=== PATIENT | female | born 1945 | race Caucasian/White ===

== ENCOUNTER 2016-07-31 07:03 | Emergency (ER) | payer OTHER, MEDICAID ==
--- NOTE | 2016-07-31 07:10 | EDPHY ---
H & P HPI/ROS: CHIEF COMPLAINT: chest pain HISTORY OF PRESENT ILLNESS: Patient is a 70-year-old female who presents to the emergency department via EMS with report of chest pain. She states it was substernal. It is worse with movement. She described as moderate. No associated shortness of breath or diaphoresis. She took Celebrex her symptoms improved. She has no chest pain at this time. No cough or fever. No leg pain or swelling. Patient does have a history of depression and anxiety. She states she was pretty anxious this morning. EMS reports that the patient told this patch that she wanted to . The patient denies suicidal ideation. She states she said that because she was having the chest pain. Per report her initial systolic blood pressure was 2/100. Without medication the patient's systolic blood pressure dropped to 150. REVIEW OF SYSTEMS: My complete review of systems is negative except as mentioned in the HPI. Past Medical/Surgical History: Includes hypothyroidism, bipolar, anxiety, MS, breast cancer Includes lumpectomy Social history: Patient denies alcohol. Smoking Status: Former smoker Physical Exam: Vitals noted GENERAL: Well-appearing, in no acute distress, alert. HEENT: Eyes normal to inspection, normal pharynx, no signs of dehydration. NECK: No thyromegaly, no lymphadenopathy, supple. RESPIRATORY: Clear to auscultation bilaterally, no rales, rhonchi or wheezing. Chest wall: No chest wall tenderness palpation. CVS: Regular rate and rhythm, no rubs, murmurs, or gallops. ABDOMEN: Soft, nontender, nondistended, no organomegaly. BACK: Normal to inspection, no CVA tenderness. SKIN: Normal color, no rash, warm, dry. No pallor. EXTREMITIES: No pedal edema, no calf tenderness, no Homans sign or cords, no joint swelling. NEURO/PSYCH: Alert and oriented, normal mood and affect, normal motor sensory exam. Constitutional: Initial Vital Signs Temperature (C) 36.2 C 07/31/16 07:19 Heart Rate 78 07/31/16 07:19 Respiratory Rate 17 07/31/16 07:19 Blood Pressure 138/89 H 07/31/16 07:19 O2 Sat (%) 96 07/31/16 07:19 O2 Delivery Mode Room Air Allergies/Adverse Reactions: No Known Allergies Allergy (Verified 12/06/15 01:28) Home Medications: Medication Instructions Recorded Neurontin 05/19/12 Synthroid 02/16/14 Temazepam 05/19/14 Vyvanse 05/19/14 Promethazine HCl [Phenergan] 25 mg PO Q6 PRN #10 tab 11/28/15 Medical Decision Making - Diagnostics EKG Interpretation: EKG shows normal sinus rhythm, normal rate, normal axis, normal intervals. There are no ST or T-wave abnormalities. EKG is normal as interpreted by me. ED Course/Re-evaluation: In the emergency department I met EMS on arrival in took report from the hydrator operator. He stated that at she appears much better at this point. He reports that she was quite anxious on arrival. I rechecked the patient on numerous occasions while here. Her symptoms had completely resolved. 845: The patient is doing well. She requests discharge home. She has no complaints. I discussed her laboratory findings and x-ray results. She will return with worsening symptoms. She was given warnings prior to leaving. Differential Diagnosis: My differential includes but is not limited to ACS, acute PR, myocarditis, pericarditis, aortic aneurysm, aortic dissection, pulmonary embolus, costochondritis, pleurisy, anxiety, depression, suicidal ideation - Data Points Laboratory Results: Laboratory Results 07/31/16 07:25 07/31/16 07:25 07/31/16 07:25 WBC 7.25 10^3/uL (3.80-9.50) RBC 5.19 10^6/uL (4.18-5.33) Hgb 16.8 H g/dL (12.6-16.3) Hct 48.4 H % (38.0-47.0) MCV 93.3 fL (81.5-99.8) MCH 32.4 pg (27.9-34.1) MCHC 34.7 g/dL (32.4-36.7) RDW 13.2 % (11.5-15.2) Plt Count 332 10^3/uL (150-400) MPV 9.8 fL (8.7-11.7) Neut % (Auto) 72.8 % (39.3-74.2) Lymph % (Auto) 19.4 % (15.0-45.0) [place] % (Auto) 5.5 % (4.5-13.0) Eos % (Auto) 1.2 % (0.6-7.6) Baso % (Auto) 0.8 % (0.3-1.7) Nucleat RBC Rel Count 0.0 % (0.0-0.2) Absolute Neuts (auto) 5.27 10^3/uL (1.70-6.50) Absolute Lymphs (auto) 1.41 10^3/uL (1.00-3.00) Absolute Monos (auto) 0.40 10^3/uL (0.30-0.80) Absolute Eos (auto) 0.09 10^3/uL (0.03-0.40) Absolute Basos (auto) 0.06 10^3/uL (0.02-0.10) Absolute Nucleated RBC 0.00 10^3/uL (0-0.01) Immature Gran % 0.3 % (0.0-1.1) Immature Gran # 0.02 10^3/uL (0.00-0.10) Sodium 141 mEq/L (134-144) Potassium 4.5 mEq/L (3.5-5.2) Chloride 102 mEq/L (97-110) Carbon Dioxide 25 mEq/l (22-31) Anion Gap 14 mEq/L (8-16) BUN 16 mg/dL (7-23) Creatinine 0.9 mg/dL (0.6-1.0) Estimated GFR > 60 Glucose 137 H mg/dL (70-100) Calcium 10.1 mg/dL (8.5-10.4) Troponin I < 0.012 ng/mL (0-0.034) Medications Given: Discontinued Medications Aspirin (Aspirin) 324 mg PO EDNOW ONE Stop: 07/31/16 07:13 Last Admin: 07/31/16 07:29 Dose: 324 mg Ondansetron HCl (Zofran Odt) 4 mg PO EDNOW ONE Stop: 07/31/16 07:31 Last Admin: 07/31/16 07:54 Dose: 4 mg Departure - Departure Disposition: Home, Routine, Self-Care Clinical Impression: Chest pain Qualifiers: Chest pain type: other chest pain Qualifier Code: (R07.89) Other chest pain Condition: Good Instructions: Chest Pain (ED) Additional Instructions: Return with increasing pain, shortness of breath, fever or any other concerns. Referrals: [facility] [Outside] - 5-7 days, call for appt.
[2016-07-31] MEDS ORDERED: ASPIRIN 81 MG CHEWABLE TAB PO ONE (07:12)
[2016-07-31 07:22] VITALS: TEMP 97.2
--- NOTE | 2016-07-31 07:28 | CPEKG ---
Heart Rate: 60 RR Interval: 1000 P-R Interval: 172 QRSD Interval: 90 QT Interval: 432 QTC Interval: 432 P [place]: 69 QRS [place]: 65 T Wave [place]: 77 EKG Severity - NORMAL ECG - EKG Impression: SINUS RHYTHM Electronically Signed By: Deedee Arambula 31-Jul-2016 14:59:13
[2016-07-31] MEDS ORDERED: ONDANSETRON DISINTEGRATING 4 MG TAB PO ONE (07:30)
[2016-07-31 07:32] LABS: % IMMATURE GRANULYOCYTES 0.3 % (0.0-1.1); ABSOLUTE IMMATURE GRANULOCYTES 0.02 10^3/uL (0.00-0.10); ADD DIFF? NO; ADD MORPH? NO; ADD SCAN? NO; ATYPICAL LYMPHOCYTE FLAG 0 (0-99); FRAGMENT RBC FLAG 0 (0-99); HEMATOCRIT 48.4 % (38.0-47.0); HEMOGLOBIN 16.8 g/dL (12.6-16.3); LEFT SHIFT FLG 0 (0-99); LIPEMIA HEMOLYSIS FLAG 90 (0-99); MEAN CELL HEMOGLOBIN 32.4 pg (27.9-34.1); MEAN CELL HEMOGLOBIN CONCENTR. 34.7 g/dL (32.4-36.7); MEAN CELL VOLUME 93.3 fL (81.5-99.8); MEAN PLATELET VOLUME 9.8 fL (8.7-11.7); PLATELET CLUMPS FLAG 10 (0-99); PLATELET COUNT 332 10^3/uL (150-400); RED BLOOD CELL COUNT 5.19 10^6/uL (4.18-5.33); RED CELL DISTRIBUTION WIDTH 13.2 % (11.5-15.2)
[2016-07-31 07:51] LABS: ANION GAP 14 mEq/L (8-16); CALCIUM 10.1 mg/dL (8.5-10.4); CARBON DIOXIDE 25 mEq/l (22-31); CHLORIDE 102 mEq/L (97-110); CREATININE 0.9 mg/dL (0.6-1.0); GLOMERULAR FILTRATION RATE > 60; GLUCOSE 137 mg/dL (70-100); POTASSIUM 4.5 mEq/L (3.5-5.2); SODIUM 141 mEq/L (134-144)
[2016-07-31 08:02] LABS: TROPONIN I < 0.012 ng/mL (0-0.034)
[2016-07-31 08:58] VITALS: BP 148/96; PULSE 83; RESP 14; O2SAT 96
--- NOTE | 2016-07-31 09:08 | DX ---
PA Upright and Lateral Views of the Chest, 6:56 AM on July 31, 2016 Clinical History: 70-year-old female with intermittent chest pain and dizziness for 2 days with a for arlette tobacco use history. Comparison Study: Chest, dated 06/02/2014. Findings: There is a sigmoid-shaped thoracolumbar scoliosis. The cardiac and mediastinal silhouette i s stable in size, with some thoracic aortic ectasia. The lungs are hyperexpanded, consistent with und erlying COPD. There is no focal alveolar consolidation, pleural effusion, or peripheral interstitial edema. On the lateral view, the bones are demineralized, and there is a mild kyphosis with no vipul anjana fracture. Impression: No acute abnormality, or substantial change from 06/02/2014.
== END 2016-07-31 09:03 | disposition home or self-care (01) ==
LOC: EDUNIT#
DX: R07.89 Other chest pain (principal); Z85.3 Personal history of malignant neoplasm of breast; Z87.891 Personal history of nicotine dependence

== ENCOUNTER → 2016-08-10 | Outpatient (CLI) | payer OTHER, MEDICAID | LOC: BMCIMAGING 09:31 | PROVIDERS: ATTEND Orthopaedic Surgery | DX: M25.552 Pain in left hip (principal) ==

== ENCOUNTER 2016-08-14 05:46 | Emergency (ER) | payer OTHER, MEDICAID ==
--- NOTE | 2016-08-14 05:57 | EDPHY ---
H & P Time Seen by Provider: 08/14/16 05:54 HPI/ROS: Chief complaint: Chest pain and nausea HPI: 70-year-old female with a history of MS presenting complaining of constant 6/10 chest pain since yesterday morning. Patient had a similar episode 2 weeks ago was seen here and evaluated and discharged home. Patient is also complaining of some nausea. States she has vomited twice this morning. No fevers or chills. No cough. No shortness of breath. She diet denies any aggravating or alleviating factors. She has been seen this for this in the past multiple times and has not negative workup. Patient states that she did not follow up with her primary care physician at her last visit. She was instructed to follow up with Cardiology but has failed to do so. ROS: 10 point Review of Systems is negative except as noted in the HPI. Past medical history: MS Hypothyroidism bipolar disorder Anxiety Breast cancer, status post lumpectomy Physical exam: Gen: Awake, Alert, No Distress HEENT: Nose: no rhinorrhea Eyes: PERRLA, EOMI Mouth: Moist mucosa Neck: Supple, no JVD Chest: nontender, lungs clear to auscultation Heart: S1, S2 normal, no murmur Abd: Soft, non-tender, no guarding Back: no CVA tenderness, no midline tenderness Ext: no edema, non-tender Skin: no rash Neuro: CN II-XII intact, Sensation grossly intact, Strength 5/5 in bilateral upper and lower extremities - Medical/Surgical History Hx Asthma: No Hx Chronic Respiratory Disease: No Hx Diabetes: No Hx Cardiac Disease: No Hx Renal Disease: No Hx Cirrhosis: No Hx Alcoholism: No Hx HIV/AIDS: No Hx Splenectomy or Spleen Trauma: No Other PMH: Hypothyroid, bipolar, MS, osteoporosis, anxiety, Breast CA (Rt), - Social History Smoking Status: Former smoker Constitutional: Initial Vital Signs Temperature (C) 36.6 C 08/14/16 06:19 Heart Rate 74 08/14/16 06:19 Respiratory Rate 16 08/14/16 06:19 Blood Pressure 169/102 H 08/14/16 06:19 O2 Sat (%) 95 08/14/16 06:19 O2 Delivery Mode Room Air Allergies/Adverse Reactions: No Known Allergies Allergy (Verified 08/14/16 06:19) Home Medications: Medication Instructions Recorded Neurontin 05/19/12 Synthroid 02/16/14 Temazepam 05/19/14 Vyvanse 05/19/14 Promethazine HCl [Phenergan] 25 mg PO Q6 PRN #10 tab 11/28/15 Medical Decision Making - Diagnostics EKG Interpretation: ECG: Time 6:15 a.m.: Sinus rhythm with a rate of 65. Normal axis. Normal intervals. No acute ST or T-wave changes. Impression: Normal ECG. ED Course/Re-evaluation: 70-year-old female presenting with atypical chest pain since yesterday with some nausea this morning. She had a similar episode 2 weeks ago with a negative workup. ECG is normal. Blood work is unremarkable. There are no findings to suggest acute coronary syndrome. Plan will be to discharge with follow-up with primary care physician and she needs to follow up with Cardiology as well for stress testing and further evaluation. - Data Points Laboratory Results: Laboratory Results 08/14/16 06:05 08/14/16 08/14/16 06:05 06:05 WBC 7.62 10^3/uL 10^3/uL (3.80-9.50) RBC 5.09 10^6/uL 10^6/uL (4.18-5.33) Hgb 16.4 g/dL H g/dL (12.6-16.3) Hct 47.2 % H % (38.0-47.0) MCV 92.7 fL fL (81.5-99.8) MCH 32.2 pg pg (27.9-34.1) MCHC 34.7 g/dL g/dL (32.4-36.7) RDW 13.1 % % (11.5-15.2) Plt Count 288 10^3/uL 10^3/uL (150-400) MPV 9.4 fL fL (8.7-11.7) Neut % (Auto) 65.8 % % (39.3-74.2) Lymph % (Auto) 24.5 % % (15.0-45.0) [place] % (Auto) 6.2 % % (4.5-13.0) Eos % (Auto) 2.2 % % (0.6-7.6) Baso % (Auto) 0.9 % % (0.3-1.7) Nucleat RBC Rel Count 0.0 % % (0.0-0.2) Absolute Neuts (auto) 5.01 10^3/uL 10^3/uL (1.70-6.50) Absolute Lymphs (auto) 1.87 10^3/uL 10^3/uL (1.00-3.00) Absolute Monos (auto) 0.47 10^3/uL 10^3/uL (0.30-0.80) Absolute Eos (auto) 0.17 10^3/uL 10^3/uL (0.03-0.40) Absolute Basos (auto) 0.07 10^3/uL 10^3/uL (0.02-0.10) Absolute Nucleated RBC 0.00 10^3/uL 10^3/uL (0-0.01) Immature Gran % 0.4 % % (0.0-1.1) Immature Gran # 0.03 10^3/uL 10^3/uL (0.00-0.10) Sodium Pending Potassium Pending Chloride Pending Carbon Dioxide Pending Anion Gap Pending BUN Pending Creatinine Pending Estimated GFR Pending Glucose Pending Calcium Pending Troponin I Pending Medications Given: Discontinued Medications Sodium Chloride (Ns) 1,000 mls @ 0 mls/hr IV ONCE ONE PRN Reason: Wide Open Stop: 08/14/16 06:26 Last Admin: 08/14/16 06:25 Dose: 1,000 mls Ondansetron HCl (Zofran) 4 mg IVP EDNOW ONE Stop: 08/14/16 06:26 Last Admin: 08/14/16 06:26 Dose: 4 mg Departure - Departure Disposition: Home, Routine, Self-Care Clinical Impression: Atypical chest pain, Nausea Condition: Good Instructions: Chest Pain (ED) Additional Instructions: Follow up with her primary care physician in next 2-3 days. It is very important that you follow up with Cardiology as well for further evaluation. Return to the emergency depart for increasing pain, shortness of breath, fevers , chills, nausea, vomiting, or any other concerns. Referrals: Leann Rivera MD [Primary Care Provider] - As per Instructions Abhishek Prabhakar MD [Medical Doctor] - As per Instructions
[2016-08-14] MEDS ORDERED: ONDANSETRON 4 MG/2 ML VIAL ONE (06:02)
[2016-08-14 06:14] LABS: % IMMATURE GRANULYOCYTES 0.4 % (0.0-1.1); ABSOLUTE IMMATURE GRANULOCYTES 0.03 10^3/uL (0.00-0.10); ADD DIFF? NO; ADD MORPH? NO; ADD SCAN? NO; ATYPICAL LYMPHOCYTE FLAG 0 (0-99); FRAGMENT RBC FLAG 0 (0-99); HEMATOCRIT 47.2 % (38.0-47.0); HEMOGLOBIN 16.4 g/dL (12.6-16.3); LEFT SHIFT FLG 0 (0-99); LIPEMIA HEMOLYSIS FLAG 90 (0-99); MEAN CELL HEMOGLOBIN 32.2 pg (27.9-34.1); MEAN CELL HEMOGLOBIN CONCENTR. 34.7 g/dL (32.4-36.7); MEAN CELL VOLUME 92.7 fL (81.5-99.8); MEAN PLATELET VOLUME 9.4 fL (8.7-11.7); PLATELET CLUMPS FLAG 0 (0-99); PLATELET COUNT 288 10^3/uL (150-400); RED BLOOD CELL COUNT 5.09 10^6/uL (4.18-5.33); RED CELL DISTRIBUTION WIDTH 13.1 % (11.5-15.2)
[2016-08-14 06:20] VITALS: RESP 16; TEMP 97.9
[2016-08-14] MEDS ORDERED: ONDANSETRON 4 MG/2 ML VIAL IVP ONE (06:25)
[2016-08-14] MEDS ORDERED: NS 1,000 ML IV ONE (06:25)
[2016-08-14 06:36] LABS: ANION GAP 12 mEq/L (8-16); CARBON DIOXIDE 26 mEq/l (22-31); CHLORIDE 102 mEq/L (97-110); CREATININE 0.9 mg/dL (0.6-1.0); GLOMERULAR FILTRATION RATE > 60; GLUCOSE 120 mg/dL (70-100); POTASSIUM 4.3 mEq/L (3.5-5.2); SODIUM 140 mEq/L (134-144)
[2016-08-14 06:45] LABS: TROPONIN I 0.012 ng/mL (0-0.034)
[2016-08-14] MEDS ORDERED: ONDANSETRON 4MG PREPACK#2 BTL TAKEHOME ONE (06:53)
[2016-08-14 06:54] VITALS: BP 144/92; PULSE 82; O2SAT 94
[2016-08-14 07:03] LABS: COLOR YELLOW; LEUKOCYTE ESTERASE,URINE 1+ (NEGATIVE); NITRITE,URINE NEGATIVE (NEGATIVE)
[2016-08-14 07:08] LABS: BACTERIA TRACE /hpf (NONE SEEN); MUCUS TRACE /lpf (NONE-1+)
--- NOTE | 2016-08-14 20:56 | CPEKG ---
Heart Rate: 65 RR Interval: 923 P-R Interval: 164 QRSD Interval: 92 QT Interval: 444 QTC Interval: 462 P [place]: 36 QRS [place]: 70 T Wave [place]: 67 EKG Severity - NORMAL ECG - EKG Impression: SINUS RHYTHM Electronically Signed By: Ryan Lloyd 15-Aug-2016 16:52:25
== END 2016-08-14 07:06 | disposition home or self-care (01) ==
LOC: EDUNIT#
DX: R11.0 Nausea (principal); R07.89 Other chest pain; Z85.3 Personal history of malignant neoplasm of breast; Z87.891 Personal history of nicotine dependence
CPT/HCPCS: 93005; 96361; 96374; 99284; J2405

== ENCOUNTER 2016-10-15 03:09 | Emergency (ER) | payer OTHER, MEDICAID ==
[2016-10-15] MEDS ORDERED: LORazepam 2 MG/ML INJ IVP ONE (04:28)
[2016-10-15] MEDS ORDERED: NS 1,000 ML IV ONE (04:28)
[2016-10-15] MEDS ORDERED: MECLIZINE HCL 25 MG TAB PO ONE (04:28)
--- NOTE | 2016-10-15 04:32 | EDPHY ---
H & P Stated Complaint: n/v dizzy Time Seen by Provider: 10/15/16 04:00 HPI/ROS: HPI The patient presents with dizziness which came on earlier this evening while she was trying to sleep. She says she has not been able to sleep for about 2 days as she was recently taken off Restoril and started on Ambien but has run out of the Ambien. She said she was lying in bed when she felt the acute onset of dizziness which she describes as the room spinning. This is worse upon standing and relieved by rest. She has some nausea without vomiting. She does not have a headache, changes in her vision. She has had vertigo before which improved on its own. She is brought in by ambulance. REVIEW OF SYSTEMS Constitutional: No fever, no chills. Eyes: No discharge. ENT: No sore throat. Cardiovascular: No chest pain, no palpitations. Respiratory: No cough, no shortness of breath. Gastrointestinal: No abdominal pain, nausea is present Genitourinary: No hematuria. Musculoskeletal: No back pain. Skin: No rashes. Neurological: No headache. PMHx: Bipolar disorder, anxiety, multiple sclerosis Soc Hx: Lives independently PHYSICAL General Appearance: Alert, no distress Eyes: Pupils equal and round no pallor or injection ENT, Mouth: Mucous membranes moist Respiratory: There are no retractions, lungs are clear to auscultation Cardiovascular: Regular rate and rhythm Gastrointestinal: Abdomen is soft and non-tender, no masses, bowel sounds normal Neurological: Alert and oriented x3, cranial nerves 2-12 intact, 5/5 strength in upper and lower extremities which is symmetric, normal finger to nose and heel to erwin testing, normal gait Skin: Warm and dry, no rashes Musculoskeletal: Neck is supple non tender Extremities: symmetrical, full range of motion Psychiatric: Patient is oriented X 3, there is no agitation Source: Patient Exam Limitations: No limitations - Personal History Current Tetanus/Diphtheria Vaccine: Yes Current Tetanus Diphtheria and Acellular Pertussis (TDAP): Yes - Medical/Surgical History Hx Asthma: No Hx Chronic Respiratory Disease: No Hx Diabetes: No Hx Cardiac Disease: No Hx Renal Disease: No Hx Cirrhosis: No Hx Alcoholism: No Hx HIV/AIDS: No Hx Splenectomy or Spleen Trauma: No Other PMH: Hypothyroid, bipolar, MS, osteoporosis, anxiety, Breast CA (Rt), - Social History Smoking Status: Former smoker Constitutional: Initial Vital Signs Temperature (C) 36.4 C 10/15/16 03:23 Heart Rate 84 10/15/16 03:23 Respiratory Rate 18 10/15/16 03:23 Blood Pressure 166/108 H 10/15/16 03:23 O2 Sat (%) 94 10/15/16 03:23 O2 Delivery Mode Room Air Allergies/Adverse Reactions: No Known Allergies Allergy (Verified 08/14/16 06:19) Home Medications: Medication Instructions Recorded Neurontin 05/19/12 Synthroid 02/16/14 Temazepam 05/19/14 Vyvanse 05/19/14 Promethazine HCl [Phenergan] 25 mg PO Q6 PRN #10 tab 11/28/15 Celebrex 10/15/16 Copaxone 10/15/16 Zyprexa 10/15/16 Medical Decision Making Differential Diagnosis: This is a 70-year-old female with past psychiatric history who presents from home with dizziness in the setting of insomnia. Her dizziness sounds to be vertigo. She does not have a headache, vomiting, any cerebellar signs on exam, making central vertigo unlikely. I feel she likely has BPPV, possibly provoked by her insomnia. This also could be a medication side effect as she has recently started Ambien. In the emergency room, she was given IV fluids, meclizine and a small dose of Ativan. This improved her symptoms completely. She was able to walk around the emergency room without any difficulty. She will be discharged home. - Data Points Medications Given: Discontinued Medications Sodium Chloride (Ns) 1,000 mls @ 0 mls/hr IV ONCE ONE PRN Reason: Wide Open Stop: 10/15/16 04:29 Last Admin: 10/15/16 04:46 Dose: 1,000 mls Lorazepam (Ativan Injection) 0.5 mg IVP EDNOW ONE Stop: 10/15/16 04:29 Last Admin: 10/15/16 04:46 Dose: 0.5 mg Meclizine HCl (Meclizine Hcl) 25 mg PO EDNOW ONE Stop: 10/15/16 04:29 Last Admin: 10/15/16 04:46 Dose: 25 mg Departure - Departure Disposition: Home, Routine, Self-Care Clinical Impression: Vertigo Condition: Good Instructions: Vertigo (ED), Insomnia (ED) Additional Instructions: Please follow up with your regular doctor in the next 1-2 days. Referrals: Leann Rivera MD [Primary Care Provider] - As per Instructions
[2016-10-15 06:02] VITALS: BP 119/88; PULSE 91; RESP 93; TEMP 98.1; O2SAT 93
[2016-10-15] MEDS ORDERED: ONDANSETRON 4MG PREPACK#2 BTL TAKEHOME ONE ×2 (06:05→06:06)
== END 2016-10-15 06:09 | disposition home or self-care (01) ==
LOC: EDUNIT#
DX: R42 Dizziness and giddiness (principal); Z85.3 Personal history of malignant neoplasm of breast; Z87.891 Personal history of nicotine dependence
CPT/HCPCS: 96361; 96374; 99284; J2060

== ENCOUNTER 2016-10-21 09:18 | Emergency (ER) | payer OTHER, MEDICAID ==
[2016-10-21] MEDS ORDERED: NS 1,000 ML IV ONE (09:39)
[2016-10-21] MEDS ORDERED: LORazepam 2 MG/ML INJ IVP ONE (09:39)
--- NOTE | 2016-10-21 09:42 | EDPHY ---
H & P Stated Complaint: Took 10 OTC sleep aid tablets Source: Patient Exam Limitations: No limitations - Personal History Current Tetanus/Diphtheria Vaccine: No Current Tetanus Diphtheria and Acellular Pertussis (TDAP): No - Medical/Surgical History Hx Asthma: No Hx Chronic Respiratory Disease: No Hx Diabetes: No Hx Cardiac Disease: No Hx Renal Disease: No Hx Cirrhosis: No Hx Alcoholism: No Hx HIV/AIDS: No Hx Splenectomy or Spleen Trauma: No Other PMH: Hypothyroid, bipolar, MS, osteoporosis, anxiety, Breast CA (Rt), - Social History Smoking Status: Former smoker Time Seen by Provider: 10/21/16 09:39 HPI/ROS: CHIEF COMPLAINT: Vertigo, insomnia HISTORY OF PRESENT ILLNESS: The patient presents to ED after an intentional overdose of [id number] sleeping medications. The patient has been bothered by insomnia for some time. She had been on Restoril and was recently switched to Ambien by her primary care provider Dr. Leann Rivera. The patient feels as if the Ambien is not helpful in treating her insomnia. The patient denies that she overdosed on sleeping medications as a suicide attempt. Additionally, the patient has been bothered by vertigo for the past week. This seems to be precipitated and exacerbated by her insomnia. The patient does have a history of multiple sclerosis. She denies acute numbness or weakness. The patient does report moderate to severe symptoms of vertigo and nausea. The patient denies additional complaints of headache, fever, cough, new pain, focal neurologic symptoms or other concerns. REVIEW OF SYSTEMS: A comprehensive 10 point review of systems is otherwise negative aside from elements mentioned in the history of present illness. (Eladio Whitley) - Physical Exam Exam: General Appearance: Alert, no distress Eyes: Pupils equal and round no pallor or injection ENT, Mouth: Mucous membranes moist Respiratory: There are no retractions, lungs are clear to auscultation Cardiovascular: Regular rate and rhythm Gastrointestinal: Abdomen is soft and nontender, no masses, bowel sounds normal Neurological: Alert and oriented x4, 5/5 strength noted all 4 extremities, horizontal nystagmus is present with leftward gaze Skin: Warm and dry, no rashes Musculoskeletal: Neck is supple nontender Extremities: symmetrical, full range of motion Psychiatric: Patient is oriented X 3, there is no agitation (Eladio Whitley) Constitutional: Initial Vital Signs Temperature (C) 36.3 C 10/21/16 09:18 Heart Rate 86 10/21/16 09:18 Respiratory Rate 16 10/21/16 09:18 Blood Pressure 143/90 H 10/21/16 09:18 O2 Sat (%) 94 10/21/16 09:18 O2 Delivery Mode Room Air Allergies/Adverse Reactions: No Known Allergies Allergy (Verified 08/14/16 06:19) Home Medications: Medication Instructions Recorded Neurontin 05/19/12 Synthroid 02/16/14 Temazepam 05/19/14 Vyvanse 05/19/14 Promethazine HCl [Phenergan] 25 mg PO Q6 PRN #10 tab 11/28/15 Celebrex 10/15/16 Copaxone 10/15/16 Zyprexa 10/15/16 Medical Decision Making ED Course/Re-evaluation: The patient presents to the ED after she took [id number] sleeping medications for insomnia. The patient denies that she is suicidal but does report she is severely depressed. The patient has been medically cleared for psychiatric evaluation. The patient was given some meclizine and Ativan for vertigo. Her laboratory studies are unremarkable. Psychiatric evaluation is currently occurring at 2:15 p.m.. I do feel the patient can be discharged home from a medical standpoint. The patient will be turned over to Dr. Arambula at shift change. (Eladio Whitley) 1500: At sign out the patient is stable. She is undergoing evaluation. I discussed the case with Psychiatric Services. Per Dr. Jamel Segundo, he REQUESTED THE PATIENT BE GIVEN HER MEDICATIONS UNTIL SUNDAY. THESE PRESCRIPTIONS INCLUDE NEURONTIN 100 MG P.O. AT BEDTIME, ZYPREXA 10 MG P.O. AT BEDTIME, RESTORIL 30 MG 1 CAP P.O. AT BEDTIME P.R.N. INSOMNIA, VYVANSE 70 MG P.O. Q.A.M. AND VYVANSE 20 MG P.O. Q 2:00 P.M. Patient feels comfortable with this plan. She will follow up with the clinic at [facility] on Sunday morning. (Deedee Arambula) Differential Diagnosis: My differential includes but is not limited to suicidal ideation, anxiety, depression, medication compliance (Deedee Arambula) - Data Points Laboratory Results: Laboratory Results 10/21/16 09:20 10/21/16 09:20 10/21/16 10/21/16 10/21/16 12:30 09:20 09:20 WBC 8.04 10^3/uL 10^3/uL (3.80-9.50) RBC 5.19 10^6/uL 10^6/uL (4.18-5.33) Hgb 16.2 g/dL g/dL (12.6-16.3) Hct 47.9 % H % (38.0-47.0) MCV 92.3 fL fL (81.5-99.8) MCH 31.2 pg pg (27.9-34.1) MCHC 33.8 g/dL g/dL (32.4-36.7) RDW 13.2 % % (11.5-15.2) Plt Count 330 10^3/uL 10^3/uL (150-400) MPV 10.0 fL fL (8.7-11.7) Neut % (Auto) 69.0 % % (39.3-74.2) Lymph % (Auto) 20.9 % % (15.0-45.0) [place] % (Auto) 6.5 % % (4.5-13.0) Eos % (Auto) 2.0 % % (0.6-7.6) Baso % (Auto) 1.1 % % (0.3-1.7) Nucleat RBC Rel Count 0.0 % % (0.0-0.2) Absolute Neuts (auto) 5.55 10^3/uL 10^3/uL (1.70-6.50) Absolute Lymphs (auto) 1.68 10^3/uL 10^3/uL (1.00-3.00) Absolute Monos (auto) 0.52 10^3/uL 10^3/uL (0.30-0.80) Absolute Eos (auto) 0.16 10^3/uL 10^3/uL (0.03-0.40) Absolute Basos (auto) 0.09 10^3/uL 10^3/uL (0.02-0.10) Absolute Nucleated RBC 0.00 10^3/uL 10^3/uL (0-0.01) Immature Gran % 0.5 % % (0.0-1.1) Immature Gran # 0.04 10^3/uL 10^3/uL (0.00-0.10) Sodium 140 mEq/L mEq/L (134-144) Potassium 4.5 mEq/L mEq/L (3.5-5.2) Chloride 103 mEq/L mEq/L (97-110) Carbon Dioxide 24 mEq/l mEq/l (22-31) Anion Gap 13 mEq/L mEq/L (8-16) BUN 16 mg/dL mg/dL (7-23) Creatinine 1.0 mg/dL mg/dL (0.6-1.0) Estimated GFR 55 Glucose 132 mg/dL H mg/dL (70-100) Calcium 9.6 mg/dL mg/dL (8.5-10.4) Urine Opiates Screen NEGATIVE (NEGATIVE) Urine Barbiturates NEGATIVE (NEGATIVE) Ur Phencyclidine Scrn NEGATIVE (NEGATIVE) Ur Amphetamine Screen NON-NEGATIVE H (NEGATIVE) U Benzodiazepines Scrn NEGATIVE (NEGATIVE) Urine Cocaine Screen NEGATIVE (NEGATIVE) U Marijuana (THC) Screen NEGATIVE (NEGATIVE) Medications Given: Discontinued Medications Sodium Chloride (Ns) 1,000 mls @ 0 mls/hr IV ONCE ONE PRN Reason: Wide Open Stop: 10/21/16 09:40 Last Admin: 10/21/16 09:42 Dose: 1,000 mls Lorazepam (Ativan Injection) 1 mg IVP EDNOW ONE Stop: 10/21/16 09:40 Last Admin: 10/21/16 09:45 Dose: 1 mg Meclizine HCl (Meclizine Hcl) 25 mg PO EDNOW ONE Stop: 10/21/16 10:01 Last Admin: 10/21/16 10:18 Dose: 25 mg Departure - Departure Disposition: Home, Routine, Self-Care Clinical Impression: ingestion, Depression Insomnia Qualifiers: Insomnia type: primary Qualified Code(s): F51.01 - Primary insomnia Condition: Good Instructions: Depression (ED) Additional Instructions: Fill your prescriptions as directed. If you have worsening symptoms or concerns return to the emergency department. Referrals: Leann Rivera MD [Primary Care Provider] - 1-2 days without fail
[2016-10-21 09:43] LABS: % IMMATURE GRANULYOCYTES 0.5 % (0.0-1.1); ABSOLUTE IMMATURE GRANULOCYTES 0.04 10^3/uL (0.00-0.10); ADD DIFF? NO; ADD MORPH? NO; ADD SCAN? NO; ATYPICAL LYMPHOCYTE FLAG 0 (0-99); FRAGMENT RBC FLAG 0 (0-99); HEMATOCRIT 47.9 % (38.0-47.0); HEMOGLOBIN 16.2 g/dL (12.6-16.3); LEFT SHIFT FLG 0 (0-99); LIPEMIA HEMOLYSIS FLAG 90 (0-99); MEAN CELL HEMOGLOBIN 31.2 pg (27.9-34.1); MEAN CELL HEMOGLOBIN CONCENTR. 33.8 g/dL (32.4-36.7); MEAN CELL VOLUME 92.3 fL (81.5-99.8); PLATELET CLUMPS FLAG 0 (0-99); PLATELET COUNT 330 10^3/uL (150-400); RED BLOOD CELL COUNT 5.19 10^6/uL (4.18-5.33); RED CELL DISTRIBUTION WIDTH 13.2 % (11.5-15.2)
[2016-10-21 09:49] LABS: ANION GAP 13 mEq/L (8-16); CALCIUM 9.6 mg/dL (8.5-10.4); CARBON DIOXIDE 24 mEq/l (22-31); CHLORIDE 103 mEq/L (97-110); GLOMERULAR FILTRATION RATE 55; GLUCOSE 132 mg/dL (70-100); POTASSIUM 4.5 mEq/L (3.5-5.2); SODIUM 140 mEq/L (134-144)
[2016-10-21] MEDS ORDERED: MECLIZINE HCL 25 MG TAB PO ONE (10:00)
[2016-10-21 16:15] VITALS: O2SAT 96
[2016-10-21 18:23] VITALS: BP 130/78; PULSE 80; RESP 16; TEMP 98.4
== END 2016-10-21 18:21 | disposition home or self-care (01) ==
LOC: EDUNIT#
DX: F51.01 Primary insomnia (principal); T42.6X1A Poisoning by other antiepileptic and sedative-hypnotic drugs, accidental (unintentional), initial encounter; F32.9 Major depressive disorder, single episode, unspecified; Z85.3 Personal history of malignant neoplasm of breast; Z87.891 Personal history of nicotine dependence
CPT/HCPCS: 96361; 96374; 99284; J2060; 80305

== ENCOUNTER → 2016-11-22 | Outpatient (CLI) | payer OTHER, MEDICAID | LOC: BMCIMAGING 13:09 | PROVIDERS: ATTEND Orthopaedic Surgery | DX: M25.552 Pain in left hip (principal) ==

== ENCOUNTER 2016-11-26 19:13 | Emergency (ER) | payer OTHER, MEDICAID ==
--- NOTE | 2016-11-26 19:20 | EDPHY ---
H & P HPI/ROS: HPI CHIEF COMPLAINT: Nausea, "I feel anxious" HISTORY OF PRESENT ILLNESS: This patient very pleasant 71-year-old female significant past medical history for MS, bipolar disorder, thyroid disease, anxiety, presents emergency room by EMS as she is tells me that she is feeling very anxious and nauseous. She also complains of right-sided anterior musculoskeletal chest wall pain in her lower costal margin. Denies trauma. She denies left-sided chest pain, numbness or tingling, focal weakness. Denies diaphoresis. Her main complaint is feeling anxious she requesting IV Ativan upon arrival to the emergency room. She did arrive by EMS. She denies abdominal pain. Denies shortness of breath or chest pain except for the right anterior chest wall pain. Past Medical History: Bipolar disorder, MS, anxiety, breast cancer, thyroid disease Past Surgical History: Lumpectomy Social History: Denies daily use of drugs alcohol tobacco Family History: Noncontributory ROS REVIEW OF SYSTEMS: A comprehensive 10 point review of systems is otherwise negative aside from elements mentioned in the history of present illness. Exam Constitutional appears anxious, triage nursing summary reviewed, vital signs reviewed, awake/alert. Eyes normal conjunctivae and sclera, EOMI, PERRLA. HENT normal inspection, atraumatic, moist mucus membranes, no epistaxis, neck supple/ no meningismus, no raccoon eyes. Respiratory clear to auscultation bilaterally, normal breath sounds, no respiratory distress, no wheezing. Cardiovascular rate normal, regular rhythm, no murmur, no edema, distal pulses normal. Gastrointestinal soft, non-tender, no rebound, no guarding, normal bowel sounds, no distension, no pulsatile mass. Genitourinary no CVA tenderness. Musculoskeletal no midline vertebral tenderness, full range of motion, no calf swelling, no tenderness of extremities, no meningismus, good pulses, neurovascularly intact. Skin pink, warm, & dry, no rash, skin atraumatic. Neurologic awake, alert and oriented x 3, AAOx3, moves all 4 extremities equally, motor intact, sensory intact, CN II-XII intact, normal cerebellar, normal vision, normal speech. Psychiatric normal mood/affect. Heme/Lymph/Immune no lymphadenopathy. Differential Diagnosis: Includes but is not limited to in a particular order acute anxiety, dehydration, electrolyte disturbance, urinary tract infection, right musculoskeletal chest wall pain. Medical Decision Making: Plan for this patient IV establishment, full environmental monitoring technician, EKG, chest x-ray, IV Ativan for acute anxiety, IV fluids, check electrolytes, check urinalysis. Re-evaluate after IV Ativan for acute anxiety. Re-evaluation: EKG interpretation by me on record in [facility] system. Impression time of EKG 2016, sinus rhythm rate of 66, no acute ischemia specifically no ST elevation, ST depression T-wave abnormalities 2108: Re-examination at this time patient resting comfortably. She feels much better after IV Ativan. Nausea resolved. She is nonischemic EKG normal troponin. Normal chest x-ray. Feels much better after IV Ativan. Tells me her anxiety is much improved after IV Ativan. She is requesting be discharged home. She is comfortable this plan. Vital signs stable. Ativan may great improvement. She does understand return emergency room if she develops any worsening symptoms questions or concerns. Denies chest pain, shortness of breath, abdominal pain nausea vomiting at this time. Source: Patient - Medical/Surgical History Hx Asthma: No Hx Chronic Respiratory Disease: No Hx Diabetes: No Hx Cardiac Disease: No Hx Renal Disease: No Hx Cirrhosis: No Hx Alcoholism: No Hx HIV/AIDS: No Hx Splenectomy or Spleen Trauma: No Other PMH: Hypothyroid, bipolar, MS, osteoporosis, anxiety, Breast CA (Rt), - Social History Smoking Status: Former smoker Constitutional: Initial Vital Signs Temperature (C) 36.5 C 11/26/16 19:15 Heart Rate 63 11/26/16 19:15 Respiratory Rate 18 11/26/16 19:15 Blood Pressure 169/97 H 11/26/16 19:15 O2 Sat (%) 95 11/26/16 19:15 O2 Delivery Mode Room Air Allergies/Adverse Reactions: No Known Allergies Allergy (Verified 08/14/16 06:19) Home Medications: Medication Instructions Recorded Neurontin 05/19/12 Synthroid 02/16/14 Vyvanse 05/19/14 Celebrex 10/15/16 Zyprexa 10/15/16 Temazepam [Restoril] 30 mg PO HS PRN #3 capsule 10/21/16 Medical Decision Making - Diagnostics Imaging Results: Imaging Impressions Chest X-Ray 11/26/16 19:25 Impression: 1. Mild cardiomegaly. 2. Thoracic dextroscoliosis. 3. No definite pneumonia or pulmonary edema. - Data Points Laboratory Results: Laboratory Results 11/26/16 19:18 11/26/16 19:18 11/26/16 11/26/16 11/26/16 19:18 19:18 19:18 WBC 10.55 10^3/uL H 10^3/uL (3.80-9.50) RBC 5.32 10^6/uL 10^6/uL (4.18-5.33) Hgb 16.6 g/dL H g/dL (12.6-16.3) Hct 49.4 % H % (38.0-47.0) MCV 92.9 fL fL (81.5-99.8) MCH 31.2 pg pg (27.9-34.1) MCHC 33.6 g/dL g/dL (32.4-36.7) RDW 13.6 % % (11.5-15.2) Plt Count 346 10^3/uL 10^3/uL (150-400) MPV 8.9 fL fL (8.7-11.7) Neut % (Auto) 64.6 % % (39.3-74.2) Lymph % (Auto) 27.1 % % (15.0-45.0) [place] % (Auto) 5.4 % % (4.5-13.0) Eos % (Auto) 1.5 % % (0.6-7.6) Baso % (Auto) 0.9 % % (0.3-1.7) Nucleat RBC Rel Count 0.0 % % (0.0-0.2) Absolute Neuts (auto) 6.81 10^3/uL H 10^3/uL (1.70-6.50) Absolute Lymphs (auto) 2.86 10^3/uL 10^3/uL (1.00-3.00) Absolute Monos (auto) 0.57 10^3/uL 10^3/uL (0.30-0.80) Absolute Eos (auto) 0.16 10^3/uL 10^3/uL (0.03-0.40) Absolute Basos (auto) 0.10 10^3/uL 10^3/uL (0.02-0.10) Absolute Nucleated RBC 0.00 10^3/uL 10^3/uL (0-0.01) Immature Gran % 0.5 % % (0.0-1.1) Immature Gran # 0.05 10^3/uL 10^3/uL (0.00-0.10) PT 13.3 SEC SEC (12.0-15.0) INR 1.02 (0.83-1.16) APTT 33.3 SEC SEC (23.0-38.0) Sodium 139 mEq/L mEq/L (134-144) Potassium 4.3 mEq/L mEq/L (3.5-5.2) Chloride 101 mEq/L mEq/L (97-110) Carbon Dioxide 23 mEq/l mEq/l (22-31) Anion Gap 15 mEq/L mEq/L (8-16) BUN 16 mg/dL mg/dL (7-23) Creatinine 1.0 mg/dL mg/dL (0.6-1.0) Estimated GFR 55 Glucose 99 mg/dL mg/dL (70-100) Calcium 10.1 mg/dL mg/dL (8.5-10.4) Total Bilirubin 0.8 mg/dL mg/dL (0.1-1.4) Conjugated Bilirubin 0.2 mg/dL mg/dL (0.0-0.5) Unconjugated Bilirubin 0.6 mg/dL mg/dL (0.0-1.1) AST 24 IU/L IU/L (14-46) ALT 25 IU/L IU/L (9-52) Alkaline Phosphatase 109 IU/L IU/L (38-126) Troponin I < 0.012 ng/mL ng/mL (0-0.034) Total Protein 7.9 g/dL g/dL (6.3-8.2) Albumin 4.6 g/dL g/dL (3.5-5.0) Lipase 69.0 IU/L IU/L (23-300) Ethyl Alcohol < 10 mg/dL mg/dL (0-10) Medications Given: Discontinued Medications Sodium Chloride (Ns) 1,000 mls @ 0 mls/hr IV ONCE ONE; Wide Open PRN Reason: Protocol Stop: 11/26/16 19:25 Last Admin: 11/26/16 19:30 Dose: 1,000 mls Lorazepam (Ativan Injection) 1 mg IVP EDNOW ONE Stop: 11/26/16 19:26 Last Admin: 11/26/16 19:30 Dose: 1 mg Departure - Departure Disposition: Home, Routine, Self-Care Clinical Impression: Anxiety Condition: Good Instructions: Anxiety (ED) Additional Instructions: 1. Return emergency room if you have any worsening symptoms includes further anxiety, vomiting chest pain or shortness of breath. Referrals: Patient,NotPresent [Unknown] - As per Instructions
[2016-11-26] MEDS ORDERED: NS 1,000 ML IV ONE (19:24)
[2016-11-26] MEDS ORDERED: LORazepam 2 MG/ML INJ IVP ONE (19:25)
[2016-11-26] MEDS ORDERED: LORazepam 2 MG/ML INJ ONE (19:26)
[2016-11-26 19:27] VITALS: TEMP 97.7
[2016-11-26 19:36] LABS: % IMMATURE GRANULYOCYTES 0.5 % (0.0-1.1); ABSOLUTE IMMATURE GRANULOCYTES 0.05 10^3/uL (0.00-0.10); ADD DIFF? NO; ADD MORPH? NO; ADD SCAN? NO; ATYPICAL LYMPHOCYTE FLAG 0 (0-99); FRAGMENT RBC FLAG 0 (0-99); HEMATOCRIT 49.4 % (38.0-47.0); HEMOGLOBIN 16.6 g/dL (12.6-16.3); LEFT SHIFT FLG 0 (0-99); LIPEMIA HEMOLYSIS FLAG 80 (0-99); MEAN CELL HEMOGLOBIN 31.2 pg (27.9-34.1); MEAN CELL HEMOGLOBIN CONCENTR. 33.6 g/dL (32.4-36.7); MEAN CELL VOLUME 92.9 fL (81.5-99.8); MEAN PLATELET VOLUME 8.9 fL (8.7-11.7); PLATELET CLUMPS FLAG 0 (0-99); PLATELET COUNT 346 10^3/uL (150-400); RED BLOOD CELL COUNT 5.32 10^6/uL (4.18-5.33); RED CELL DISTRIBUTION WIDTH 13.6 % (11.5-15.2)
[2016-11-26 19:41] LABS: APTT 33.3 SEC (23.0-38.0); INR 1.02 (0.83-1.16); PROTIME(PATIENT) 13.3 SEC (12.0-15.0)
[2016-11-26 20:14] LABS: ALANINE AMINOTRANSFERASE 25 IU/L (9-52); ALBUMIN 4.6 g/dL (3.5-5.0); ALKALINE PHOSPHATASE 109 IU/L (38-126); ANION GAP 15 mEq/L (8-16); ASPARTATE AMINOTRANSFERASE 24 IU/L (14-46); BILIRUBIN,TOTAL 0.8 mg/dL (0.1-1.4); BILIRUBIN-CONJUGATED 0.2 mg/dL (0.0-0.5); BILIRUBIN-UNCONJUGATED 0.6 mg/dL (0.0-1.1); CALCIUM 10.1 mg/dL (8.5-10.4); CARBON DIOXIDE 23 mEq/l (22-31); CHLORIDE 101 mEq/L (97-110); ETHANOL SERUM < 10 mg/dL (0-10); GLOMERULAR FILTRATION RATE 55; GLUCOSE 99 mg/dL (70-100); POTASSIUM 4.3 mEq/L (3.5-5.2); SODIUM 139 mEq/L (134-144); TOTAL PROTEIN 7.9 g/dL (6.3-8.2)
[2016-11-26 20:24] LABS: TROPONIN I < 0.012 ng/mL (0-0.034)
--- NOTE | 2016-11-26 21:12 | CPEKG ---
Heart Rate: 66 RR Interval: 909 P-R Interval: 168 QRSD Interval: 84 QT Interval: 424 QTC Interval: 445 P Alta: 65 QRS [place]: 59 T Wave [place]: 55 EKG Severity - ABNORMAL ECG - EKG Impression: SINUS RHYTHM EKG Impression: RIGHT ATRIAL ABNORMALITY Electronically Signed By: Rudy Kim 26-Nov-2016 22:55:14
[2016-11-26 21:14] VITALS: BP 113/72; PULSE 81; RESP 13; O2SAT 94
== END 2016-11-26 21:31 | disposition home or self-care (01) ==
LOC: EDUNIT#
DX: F41.9 Anxiety disorder, unspecified (principal); Z85.3 Personal history of malignant neoplasm of breast; Z87.891 Personal history of nicotine dependence
CPT/HCPCS: 71020; 93005; 96361; 96374; 99285; J2060; G0480

== ENCOUNTER 2017-01-22 06:11 | Emergency (ER) | payer OTHER, MEDICAID ==
[2017-01-22 06:21] VITALS: RESP 16; TEMP 97.7
[2017-01-22] MEDS ORDERED: LORazepam 2 MG/ML INJ IVP ONE (06:22)
[2017-01-22] MEDS ORDERED: NS 1,000 ML IV ONE (06:22)
--- NOTE | 2017-01-22 06:25 | EDPHY ---
H & P Stated Complaint: c/o n/v and R sided cp - Medical/Surgical History Hx Asthma: No Hx Chronic Respiratory Disease: No Hx Diabetes: No Hx Cardiac Disease: No Hx Renal Disease: No Hx Cirrhosis: No Hx Alcoholism: No Hx HIV/AIDS: No Hx Splenectomy or Spleen Trauma: No Other PMH: Hypothyroid, bipolar, MS, osteoporosis, anxiety, Breast CA (Rt) - Social History Smoking Status: Former smoker Time Seen by Provider: 01/22/17 06:18 HPI/ROS: Chief Complaint: Nausea, vomiting, right-sided chest pain HPI: 71-year-old woman well known to this emergency department with past medical history of multiple sclerosis, bipolar disorder, thyroid disease and breast cancer in the past presenting stating that she has been having nausea and vomiting for the last 2 days. She last ate 2 days ago. Has had multiple episodes of vomiting. Patient states this is similar to prior episodes that she has come the hospital for and has required IV fluids and Ativan. She is also complaining of some mild right-sided chest pain which has been constant for the last 2 days as well. No fevers or chills. No abdominal pain. Does states she has had some urinary urgency and frequency. She has been taking her medications. No recent illness. No fevers or chills. She is also states that she feels very anxious because of her nausea and vomiting. She denies any hematemesis or melena. ROS: 10 point Review of Systems is negative except as noted in the HPI. PMH: Multiple sclerosis, bipolar disorder, thyroid disease, breast cancer Medications include Restoril, Neurontin, Zyprexa, Synthroid, Vyvanse Allergies: No known drug allergies Social History: No smoking, no alcohol, no recreational drug use Family History: non-contributory Physical Exam: Gen: Awake, Alert, anxious appearing HEENT: Nose: no rhinorrhea Eyes: PERRLA, EOMI Mouth: Dry mucosa Neck: Supple, no JVD Chest: nontender, lungs clear to auscultation Heart: S1, S2 normal, no murmur Abd: Soft, non-tender, no guarding Back: no CVA tenderness, no midline tenderness Ext: no edema, non-tender Skin: no rash Neuro: CN II-XII intact, Sensation grossly intact, Strength 5/5 in bilateral upper and lower extremities (Abhishek Evans) Constitutional: Initial Vital Signs Temperature (C) 36.5 C 01/22/17 06:19 Heart Rate 82 01/22/17 06:19 Respiratory Rate 16 01/22/17 06:19 Blood Pressure 164/112 H 01/22/17 06:19 O2 Sat (%) 97 01/22/17 06:19 O2 Delivery Mode Room Air Allergies/Adverse Reactions: No Known Allergies Allergy (Verified 01/22/17 06:21) Home Medications: Medication Instructions Recorded Neurontin 05/19/12 Synthroid 02/16/14 Vyvanse 05/19/14 Celebrex 10/15/16 Zyprexa 10/15/16 Temazepam [Restoril] 30 mg PO HS PRN #3 capsule 10/21/16 Medical Decision Making - Diagnostics Imaging: I viewed and interpreted images myself - Diagnostics EKG Interpretation: ECG time 6:43 a.m. sinus rhythm with a rate of 68, normal axis, normal intervals , no acute ST or T-wave changes. Impression: Normal ECG. (Abhishek Evans) Imaging Results: Chest x-ray shows no acute changes per my interpretation. (Abhishek Evans) ED Course/Re-evaluation: 7:00 a.m.-I assumed care of this patient at shift change. She presented with nausea and right-sided chest pain, as well as urinary symptoms. She received IV normal saline 1 L and Ativan 1 mg IV. She currently feels much better and the nausea has resolved. The right-sided chest pain has almost resolved. She has a long history of intermittent right-sided chest pain, without clear etiology. The right-sided chest discomfort is pulsating and not associated with exertion. She has no associated symptoms and no alleviating or aggravating factors. EKG reviewed by me reveals normal sinus rhythm without ST or T segment changes. We are currently awaiting a urinalysis, and if the urinalysis is negative, the plan is to discharge the patient home. (Adenike Melton) [id number] patient signed out to Dr. Melton pending a UA results. (Abhishek Evans) - Data Points Laboratory Results: Laboratory Results 01/22/17 06:26 01/22/17 06:26 01/22/17 01/22/17 06:26 06:26 WBC 13.28 10^3/uL H 10^3/uL (3.80-9.50) RBC 5.09 10^6/uL 10^6/uL (4.18-5.33) Hgb 16.1 g/dL g/dL (12.6-16.3) Hct 46.9 % % (38.0-47.0) MCV 92.1 fL fL (81.5-99.8) MCH 31.6 pg pg (27.9-34.1) MCHC 34.3 g/dL g/dL (32.4-36.7) RDW 13.5 % % (11.5-15.2) Plt Count 324 10^3/uL 10^3/uL (150-400) MPV 9.1 fL fL (8.7-11.7) Neut % (Auto) 69.1 % % (39.3-74.2) Lymph % (Auto) 24.0 % % (15.0-45.0) [place] % (Auto) 5.2 % % (4.5-13.0) Eos % (Auto) 0.5 % L % (0.6-7.6) Baso % (Auto) 0.4 % % (0.3-1.7) Nucleat RBC Rel Count 0.0 % % (0.0-0.2) Absolute Neuts (auto) 9.17 10^3/uL H 10^3/uL (1.70-6.50) Absolute Lymphs (auto) 3.19 10^3/uL H 10^3/uL (1.00-3.00) Absolute Monos (auto) 0.69 10^3/uL 10^3/uL (0.30-0.80) Absolute Eos (auto) 0.07 10^3/uL 10^3/uL (0.03-0.40) Absolute Basos (auto) 0.05 10^3/uL 10^3/uL (0.02-0.10) Absolute Nucleated RBC 0.00 10^3/uL 10^3/uL (0-0.01) Immature Gran % 0.8 % % (0.0-1.1) Immature Gran # 0.11 10^3/uL H 10^3/uL (0.00-0.10) Sodium 138 mEq/L mEq/L (134-144) Potassium 4.4 mEq/L mEq/L (3.5-5.2) Chloride 103 mEq/L mEq/L (97-110) Carbon Dioxide 23 mEq/l mEq/l (22-31) Anion Gap 12 mEq/L mEq/L (8-16) BUN 21 mg/dL mg/dL (7-23) Creatinine 0.9 mg/dL mg/dL (0.6-1.0) Estimated GFR > 60 Glucose 102 mg/dL H mg/dL (70-100) Calcium 10.0 mg/dL mg/dL (8.5-10.4) Medications Given: Discontinued Medications Sodium Chloride (Ns) 1,000 mls @ 0 mls/hr IV ONCE ONE PRN Reason: Wide Open Stop: 01/22/17 06:23 Last Admin: 01/22/17 06:33 Dose: 1,000 mls Lorazepam (Ativan Injection) 1 mg IVP EDNOW ONE Stop: 01/22/17 06:23 Last Admin: 01/22/17 06:33 Dose: 1 mg Departure - Departure Referrals: Leann Rivera MD [Primary Care Provider] - As per Instructions
[2017-01-22 06:31] LABS: % IMMATURE GRANULYOCYTES 0.8 % (0.0-1.1); ABSOLUTE IMMATURE GRANULOCYTES 0.11 10^3/uL (0.00-0.10); ADD DIFF? NO; ADD MORPH? NO; ADD SCAN? NO; ATYPICAL LYMPHOCYTE FLAG 0 (0-99); FRAGMENT RBC FLAG 0 (0-99); HEMATOCRIT 46.9 % (38.0-47.0); HEMOGLOBIN 16.1 g/dL (12.6-16.3); LEFT SHIFT FLG 0 (0-99); LIPEMIA HEMOLYSIS FLAG 90 (0-99); MEAN CELL HEMOGLOBIN 31.6 pg (27.9-34.1); MEAN CELL HEMOGLOBIN CONCENTR. 34.3 g/dL (32.4-36.7); MEAN CELL VOLUME 92.1 fL (81.5-99.8); MEAN PLATELET VOLUME 9.1 fL (8.7-11.7); PLATELET CLUMPS FLAG 0 (0-99); PLATELET COUNT 324 10^3/uL (150-400); RED BLOOD CELL COUNT 5.09 10^6/uL (4.18-5.33); RED CELL DISTRIBUTION WIDTH 13.5 % (11.5-15.2)
--- NOTE | 2017-01-22 06:44 | CPEKG ---
Heart Rate: 68 RR Interval: 882 P-R Interval: 172 QRSD Interval: 84 QT Interval: 440 QTC Interval: 469 P [place]: 68 QRS [place]: 67 T Wave [place]: 59 EKG Severity - NORMAL ECG - EKG Impression: SINUS RHYTHM Electronically Signed By: Adenike Melton 22-Jan-2017 14:57:20
[2017-01-22 06:52] LABS: ANION GAP 12 mEq/L (8-16); CARBON DIOXIDE 23 mEq/l (22-31); CHLORIDE 103 mEq/L (97-110); CREATININE 0.9 mg/dL (0.6-1.0); GLOMERULAR FILTRATION RATE > 60; GLUCOSE 102 mg/dL (70-100); POTASSIUM 4.4 mEq/L (3.5-5.2); SODIUM 138 mEq/L (134-144)
[2017-01-22 07:07] VITALS: O2SAT 96
[2017-01-22 08:00] LABS: COLOR YELLOW; LEUKOCYTE ESTERASE,URINE 1+ (NEGATIVE); NITRITE,URINE NEGATIVE (NEGATIVE)
[2017-01-22 08:44] VITALS: BP 140/70; PULSE 72
== END 2017-01-22 09:02 | disposition home or self-care (01) ==
LOC: EDUNIT#
DX: R11.10 Vomiting, unspecified (principal); R07.9 Chest pain, unspecified; Z85.3 Personal history of malignant neoplasm of breast; Z87.891 Personal history of nicotine dependence
CPT/HCPCS: 71020; 93005; 96361; 96374; 99285; J2060

== ENCOUNTER → 2017-03-06 | Outpatient (CLI) | payer OTHER, MEDICAID | LOC: FIMAGING 11:16 | PROVIDERS: ATTEND Physician Assistant Medical | DX: G35 Multiple sclerosis (principal) ==

== ENCOUNTER → 2017-03-21 | Outpatient (CLI) | payer OTHER, MEDICAID | LOC: BMCIMAGING 14:29 | PROVIDERS: ATTEND Orthopaedic Surgery | DX: M16.12 Unilateral primary osteoarthritis, left hip (principal) ==

== ENCOUNTER → 2017-04-10 | Outpatient (CLI) | payer OTHER, MEDICAID | LOC: FIMAGING 14:29 | PROVIDERS: ATTEND Orthopaedic Surgery | DX: M16.12 Unilateral primary osteoarthritis, left hip (principal) ==

== ENCOUNTER 2017-04-17 07:12 | Inpatient (IN) | payer OTHER, MEDICAID ==
--- NOTE | 2017-04-17 06:29 | PDHPUP ---
History & Physical Update H&P update statement: This history and physical update is based on an assessment of the patient which was completed after admission or registration (within 24 hours), but prior to the surgery/procedure.
--- NOTE | 2017-04-17 06:30 | PDIAF ---
- Diagnosis Diagnosis: left hip djd Code Status: Full Code - Medication Management Discharge Medications: Medications to Continue on Transfer Gabapentin [Neurontin 400 MG (*)] 800 mg PO HS 05/19/12 [Last Taken Unknown] Levothyroxine [Synthroid 88 mcg (*)] 88 mcg PO DAILY06 02/16/14 [Last Taken Unknown] Lisdexamfetamine Dimesylate [Vyvanse] 70 mg PO DAILY 05/19/14 [Last Taken Unknown] OLANZapine [ZyPREXA 2.5 mg (*)] 5 mg PO HS 10/15/16 [Last Taken Unknown] Cholecalciferol Vit D3 [Vitamin D3 (*)] 1,000 units PO DAILY 03/23/17 [Last Taken Unknown] Glatiramer Acetate [Copaxone] 40 mg SQ MWF 03/23/17 [Last Taken Unknown] Temazepam [Restoril] 30 mg PO HS PRN 03/23/17 [Last Taken Unknown] Discharge Medications: Refer to the Discharge Home Medication list for PRN reason. - Orders Services needed: Home Care, Physical Therapy Home Care Face to Face: I certify that this patient was under my care and that I had the required [id number] encounter meeting the encounter requirements on the discharge day. My findings support the fact that the patient is homebound as defined in Home Care Face to Face Continued: CMS Chapter 7 Medicare Benefits Manual 30.1.1 , The condition of the patient is such that there exists a normal inability to leave home and consequently, leaving home would require a considerable and taxing effort. Activity/Weight Bearing Restrictions: wbat. anterior hip precautions. daily dressing changes. may shower without bandage. no soaking or immersion. aspirin 325 mg po daily. rodrigo hose x 2 weeks. f/u at two weeks. seek attn for increasing pain, leg pain or swelling , drainage - Follow Up Care Current Providers and Referrals: Leann Rivera MD [Primary Care Provider] -
[~2017-04-17 07:12] MED LIST: ACETAMINOPHEN 325 MG TAB PO ONE; FAMOTIDINE 20 MG TAB PO ONE; NS IV ONE; ROPIVACAINE 0.2% 80 MG, EPINEPHrine 0.2 MG, KETOROLAC TROMETHAMINE 30 MG, morphINE 10 M... IU ONE; TRANEXAMIC ACID IV ONE; ceFAZolin 2 GM/DEXTROSE 100 ML IV ONE; ceFAZolin 2 GM/SWFI 2 GM/20 ML SYR IVP ONE
[2017-04-17] MEDS ORDERED: LIDOCAINE 1% 2 ML INJ ONE (07:43)
[2017-04-17] MEDS ORDERED: LIDOCAINE 1% 2 ML INJ ID PRN (08:06)
[2017-04-17] MEDS ORDERED: LR 1,000 ML IV ONE (08:06)
--- NOTE | 2017-04-17 08:45 | PDANEPAE ---
ANE History of Present Illness 71 year old female w/ PMHx of MS, hypothyroidism, depression, previous breast cancer (s/p chemo) presents for left total hip (anterior / robot assisted). ANE Past Medical History - Cardiovascular History Hx Hypertension: No Hx Arrhythmias: No Hx Chest Pain: No Hx Coronary Artery / Peripheral Vascular Disease: No Hx CHF / Valvular Disease: No Hx Palpitations: No - Pulmonary History Hx COPD: No Hx Asthma/Reactive Airway Disease: No Hx Recent Upper Respiratory Infection: No Hx Oxygen in Use at Home: No Hx Sleep Apnea: No Sleep Apnea Screening Result - Last Documented: Negative - Neurologic History Hx Cerebrovascular Accident: No Hx Seizures: No Hx Dementia: No Neurologic History Comment: MS - Endocrine History Hx Diabetes: No Hypothyroid: Yes Obesity: no Endocrine History Comment: hypothyroidism - Renal History Hx Renal Disorders: No - Liver History Hx Hepatic Disorders: No - Neurological & Psychiatric Hx Hx Neurological and Psychiatric Disorders: Yes Neurological / Psychiatric History Comment: depression. Multiple Sclerosis - Cancer History Hx Cancer: Yes Cancer History Comment: breast cancer- lumpectomy, chemo and radiation - Congenital Disorder History Hx Congenital Disorders: No - GI History Hx Gastrointestinal Disorders: Yes Gastrointestinal History Comment: diarrhea/ leaky gut d/t MS - Other Health History Other Health History: wears reading glasses - Chronic Pain History Chronic Pain: Yes (left leg pain) - Surgical History Prior Surgeries: lumpectomy- right breast ANE Review of Systems Review of Systems: - Exercise capacity Exercise capacity: <4 METS METS (RN): 3 METS ANE Patient History - Allergies Allergies/Adverse Reactions: No Known Allergies Allergy (Verified 03/29/17 16:00) - Home Medications Home medications: home medication list seen and reviewed Home Medications: Gabapentin [Neurontin 400 MG (*)] 800 mg PO HS 05/19/12 [Last Taken 04/16/17] Levothyroxine [Synthroid 88 mcg (*)] 88 mcg PO DAILY06 02/16/14 [Last Taken ] Lisdexamfetamine Dimesylate [Vyvanse] 70 mg PO DAILY 05/19/14 [Last Taken ] OLANZapine [ZyPREXA 2.5 mg (*)] 5 mg PO HS 10/15/16 [Last Taken 04/16/17] Cholecalciferol Vit D3 [Vitamin D3 (*)] 1,000 units PO DAILY 03/23/17 [Last Taken 04/16/17] Glatiramer Acetate [Copaxone] 40 mg SQ MWF 03/23/17 [Last Taken 04/12/17] Temazepam [Restoril] 30 mg PO HS PRN 03/23/17 [Last Taken 04/16/17] - NPO status NPO Status: no food or drink >8 hours NPO Since - Liquids (Date): 04/17/17 NPO Since - Liquids (Time): 03:00 NPO Since - Solids (Date): 04/16/17 NPO Since - Solids (Time): 12:30 - Anes Hx Anes Hx: no prior problems - Smoking Hx Smoking Status: Former smoker Marijuana use: No - Alcohol Use Alcohol Use: Rarely - Family Anes Hx Family Anes Hx: neg - N/A Family Hx Anesthesia Complications: none ANE Labs/Vital Signs - Vital Signs Vital Signs: reviewed preoperatively; see RN documention for details Blood Pressure: 120/81 Heart Rate: 83 Respiratory Rate: 16 O2 Sat (%): 94 Height: 165.1 cm Weight: 56.699 kg ANE Physical Exam - Airway Neck exam: FROM Mallampati Score: Class 3 Mouth exam: dentures, small mouth opening - Pulmonary Pulmonary: no respiratory distress - Cardiovascular Cardiovascular: regular rate and rhythym - ASA Status ASA Status: III ANE Anesthesia Plan Anesthesia Plan: general endotracheal anesthesia Total IV Anesthesia: No
[2017-04-17] MEDS ORDERED: ceFAZolin 1 GM/5 ML SYR ONE (08:50)
[2017-04-17] MEDS ORDERED: fentaNYL 100 MCG/2 ML INJ ONE ×2 (09:37→10:12)
[2017-04-17] MEDS ORDERED: PROPOFOL 200 MG/20 ML VIAL ONE (09:37)
[2017-04-17] MEDS ORDERED: LIDOCAINE 2% 5 ML SDV ONE (09:37)
[2017-04-17] MEDS ORDERED: ROCURONIUM 50 MG/5 ML VIAL ONE ×2 (09:37→10:46)
[2017-04-17] MEDS ORDERED: THROMBIN (BOVINE) 5,000 UNIT VIAL TP ONE (10:01)
[2017-04-17] MEDS ORDERED: CALCIUM CHLORIDE 1 GM/10 ML INJ ONE (10:01)
[2017-04-17] MEDS ORDERED: ONDANSETRON 4 MG/2 ML VIAL ONE (10:09)
[2017-04-17] MEDS ORDERED: DEXAMETHASONE 4 MG/ML VIAL ONE (10:09)
[2017-04-17] MEDS ORDERED: PROPOFOL/EMULSION 500 MG/50 ML BOTTLE IV ONE (10:15)
[2017-04-17] MEDS ORDERED: HYDROmorphONE/DILAUDID 2 MG/ML INJ ONE (10:19)
[2017-04-17] MEDS ORDERED: LABETALOL HCL 5 MG/ML 20 ML MDV ONE (10:19)
[2017-04-17] MEDS ORDERED: ONDANSETRON 4 MG/2 ML VIAL IVP PRN ×2 (10:47→11:38)
[2017-04-17] MEDS ORDERED: OXYCODONE/APAP 5/325 TAB PO PRN (10:47)
[2017-04-17] MEDS ORDERED: NALOXONE HCL 0.4 MG/ML INJ IVP PRN (10:47)
[2017-04-17] MEDS ORDERED: fentaNYL 100 MCG/2 ML INJ IVP PRN (10:47)
[2017-04-17] MEDS ORDERED: LR 500 ML IV PRN (10:47)
[2017-04-17] MEDS ORDERED: HYDROmorphONE/DILAUDID 1 MG/ML INJ IVP PRN (10:47)
[2017-04-17] MEDS ORDERED: SUGAMMADEX SODIUM 200 MG/2 ML VIAL IVP ONE (11:08)
[2017-04-17] MEDS ORDERED: PHENYLEPHRINE HCL 100 MCG/ML SYR ONE ×2 (11:08→11:37)
[2017-04-17] MEDS ORDERED: POLYETHYLENE GLYCOL 3350 17 GM PKT PO PRN (11:38)
[2017-04-17] MEDS ORDERED: DIPHENOXYLATE/ATROPINE LOMOTIL 1 TAB PO PRN (11:38)
[2017-04-17] MEDS ORDERED: MAGNESIUM HYDROXIDE 30 ML UDCUP PO PRN (11:38)
[2017-04-17] MEDS ORDERED: diphenhydrAMINE 25 MG CAP PO PRN (11:38)
[2017-04-17] MEDS ORDERED: BISACODYL 10 MG SUPP PR PRN (11:38)
[2017-04-17] MEDS ORDERED: METOCLOPRAMIDE 10 MG/2 ML VIAL IVP PRN (11:38)
[2017-04-17] MEDS ORDERED: PROMETHAZINE HCL 25 MG SUPPR PR PRN (11:38)
[2017-04-17] MEDS ORDERED: LACTULOSE 20 GM/30 ML UDCUP PO PRN (11:38)
[2017-04-17] MEDS ORDERED: traMADol 50 MG TAB PO PRN (11:38)
[2017-04-17] MEDS ORDERED: ONDANSETRON DISINTEGRATING 4 MG TAB PO PRN (11:38)
[2017-04-17] MEDS ORDERED: PROMETHAZINE HCL 25 MG/ML INJ IVP PRN (11:38)
[2017-04-17] MEDS ORDERED: DIAZEPAM 5 MG TAB PO PRN (11:38)
[2017-04-17] MEDS ORDERED: TEMAZEPAM 15 MG CAP PO PRN (11:38)
--- NOTE | 2017-04-17 12:38 | POSTANESTH ---
Post Anesthetic Evaluation Cardiovascular Status: Normal, Stable, Similar to Pre-Op Cond Respiratory Status: Normal, Stable, Similar to Pre-op Cond. Level of Consciousness/Mental Status: Can Participate in Eval Pain Control: Adequate, Prn Tx Ordered Nausea/Vomiting Control: Adequate, Prn Tx Ordered Complications Possibly Related to Anesthesia: None Noted
[2017-04-17 13:55] VITALS: RESP 16
--- NOTE | 2017-04-17 14:22 | ASMTCMCOM ---
CM Note CM Note Notes: Patient is POD #0 total hip arthroplasty with Dr Yoon. Per pre-[facility] accommodation call by CM svp research & ebusiness operations, Dr Yoon recommended inpatient rehab for patient. She lives alone and can likely not take care of herself post-operatively. Rehab consult ordered, as well as PT/OT/JETTING MACHINE OPERATOR. All evals are pending at this time. CM will follow. Date Signed: 04/17/2017 02:21 PM Electronically Signed By:Magy Daniel RN
--- NOTE | 2017-04-17 14:22 | ASMTCMCOM ---
CM Note CM Note Notes: Patient is POD #0 total hip arthroplasty with Dr Yoon. Per pre-[facility] accommodation call by CM consulting business developer, Dr Yoon recommended inpatient rehab for patient. She lives alone and can likely not take care of herself post-operatively. Rehab consult ordered, as well as PT/OT/GENERATION MECHANIC HELPER. All evals are pending at this time. CM will follow. Date Signed: 04/17/2017 02:21 PM Electronically Signed By:Magy Daniel RN
--- NOTE | 2017-04-17 14:22 | ASMTCMCOM ---
CM Note CM Note Notes: Patient is POD #0 total hip arthroplasty with Dr Yoon. Per pre-[facility] accommodation call by CM manager business development hospice, Dr Yoon recommended inpatient rehab for patient. She lives alone and can likely not take care of herself post-operatively. Rehab consult ordered, as well as PT/OT/HOSIERY KNITTER. All evals are pending at this time. CM will follow. Date Signed: 04/17/2017 02:21 PM Electronically Signed By:Magy Daniel RN
[2017-04-17] MEDS: ACETAMINOPHEN 325 MG TAB PO SCH ×3 (15:25→23:20)
--- NOTE | 2017-04-17 16:10 | GOP ---
[f rep st] OPERATIVE REPORT DATE OF OPERATION: 04/17/2017 SURGEON: Max Yoon MD WASHING MACHINE OPERATOR: Jeromy Velasquez, ARTIST COLOR SEPARATION, FARM OR RANCH ANIMAL CARETAKER, surgical physician assistant who was a medical necessity for the entiret y of the case. PREOPERATIVE DIAGNOSIS: Left hip degenerative joint disease. POSTOPERATIVE DIAGNOSIS: Left hip degenerative joint disease. PROCEDURE PERFORMED: Left anterior total hip arthroplasty-MAKOplasty. FINDINGS: SPECIMENS: TO pathology the femoral head. ESTIMATED BLOOD LOSS: 200 cc. DESCRIPTION OF PROCEDURE: The patient was identified in the preanesthesia area. The left hip clearl y demarcated as operative site with indelible marker. She was given 2 g of Ancef intravenously en ro pancho to the operative suite. In the OR, general endotracheal anesthesia was administered. She was po sitioned in the supine position. Bilateral lower extremities and pelvis were sterilely prepped and d raped in usual fashion. Appropriate time-out procedure was carried out. Attention was first turned to the right hemipelvis, 2 cm incision was made over the ASIS and 3 pins were placed into the pelvic table. Pelvic reference array was affixed. Attention was then turned to the left hip. An anterior approach was made. Thick subcutaneous flaps were elevated. The fascia overlying the tensor fascia l stanislav was opened and the tensor was retracted laterally. The underlying vascular structures were ident ified, ligated, and cauterized. The rectus was elevated off the anterior capsule, and retractors wer e placed in an extracapsular position over the medial and superior aspect of the femoral neck. A T w as made in the capsule. The retractors were placed into an intracapsular position. An acetabular re ference check point was then placed. A bony wedge was withdrawn from the neck and the remnants of th e eroded femoral head were removed. The acetabulum was grossly dysplastic with loss of the posterior wall. The contents of the acetabular labrum were sharply excised. The bony reference points were e ntered into the robot in standard fashion. The hip was reamed with a 50 mm reamer and then a 58 mm r eamer with an anteversion of 15 degrees, an opening angle of 40 degrees. A 58 mm cup was then impact ed into position, secured with 2 additional screws. Excellent stability and alignment were achieved. The 0 degree X3 liner was then placed, confirmed to be fully seated. Attention was then turned to the femur. This was delivered through the use of soft tissue retraction and extension of the table. The proximal canal was opened with a rongeur. Serial broaching was carried out to a size 4 broach. Trial reduction revealed appropriate leg length lutheran with a 0 mm head. The trial head was wi thdrawn and a Biolox 0 mm neck head was then impacted across the trunnion. The hip was then thorough ly cleansed, reduced concentrically, demonstrated lutheran of leg lengths and no instability with external rotation 90 degrees in full extension. The wound was copiously irrigated, closed in layers using 0 Vicryl, 2-0 Monocryl, and remberto. The tissues were injected with a platelet-rich plasma raphael ution and joint cocktail of ropivacaine, morphine, Toradol, and epinephrine. A sterile dressing was applied. The patient was awakened, extubated, taken to recovery room in good, stable condition. OPERATIVE INDICATIONS: The patient is a 71-year-old woman with a history of MS. She has clinical ra diograph features with advanced end-stage arthritis to her left anterior hip with underlying erosion and dysplastic changes. Given the persistent nature of her pain despite conservative measures, I hav e recommended operative intervention with total hip replacement. She understood the risks, benefits, alternatives, and wished to proceed. Written consent was signed and placed in patient's chart. TOTAL TOURNIQUET TIME: None. COMPLICATIONS: None. IMPLANTS: The Serenity Tritanium acetabular shell, size 58 mm, two 6.5 mm cancellous bone screws. A Trident X3 0-degree polyethylene insert, 36 mm inner diameter, Biolox Delta ceramic head, 36 mm outer diameter, +0 mm neck length and 132 degree neck angle hip stem size 4. DISPOSITION: To the recovery room then the floor. She will be weightbearing as tolerated. Anterior hip precautions. /[id number]/MODL
--- NOTE | 2017-04-17 16:10 | GOP ---
[f rep st] OPERATIVE REPORT DATE OF OPERATION: 04/17/2017 SURGEON: Max Yoon MD C D STRIPPER: Jeromy Velasquez, SUSHI CHEF, TRIAGE TECHNICIAN, surgical garment assembler who was a medical necessity for the entiret y of the case. PREOPERATIVE DIAGNOSIS: Left hip degenerative joint disease. POSTOPERATIVE DIAGNOSIS: Left hip degenerative joint disease. PROCEDURE PERFORMED: Left anterior total hip arthroplasty-MAKOplasty. FINDINGS: SPECIMENS: TO pathology the femoral head. ESTIMATED BLOOD LOSS: 200 cc. DESCRIPTION OF PROCEDURE: The patient was identified in the preanesthesia area. The left hip clearl y demarcated as operative site with indelible marker. She was given 2 g of Ancef intravenously en ro pancho to the operative suite. In the OR, general endotracheal anesthesia was administered. She was po sitioned in the supine position. Bilateral lower extremities and pelvis were sterilely prepped and d raped in usual fashion. Appropriate time-out procedure was carried out. Attention was first turned to the right hemipelvis, 2 cm incision was made over the ASIS and 3 pins were placed into the pelvic table. Pelvic reference array was affixed. Attention was then turned to the left hip. An anterior approach was made. Thick subcutaneous flaps were elevated. The fascia overlying the tensor fascia l stanislav was opened and the tensor was retracted laterally. The underlying vascular structures were ident ified, ligated, and cauterized. The rectus was elevated off the anterior capsule, and retractors wer e placed in an extracapsular position over the medial and superior aspect of the femoral neck. A T w as made in the capsule. The retractors were placed into an intracapsular position. An acetabular re ference check point was then placed. A bony wedge was withdrawn from the neck and the remnants of th e eroded femoral head were removed. The acetabulum was grossly dysplastic with loss of the posterior wall. The contents of the acetabular labrum were sharply excised. The bony reference points were e ntered into the robot in standard fashion. The hip was reamed with a 50 mm reamer and then a 58 mm r eamer with an anteversion of 15 degrees, an opening angle of 40 degrees. A 58 mm cup was then impact ed into position, secured with 2 additional screws. Excellent stability and alignment were achieved. The 0 degree X3 liner was then placed, confirmed to be fully seated. Attention was then turned to the femur. This was delivered through the use of soft tissue retraction and extension of the table. The proximal canal was opened with a rongeur. Serial broaching was carried out to a size 4 broach. Trial reduction revealed appropriate leg length yarsani with a 0 mm head. The trial head was wi thdrawn and a Biolox 0 mm neck head was then impacted across the trunnion. The hip was then thorough ly cleansed, reduced concentrically, demonstrated yarsani of leg lengths and no instability with external rotation 90 degrees in full extension. The wound was copiously irrigated, closed in layers using 0 Vicryl, 2-0 Monocryl, and remberto. The tissues were injected with a platelet-rich plasma raphael ution and joint cocktail of ropivacaine, morphine, Toradol, and epinephrine. A sterile dressing was applied. The patient was awakened, extubated, taken to recovery room in good, stable condition. OPERATIVE INDICATIONS: The patient is a 71-year-old woman with a history of MS. She has clinical ra diograph features with advanced end-stage arthritis to her left anterior hip with underlying erosion and dysplastic changes. Given the persistent nature of her pain despite conservative measures, I hav e recommended operative intervention with total hip replacement. She understood the risks, benefits, alternatives, and wished to proceed. Written consent was signed and placed in patient's chart. TOTAL TOURNIQUET TIME: None. COMPLICATIONS: None. IMPLANTS: The Serenity Tritanium acetabular shell, size 58 mm, two 6.5 mm cancellous bone screws. A Trident X3 0-degree polyethylene insert, 36 mm inner diameter, Biolox Delta ceramic head, 36 mm outer diameter, +0 mm neck length and 132 degree neck angle hip stem size 4. DISPOSITION: To the recovery room then the floor. She will be weightbearing as tolerated. Anterior hip precautions. /[id number]/MODL
--- NOTE | 2017-04-17 16:10 | GOP ---
[f rep st] OPERATIVE REPORT DATE OF OPERATION: 04/17/2017 SURGEON: Max Yoon MD TAPE MAKER: Jeromy Velasquez, DRY WALL INSTALLER, ASSOCIATE CURATOR, web press operator assistant who was a medical necessity for the entiret y of the case. PREOPERATIVE DIAGNOSIS: Left hip degenerative joint disease. POSTOPERATIVE DIAGNOSIS: Left hip degenerative joint disease. PROCEDURE PERFORMED: Left anterior total hip arthroplasty-MAKOplasty. FINDINGS: SPECIMENS: TO pathology the femoral head. ESTIMATED BLOOD LOSS: 200 cc. DESCRIPTION OF PROCEDURE: The patient was identified in the preanesthesia area. The left hip clearl y demarcated as operative site with indelible marker. She was given 2 g of Ancef intravenously en ro pancho to the operative suite. In the OR, general endotracheal anesthesia was administered. She was po sitioned in the supine position. Bilateral lower extremities and pelvis were sterilely prepped and d raped in usual fashion. Appropriate time-out procedure was carried out. Attention was first turned to the right hemipelvis, 2 cm incision was made over the ASIS and 3 pins were placed into the pelvic table. Pelvic reference array was affixed. Attention was then turned to the left hip. An anterior approach was made. Thick subcutaneous flaps were elevated. The fascia overlying the tensor fascia l stanislav was opened and the tensor was retracted laterally. The underlying vascular structures were ident ified, ligated, and cauterized. The rectus was elevated off the anterior capsule, and retractors wer e placed in an extracapsular position over the medial and superior aspect of the femoral neck. A T w as made in the capsule. The retractors were placed into an intracapsular position. An acetabular re ference check point was then placed. A bony wedge was withdrawn from the neck and the remnants of th e eroded femoral head were removed. The acetabulum was grossly dysplastic with loss of the posterior wall. The contents of the acetabular labrum were sharply excised. The bony reference points were e ntered into the robot in standard fashion. The hip was reamed with a 50 mm reamer and then a 58 mm r eamer with an anteversion of 15 degrees, an opening angle of 40 degrees. A 58 mm cup was then impact ed into position, secured with 2 additional screws. Excellent stability and alignment were achieved. The 0 degree X3 liner was then placed, confirmed to be fully seated. Attention was then turned to the femur. This was delivered through the use of soft tissue retraction and extension of the table. The proximal canal was opened with a rongeur. Serial broaching was carried out to a size 4 broach. Trial reduction revealed appropriate leg length temple with a 0 mm head. The trial head was wi thdrawn and a Biolox 0 mm neck head was then impacted across the trunnion. The hip was then thorough ly cleansed, reduced concentrically, demonstrated temple of leg lengths and no instability with external rotation 90 degrees in full extension. The wound was copiously irrigated, closed in layers using 0 Vicryl, 2-0 Monocryl, and remberto. The tissues were injected with a platelet-rich plasma raphael ution and joint cocktail of ropivacaine, morphine, Toradol, and epinephrine. A sterile dressing was applied. The patient was awakened, extubated, taken to recovery room in good, stable condition. OPERATIVE INDICATIONS: The patient is a 71-year-old woman with a history of MS. She has clinical ra diograph features with advanced end-stage arthritis to her left anterior hip with underlying erosion and dysplastic changes. Given the persistent nature of her pain despite conservative measures, I hav e recommended operative intervention with total hip replacement. She understood the risks, benefits, alternatives, and wished to proceed. Written consent was signed and placed in patient's chart. TOTAL TOURNIQUET TIME: None. COMPLICATIONS: None. IMPLANTS: The Serenity Tritanium acetabular shell, size 58 mm, two 6.5 mm cancellous bone screws. A Trident X3 0-degree polyethylene insert, 36 mm inner diameter, Biolox Delta ceramic head, 36 mm outer diameter, +0 mm neck length and 132 degree neck angle hip stem size 4. DISPOSITION: To the recovery room then the floor. She will be weightbearing as tolerated. Anterior hip precautions. /[id number]/MODL
[2017-04-17] MEDS: oxyCODONE IR 5 MG TAB PO PRN ×2 (16:53→20:52)
[2017-04-17] MEDS: ceFAZolin 2 GM/DEXTROSE 100 ML IV SCH (18:33)
[2017-04-17] MEDS: TRANEXAMIC ACID 650 MG TAB PO SCH (18:33)
[2017-04-17] MEDS: LR 1,000 ML IV SCH (18:36)
[2017-04-17] MEDS: GABAPENTIN 400 MG CAP PO SCH (20:52)
[2017-04-17] MEDS: FAMOTIDINE 20 MG TAB PO SCH (20:52)
[2017-04-17] MEDS: TEMAZEPAM 15 MG CAP PO PRN (20:52)
[2017-04-17] MEDS: ASPIRIN 325 MG TAB PO SCH (20:52)
[2017-04-17] MEDS: SENNOSIDES/DOCUSATE SODIUM TAB PO SCH (20:53)
[2017-04-17] MEDS ORDERED: OLANZapine 2.5 MG TAB PO SCH (21:00)
[2017-04-18] MEDS: TRANEXAMIC ACID 650 MG TAB PO SCH ×2 (02:43→09:11)
[2017-04-18] MEDS: oxyCODONE IR 5 MG TAB PO PRN ×4 (02:46→20:05)
[2017-04-18] MEDS: LR 1,000 ML IV SCH (02:46)
[2017-04-18] MEDS: ceFAZolin 2 GM/DEXTROSE 100 ML IV SCH (03:07)
[2017-04-18] MEDS: LEVOTHYROXINE 88 MCG TAB PO SCH (06:02)
[2017-04-18] MEDS: ACETAMINOPHEN 325 MG TAB PO SCH ×4 (06:03→23:22)
--- NOTE | 2017-04-18 06:41 | PDIAF ---
- Diagnosis Diagnosis: left hip djd Code Status: Full Code - Medication Management Discharge Medications: Medications to Continue on Transfer Gabapentin [Neurontin 400 MG (*)] 800 mg PO HS 05/19/12 [Last Taken 04/16/17] Levothyroxine [Synthroid 88 mcg (*)] 88 mcg PO DAILY06 02/16/14 [Last Taken ] Lisdexamfetamine Dimesylate [Vyvanse] 70 mg PO DAILY 05/19/14 [Last Taken ] OLANZapine [ZyPREXA 2.5 mg (*)] 5 mg PO HS 10/15/16 [Last Taken 04/16/17] Cholecalciferol Vit D3 [Vitamin D3 (*)] 1,000 units PO DAILY 03/23/17 [Last Taken 04/16/17] Glatiramer Acetate [Copaxone] 40 mg SQ MWF 03/23/17 [Last Taken 04/12/17] Temazepam [Restoril] 30 mg PO HS PRN 03/23/17 [Last Taken 04/16/17] Aspirin [Aspirin 325 mg (*)] 325 mg PO DAILY tab 04/18/17 [Last Taken Unknown] oxyCODONE IR [Oxycodone Ir (*)] 5 - 10 mg PO Q3HRS PRN #70 tab 04/18/17 [Last Taken Unknown] Discharge Medications: Refer to the Discharge Home Medication list for PRN reason. - Orders Services needed: Home Care, Physical Therapy Home Care Face to Face: I certify that this patient was under my care and that I had the required [id number] encounter meeting the encounter requirements on the discharge day. My findings support the fact that the patient is homebound as defined in Home Care Face to Face Continued: CMS Chapter 7 Medicare Benefits Manual 30.1.1 , The condition of the patient is such that there exists a normal inability to leave home and consequently, leaving home would require a considerable and taxing effort. Diet Recommendation: no restrictions on diet Diet Texture: Regular Texture Diet Activity/Weight Bearing Restrictions: wbat. anterior hip precautions. daily dressing changes. may shower without bandage. no soaking or immersion. aspirin 325 mg po daily. rodrigo hose x 2 weeks. f/u at two weeks. seek attn for increasing pain, leg pain or swelling , drainage - Follow Up Care Current Providers and Referrals: Leann Rivera MD [Primary Care Provider] -
--- NOTE | 2017-04-18 06:45 | SOAPPROG ---
SOAP Progress Note Assessment/Plan: Assessment: s/p left felihsa Plan:pt/ot rom as tolerated anterior hip precautions wbat dvt precautions f/u in two weeks 04/18/17 06:43 Subjective: doing well minimal pain no cp or sob Objective: Vital Signs Temp Pulse Resp BP Pulse Ox 36.6 C 91 16 90/49 L 97 04/18/17 02:48 04/18/17 02:48 04/18/17 02:48 04/18/17 02:48 04/18/17 02:48 Laboratory Results 04/18/17 04:53 04/17/17 04/18/17 04/19/17 05:59 05:59 05:59 Intake Total 2950 2110 Output Total 600 Balance 2350 2110 dressing intact intact pf,df,ehl toes warm and pink neg homans bilateral lower ext toes warm and pink xrays stable anatomic alignment ICD10 Worksheet Patient Problems: Problems Problem Status Onset Anxiety Acute Nausea Acute
--- NOTE | 2017-04-18 06:45 | SOAPPROG ---
SOAP Progress Note Assessment/Plan: Assessment: s/p left felisha Plan:pt/ot rom as tolerated anterior hip precautions wbat dvt precautions f/u in two weeks 04/18/17 06:43 Subjective: doing well minimal pain no cp or sob Objective: Vital Signs Temp Pulse Resp BP Pulse Ox 36.6 C 91 16 90/49 L 97 04/18/17 02:48 04/18/17 02:48 04/18/17 02:48 04/18/17 02:48 04/18/17 02:48 Laboratory Results 04/18/17 04:53 04/17/17 04/18/17 04/19/17 05:59 05:59 05:59 Intake Total 2950 2110 Output Total 600 Balance 2350 2110 dressing intact intact pf,df,ehl toes warm and pink neg homans bilateral lower ext toes warm and pink xrays stable anatomic alignment ICD10 Worksheet Patient Problems: Problems Problem Status Onset Anxiety Acute Nausea Acute
--- NOTE | 2017-04-18 07:28 | GDS ---
[f rep st] DISCHARGE SUMMARY ADMIT DIAGNOSIS: Left hip degenerative joint disease. DISCHARGE DIAGNOSIS: Left hip degenerative joint disease. PROCEDURE: Left total hip arthroplasty. OPERATIVE INDICATIONS: The patient is a 71-year-old woman who has end-stage destruction of her left hip joint. She has clinical radiograph features with advanced degenerative change with erosion of th e femoral head and acetabular socket. This interferes with all her activities of daily living. I hawkins ve, therefore, recommended operative intervention with total hip replacement. She understood the ris ks, benefits, alternatives, and wished to proceed. Written consent was signed and placed in the [facility] ent's chart. HOSPITAL COURSE: Patient was admitted to the hospital floor after uncomplicated total hip arthroplas ty. She tolerated the procedure well. Postoperative day #1, her hematocrit was 27.7. She progresse d with physical therapy. She is weightbearing as tolerated, anterior hip precautions. Daily dressin g changes. No soaking or immersion. She may shower without the bandage. She is to use the VANESSA hose for 2 weeks. DISCHARGE MEDICATIONS: Aspirin 325 mg p.o. daily for 6 weeks, oxycodone 5 mg 1-2 every 6 hours p.r.n . pain. She lives alone and wishes to go to a subacute rehab facility, and this will be facilitated for her d ischarge. /[id number]/MODL
--- NOTE | 2017-04-18 07:28 | GDS ---
[f rep st] DISCHARGE SUMMARY ADMIT DIAGNOSIS: Left hip degenerative joint disease. DISCHARGE DIAGNOSIS: Left hip degenerative joint disease. PROCEDURE: Left total hip arthroplasty. OPERATIVE INDICATIONS: The patient is a 71-year-old woman who has end-stage destruction of her left hip joint. She has clinical radiograph features with advanced degenerative change with erosion of th e femoral head and acetabular socket. This interferes with all her activities of daily living. I hawkins ve, therefore, recommended operative intervention with total hip replacement. She understood the ris ks, benefits, alternatives, and wished to proceed. Written consent was signed and placed in the [facility] ent's chart. HOSPITAL COURSE: Patient was admitted to the hospital floor after uncomplicated total hip arthroplas ty. She tolerated the procedure well. Postoperative day #1, her hematocrit was 27.7. She progresse d with physical therapy. She is weightbearing as tolerated, anterior hip precautions. Daily dressin g changes. No soaking or immersion. She may shower without the bandage. She is to use the VANESSA hose for 2 weeks. DISCHARGE MEDICATIONS: Aspirin 325 mg p.o. daily for 6 weeks, oxycodone 5 mg 1-2 every 6 hours p.r.n . pain. She lives alone and wishes to go to a subacute rehab facility, and this will be facilitated for her d ischarge. /[id number]/MODL
--- NOTE | 2017-04-18 07:28 | GDS ---
[f rep st] DISCHARGE SUMMARY ADMIT DIAGNOSIS: Left hip degenerative joint disease. DISCHARGE DIAGNOSIS: Left hip degenerative joint disease. PROCEDURE: Left total hip arthroplasty. OPERATIVE INDICATIONS: The patient is a 71-year-old woman who has end-stage destruction of her left hip joint. She has clinical radiograph features with advanced degenerative change with erosion of th e femoral head and acetabular socket. This interferes with all her activities of daily living. I hawkins ve, therefore, recommended operative intervention with total hip replacement. She understood the ris ks, benefits, alternatives, and wished to proceed. Written consent was signed and placed in the [facility] ent's chart. HOSPITAL COURSE: Patient was admitted to the hospital floor after uncomplicated total hip arthroplas ty. She tolerated the procedure well. Postoperative day #1, her hematocrit was 27.7. She progresse d with physical therapy. She is weightbearing as tolerated, anterior hip precautions. Daily dressin g changes. No soaking or immersion. She may shower without the bandage. She is to use the VANESSA hose for 2 weeks. DISCHARGE MEDICATIONS: Aspirin 325 mg p.o. daily for 6 weeks, oxycodone 5 mg 1-2 every 6 hours p.r.n . pain. She lives alone and wishes to go to a subacute rehab facility, and this will be facilitated for her d ischarge. /[id number]/MODL
[2017-04-18] MEDS ORDERED: Glatiramer Acetate [Copaxone] 40 MG SQ SCH ×2 (08:00→15:45)
[2017-04-18] MEDS: FAMOTIDINE 20 MG TAB PO SCH ×2 (09:11→20:04)
[2017-04-18] MEDS: ASPIRIN 325 MG TAB PO SCH (09:11)
[2017-04-18] MEDS: Lisdexamfetamine Dimesylate [Vyvanse] 70 MG PO SCH (09:12)
[2017-04-18] MEDS: SENNOSIDES/DOCUSATE SODIUM TAB PO SCH ×2 (09:41→21:46)
--- NOTE | 2017-04-18 15:30 | ASMTCMCOM ---
CM Note CM Note Notes: Pt agreeable to rehab only SNF today, requests referrals sent to [facility] and [facility]. [facility] accepts pt. [facility] pending, they may not be able to accept due to pt non-formulary MS medication which is too expensive. Pt will d/c tomorrow. CM to follow. Date Signed: 04/18/2017 03:29 PM Electronically Signed By:LUCINDA Burrows
[2017-04-18] MEDS: Lisdexamfetamine Dimesylate [Vyvanse] 20 MG PO SCH (15:41)
[2017-04-18] MEDS: GABAPENTIN 400 MG CAP PO SCH (20:04)
[2017-04-18] MEDS: TEMAZEPAM 15 MG CAP PO PRN (20:05)
[2017-04-18] MEDS ORDERED: OLANZapine 10 MG TAB PO SCH (21:00)
[2017-04-18] MEDS ORDERED: OLANZapine DISINTEGR 10 MG TAB PO SCH (21:00)
[2017-04-19] MEDS: LEVOTHYROXINE 88 MCG TAB PO SCH (06:26)
[2017-04-19] MEDS: ACETAMINOPHEN 325 MG TAB PO SCH ×3 (06:26→14:06)
--- NOTE | 2017-04-19 06:27 | PDIAF ---
- Diagnosis Diagnosis: left hip djd Code Status: Full Code - Medication Management Discharge Medications: Medications to Continue on Transfer Gabapentin [Neurontin 400 MG (*)] 800 mg PO HS 05/19/12 [Last Taken 04/16/17] Levothyroxine [Synthroid 88 mcg (*)] 88 mcg PO DAILY06 02/16/14 [Last Taken ] Lisdexamfetamine Dimesylate [Vyvanse] 70 mg PO DAILY 05/19/14 [Last Taken ] Cholecalciferol Vit D3 [Vitamin D3 (*)] 1,000 units PO DAILY 03/23/17 [Last Taken 04/16/17] Glatiramer Acetate [Copaxone] 40 mg SQ MWF 03/23/17 [Last Taken 04/12/17] Temazepam [Restoril] 30 mg PO HS PRN 03/23/17 [Last Taken 04/16/17] Aspirin [Aspirin 325 mg (*)] 325 mg PO DAILY tab 04/18/17 [Last Taken Unknown] Lisdexamfetamine Dimesylate [Vyvanse] 20 mg PO DAILY14 04/18/17 [Last Taken Unknown] OLANZapine [Zyprexa] 10 mg PO HS 04/18/17 [Last Taken Unknown] oxyCODONE IR [Oxycodone Ir (*)] 5 - 10 mg PO Q3HRS PRN #70 tab 04/18/17 [Last Taken Unknown] Discharge Medications: Refer to the Discharge Home Medication list for PRN reason. - Orders Services needed: Home Care, Physical Therapy Home Care Face to Face: I certify that this patient was under my care and that I had the required [id number] encounter meeting the encounter requirements on the discharge day. My findings support the fact that the patient is homebound as defined in Home Care Face to Face Continued: CMS Chapter 7 Medicare Benefits Manual 30.1.1 , The condition of the patient is such that there exists a normal inability to leave home and consequently, leaving home would require a considerable and taxing effort. Diet Recommendation: no restrictions on diet Diet Texture: Regular Texture Diet Activity/Weight Bearing Restrictions: wbat. anterior hip precautions. daily dressing changes. may shower without bandage. no soaking or immersion. aspirin 325 mg po daily. rodrigo hose x 2 weeks. f/u at two weeks. seek attn for increasing pain, leg pain or swelling , drainage - Follow Up Care Current Providers and Referrals: Leann Rivera MD [Primary Care Provider] -
--- NOTE | 2017-04-19 06:28 | SOAPPROG ---
SOAP Progress Note Assessment/Plan: Assessment: s/p left felisha Plan:pt/ot rom as tolerated anterior hip precautions wbat dvt precautions f/u in two weeks d/c to snf today 04/18/17 06:43 04/19/17 06:27 Subjective: mild pain yesterday no cp or sob Objective: Vital Signs Temp Pulse Resp BP Pulse Ox 36.5 C 100 16 99/64 L 94 04/18/17 23:25 04/18/17 23:25 04/18/17 23:25 04/18/17 23:25 04/18/17 23:25 04/18/17 04/19/17 04/20/17 05:59 05:59 05:59 Intake Total 2950 2110 Output Total 600 Balance 2350 2110 dressing intact intact pf,df,ehl toes warm and pink sensation intact to light touch throughout juan alberto lower ext ICD10 Worksheet Patient Problems: Problems Problem Status Onset chronic disease mgmt/transitional care Acute Anxiety Acute Nausea Acute
[2017-04-19 08:45] VITALS: BP 110/59; PULSE 85; TEMP 97.6; O2SAT 96
--- NOTE | 2017-04-19 09:24 | PDIAF ---
- Diagnosis Diagnosis: left hip djd Code Status: Full Code - Medication Management Discharge Medications: Medications to Continue on Transfer Gabapentin [Neurontin 400 MG (*)] 800 mg PO HS 05/19/12 [Last Taken 04/16/17] Levothyroxine [Synthroid 88 mcg (*)] 88 mcg PO DAILY06 02/16/14 [Last Taken ] Lisdexamfetamine Dimesylate [Vyvanse] 70 mg PO DAILY 05/19/14 [Last Taken ] Cholecalciferol Vit D3 [Vitamin D3 (*)] 1,000 units PO DAILY 03/23/17 [Last Taken 04/16/17] Glatiramer Acetate [Copaxone] 40 mg SQ MWF 03/23/17 [Last Taken 04/12/17] Temazepam [Restoril] 30 mg PO HS PRN 03/23/17 [Last Taken 04/16/17] Aspirin [Aspirin 325 mg (*)] 325 mg PO DAILY tab 04/18/17 [Last Taken Unknown] Lisdexamfetamine Dimesylate [Vyvanse] 20 mg PO DAILY14 04/18/17 [Last Taken Unknown] OLANZapine [Zyprexa] 10 mg PO HS 04/18/17 [Last Taken Unknown] oxyCODONE IR [Oxycodone Ir (*)] 5 - 10 mg PO Q3HRS PRN #70 tab 04/18/17 [Last Taken Unknown] Discharge Medications: Refer to the Discharge Home Medication list for PRN reason. - Orders Services needed: Physical Therapy Diet Recommendation: no restrictions on diet Diet Texture: Regular Texture Diet Activity/Weight Bearing Restrictions: wbat. anterior hip precautions. daily dressing changes. may shower without bandage. no soaking or immersion. aspirin 325 mg po daily. rodrigo hose x 2 weeks. f/u at two weeks. seek attn for increasing pain, leg pain or swelling , drainage - Follow Up Care Current Providers and Referrals: Leann Rivera MD [Primary Care Provider] -
[2017-04-19] MEDS: ASPIRIN 325 MG TAB PO SCH (09:44)
[2017-04-19] MEDS: FAMOTIDINE 20 MG TAB PO SCH (09:45)
[2017-04-19] MEDS: Lisdexamfetamine Dimesylate [Vyvanse] 70 MG PO SCH (09:46)
[2017-04-19] MEDS: SENNOSIDES/DOCUSATE SODIUM TAB PO SCH (09:46)
[2017-04-19] MEDS: Lisdexamfetamine Dimesylate [Vyvanse] 20 MG PO SCH (13:47)
--- NOTE | 2017-04-19 14:19 | ASMTCMCOM ---
CM Note CM Note Notes: Pt medically stable for discharge to [facility]. CARROLL Sy to call report. Orders sent in All scripts. Paulina NICOLE set up wc transport 1400. Date Signed: 04/19/2017 02:18 PM Electronically Signed By:LUCINDA Burrows
--- NOTE | 2017-04-19 14:19 | ASDISCHSUM ---
Discharge Information Plan Status:SNF Medically Cleared to Leave: Discharge Date:04/19/2017 02:09 PM CM D/C Disposition:Usp Facility ADT D/C Disposition:Usp Facility Projected Discharge Date:04/20/2017 11:00 AM Transportation at D/C:Wheelchair Van Discharge Delay Reason: Follow-Up Date:04/20/2017 11:00 AM Discharge Slot: Final Diagnosis: Placement Information Referral Type:*Longterm/SNF Referral ID:[id number] Provider Name:Shannon Wade Address 1[address] Phone Number: Address 2: Fax Number: City:[place] Selection Factors: State:[place] Patient Contact Information Contact Name:KENDYTENZINSHREYAS Relationship:Daughter Address:[address] City:[place] Alternate Phone: State/Zip Code:[place] [address] Email: Financial Information Financial Class: Primary Plan Desc:MEDICARE INPATIENT Primary Plan Number:[id number] Secondary Plan Desc:MED[place] Secondary Plan Number:[id number] Assessment Information CM Monogram And Letter Paster Assessment CJR Did you go to joint Answers: No (why?) Notes: Unable to get to the class? class/no access to [employer] CM Note CM Note Notes: Patient will be needing accommodation from the Case Management team. Shagufta stated that Dr. Yoon recommended inpatient rehab, and her Neurologist recommended a specific location at the [facility] that will be able to care for her other medical conditions as well. Shagufta believes she will be needing home care PT after her inpatient rehab stay. She lives alone and stated she believes she will not be able to care for her. Date Signed: 04/03/2017 11:31 AM Electronically Signed By:Kamla Lima [facility] CM Progress Note CM Note CM Note Notes: Patient is POD #0 [address] hip arthroplasty with Dr Yoon. Per pre-CJR accommodation call by business practices officer, Dr Yoon recommended inpatient rehab for patient. She lives alone and can likely not take care of herself post-operatively. Rehab consult ordered, as well as PT/OT/MAIL ROOM CLERK. All evals are pending at this time. CM will follow. Date Signed: 04/17/2017 02:21 PM Electronically Signed By:Magy Daniel RN [facility] CM Progress Note CM Note CM Note Notes: Pt agreeable to rehab only SNF today, requests referrals sent to [facility] and [facility]. [facility] pending, they may not be able to accept due to pt non-formulary MS medication which is too expensive. Pt will d/c tomorrow. CM to follow. Date Signed: 04/18/2017 03:29 PM Electronically Signed By:LUCINDA Burrows [facility] Progress Note CM Note CM Note Notes: Pt medically stable for discharge to [facility]. CARROLL Sy to call report. Orders sent in All scripts. Paulina NICOLE set up wc transport 1400. Date Signed: 04/19/2017 02:18 PM Electronically Signed By:LUCINDA Burrows Intervention Information Intervention Type:*GALARZA-Signed Date of Service:04/19/2017 12:06 PM Patient Type:Inpatient Staff Member:Kamla Lima Hours: Discipline: Severity: Comment: Intervention Type:*GALARZA-Signed Date of Service:04/19/2017 12:07 PM Patient Type:Inpatient Staff Member:Kamla Lima Hours: Discipline: Severity: Comment:
--- NOTE | 2017-04-19 14:19 | ASDISCHSUM ---
Discharge Information Plan Status:SNF Medically Cleared to Leave: Discharge Date:04/19/2017 02:09 PM CM D/C Disposition:[facility] Living Facility ADT D/C Disposition:Senior Living Facility Projected Discharge Date:04/20/2017 11:00 AM Transportation at D/C:Wheelchair Van Discharge Delay Reason: Follow-Up Date:04/20/2017 11:00 AM Discharge Slot: Final Diagnosis: Placement Information Referral Type:*Skilled Nursing/SNF Referral ID:[id number] Provider Name:Shannon Wade Address 1[address] [facility] Phone Number: Address 2: Fax Number: City:[place] Selection Factors: State:[place] Patient Contact Information Contact Name:KENDYTENZINSHREYAS Relationship:Daughter Address:[address] City:[place] Alternate Phone: State/Zip Code:[place] [address] Email: Financial Information Financial Class: Primary Plan Desc:MEDICARE INPATIENT Primary Plan Number:[id number] Secondary Plan Desc:[place] Secondary Plan Number:[id number] Assessment Information CM Corrections Specialist Assessment CJR Did you go to joint Answers: No (why?) Notes: Unable to get to the class? class/no access to [employer] CM Note CM Note Notes: Patient will be needing accommodation from the Case Management team. Shagufta stated that Dr. Yoon recommended inpatient rehab, and her Neurologist recommended a specific location at the [facility] that will be able to care for her other medical conditions as well. Shagufta believes she will be needing home care PT after her inpatient rehab stay. She lives alone and stated she believes she will not be able to care for her. Date Signed: 04/03/2017 11:31 AM Electronically Signed By:Kamla Lima [facility] CM Progress Note CM Note CM Note Notes: Patient is POD #[address] arthroplasty with Dr Yoon. Per pre-CJR accommodation call by assistant professor of business, Dr Yoon recommended inpatient rehab for patient. She lives alone and can likely not take care of herself post-operatively. Rehab consult ordered, as well as PT/OT/SPECIAL SKILLS OFFICER. All evals are pending at this time. CM will follow. Date Signed: 04/17/2017 02:21 PM Electronically Signed By:Magy Daniel RN [facility] CM Progress Note CM Note CM Note Notes: Pt agreeable to rehab only SNF today, requests referrals sent to [email or web address] and [email or web address]. [email or web address] pt[facility] pending, they may not be able to accept due to pt non-formulary MS medication which is too expensive. Pt will d/c tomorrow. CM to follow. Date Signed: 04/18/2017 03:29 PM Electronically Signed By:LUCINDA Burrows [facility] Progress Note CM Note CM Note Notes: Pt medically stable for discharge to [facility]. CARROLL Sy to call report. Orders sent in All scripts. Paulina NICOLE set up wc transport 1400. Date Signed: 04/19/2017 02:18 PM Electronically Signed By:LUCINDA Burrows Intervention Information Intervention Type:*GALARZA-Signed Date of Service:04/19/2017 12:06 PM Patient Type:Inpatient Staff Member:Kamla Lima Hours: Discipline: Severity: Comment: Intervention Type:*GALARZA-Signed Date of Service:04/19/2017 12:07 PM Patient Type:Inpatient Staff Member:Kamla Lima Hours: Discipline: Severity: Comment:
--- NOTE | 2017-04-19 14:19 | ASDISCHSUM ---
Discharge Information Plan Status:SNF Medically Cleared to Leave: Discharge Date:04/19/2017 02:09 PM CM D/C Disposition:Residential Facility ADT D/C Disposition:Residential Facility Projected Discharge Date:04/20/2017 11:00 AM Transportation at D/C:Wheelchair Van Discharge Delay Reason: Follow-Up Date:04/20/2017 11:00 AM Discharge Slot: Final Diagnosis: Placement Information Referral Type:*Alf/SNF Referral ID:[id number] Provider Name:Shannon Waed Address 1[address] [facility] Phone Number: Address 2: Fax Number: City:[place] Selection Factors: State:[place] Patient Contact Information Contact Name:KENDYTENZINSHREYAS Relationship:Daughter Address:[address] City:[place] Alternate Phone: State/Zip Code:[place] [address] Email: Financial Information Financial Class: Primary Plan Desc:MEDICARE INPATIENT Primary Plan Number:[id number] Secondary Plan Desc:MED[place] Secondary Plan Number:[id number] Assessment Information CM Boot Repairer Assessment CJR Did you go to joint Answers: No (why?) Notes: Unable to get to the class? class/no access to [employer] CM Note CM Note Notes: Patient will be needing accommodation from the Case Management team. Shagufta stated that Dr. Yoon recommended inpatient rehab, and her Neurologist recommended a specific location at the [facility] that will be able to care for her other medical conditions as well. Shagufta believes she will be needing home care PT after her inpatient rehab stay. She lives alone and stated she believes she will not be able to care for her. Date Signed: 04/03/2017 11:31 AM Electronically Signed By:Kamla Lima [facility] CM Progress Note CM Note CM Note Notes: Patient is POD #0 total hip arthroplasty with Dr Yoon. Per pre-CJR accommodation call by sap business analyst, Dr Yoon recommended inpatient rehab for patient. She lives alone and can likely not take care of herself post-operatively. Rehab consult ordered, as well as PT/OT/SECURITY SYSTEMS ADMINISTRATOR. All evals are pending at this time. CM will follow. Date Signed: 04/17/2017 02:21 PM Electronically Signed By:Magy Daniel RN [facility] CM Progress Note CM Note CM Note Notes: Pt agreeable to rehab only SNF today, requests referrals sent to [facility] pt. [facility] pending, they may not be able to accept due to pt non-formulary MS medication which is too expensive. Pt will d/c tomorrow. CM to follow. Date Signed: 04/18/2017 03:29 PM Electronically Signed By:LUCINDA Burrows [facility] Progress Note CM Note CM Note Notes: Pt medically stable for discharge to [facility] . CARROLL Sy to call report. Orders sent in All scripts. Paulina NICOLE set up wc transport 1400. Date Signed: 04/19/2017 02:18 PM Electronically Signed By:LUCINDA Burrows Intervention Information Intervention Type:*GALARZA-Signed Date of Service:04/19/2017 12:06 PM Patient Type:Inpatient Staff Member:Kamla Lima Hours: Discipline: Severity: Comment: Intervention Type:*GALARZA-Signed Date of Service:04/19/2017 12:07 PM Patient Type:Inpatient Staff Member:Kamla Lima Hours: Discipline: Severity: Comment:
== END 2017-04-19 14:09 | DRG 470 ==
LOC: F3N 07:12
PROVIDERS: ADMIT Orthopaedic Surgery; ATTEND Orthopaedic Surgery
DX: M16.12 Unilateral primary osteoarthritis, left hip (principal); G35 Multiple sclerosis; F32.9 Major depressive disorder, single episode, unspecified; E03.9 Hypothyroidism, unspecified
CPT/HCPCS: 97116-GP; 97162-GP; 97166-GO; 97535-GO; C1713; G8978-GP-CK; G8979-GP-CI; G8980-GP-CI; G8987-GO-CJ; G8988-GO-CI; G8989-GO-CJ; J0171; J0690; J1100; J1170; J1885; J2370; J2405; J2704; J2795; J3010; J3490

== ENCOUNTER 2017-05-28 01:31 | Inpatient (IN) | payer OTHER, MEDICAID ==
[2017-05-28] MEDS ORDERED: NS 1,000 ML IV ONE (01:38)
[2017-05-28] MEDS ORDERED: ONDANSETRON 4 MG/2 ML VIAL IVP ONE (01:39)
[2017-05-28] MEDS ORDERED: ASPIRIN EC 325 MG TAB PO ONE (01:39)
--- NOTE | 2017-05-28 01:39 | EDPHY ---
H & P HPI/ROS: HPI CHIEF COMPLAINT: Nausea, chest tightness, palpitations, generalized weakness HISTORY OF PRESENT ILLNESS: This patient is a 71-year-old female significant past medical history for bipolar disorder, she presents emergency room with multitude of complaints but states the past 48 hr she has been feeling nauseous without any vomiting today but did have 1 episode of vomiting yesterday additionally she reports generalized weakness, additionally she states she feels "unwell" she also reports to me that she had some chest tightness currently active. No shortness of breath. No pleuritic pain. No productive cough. Denies fever. Main complaint is nausea. Past Medical History: Hyponatremia, psychogenic polydipsia, bipolar disorder, personality disorder. Past Surgical History: Hip surgery Social History: Denies daily use of drugs alcohol tobacco. Family History: Noncontributory ROS REVIEW OF SYSTEMS: A comprehensive 10 point review of systems is otherwise negative aside from elements mentioned in the history of present illness. Exam Constitutional appears nontoxic, dehydrated on exam, cachectic triage nursing summary reviewed, vital signs reviewed, awake/alert. Eyes normal conjunctivae and sclera, EOMI, PERRLA. HENT normal inspection, atraumatic, dehydrated dry mucous membranes, no epistaxis, neck supple/ no meningismus, no raccoon eyes. Respiratory clear to auscultation bilaterally, normal breath sounds, no respiratory distress, no wheezing. Cardiovascular rate normal, regular rhythm, no murmur, no edema, distal pulses normal. Gastrointestinal soft, non-tender, no rebound, no guarding, normal bowel sounds, no distension, no pulsatile mass. Genitourinary no CVA tenderness. Musculoskeletal no midline vertebral tenderness, full range of motion, no calf swelling, no tenderness of extremities, no meningismus, good pulses, neurovascularly intact. Skin pink, warm, & dry, no rash, skin atraumatic. Neurologic awake, alert and oriented x 3, AAOx3, moves all 4 extremities equally, motor intact, sensory intact, CN II-XII intact, normal cerebellar, normal vision, normal speech. Psychiatric normal mood/affect. Heme/Lymph/Immune no lymphadenopathy. Differential Diagnosis: Includes but is not limited to in a particular order dehydration, electrolyte disturbance, hyponatremia, cardiac disease, ACS, pneumonia, UTI, infection, sepsis Medical Decision Making: Plan for this patient IV establishment with IV fluid bolus, check basic blood work, EKG, full hospital monitor, check troponin, chest x-ray, urinalysis, drug screen re-evaluate. Additionally patient be given full- dose aspirin. 4 mg IV Zofran. 1 L fluid. Re-evaluation: EKG interpretation by me on record in [employer] system. Impression this is sinus rhythm rate of 68. No acute ischemic change appreciated. Specifically no ST elevation. No ST depression. No significant T-wave abnormality. 0227: Patient's troponin negative. However D-dimer is positive 5.60. This setting of shortness of breath and chest pain with a high D-dimer this patient should have a CT angiogram of her chest rule out pulmonary embolism. CT angiogram of the chest shows bilateral lower lobe small burden pulmonary embolism. In the setting of D-dimer chest pain shortness of breath she did receive a CT angiogram of her chest this is positive. Will admit to the medicine service for bilateral pulmonary embolism. Further evaluation. Will Lovenox patient. Source: Patient, EMS - Medical/Surgical History Hx Asthma: No Hx Chronic Respiratory Disease: No Hx Diabetes: No Hx Cardiac Disease: No Hx Renal Disease: No Hx Cirrhosis: No Hx Alcoholism: No Hx HIV/AIDS: No Hx Splenectomy or Spleen Trauma: No Other PMH: Hypothyroid, bipolar, MS, osteoporosis, anxiety, Breast CA (Rt) - Social History Smoking Status: Former smoker Constitutional: Initial Vital Signs Temperature (C) 36.4 C 05/28/17 01:32 Heart Rate 76 05/28/17 01:32 Respiratory Rate 16 05/28/17 01:32 Blood Pressure 152/94 H 05/28/17 01:32 O2 Sat (%) 94 05/28/17 01:32 O2 Delivery Mode Room Air Allergies/Adverse Reactions: No Known Allergies Allergy (Verified 03/29/17 16:00) Home Medications: Medication Instructions Recorded Gabapentin [Neurontin 400 MG (*)] 800 mg PO HS 05/19/12 Levothyroxine [Synthroid 88 mcg 88 mcg PO DAILY06 02/16/14 (*)] Lisdexamfetamine Dimesylate 70 mg PO DAILY 05/19/14 [Vyvanse] Cholecalciferol Vit D3 [Vitamin D3 1,000 units PO DAILY 03/23/17 (*)] Glatiramer Acetate [Copaxone] 40 mg SQ MWF 03/23/17 Temazepam [Restoril] 30 mg PO HS PRN 03/23/17 Aspirin [Aspirin 325 mg (*)] 325 mg PO DAILY tab 04/18/17 Lisdexamfetamine Dimesylate 20 mg PO DAILY14 04/18/17 [Vyvanse] OLANZapine [Zyprexa] 10 mg PO HS 04/18/17 oxyCODONE IR [Oxycodone Ir (*)] 5 - 10 mg PO Q3HRS PRN #70 tab 04/18/17 Medical Decision Making - Data Points Laboratory Results: Laboratory Results 05/28/17 01:40 05/28/17 01:40 05/28/17 05/28/17 05/28/17 01:40 01:40 01:40 WBC 8.36 10^3/uL 10^3/uL (3.80-9.50) RBC 4.84 10^6/uL 10^6/uL (4.18-5.33) Hgb 14.9 g/dL g/dL (12.6-16.3) Hct 44.5 % % (38.0-47.0) MCV 91.9 fL fL (81.5-99.8) MCH 30.8 pg pg (27.9-34.1) MCHC 33.5 g/dL g/dL (32.4-36.7) RDW 13.6 % % (11.5-15.2) Plt Count 288 10^3/uL 10^3/uL (150-400) MPV 9.7 fL fL (8.7-11.7) Neut % (Auto) 64.0 % % (39.3-74.2) Lymph % (Auto) 27.2 % % (15.0-45.0) [place] % (Auto) 6.2 % % (4.5-13.0) Eos % (Auto) 1.6 % % (0.6-7.6) Baso % (Auto) 0.8 % % (0.3-1.7) Nucleat RBC Rel Count 0.0 % % (0.0-0.2) Absolute Neuts (auto) 5.35 10^3/uL 10^3/uL (1.70-6.50) Absolute Lymphs (auto) 2.27 10^3/uL 10^3/uL (1.00-3.00) Absolute Monos (auto) 0.52 10^3/uL 10^3/uL (0.30-0.80) Absolute Eos (auto) 0.13 10^3/uL 10^3/uL (0.03-0.40) Absolute Basos (auto) 0.07 10^3/uL 10^3/uL (0.02-0.10) Absolute Nucleated RBC 0.00 10^3/uL 10^3/uL (0-0.01) Immature Gran % 0.2 % % (0.0-1.1) Immature Gran # 0.02 10^3/uL 10^3/uL (0.00-0.10) PT 13.3 SEC SEC (12.0-15.0) INR 0.99 (0.83-1.16) APTT 31.1 SEC SEC (23.0-38.0) D-Dimer 5.60 ug/mLFEU H ug/mLFEU (0.00-0.50) Sodium 146 mEq/L H mEq/L (134-144) Potassium 4.4 mEq/L mEq/L (3.5-5.2) Chloride 102 mEq/L mEq/L (97-110) Carbon Dioxide 28 mEq/l mEq/l (22-31) Anion Gap 16 mEq/L mEq/L (8-16) BUN 14 mg/dL mg/dL (7-23) Creatinine 0.9 mg/dL mg/dL (0.6-1.0) Estimated GFR > 60 Glucose 129 mg/dL H mg/dL (70-100) Calcium 10.3 mg/dL mg/dL (8.5-10.4) Magnesium 1.9 mg/dL mg/dL (1.6-2.3) Total Bilirubin 0.7 mg/dL mg/dL (0.1-1.4) Conjugated Bilirubin 0.3 mg/dL mg/dL (0.0-0.5) Unconjugated Bilirubin 0.4 mg/dL mg/dL (0.0-1.1) AST 30 IU/L IU/L (14-46) ALT 31 IU/L IU/L (9-52) Alkaline Phosphatase 136 IU/L H IU/L (38-126) Creatine Kinase 129 IU/L IU/L (0-156) CK-MB (CK-2) Fraction 1.69 ng/mL ng/mL (0.00-3.19) Troponin I < 0.012 ng/mL ng/mL (0.000-0.034) NT-Pro-B Natriuret Pep 321 pg/mL H pg/mL (0-125) Total Protein 7.6 g/dL g/dL (6.3-8.2) Albumin 4.4 g/dL g/dL (3.5-5.0) Lipase 65 IU/L IU/L (23-300) Medications Given: Discontinued Medications Aspirin Buffered (Aspirin Ec) 325 mg PO EDNOW ONE Stop: 05/28/17 01:40 Last Admin: 05/28/17 01:48 Dose: 325 mg Sodium Chloride (Ns) 1,000 mls @ 0 mls/hr IV EDNOW ONE; Wide Open PRN Reason: Protocol Stop: 05/28/17 01:39 Last Admin: 05/28/17 01:48 Dose: 1,000 mls Ondansetron HCl (Zofran) 4 mg IVP EDNOW ONE Stop: 05/28/17 01:40 Last Admin: 05/28/17 01:49 Dose: 4 mg Departure - Departure Disposition: [facility] Inpatient Acute Clinical Impression: Bilateral pulmonary embolism Condition: Fair Referrals: Patient,NotPresent [Unknown] - As per Instructions
--- NOTE | 2017-05-28 01:42 | CPEKG ---
Heart Rate: 68 RR Interval: 882 P-R Interval: 160 QRSD Interval: 86 QT Interval: 420 QTC Interval: 447 P [place]: 58 QRS [place]: 66 T Wave [place]: 74 EKG Severity - NORMAL ECG - EKG Impression: SINUS RHYTHM Electronically Signed By: Rudy Kim 28-May-2017 06:37:48
[2017-05-28 01:55] LABS: % IMMATURE GRANULYOCYTES 0.2 % (0.0-1.1); ABSOLUTE IMMATURE GRANULOCYTES 0.02 10^3/uL (0.00-0.10); ADD DIFF? NO; ADD MORPH? NO; ADD SCAN? NO; ATYPICAL LYMPHOCYTE FLAG 0 (0-99); FRAGMENT RBC FLAG 0 (0-99); HEMATOCRIT 44.5 % (38.0-47.0); HEMOGLOBIN 14.9 g/dL (12.6-16.3); LEFT SHIFT FLG 0 (0-99); LIPEMIA HEMOLYSIS FLAG 80 (0-99); MEAN CELL HEMOGLOBIN 30.8 pg (27.9-34.1); MEAN CELL HEMOGLOBIN CONCENTR. 33.5 g/dL (32.4-36.7); MEAN CELL VOLUME 91.9 fL (81.5-99.8); MEAN PLATELET VOLUME 9.7 fL (8.7-11.7); PLATELET CLUMPS FLAG 10 (0-99); PLATELET COUNT 288 10^3/uL (150-400); RED BLOOD CELL COUNT 4.84 10^6/uL (4.18-5.33); RED CELL DISTRIBUTION WIDTH 13.6 % (11.5-15.2)
[2017-05-28 02:05] LABS: APTT 31.1 SEC (23.0-38.0); INR 0.99 (0.83-1.16); PROTIME(PATIENT) 13.3 SEC (12.0-15.0)
[2017-05-28 02:08] LABS: ALANINE AMINOTRANSFERASE 31 IU/L (9-52); ALBUMIN 4.4 g/dL (3.5-5.0); ALKALINE PHOSPHATASE 136 IU/L (38-126); ANION GAP 16 mEq/L (8-16); ASPARTATE AMINOTRANSFERASE 30 IU/L (14-46); BILIRUBIN,TOTAL 0.7 mg/dL (0.1-1.4); BILIRUBIN-CONJUGATED 0.3 mg/dL (0.0-0.5); BILIRUBIN-UNCONJUGATED 0.4 mg/dL (0.0-1.1); CALCIUM 10.3 mg/dL (8.5-10.4); CARBON DIOXIDE 28 mEq/l (22-31); CHLORIDE 102 mEq/L (97-110); CREATININE 0.9 mg/dL (0.6-1.0); GLOMERULAR FILTRATION RATE > 60; GLUCOSE 129 mg/dL (70-100); MAGNESIUM 1.9 mg/dL (1.6-2.3); POTASSIUM 4.4 mEq/L (3.5-5.2); SODIUM 146 mEq/L (134-144); TOTAL PROTEIN 7.6 g/dL (6.3-8.2)
[2017-05-28 02:20] LABS: CREATINE KINASE-MB FRACTION 1.69 ng/mL (0.00-3.19); TROPONIN I < 0.012 ng/mL (0.000-0.034)
[2017-05-28] MEDS ORDERED: IOPAMIDOL (ISOVUE 370) 100 ML BTL IV ONE (02:29)
[2017-05-28] MEDS ORDERED: ENOXAPARIN 60 MG/0.6 ML SYR SC ONE (02:59)
[2017-05-28] MEDS ORDERED: oxyCODONE IR 5 MG TAB PO PRN (03:03)
[2017-05-28] MEDS ORDERED: ONDANSETRON DISINTEGRATING 4 MG TAB PO PRN (03:03)
[2017-05-28] MEDS ORDERED: ACETAMINOPHEN 325 MG TAB PO PRN (03:03)
[2017-05-28] MEDS ORDERED: ONDANSETRON 4 MG/2 ML VIAL IVP PRN (03:03)
[2017-05-28 03:09] LABS: COLOR PALE YELLOW; LEUKOCYTE ESTERASE,URINE 2+ (NEGATIVE); NITRITE,URINE NEGATIVE (NEGATIVE)
--- NOTE | 2017-05-28 03:29 | PDGENHP ---
History and Physical - Chief Complaint Chest pain - History of Present Illness 71 yo F w/ BPD, MS, hx breast cancer, and hypothyroid presents with chest pain and shortness of breath. Patient has been feeling poorly since yesterday, when she developed some fatigue. This progressed over the course of the day to include chest pain and shortness of breath. She called EMS as a result. Upon arrival her D-dimer was elevated so a CT Angio was performed, which revealed small volume bilateral pulmonary emboli. She is hemodynamically stable and oxygenating well on RA currently. Of note, she had a hip arthroplasty performed in March of this year, which could have provoked thrombosis. Hx of breast cancer is also notable but she has been compliant with yearly mammograms and has had no signs of recurrence since finishing treatment in 2007. History Information - Allergies/Home Medication List Allergies/Adverse Reactions: No Known Allergies Allergy (Verified 03/29/17 16:00) Home Medications: Gabapentin [Neurontin 400 MG (*)] 800 mg PO HS 05/19/12 [Last Taken 04/16/17] Levothyroxine [Synthroid 88 mcg (*)] 88 mcg PO DAILY06 02/16/14 [Last Taken ] Lisdexamfetamine Dimesylate [Vyvanse] 70 mg PO DAILY 05/19/14 [Last Taken ] Cholecalciferol Vit D3 [Vitamin D3 (*)] 1,000 units PO DAILY 03/23/17 [Last Taken 04/16/17] Glatiramer Acetate [Copaxone] 40 mg SQ MWF 03/23/17 [Last Taken 04/12/17] Temazepam [Restoril] 30 mg PO HS PRN 03/23/17 [Last Taken 04/16/17] Lisdexamfetamine Dimesylate [Vyvanse] 20 mg PO DAILY14 04/18/17 [Last Taken Unknown] OLANZapine [Zyprexa] 10 mg PO HS 04/18/17 [Last Taken Unknown] I have personally reviewed and updated: family history, medical history - Past Medical History cancer (Breast cancer s/p lumpectomy and chemo/XRT in 2007) Additional medical history: Bipolar disorder. MS - Surgical History Additional surgical history: L ENZO 04/17/17 - Family History Additional family history: Denies family hx of blood clots - Social History Smoking Status: Former smoker Review of Systems Review of Systems: ROS: 10pt was reviewed & negative except for what was stated in HPI & below Physical Exam Physical Exam: Temp Pulse Resp BP Pulse Ox 36.4 C 76 16 152/94 H 94 05/28/17 01:32 05/28/17 01:32 05/28/17 01:32 05/28/17 01:32 05/28/17 01:32 Constitutional: no apparent distress, not in pain Eyes: PERRL, EOMI Ears, Nose, Mouth, Throat: moist mucous membranes, no oral mucosal ulcers Cardiovascular: regular rate and rhythym, no murmur, rub, or gallop Respiratory: no respiratory distress, clear to auscultation Gastrointestinal: normoactive bowel sounds, soft, non-tender abdomen Skin: warm, normal color Musculoskeletal: full muscle strength, no muscle tenderness Neurologic: AAOx3, CN II-XII Intact Psychiatric: interacting appropriately, not anxious Lab Data & Imaging Review 05/28/17 01:40 05/28/17 01:40 WBC 8.36 10^3/uL (3.80-9.50) 05/28/17 01:40 RBC 4.84 10^6/uL (4.18-5.33) 05/28/17 01:40 Hgb 14.9 g/dL (12.6-16.3) 05/28/17 01:40 Hct 44.5 % (38.0-47.0) 05/28/17 01:40 MCV 91.9 fL (81.5-99.8) 05/28/17 01:40 MCH 30.8 pg (27.9-34.1) 05/28/17 01:40 MCHC 33.5 g/dL (32.4-36.7) 05/28/17 01:40 RDW 13.6 % (11.5-15.2) 05/28/17 01:40 Plt Count 288 10^3/uL (150-400) 05/28/17 01:40 MPV 9.7 fL (8.7-11.7) 05/28/17 01:40 Neut % (Auto) 64.0 % (39.3-74.2) 05/28/17 01:40 Lymph % (Auto) 27.2 % (15.0-45.0) 05/28/17 01:40 [place] % (Auto) 6.2 % (4.5-13.0) 05/28/17 01:40 Eos % (Auto) 1.6 % (0.6-7.6) 05/28/17 01:40 Baso % (Auto) 0.8 % (0.3-1.7) 05/28/17 01:40 Nucleat RBC Rel Count 0.0 % (0.0-0.2) 05/28/17 01:40 Absolute Neuts (auto) 5.35 10^3/uL (1.70-6.50) 05/28/17 01:40 Absolute Lymphs (auto) 2.27 10^3/uL (1.00-3.00) 05/28/17 01:40 Absolute Monos (auto) 0.52 10^3/uL (0.30-0.80) 05/28/17 01:40 Absolute Eos (auto) 0.13 10^3/uL (0.03-0.40) 05/28/17 01:40 Absolute Basos (auto) 0.07 10^3/uL (0.02-0.10) 05/28/17 01:40 Absolute Nucleated RBC 0.00 10^3/uL (0-0.01) 05/28/17 01:40 Immature Gran % 0.2 % (0.0-1.1) 05/28/17 01:40 Immature Gran # 0.02 10^3/uL (0.00-0.10) 05/28/17 01:40 PT 13.3 SEC (12.0-15.0) 05/28/17 01:40 INR 0.99 (0.83-1.16) 05/28/17 01:40 APTT 31.1 SEC (23.0-38.0) 05/28/17 01:40 D-Dimer 5.60 ug/mLFEU (0.00-0.50) H 05/28/17 01:40 Sodium 146 mEq/L (134-144) H 05/28/17 01:40 Potassium 4.4 mEq/L (3.5-5.2) 05/28/17 01:40 Chloride 102 mEq/L (97-110) 05/28/17 01:40 Carbon Dioxide 28 mEq/l (22-31) 05/28/17 01:40 Anion Gap 16 mEq/L (8-16) 05/28/17 01:40 BUN 14 mg/dL (7-23) 05/28/17 01:40 Creatinine 0.9 mg/dL (0.6-1.0) 05/28/17 01:40 Estimated GFR > 60 05/28/17 01:40 Glucose 129 mg/dL (70-100) H 05/28/17 01:40 Calcium 10.3 mg/dL (8.5-10.4) 05/28/17 01:40 Magnesium 1.9 mg/dL (1.6-2.3) 05/28/17 01:40 Total Bilirubin 0.7 mg/dL (0.1-1.4) 05/28/17 01:40 Conjugated Bilirubin 0.3 mg/dL (0.0-0.5) 05/28/17 01:40 Unconjugated Bilirubin 0.4 mg/dL (0.0-1.1) 05/28/17 01:40 AST 30 IU/L (14-46) 05/28/17 01:40 ALT 31 IU/L (9-52) 05/28/17 01:40 Alkaline Phosphatase 136 IU/L (38-126) H 05/28/17 01:40 Creatine Kinase 129 IU/L (0-156) 05/28/17 01:40 CK-MB (CK-2) Fraction 1.69 ng/mL (0.00-3.19) 05/28/17 01:40 Troponin I < 0.012 ng/mL (0.000-0.034) 05/28/17 01:40 NT-Pro-B Natriuret Pep 321 pg/mL (0-125) H 05/28/17 01:40 Total Protein 7.6 g/dL (6.3-8.2) 05/28/17 01:40 Albumin 4.4 g/dL (3.5-5.0) 05/28/17 01:40 Lipase 65 IU/L (23-300) 05/28/17 01:40 Urine Color PALE YELLOW 05/28/17 02:55 Urine Appearance HAZY 05/28/17 02:55 Urine pH 7.0 (5.0-7.5) 05/28/17 02:55 Ur Specific [place] 1.014 (1.002-1.030) 05/28/17 02:55 Urine Protein NEGATIVE (NEGATIVE) 05/28/17 02:55 Urine Ketones NEGATIVE (NEGATIVE) 05/28/17 02:55 Urine Blood NEGATIVE (NEGATIVE) 05/28/17 02:55 Urine Nitrate NEGATIVE (NEGATIVE) 05/28/17 02:55 Urine Bilirubin NEGATIVE (NEGATIVE) 05/28/17 02:55 Urine Urobilinogen NEGATIVE EU (0.2-1.0) 05/28/17 02:55 Ur Leukocyte Esterase 2+ (NEGATIVE) H 05/28/17 02:55 Urine RBC 1-3 /hpf (0-3) 05/28/17 02:55 Urine WBC 10-15 /hpf (0-3) H 05/28/17 02:55 Ur Epithelial Cells 1+ /lpf (NONE-1+) 05/28/17 02:55 Urine Glucose NEGATIVE (NEGATIVE) 05/28/17 02:55 Urine Opiates Screen NEGATIVE (NEGATIVE) 05/28/17 02:55 Urine Barbiturates NEGATIVE (NEGATIVE) 05/28/17 02:55 Ur Phencyclidine Scrn NEGATIVE (NEGATIVE) 05/28/17 02:55 Ur Amphetamine Screen NEGATIVE (NEGATIVE) 05/28/17 02:55 U Benzodiazepines Scrn NON-NEGATIVE (NEGATIVE) H 05/28/17 02:55 Urine Cocaine Screen NEGATIVE (NEGATIVE) 05/28/17 02:55 U Marijuana (THC) Screen NEGATIVE (NEGATIVE) 05/28/17 02:55 Imaging Review: CT Chest Angio w/ small volume, bilateral pulmonary emboli. Visualized and Interpreted EKG results: Yes EKG Interpretation: Positive for: normal sinsus rhythm, NS ST wave abnormalities Assessment & Plan Assessment: 71 yo F w/ BPD, MS, hx breast cancer, and hypothyroid presents with chest pain and found to have bilateral pulmonary emboli. Plan: 1. Bilateral pulmonary emboli - Possibly provoked by L ENZO on 04/17/17. Additionally, she does have a hx of breast cancer but has been compliant with yearly mammograms and has no signs of recurrence. She has no personal or family history of blood clots. Hemodynamically stable and oxygenating well on RA. PESI of 100 for age and hx of cancer, denoting intermediate risk. BNP slightly elevated but troponin negative and ECG without signs of R heart strain. - S/p Lovenox in ED - Will start Xarelto 15 mg BID (No Prior Auth necessary per [employer] Medicare Part D formulary) - Will not order TTE noting no signs of significant R heart strain 2. BPD - Takes olanzapine as an outpatient. 3. MS - States that this had led to some issues ambulating; takes Copaxone. 4. Hx Breast CA - S/p lumpectomy and chemo/XRT in 2007. Has been compliant with yearly mammograms and has no signs of recurrence. Recommended patient visit PCP for repeat surveillance noting new thrombosis. 5. Hypothyroid - On LTX as outpatient. Diet - Regular Code - Full Ppx - Xarelto Dispo - Admit to observation status
[2017-05-28 07:46] VITALS: BP 146/86; PULSE 77; RESP 20; TEMP 97.7; O2SAT 98
[2017-05-28] MEDS ORDERED: RIVAROXABAN 15 MG TAB PO SCH (08:00)
--- NOTE | 2017-05-28 16:08 | ASDISCHSUM ---
Discharge Information Plan Status:Home with No Needs Medically Cleared to Leave:05/27/2017 Discharge Date:05/28/2017 11:00 AM CM D/C Disposition:Home, Routine, Self-Care ADT D/C Disposition:Home, Routine, Self-Care Projected Discharge Date:05/28/2017 11:00 AM Transportation at D/C:Family Discharge Delay Reason: Follow-Up Date:05/28/2017 11:00 AM Discharge Slot: Final Diagnosis: Placement Information Patient Contact Information Contact Name:ANA Relationship:Daughter Address:[address] [place] City:[place] Alternate Phone: State/Zip Code:[place] [address] Email: Financial Information Financial Class: Primary Plan Desc:MEDICARE INPATIENT Primary Plan Number:[id number] Secondary Plan Desc:MED[place] Secondary Plan Number:[id number] Assessment Information Intervention Information Intervention Type:*Incorrect Registration Date of Service:05/28/2017 03:28 PM Patient Type:Inpatient Staff Member:CARROLL Ledezma Courtney Hours: Discipline: Severity: Comment:
--- NOTE | 2017-05-29 03:44 | GDS ---
[f rep st] DISCHARGE SUMMARY DISCHARGE DIAGNOSES: Include: 1. Acute bilateral pulmonary emboli. 2. Hypothyroidism. 3. History of breast cancer. 4. Bipolar disorder. 5. Multiple sclerosis. HISTORY OF PRESENT ILLNESS: This is a 71-year-old female who presents with complaints of chest pain. For details of patient's initial presentation, please see the history and physical dated 05/28/2017 . CONSULTATIVE SERVICES: None. PROCEDURES: On 05/28/2017, patient underwent a CTA of the chest that showed small volume pulmonary e mbolic disease. HOSPITAL COURSE: By issue: 1. Acute pulmonary embolism. Patient's diagnosis was made by CTA in the emergency department. Leigh ent was admitted for monitoring overnight. Patient was weaned off oxygen the morning after presentat ion, and was safe for disposition. She was initiated on Xarelto 15 mg b.i.d. for 21 days, and then w ill be transitioned to 20 mg daily. It is suspected that the patient's PE may be related to recent o rthopedic surgery; therefore, provoked. Patient has been instructed to follow in the next 1-2 weeks with her outpatient provider, Dr. Jean-Baptiste. 2. Hypothyroidism. We continue the patient's normal Synthroid therapy. 3. Bipolar disorder. Continue patient's psychiatric medications without change. 4. MS. We continue the patient's Vyvanse at home dosing. MEDICATIONS: At the time of disposition, please reference the med rec printed on 05/28/2017. Of not e, only new medication to her list included Xarelto. PENDING STUDIES: At the time of this dictation, are none. FOLLOWUP: Includes: With Dr. Jean-Baptiste in the next 2-4 weeks for her first post-disposition foll owup after initiation on anticoagulation for PE. I spent greater than 30 minutes in the planning and coordination of this discharge. /[id number]/MODL
== END 2017-05-28 11:00 | disposition home or self-care (01) | DRG 314 ==
LOC: EDUNIT# → F2W 03:52
PROVIDERS: ADMIT Student in an Organized Health Care Education/Training Program; ATTEND Student in an Organized Health Care Education/Training Program
DX: I97.89 Other postprocedural complications and disorders of the circulatory system, not elsewhere classified (principal); I26.99 Other pulmonary embolism without acute cor pulmonale; G35 Multiple sclerosis; F31.9 Bipolar disorder, unspecified; E03.9 Hypothyroidism, unspecified; Z85.3 Personal history of malignant neoplasm of breast; Z92.3 Personal history of irradiation; Z92.21 Personal history of antineoplastic chemotherapy
CPT/HCPCS: 80305; G0378; J1650; J2405; Q9967

== ENCOUNTER 2017-06-23 10:03 | Inpatient (IN) | payer OTHER, MEDICAID ==
--- NOTE | 2017-06-23 10:03 | EDPHY ---
H & P Time Seen by Provider: 06/23/17 10:03 HPI/ROS: CHIEF COMPLAINT: Nausea vomiting and diarrhea HISTORY OF PRESENT ILLNESS: Patient started having symptoms 3 days ago. Severe nausea vomiting and diarrhea and unable to take medication or keep the water down. Last dose of Xarelto she is able to take was yesterday mid day. Systems not associated with hematemesis or melena or red blood per rectum. Symptoms are severe. Not associated with abdominal pain or urinary symptoms. REVIEW OF SYSTEMS: Eye: no change in vision ENT: no sore throat Cardiac: Intermittent chest pain 2 days, no syncope Pulmonary: no cough or SOB Abdomen: HPI Musculoskeletal: no back pain Skin: no rash Neuro: no headache Constitutional: no fever : no urinary symptoms A comprehensive 10 point review of systems is otherwise negative aside from elements mentioned in the history of present illness. PAST MEDICAL HISTORY: Discharge on May 28 with pulmonary embolism, hypothyroid, breast cancer, bipolar, multiple sclerosis. Social history: Lives by herself independently General Appearance: Alert and conversant, cooperative. Eyes: No scleral icterus. ENT, Mouth: Dry mucous membranes. Respiratory: Normal respiratory effort, breath sounds equal, lungs are clear to auscultation. Cardiovascular: Regular rate and rhythm. Gastrointestinal: Abdomen is soft and non tender. Neurological: Alert, face symmetric, normal motor and sensory in extremities. Skin: Warm and dry, no rashes. Musculoskeletal: No peripheral edema. Psychiatric: Not agitated. Emergency Department course/MDM: Patient will be bridged with Lovenox until she can swallow her Xarelto tablets. Zofran 4 mg IV pre-hospital, for nausea vomiting and 1 L normal saline for dehydration. Symptoms not markedly improved in the emergency department. Promethazine 12.5 mg IV, admission for symptom control with multiple comorbidities. Constitutional: Initial Vital Signs Temperature (C) 36.4 C 06/23/17 10:03 Heart Rate 78 06/23/17 10:03 Respiratory Rate 16 06/23/17 10:03 Blood Pressure 166/105 H 06/23/17 10:03 O2 Sat (%) 96 06/23/17 10:03 O2 Delivery Mode Room Air Allergies/Adverse Reactions: No Known Allergies Allergy (Unverified 06/23/17 10:09) Home Medications: Medication Instructions Recorded Gabapentin [Neurontin 400 MG (*)] 800 mg PO HS 05/19/12 Lisdexamfetamine Dimesylate 70 mg PO DAILY 05/19/14 [Vyvanse] Cholecalciferol Vit D3 [Vitamin D3 1,000 units PO DAILY 03/23/17 (*)] Glatiramer Acetate [Copaxone] 40 mg SQ MWF 03/23/17 Temazepam [Restoril] 30 mg PO HS 03/23/17 Lisdexamfetamine Dimesylate 20 mg PO DAILY14 04/18/17 [Vyvanse] OLANZapine [Zyprexa] 10 mg PO HS 04/18/17 Rivaroxaban [Xarelto] 20 mg PO DAILY #30 tablet 05/28/17 Levothyroxine [Synthroid 88 mcg 88 mcg PO DAILY06 06/23/17 (*)] Medical Decision Making - Diagnostics EKG Interpretation: 12-lead EKG interpreted by me; official reading is in trace master. My interpretation is sinus rhythm rate 67 with left atrial abnormality. Differential Diagnosis: Differential diagnosis considered for nausea and vomiting including but not limited to gastroenteritis, gastritis, appendicitis, and medication side effect. Consult/Admit Bed Type: [place] [id number] - Data Points Laboratory Results: Laboratory Results 06/23/17 10:21 06/23/17 10:21 06/23/17 06/23/17 06/23/17 10:21 10:21 10:21 WBC 5.00 10^3/uL 10^3/uL (3.80-9.50) RBC 4.70 10^6/uL 10^6/uL (4.18-5.33) Hgb 14.4 g/dL g/dL (12.6-16.3) Hct 42.0 % % (38.0-47.0) MCV 89.4 fL fL (81.5-99.8) MCH 30.6 pg pg (27.9-34.1) MCHC 34.3 g/dL g/dL (32.4-36.7) RDW 13.2 % % (11.5-15.2) Plt Count 267 10^3/uL 10^3/uL (150-400) MPV 9.4 fL fL (8.7-11.7) Neut % (Auto) 65.2 % % (39.3-74.2) Lymph % (Auto) 26.2 % % (15.0-45.0) [place] % (Auto) 6.6 % % (4.5-13.0) Eos % (Auto) 1.2 % % (0.6-7.6) Baso % (Auto) 0.6 % % (0.3-1.7) Nucleat RBC Rel Count 0.0 % % (0.0-0.2) Absolute Neuts (auto) 3.26 10^3/uL 10^3/uL (1.70-6.50) Absolute Lymphs (auto) 1.31 10^3/uL 10^3/uL (1.00-3.00) Absolute Monos (auto) 0.33 10^3/uL 10^3/uL (0.30-0.80) Absolute Eos (auto) 0.06 10^3/uL 10^3/uL (0.03-0.40) Absolute Basos (auto) 0.03 10^3/uL 10^3/uL (0.02-0.10) Absolute Nucleated RBC 0.00 10^3/uL 10^3/uL (0-0.01) Immature Gran % 0.2 % % (0.0-1.1) Immature Gran # 0.01 10^3/uL 10^3/uL (0.00-0.10) Sodium 144 mEq/L mEq/L (134-144) Potassium 4.6 mEq/L mEq/L (3.5-5.2) Chloride 104 mEq/L mEq/L (97-110) Carbon Dioxide 25 mEq/l mEq/l (22-31) Anion Gap 15 mEq/L mEq/L (8-16) BUN 19 mg/dL mg/dL (7-23) Creatinine 0.9 mg/dL mg/dL (0.6-1.0) Estimated GFR > 60 Glucose 106 mg/dL H mg/dL (70-100) Calcium 9.7 mg/dL mg/dL (8.5-10.4) Magnesium 2.0 mg/dL mg/dL (1.6-2.3) TSH 0.118 uIU/mL L uIU/mL (0.465-4.680) Medications Given: Potassium Chloride/Sodium Chloride (Ns W/ 20 Kcl/L) 1,000 mls @ 175 mls/hr IV CONT KAITLYNN Stop: 12/20/17 12:14 Last Admin: 06/23/17 13:26 Dose: 1,000 mls Pantoprazole Sodium (Protonix) 40 mg IVP BID KAITLYNN Stop: 12/20/17 12:14 Last Admin: 06/23/17 13:44 Dose: 40 mg Discontinued Medications Enoxaparin Sodium (Lovenox) 60 mg SC EDNOW ONE Stop: 06/23/17 10:25 Last Admin: 06/23/17 10:44 Dose: 60 mg Sodium Chloride (Ns) 1,000 mls @ 0 mls/hr IV EDNOW ONE; Wide Open PRN Reason: Protocol Stop: 06/23/17 10:25 Last Admin: 06/23/17 10:29 Dose: 1,000 mls Ondansetron HCl (Zofran) 4 mg IVP EDNOW ONE Stop: 06/23/17 10:25 Last Admin: 06/23/17 10:29 Dose: 4 mg Promethazine HCl (Phenergan) 12.5 mg IVP EDNOW ONE Stop: 06/23/17 11:53 Last Admin: 06/23/17 11:55 Dose: 12.5 mg Departure - Departure Disposition: [facility] Acute Clinical Impression: Dehydration Nausea & vomiting Qualifiers: Vomiting type: unspecified Vomiting Intractability: intractable Qualified Code( s): R11.2 - Nausea with vomiting, unspecified Condition: Fair
[2017-06-23] MEDS ORDERED: ONDANSETRON 4 MG/2 ML VIAL IVP ONE (10:24)
[2017-06-23] MEDS ORDERED: ENOXAPARIN 60 MG/0.6 ML SYR SC ONE (10:24)
[2017-06-23] MEDS ORDERED: NS 1,000 ML IV ONE (10:24)
--- NOTE | 2017-06-23 10:30 | CPEKG ---
Heart Rate: 67 RR Interval: 896 P-R Interval: 168 QRSD Interval: 86 QT Interval: 428 QTC Interval: 452 P [place]: 57 QRS [place]: 53 T Wave [place]: 65 EKG Severity - BORDERLINE ECG - EKG Impression: SINUS RHYTHM EKG Impression: PROBABLE LEFT ATRIAL ABNORMALITY Electronically Signed By: Jason Hughes 23-Jun-2017 13:00:50
[2017-06-23 10:40] LABS: PLATELET COUNT 267 10^3/uL (150-400)
[2017-06-23] MEDS ORDERED: PROMETHAZINE HCL 25 MG/ML INJ IVP ONE (11:52)
[2017-06-23] MEDS ORDERED: PROMETHAZINE HCL 25 MG/ML INJ IVP PRN (12:07)
[2017-06-23] MEDS ORDERED: ZOLPIDEM TARTRATE 5 MG TAB PO PRN (12:07)
[2017-06-23] MEDS ORDERED: ONDANSETRON DISINTEGRATING 4 MG TAB PO PRN (12:07)
[2017-06-23] MEDS: NS W/ 20 KCl/L 1,000 ML IV SCH ×2 (13:26→21:01)
[2017-06-23] MEDS: PANTOPRAZOLE SODIUM 40 MG VIAL IVP SCH ×2 (13:44→20:58)
[2017-06-23] MEDS ORDERED: LISDEXAMFETAMINE DIMESYLATE 20 MG PO SCH (14:00)
[2017-06-23] MEDS: ENOXAPARIN 60 MG/0.6 ML SYR SC SCH ×2 (14:13→22:51)
[2017-06-23] MEDS: ONDANSETRON 4 MG/2 ML VIAL IVP PRN (15:20)
[2017-06-23] MEDS: Lisdexamfetamine Dimesylate [Vyvanse] 20 MG PO SCH (15:24)
--- NOTE | 2017-06-23 15:33 | GHP ---
[f rep st] HISTORY AND PHYSICAL DATE OF ADMISSION: 06/23/2017 CHIEF COMPLAINT: Nausea, vomiting, and diarrhea. HISTORY OF PRESENT ILLNESS: This is a 71-year-old female with complaints of 3 days of nausea, vomiti ng, and diarrhea. The problem came on suddenly, without exacerbating factors. She has had no recent nausea or cold or cough prior to this. There has also been no fever, shortness of breath, or chest pain. She has not noted any hematemesis, melena, or red blood per rectum. She was seen in the emerg ency department, and as she is unable to maintain fluid hydration, she was being admitted for care an d further evaluation. History is significant for the fact that she had a left hip arthroplasty in 03/2017, and then in 2016 suffered a small-volume bilateral pulmonary embolus, for which she has been on Xarelto sinc e that time. She presents now having been unable to take Xarelto for the last 3 days. She denies hawkins ving shortness of breath or hemoptysis. Her medications, which are in the EMR, will be reconciled. PAST MEDICAL HISTORY: 1. Pulmonary embolus in May 2017, for which she is now on Xarelto. 2. History of breast carcinoma approximately 10 years [employer], for which she underwent a left breast lum pectomy, chemotherapy, and radiation therapy. 3. Multiple sclerosis for over 20 years, resulting in left lower extremity weakness and perhaps some bladder dysfunction, resulting in slow capacity of urination. She has not had recurrent urinary tra ct infections. 4. Hypothyroidism, currently under treatment, and she is reports currently having a normal TSH. 5. Bipolar disorder, which is also under active care and in good control. PAST SURGICAL HISTORY: Left hip arthroplasty in 03/2017, left breast lumpectomy in 2007. ALLERGIES: No known allergies. REVIEW OF SYSTEMS: A 10-point review of systems is otherwise negative, except as noted in the HPI an d past medical history. SOCIAL HISTORY: Patient lives independently of others, though she no longer drives and she does not do her own grocery shopping. She is ambulatory without the aid of a walker or wheelchair. FAMILY HISTORY: Positive for an unknown type of cancer in her mother, and her father of coronar y artery disease, as she reports he of heart problems before there was bypass. PHYSICAL EXAMINATION: GENERAL: This is a pleasant, alert female who appears mildly uncomfortable. VITAL SIGNS: She is hypertensive at 166/105. HEENT: She has considerable mucus in her mouth, which she reports is new and she attributes it from her persistent vomiting. It is not at all bloody, and there are no signs of trauma on the tongue or buccal mucosa. NECK: Supple without signs of meningi smus. CHEST: Wall is nontender to palpation. LUNGS: Clear to P and A, although there were a few s cattered crackles heard in the lower lung sorto. HEART: Singular S1 and S2. No murmur or gallop. ABDOMEN: Normoactive bowel sounds. No mass. She does have tenderness in the epigastrium without a palpable or pulsatile mass. LEFT LOWER EXTREMITY: No signs of swelling, tenderness, or palpable co rd. RIGHT LOWER EXTREMITY: Normal. NEUROLOGIC: Symmetric and normal. LABORATORY: CBC is normal, with a hemoglobin of 14. Her CMP is also normal, with a slightly low TSH and normal magnesium. Calcium normal at 9.7. ASSESSMENT: 1. Acute nausea, vomiting, and diarrhea of unknown etiology. The patient, though she has a history of a pulmonary embolus and has not taken her Xarelto for 3 days, does not appear in respiratory distr ess and shows normal oxygenation. There does seem to be a problem of oral hydration, and thus the yesenia valle will be given intravenous fluids and placed on intravenous fluid hydration for the next 24 hour s. She will be given antiemetics, and we will see if we can resolve the matter. Her laboratory test s are normal, and so do not suggest any biliary tract difficulties, although a lipase will be ordered in case there is an incidental pancreatitis present. 2. She is reporting some cough, and as a result, respiratory pathogens will be ordered. will also be followed up, along with a chest x-ray. 3. As she is reporting diarrhea, and though she is afebrile, gastrointestinal pathogens will also be ordered on any diarrhea. There is the outside possibility she could have Clostridium difficile, alt talia the presentation is not consistent as she is not complaining of profuse diarrhea or foul-smelli ng stool, and is currently afebrile, and her abdomen is not extremely tender. Thus, if there is some diarrhea, we will send it for gastrointestinal pathogens. 4. Her code status is [id number]. The patient specifically requested this, and this is now noted in the chart. 5. Her deep vein thrombosis prophylaxis will be with full-dose anticoagulation, as there are no sign s of active bleeding. She will be given Lovenox full-dose anticoagulation doses. BILLING: The patient should be admitted to observation status. If the symptoms do not resolve, then she can be changed to inpatient status, if necessary. TIME: This admission required 50 minutes. /[id number]/MODL
[2017-06-23] MEDS ORDERED: HYDROmorphONE/DILAUDID 1 MG/ML INJ IVP PRN (16:20)
[2017-06-23] MEDS ORDERED: HYDROmorphone HCL/NS/PF 0.4 MG/2 ML SYR IVP PRN (16:22)
--- NOTE | 2017-06-23 17:08 | CPEKG ---
Heart Rate: 84 RR Interval: 714 P-R Interval: 164 QRSD Interval: 86 QT Interval: 416 QTC Interval: 492 P [place]: 70 QRS [place]: 73 T Wave [place]: 67 EKG Severity - ABNORMAL ECG - EKG Impression: SINUS RHYTHM EKG Impression: RAA, CONSIDER BIATRIAL ABNORMALITIES Electronically Signed By: Jeremy Scott 24-Jun-2017 10:47:22
[2017-06-23] MEDS: HYDROmorphone HCL/NS/PF 0.4 MG/2 ML SYR IVP PRN (17:36)
[2017-06-23] MEDS: AZITHROMYCIN IV 500 MG in D5W 250 ML IV SCH (18:43)
[2017-06-23] MEDS: TEMAZEPAM 15 MG CAP PO SCH (20:57)
[2017-06-23] MEDS: GABAPENTIN 400 MG CAP PO SCH (20:58)
[2017-06-23] MEDS: OLANZapine 10 MG TAB PO SCH (20:58)
[2017-06-23] MEDS: IPRATROPIUM/ALBUTEROL 3 ML DEYVIAL IH SCH (22:09)
[2017-06-24] MEDS: LEVOTHYROXINE 88 MCG TAB PO SCH (05:24)
[2017-06-24] MEDS: NS W/ 20 KCl/L 1,000 ML IV SCH (05:24)
[2017-06-24 05:25] LABS: PLATELET COUNT 228 10^3/uL (150-400)
[2017-06-24] MEDS: IPRATROPIUM/ALBUTEROL 3 ML DEYVIAL IH SCH ×2 (05:59→12:05)
[2017-06-24] MEDS ORDERED: LISDEXAMFETAMINE DIMESYLATE 70 MG PO SCH (09:00)
[2017-06-24] MEDS: PANTOPRAZOLE SODIUM 40 MG VIAL IVP SCH ×2 (09:39→20:54)
[2017-06-24] MEDS: CHOLECALCIFEROL VIT D3 1,000 UNITS TAB PO SCH (09:40)
[2017-06-24] MEDS: ENOXAPARIN 60 MG/0.6 ML SYR SC SCH (10:42)
[2017-06-24] MEDS: AZITHROMYCIN IV 500 MG in D5W 250 ML IV SCH (10:42)
[2017-06-24] MEDS: HYDROmorphone HCL/NS/PF 0.4 MG/2 ML SYR IVP PRN (10:57)
[2017-06-24] MEDS: ONDANSETRON 4 MG/2 ML VIAL IVP PRN (10:58)
[2017-06-24] MEDS: Lisdexamfetamine Dimesylate [Vyvanse] 70 MG PO SCH (13:13)
--- NOTE | 2017-06-24 13:31 | ASMTCMCOM ---
CM Note CM Note Notes: Chart reviewed. Patient lives independently. Dcd from [facility] in May. She is admitted after GI illness. She is sitting up in bed and speech is evaluating her. Per PT she has no needs. Will review reports speech for any home recommendations. CM to follow. Date Signed: 06/24/2017 01:31 PM Electronically Signed By:Elen Workman RN
--- NOTE | 2017-06-24 14:13 | HOSPPROG ---
Hospitalist Progress Note Assessment/Plan: New patient encounter 71 yo female admitted with N/V/D x 3 days and non productive cough. She is a poor historian and history is obtained mostly from the medical record. CXR: RLL opacity, peribronchial thickening Pc: 0.04 Abd US: cholelithiasis and pancreatic cysts #N/V, resolved, cont antiemetics PRN, advance diet #Diarrhea, resolved -stool studies pending #Abd pain, resolved #Dehydration, resolving, will do trial off IVF #RLL infiltrate? viral vs bacterial pneumonia -Negative pc -will stop Rocephin -Reports clinical improvement with start of abx, ?anti-inflammatory effect, will cont Azithromycin for now -Lung sounds are reassuring today, will hold off on steroids #Acute bronchitis #Cholelithiasis on US, negative murphys, no abd pain, no signs of cholecystitis #incidental pancreatic cysts on ultrasound -will check MRI per Radiology reccs #hx of PE. Xarelto was held due to the patient not being able to take oral pills. Was bridged with Lovenox. Can stop Lovenox and restart Xarelto #DVT proph: Lovenox #Dispo: Change inpatient Subjective: no further cough. no resp sx's. no cp or sob. no n/v/d. no abd pain. poor historian Objective: Vital Signs Temp Pulse Resp BP Pulse Ox 36.9 C 84 14 127/83 H 94 06/24/17 11:21 06/24/17 12:06 06/24/17 12:06 06/24/17 11:21 06/24/17 12:06 Microbiology 06/23/17 12:21 Respiratory Panel (PCR) - Final Nasal, Sinus - Swab No Organism Detected Laboratory Results 06/24/17 04:54 06/24/17 04:54 06/23/17 06/24/17 06/25/17 05:59 05:59 05:59 Intake Total 3340 Output Total 50 Balance 3290 - Physical Exam Constitutional: no apparent distress, appears nourished Eyes: PERRL, EOMI Ears, Nose, Mouth, Throat: moist mucous membranes, hearing normal Cardiovascular: regular rate and rhythym, No edema Respiratory: no respiratory distress, no rales or rhonchi, clear to auscultation Gastrointestinal: normoactive bowel sounds, soft, non-tender abdomen, No tenderness, No douglass's sign, No rebound, No distension Skin: warm Neurologic: AAOx3 Psychiatric: interacting appropriately, not anxious, not encephalopathic, thought process linear Lymph, Heme, Immunologic: No petechiae ICD10 Worksheet Patient Problems: Problems Problem Status Onset Dehydration Acute Nausea & vomiting Acute Anxiety Acute Bilateral pulmonary embolism Acute Nausea Acute chronic disease mgmt/transitional care Acute
[2017-06-24] MEDS ORDERED: IPRATROPIUM/ALBUTEROL 3 ML DEYVIAL IH PRN (14:19)
[2017-06-24] MEDS ORDERED: GADOBUTROL 10 ML VIAL IVP ONE (14:34)
--- NOTE | 2017-06-24 14:44 | PDMN ---
Medical Necessity Medical necessity: C/M review: est. > 2 MN LOS for eval and TX of acute nausea , vomiting, diarrhea, dehydration, of unclear etiology, RLL opacity peribronchial thickening on CXR, cholelithiasis and pancreatic cysts on abdominal US, acute bronchitis, requiring IV fluids, IV Ceftriaxone, planned 06/24/2017 abdominal MRI, ongoing IV Azithramycin, comorbid history of PE per H/P.
[2017-06-24] MEDS: RIVAROXABAN 20 MG TAB PO SCH (15:03)
[2017-06-24] MEDS: Lisdexamfetamine Dimesylate [Vyvanse] 20 MG PO SCH (15:04)
[2017-06-24] MEDS: ACETAMINOPHEN 325 MG TAB PO PRN (16:24)
[2017-06-24] MEDS: TEMAZEPAM 15 MG CAP PO SCH (20:54)
[2017-06-24] MEDS: OLANZapine 10 MG TAB PO SCH (20:55)
[2017-06-24] MEDS: GABAPENTIN 400 MG CAP PO SCH (20:55)
[2017-06-25] MEDS: LEVOTHYROXINE 88 MCG TAB PO SCH (05:18)
[2017-06-25] MEDS ORDERED: Glatiramer Acetate [Copaxone] 40 MG SQ SCH (08:00)
[2017-06-25] MEDS ORDERED: GLATIRAMER ACETATE 40 MG SQ SCH (08:00)
[2017-06-25] MEDS: CHOLECALCIFEROL VIT D3 1,000 UNITS TAB PO SCH (09:04)
[2017-06-25] MEDS: AZITHROMYCIN IV 500 MG in D5W 250 ML IV SCH (09:04)
[2017-06-25] MEDS: PANTOPRAZOLE SODIUM 40 MG VIAL IVP SCH (09:04)
[2017-06-25] MEDS: RIVAROXABAN 20 MG TAB PO SCH (09:04)
[2017-06-25] MEDS: ACETAMINOPHEN 325 MG TAB PO PRN (09:10)
[2017-06-25] MEDS ORDERED: PNEUMOC 13-VAL CONJ-DIP CRM/PF 0.5 ML SYR IM ONE (09:23)
[2017-06-25] MEDS: Lisdexamfetamine Dimesylate [Vyvanse] 70 MG PO SCH (10:42)
[2017-06-25] MEDS: PANTOPRAZOLE SODIUM 40 MG TAB PO SCH (14:39)
[2017-06-25] MEDS: Lisdexamfetamine Dimesylate [Vyvanse] 20 MG PO SCH (14:41)
--- NOTE | 2017-06-25 18:32 | HOSPPROG ---
Hospitalist Progress Note Assessment/Plan: #N/V/D/abd pain/dehydration, resolved -cont antiemetics PRN - revwd labs, US and MRI with her -recheck LFTs today, if nl she prefers outpt FU re gallstones which is reasonable as no indication of acute cholecystitis #Diarrhea, resolved -stool studies pending #RLL infiltrate? viral vs bacterial pneumonia, sxs of acute bronchitis -Negative pc -Rocephin stopped yesterday -Reports clinical improvement with start of abx, ?anti-inflammatory effect, Azithromycin contd -nl resp exam today #Cholelithiasis -see above #pancreatic cysts -confirmed on MRI -needs repeat MRI in 6 months vs endoscopic fine needle aspiration per Radiology recs -can discuss with PCP at FU appt #hx of PE -Xarelto #DVT proph: Lovenox #Dispo- likely dc in AM if tolerating diet, no further IV needs and labs nl PCP-Jerilyn DNR Subjective: Worried about nausea but not having much. Denies pain. Taking diet OK. No CP/SOB/v/d. Objective: Vital Signs Temp Pulse Resp BP Pulse Ox 98.2 F 78 14 134/92 H 99 06/25/17 08:00 06/25/17 15:34 06/25/17 15:34 06/25/17 15:34 06/25/17 15:34 Laboratory Results 06/25/17 14:23 06/24/17 06/25/17 06/26/17 11:59 11:59 11:59 Intake Total 1940 Balance 194 - Time Spent With Patient Time Spent with Patient: greater than 35 minutes (lots of questions, revwd all labs and imaging with her) Time Spent with Patient: Greater than 35 minutes spent on this patients care, greater than 50% of time spent counseling, educating, and coordinating care regarding the above mentioned plan. - Pending Discharge Pending Discharge Within 24 Hours: Yes Pending Discharge Date: 06/27/17 Pending Discharge Time: 11:00 - Physical Exam Constitutional: no apparent distress, appears nourished, not in pain Ears, Nose, Mouth, Throat: moist mucous membranes Cardiovascular: regular rate and rhythym, No edema Respiratory: no respiratory distress, no rales or rhonchi, clear to auscultation Gastrointestinal: normoactive bowel sounds, soft, non-tender abdomen, No guarding, No rebound, No distension Skin: warm Psychiatric: not encephalopathic, anxious ICD10 Worksheet Patient Problems: Problems Problem Status Onset Anxiety Acute Bilateral pulmonary embolism Acute Dehydration Acute Nausea Acute Nausea & vomiting Acute chronic disease mgmt/transitional care Acute
[2017-06-25] MEDS: GABAPENTIN 400 MG CAP PO SCH (20:42)
[2017-06-25] MEDS: OLANZapine 10 MG TAB PO SCH (20:43)
[2017-06-25] MEDS: TEMAZEPAM 15 MG CAP PO SCH (20:43)
[2017-06-26] MEDS: LEVOTHYROXINE 88 MCG TAB PO SCH (04:55)
[2017-06-26 08:37] VITALS: PULSE 90; RESP 16; TEMP 97.9; O2SAT 93
[2017-06-26] MEDS: PANTOPRAZOLE SODIUM 40 MG TAB PO SCH (08:48)
[2017-06-26] MEDS: CHOLECALCIFEROL VIT D3 1,000 UNITS TAB PO SCH (08:48)
[2017-06-26] MEDS: RIVAROXABAN 20 MG TAB PO SCH (08:48)
[2017-06-26] MEDS: Lisdexamfetamine Dimesylate [Vyvanse] 70 MG PO SCH (08:53)
[2017-06-26] MEDS ORDERED: AZITHROMYCIN 250 MG TAB PO SCH (09:00)
--- NOTE | 2017-06-26 10:25 | GDS ---
[f rep st] DISCHARGE SUMMARY SERVICE: [facility] hospitalist. CONSULTATIONS: None. PROCEDURE: 1. Abdominal MRI, shows cholelithiasis with mild enlargement of the common bile duct, multiple pancreatic cysts, likely benign, but recommendation for a 6- month followup MRI vs fine needle aspiration. 2. EKG 3. chest x-ray: Peribronchial thickening, question right lower lobe opacity ( atelectasis versus pneumonia). 4. Abdominal ultrasound, pancreatic mass (followed up by MRI, see above), cholelithiasis. ADMISSION H AND P: Please see previously dictated note by Dr. Carlos Connell. ADMISSION DIAGNOSES: 1. Acute nausea, vomiting, diarrhea. 2. Possible RLL pneumonia 3. History of recent pulmonary embolism. DISCHARGE DIAGNOSES: 1. Nausea, vomiting, diarrhea, resolved. 2. Cholelithiasis, asymptomatic. Recommend outpatient General Surgery evaluation. 3. Pancreatic cysts, followup MRI vs fine needle aspiration recommended by Radiology. 4. Question right lower lobe infiltrate with a cough, likely atelectasis/ bronchitis. 5. Recent pulmonary embolism. 6. Anemia. HOSPITAL COURSE: The patient was admitted to the hospital for IV fluids, IV antiemetics, and IV antibiotics. Initial concern for a pneumonia based on chest x-ray and symptoms, and she was started on Rocephin and azithromycin. However, she did not have any hypoxia or fever during stay. She also had a respiratory panel which was done and was negative. Blood cultures were negative. Antibiotics were stopped. An ultrasound showed cholelithiasis, and a followup MRI showed cholelithiasis, possible choledocholithiasis and complicated pancreatic cysts. LFTs were completely normal, and as her GI symptoms resolved, so I suggested following up with the surgeon as an outpatient to discuss if cholecystectomy is needed. Recommendation for a followup MRI to review pancreatic cysts as noted above. Of note, she has mild anemia at discharge with a hemoglobin of 12, hematocrit of 37. Suspect this is related to dilutional secondary to IV fluids. Recommend followup with her primary care provider. On day of discharge, her coughing had resolved and GI symptoms had resolved. Chronic medical problems: There were no issues with chronic medical problems throughout her stay. Outpatient medications were continued. DISCHARGE INSTRUCTIONS: She should follow up with Dr. Rivrea, her primary care provider, by the end of the week. A prescription for Zofran was given to use if needed at home. She was counseled on how to follow a low-fat diet and to come back to the emergency department at any time if she has worsening abdominal pain, nausea, vomiting, fever, or other concerns. DISCHARGE MEDICATIONS: She should continue all of her previous home medications : Neurontin, Vyvanse, Restoril, vitamin D, Copaxone, Zyprexa, Xarelto, and Synthroid. She was also given a new prescription for Zofran to use as needed. Copy requested to: Dr. Rivera /[id number]/MODL MTDD
[2017-06-26 14:00] VITALS: BP 121/88
--- NOTE | 2017-06-26 15:20 | ASDISCHSUM ---
Discharge Information Plan Status:Home with Home Health Medically Cleared to Leave:06/25/2017 Discharge Date:06/26/2017 11:48 AM CM D/C Disposition: ADT D/C Disposition:Home, Routine, Self-Care Projected Discharge Date:06/26/2017 11:00 AM Transportation at D/C: Discharge Delay Reason: Follow-Up Date:06/26/2017 11:00 AM Discharge Slot: Final Diagnosis: Placement Information Referral Type:*Home Health Care Services Referral ID:[id number] Provider Name:[facility] Address 1:[address] Address 2: City:[place] Selection Factors: State:[place] Patient Contact Information Contact Name:ANA Relationship:Daughter Address:[address] City:[place] Alternate Phone: State/Zip Code:[place] [address] Email: Financial Information Financial Class: Primary Plan Desc:MEDICARE INPATIENT Primary Plan Number:[id number] Secondary Plan Desc:MEDICA[place] Secondary Plan Number:[id number] Assessment Information LACE LACE Acuity / Level of Care Answers: Was the patient admitted to hospital via the emergency department? Yes: Comorbidities - select Answers: Any tumor (including all that apply lymphoma or leukemia) Emergency dept visits in Answers: 2 last 6 months Score: 7 Date Signed: 06/23/2017 12:33 PM Electronically Signed By:Jenny Lauren RN [facility] CM Progress Note CM Note CM Note Notes: Chart reviewed. Patient lives independently. Dcd from [facility] in May. She is admitted after GI illness. She is sitting up in bed and speech is evaluating her. Per PT she has no needs. Will review reports speech for any home recommendations. CM to follow. Date Signed: 06/24/2017 01:31 PM Electronically Signed By:Elen Workman RN Case Management Discharge Plan Note Case Management Discharge Discharge Order Complete? Answers: Yes Patient to Obtain Answers: Independently Medications Transportation Arranged Answers: Family/Friends Transport will Pick (Date 06/26/2017 11:30 PM & Time) EMTALA Complete Answers: No Case Management Transport Answers: No Form Complete Faxed Final Orders Answers: Yes Agency/Facility Transfer Answers: Yes Report Printed & Faxed to Receiving Agency Family Notified Answers: Yes Discharge Comments Notes: Pt is being discharged today. PT eval pt and is recommending HC. CM met w/ pt for dispo planning. Pt is agreeable to [facility] PT. [facility] is able to accept. CM provided CARROLL Merino w/ phone number to give report. CM available for changes. Plan: [facility] Date Signed: 06/26/2017 11:21 AM Electronically Signed By:ALBERTA Gallegos Intervention Information
--- NOTE | 2017-06-26 15:37 | PDIAF ---
- Diagnosis Code Status: Do Not Resuscitate - Medication Management Discharge Medications: Medications to Continue on Transfer Gabapentin [Neurontin 400 MG (*)] 800 mg PO HS 05/19/12 [Last Taken 05/27/17] Lisdexamfetamine Dimesylate [Vyvanse] 70 mg PO DAILY 05/19/14 [Last Taken ] Cholecalciferol Vit D3 [Vitamin D3 (*)] 1,000 units PO DAILY 03/23/17 [Last Taken 05/27/17] Glatiramer Acetate [Copaxone] 40 mg SQ MWF 03/23/17 [Last Taken 05/25/17] Temazepam [Restoril] 30 mg PO HS 03/23/17 [Last Taken 05/27/17] Lisdexamfetamine Dimesylate [Vyvanse] 20 mg PO DAILY14 04/18/17 [Last Taken 04/03] OLANZapine [Zyprexa] 10 mg PO HS 04/18/17 [Last Taken 05/27/17] Rivaroxaban [Xarelto] 20 mg PO DAILY #30 tablet 05/28/17 [Last Taken 06/22/17] Levothyroxine [Synthroid 88 mcg (*)] 88 mcg PO DAILY06 06/23/17 [Last Taken Unknown] Acetaminophen [Tylenol 325mg (*)] 650 mg PO Q4HRS PRN tab 06/26/17 [Last Taken Unknown] Ondansetron Odt [Zofran Odt 4 mg (*)] 4 mg PO Q8H PRN #10 tab 06/26/17 [Last Taken Unknown] Usp Antibiotics: n/a Discharge Medications: Refer to the Discharge Home Medication list for PRN reason. PICC Care - Routine: N/A - Orders Services needed: Physical Therapy Home Care Face to Face: Magdalena Jacobs MD 06/26/2017 Isolation Type: None Oxygen: none Diet Recommendation: no restrictions on diet, other Diet Texture: Regular Texture Diet [place]: Not applicable - Follow Up Care Current Providers and Referrals: Leann Rivera MD [Primary Care Provider] - 1-2 days Patient,NotPresent [Unknown] - As per Instructions
== END 2017-06-26 11:48 | disposition home or self-care (01) | DRG 392 ==
LOC: EDUNIT# → F3E 13:21 → OBSVTOIN 06-24 14:21
PROVIDERS: ADMIT Internal Medicine Pulmonary Disease; ATTEND Internal Medicine Pulmonary Disease
DX: R11.2 Nausea with vomiting, unspecified (principal); R19.7 Diarrhea, unspecified; R05 Cough; K80.20 Calculus of gallbladder without cholecystitis without obstruction; K86.2 Cyst of pancreas; D64.9 Anemia, unspecified; J98.11 Atelectasis; J40 Bronchitis, not specified as acute or chronic; G35 Multiple sclerosis; E03.9 Hypothyroidism, unspecified; F31.9 Bipolar disorder, unspecified; Z85.3 Personal history of malignant neoplasm of breast; Z96.642 Presence of left artificial hip joint; Z86.711 Personal history of pulmonary embolism; Z79.01 Long term (current) use of anticoagulants
CPT/HCPCS: 92507-GN; 92523-GN; 96374; 97116-GP; 97161-GP; 97165-GO; 97535-GO; A9585; G0009; G0378; G8978-GP-CI; G8979-GP-CI; G8980-GP-CI; G8987-GO-CI; G8988-GO-CI; G8989-GO-CI; G9168-GN-CJ; G9169-GN-CI; J0456; J0696; J1170; J1650; J2405; J2550

== ENCOUNTER → 2017-07-11 | Outpatient (CLI) | payer OTHER, MEDICAID | LOC: BMCIMAGING 11:01 | PROVIDERS: ATTEND Orthopaedic Surgery | DX: Z47.1 Aftercare following joint replacement surgery (principal); Z96.642 Presence of left artificial hip joint ==

== ENCOUNTER 2017-07-16 05:09 | Emergency (ER) | payer OTHER, MEDICAID ==
[2017-07-16 05:16] VITALS: TEMP 98.1
[2017-07-16] MEDS ORDERED: PROMETHAZINE HCL 25 MG/ML INJ IVP ONE (05:24)
[2017-07-16 05:32] LABS: PLATELET COUNT 329 10^3/uL (150-400)
[2017-07-16 05:57] VITALS: RESP 18
--- NOTE | 2017-07-16 06:13 | EDPHY ---
H & P Stated Complaint: Nausea, epigastric pain, recent galstone dx Time Seen by Provider: 07/16/17 05:21 HPI/ROS: Chief Complaint: Nausea, vomiting, abdominal pain HPI: 71-year-old woman recently diagnosed with gallstones 2 weeks ago who is been having persistent nausea with worsening nausea vomiting over the last day. Patient has been unable to keep anything down. Pain is also persistent in her epigastric region and right upper quadrant. Patient took 4 mg of Zofran at home with no relief. She was also given additional 4 mg by EMS. She is still complaining of nausea. No chest pain. No shortness of breath. She has a recent diagnosis of PE and is currently taking Xarelto. She has been referred to follow up with a general surgeon for evaluation of cholecystectomy but she has not done so yet. No fevers or chills. No cough. No urinary urgency or frequency. ROS: 10 point Review of Systems is negative except as noted in the HPI. PMH: PE, MS, gallstones Social History: No smoking, no alcohol, no recreational drug use Family History: non-contributory Physical Exam: Gen: Awake, Alert, No Distress HEENT: Nose: no rhinorrhea Eyes: PERRLA, EOMI Mouth: Moist mucosa Neck: Supple, no JVD Chest: nontender, lungs clear to auscultation Heart: S1, S2 normal, no murmur Abd: Soft, moderate epigastric tenderness without rebound or guarding, no guarding Back: no CVA tenderness, no midline tenderness Ext: no edema, non-tender Skin: no rash Neuro: CN II-XII intact, Sensation grossly intact, Strength 5/5 in bilateral upper and lower extremities - Personal History Current Tetanus Diphtheria and Acellular Pertussis (TDAP): Yes - Medical/Surgical History Hx Asthma: No Hx Chronic Respiratory Disease: No Hx Diabetes: No Hx Cardiac Disease: No Hx Renal Disease: No Hx Cirrhosis: No Hx Alcoholism: No Hx HIV/AIDS: No Hx Splenectomy or Spleen Trauma: No Other PMH: , galstones, MS, Hypothyroid, BRCA, PE - Social History Smoking Status: Former smoker Constitutional: Initial Vital Signs Temperature (C) 36.7 C 07/16/17 05:13 Heart Rate 77 07/16/17 05:13 Respiratory Rate 19 07/16/17 05:13 Blood Pressure 154/78 H 07/16/17 05:13 O2 Sat (%) 97 07/16/17 05:13 O2 Delivery Mode Room Air Allergies/Adverse Reactions: No Known Allergies Allergy (Unverified 07/16/17 05:11) Home Medications: Medication Instructions Recorded Gabapentin [Neurontin 400 MG (*)] 800 mg PO HS 05/19/12 Lisdexamfetamine Dimesylate 70 mg PO DAILY 05/19/14 [Vyvanse] Cholecalciferol Vit D3 [Vitamin D3 1,000 units PO DAILY 03/23/17 (*)] Glatiramer Acetate [Copaxone] 40 mg SQ MWF 03/23/17 Temazepam [Restoril] 30 mg PO HS 03/23/17 Lisdexamfetamine Dimesylate 20 mg PO DAILY14 04/18/17 [Vyvanse] OLANZapine [Zyprexa] 10 mg PO HS 04/18/17 Rivaroxaban [Xarelto] 20 mg PO DAILY #30 tablet 05/28/17 Levothyroxine [Synthroid 88 mcg 88 mcg PO DAILY06 06/23/17 (*)] Acetaminophen [Tylenol 325mg (*)] 650 mg PO Q4HRS PRN tab 06/26/17 Ondansetron Odt [Zofran Odt 4 mg 4 mg PO Q8H PRN #10 tab 06/26/17 (*)] Ondansetron Odt [Zofran Odt 4 mg 4 mg PO Q4 PRN #10 tab 07/16/17 (*)] Medical Decision Making ED Course/Re-evaluation: Patient is improved after IV Phenergan here. She has got a L of fluid. She has had no more vomiting. Abdomen is soft and benign. Liver function tests are unremarkable. She has a normal CBC. Plan will be for discharge to home. Will give her another prescription for Zofran. She needs to follow up with General surgery for evaluation for an elective cholecystectomy. There is no evidence of acute choledocholithiasis or cholecystitis at this time. - Data Points Laboratory Results: Laboratory Results 07/16/17 05:15 07/16/17 05:15 07/16/17 07/16/17 05:15 05:15 WBC 6.23 10^3/uL 10^3/uL (3.80-9.50) RBC 5.05 10^6/uL 10^6/uL (4.18-5.33) Hgb 15.3 g/dL g/dL (12.6-16.3) Hct 45.8 % % (38.0-47.0) MCV 90.7 fL fL (81.5-99.8) MCH 30.3 pg pg (27.9-34.1) MCHC 33.4 g/dL g/dL (32.4-36.7) RDW 14.2 % % (11.5-15.2) Plt Count 329 10^3/uL 10^3/uL (150-400) MPV 9.6 fL fL (8.7-11.7) Neut % (Auto) 56.8 % % (39.3-74.2) Lymph % (Auto) 31.3 % % (15.0-45.0) [place] % (Auto) 8.0 % % (4.5-13.0) Eos % (Auto) 2.6 % % (0.6-7.6) Baso % (Auto) 1.0 % % (0.3-1.7) Nucleat RBC Rel Count 0.0 % % (0.0-0.2) Absolute Neuts (auto) 3.54 10^3/uL 10^3/uL (1.70-6.50) Absolute Lymphs (auto) 1.95 10^3/uL 10^3/uL (1.00-3.00) Absolute Monos (auto) 0.50 10^3/uL 10^3/uL (0.30-0.80) Absolute Eos (auto) 0.16 10^3/uL 10^3/uL (0.03-0.40) Absolute Basos (auto) 0.06 10^3/uL 10^3/uL (0.02-0.10) Absolute Nucleated RBC 0.00 10^3/uL 10^3/uL (0-0.01) Immature Gran % 0.3 % % (0.0-1.1) Immature Gran # 0.02 10^3/uL 10^3/uL (0.00-0.10) Sodium 146 mEq/L H mEq/L (135-145) Potassium 4.4 mEq/L mEq/L (3.5-5.2) Chloride 104 mEq/L mEq/L (97-110) Carbon Dioxide 24 mEq/l mEq/l (22-31) Anion Gap 18 mEq/L H mEq/L (8-16) BUN 15 mg/dL mg/dL (7-23) Creatinine 1.0 mg/dL mg/dL (0.6-1.0) Estimated GFR 55 Glucose 111 mg/dL H mg/dL (70-100) Calcium 10.0 mg/dL mg/dL (8.5-10.4) Total Bilirubin 0.5 mg/dL mg/dL (0.1-1.4) AST 29 IU/L IU/L (14-46) ALT 26 IU/L IU/L (9-52) Alkaline Phosphatase 145 IU/L H IU/L (38-126) Total Protein 7.5 g/dL g/dL (6.3-8.2) Albumin 4.5 g/dL g/dL (3.5-5.0) Lipase 81 IU/L IU/L (23-300) Medications Given: Discontinued Medications Promethazine HCl (Phenergan) 12.5 mg IVP ONCE ONE Stop: 07/16/17 05:25 Last Admin: 07/16/17 05:28 Dose: 12.5 mg Departure - Departure Disposition: Home, Routine, Self-Care Clinical Impression: Gallstones, Nausea & vomiting Condition: Good Instructions: Gallstones (ED), Acute Nausea and Vomiting (ED) Additional Instructions: He may take Zofran as needed for nausea. Follow up with the surgeon for evaluation of treatment of your gallstones Follow up with primary care physician in 2-3 days for further evaluation. Referrals: Leann Rivera MD [Primary Care Provider] - As per Instructions Prescriptions: Ondansetron Odt [Zofran Odt 4 mg (*)] 4 mg PO Q4 PRN #10 tab PRN Reason: nausea
[2017-07-16 06:21] VITALS: BP 145/83; PULSE 83; O2SAT 95
== END 2017-07-16 06:50 | disposition home or self-care (01) ==
LOC: EDUNIT# → EDAGE
DX: K80.20 Calculus of gallbladder without cholecystitis without obstruction (principal); Z87.891 Personal history of nicotine dependence
CPT/HCPCS: 96374; 99284; J2550

== ENCOUNTER 2017-08-05 15:35 | Inpatient (IN) | payer OTHER, MEDICAID ==
--- NOTE | 2017-08-05 15:51 | EDPHY ---
H & P Stated Complaint: RUQ Time Seen by Provider: 08/05/17 15:49 - Personal History Current Tetanus/Diphtheria Vaccine: Yes Current Tetanus Diphtheria and Acellular Pertussis (TDAP): Yes - Medical/Surgical History Hx Asthma: No Hx Chronic Respiratory Disease: No Hx Diabetes: No Hx Cardiac Disease: No Hx Renal Disease: No Hx Cirrhosis: No Hx Alcoholism: No Hx HIV/AIDS: No Hx Splenectomy or Spleen Trauma: No Other PMH: gallstones, MS, Hypothyroid, BRCA, PE - Social History Smoking Status: Former smoker Constitutional: Initial Vital Signs Temperature (C) 36.7 C 08/05/17 15:40 Heart Rate 88 08/05/17 15:40 Respiratory Rate 18 08/05/17 15:40 Blood Pressure 176/99 H 08/05/17 15:40 O2 Sat (%) 91 L 08/05/17 15:40 O2 Delivery Mode Room Air Allergies/Adverse Reactions: No Known Allergies Allergy (Unverified 07/16/17 05:11) Home Medications: Medication Instructions Recorded Gabapentin [Neurontin 400 MG (*)] 800 mg PO HS 05/19/12 Lisdexamfetamine Dimesylate 70 mg PO DAILY 05/19/14 [Vyvanse] Cholecalciferol Vit D3 [Vitamin D3 1,000 units PO DAILY 03/23/17 (*)] Glatiramer Acetate [Copaxone] 40 mg SQ MWF 03/23/17 Temazepam [Restoril] 30 mg PO HS 03/23/17 Lisdexamfetamine Dimesylate 20 mg PO DAILY14 04/18/17 [Vyvanse] OLANZapine [Zyprexa] 10 mg PO HS 04/18/17 Rivaroxaban [Xarelto] 20 mg PO DAILY #30 tablet 05/28/17 Levothyroxine [Synthroid 88 mcg 88 mcg PO DAILY06 06/23/17 (*)] Acetaminophen [Tylenol 325mg (*)] 650 mg PO Q4HRS PRN tab 06/26/17 Ondansetron Odt [Zofran Odt 4 mg 4 mg PO Q8H PRN #10 tab 06/26/17 (*)] Ondansetron Odt [Zofran Odt 4 mg 4 mg PO Q4 PRN #10 tab 07/16/17 (*)] Medical Decision Making - Diagnostics Imaging: Discussed imaging studies w/ call center dispatcher Radiologist, I viewed and interpreted images myself ED Course/Re-evaluation: CHIEF COMPLAINT: Right upper quadrant pain HISTORY OF PRESENT ILLNESS: The patient is an anticoagulated (Xarelto) 71 y/o female with a history of gallstones, MS, and a PE, arriving via EMS complaining of right upper quadrant pain and nausea. On 07/16/17, 3 weeks ago, she was seen in this ED for epigastric pain. At this time her symptoms improved with Phenergan. There was no evidence of acute choledocholithiasis or cholecystis and she was advised to follow up with general surgery (Dr. Guillen) for an elective cholecystectomy. Yesterday the pain exacerbated. Denies chest pain, shortness of breath, headache , fever. REVIEW OF SYSTEMS: A 10 point review of systems was performed and is negative with the exception of the elements mentioned in the history of present illness. PHYSICAL EXAM: HR, BP, O2 Sat, RR. Temp noted General Appearance: Alert, well hydrated, appropriate, and non-toxic appearing. Head: Atraumatic without scalp tenderness or obvious injury Eyes: Pupils equal, round, reactive to light and accommodation, EOMI, no trauma , no injection. Ears: Clear bilaterally, no perforation, normal landmarks Nose: Atraumatic, no rhinorrhea, clear. Throat: There is no erythema or exudates, no lesions, normal tonsils, mucus membranes moist. Neck: Supple, nontender, no lymphadenopathy. Respiratory: No retractions, no distress, no wheezes, and no accessory muscle use. Lungs are clear to auscultation bilaterally. Cardiovascular: Regular rate and rhythm, no murmurs, rubs, or gallops. Good capillary refill all extremities. Gastrointestinal: RUQ tenderness to palpation. Abdomen is soft, non-distended, no masses, no rebound, no guarding, no peritoneal signs. Musculoskeletal: Normal active ROM of all extremities, atraumatic. Neurological: Alert, appropriate, and interactive. Non-focal neuro Skin: No rashes, good turgor, no nodules on palpation. Past medical history: Gallstones, MS, Hypothyroid, BRCA, PE Past surgical history: Denies Family history: Non-contributory Social history: Lives in [place], retired, no smoking, alcohol, or illicit drug use. DIAGNOSTICS/PROCEDURES/CRITICAL CARE TIME: Abdominal US: Stone in common bile duct DIFFERENTIAL DIAGNOSIS: The differential diagnosis for the patient's abdominal pain included but was not limited to choledocholithiasis, ovarian cyst, pelvic inflammatory disease, ovarian torsion, urinary tract infection, ectopic , cholecystitis, and appendicitis. MEDICAL DECISION MAKING: The patient is an anticoagulated (Xarelto) 71 y/o female with a history of gallstones, MS, and a PE, arriving via EMS presenting with severe right upper quadrant tenderness and nausea. Abdominal US and labs ordered. 1mg IV Dilaudid, 30mg IV Toradol, and 4mg IV Zofran administered. 1710: Spoke with radiologist, patient's abdominal US reveals a stone in the common bile duct. There is no sign of cholangitis or cholecystitis. 1715: Consulted with Dr. Donald, general surgeon, regarding this patient and choledocholithiasis. He will consult on this patient and request that she be admitted to the hospitalist. 1718: Consulted with Dr. Torre, die attacher, he agrees to consult on this patient. 1723: Consulted with hospitalist service, Dr. Tamayo accepts admission of this patient. 1gm Invanz administered. 1728: Reassessed patient and discussed choledocholithiasis diagnoses. She is comfortable with plan for admission. She is still nauseated; 4mg IV Zofran administered. - Data Points Laboratory Results: Laboratory Results 08/05/17 15:40 08/05/17 15:40 08/05/17 08/05/17 08/05/17 15:40 15:40 15:40 WBC 6.48 10^3/uL 10^3/uL (3.80-9.50) RBC 4.75 10^6/uL 10^6/uL (4.18-5.33) Hgb 14.1 g/dL g/dL (12.6-16.3) Hct 42.6 % % (38.0-47.0) MCV 89.7 fL fL (81.5-99.8) MCH 29.7 pg pg (27.9-34.1) MCHC 33.1 g/dL g/dL (32.4-36.7) RDW 14.3 % % (11.5-15.2) Plt Count 317 10^3/uL 10^3/uL (150-400) MPV 9.9 fL fL (8.7-11.7) Neut % (Auto) 57.7 % % (39.3-74.2) Lymph % (Auto) 30.7 % % (15.0-45.0) [place] % (Auto) 7.7 % % (4.5-13.0) Eos % (Auto) 2.6 % % (0.6-7.6) Baso % (Auto) 1.1 % % (0.3-1.7) Nucleat RBC Rel Count 0.0 % % (0.0-0.2) Absolute Neuts (auto) 3.74 10^3/uL 10^3/uL (1.70-6.50) Absolute Lymphs (auto) 1.99 10^3/uL 10^3/uL (1.00-3.00) Absolute Monos (auto) 0.50 10^3/uL 10^3/uL (0.30-0.80) Absolute Eos (auto) 0.17 10^3/uL 10^3/uL (0.03-0.40) Absolute Basos (auto) 0.07 10^3/uL 10^3/uL (0.02-0.10) Absolute Nucleated RBC 0.00 10^3/uL 10^3/uL (0-0.01) Immature Gran % 0.2 % % (0.0-1.1) Immature Gran # 0.01 10^3/uL 10^3/uL (0.00-0.10) PT 27.2 SEC H SEC (12.0-15.0) INR 2.53 H (0.83-1.16) APTT 59.8 SEC H SEC (23.0-38.0) Sodium 139 mEq/L mEq/L (135-145) Potassium 4.1 mEq/L mEq/L (3.5-5.2) Chloride 103 mEq/L mEq/L (97-110) Carbon Dioxide 23 mEq/l mEq/l (22-31) Anion Gap 13 mEq/L mEq/L (8-16) BUN 16 mg/dL mg/dL (7-23) Creatinine 1.0 mg/dL mg/dL (0.6-1.0) Estimated GFR 55 Glucose 97 mg/dL mg/dL (70-100) Calcium 9.8 mg/dL mg/dL (8.5-10.4) Total Bilirubin 0.6 mg/dL mg/dL (0.1-1.4) Conjugated Bilirubin 0.4 mg/dL mg/dL (0.0-0.5) Unconjugated Bilirubin 0.2 mg/dL mg/dL (0.0-1.1) AST 25 IU/L IU/L (14-46) ALT 23 IU/L IU/L (9-52) Alkaline Phosphatase 130 IU/L H IU/L (38-126) Total Protein 7.1 g/dL g/dL (6.3-8.2) Albumin 4.1 g/dL g/dL (3.5-5.0) Lipase 66 IU/L IU/L (23-300) Medications Given: Discontinued Medications Hydromorphone HCl (Dilaudid) 1 mg IVP EDNOW ONE Stop: 08/05/17 16:09 Last Admin: 08/05/17 16:16 Dose: 1 mg Ketorolac Tromethamine (Toradol) 30 mg IVP EDNOW ONE Stop: 08/05/17 16:09 Last Admin: 08/05/17 16:16 Dose: 30 mg Ondansetron HCl (Zofran) 4 mg IVP EDNOW ONE Stop: 08/05/17 16:09 Last Admin: 08/05/17 16:15 Dose: 4 mg Departure - Departure Disposition: [facility] Inpatient Acute Clinical Impression: Choledocholithiasis Condition: Fair Referrals: Patient,NotPresent [Unknown] - As per Instructions Report Scribed for: Demetrio Palomo Report Scribed by: Pam Swartz Date of Report: 08/05/17 Time of Report: 15:59
[2017-08-05] MEDS ORDERED: HYDROmorphONE/DILAUDID 1 MG/ML INJ IVP ONE (16:08)
[2017-08-05] MEDS ORDERED: KETOROLAC 30 MG/1 ML SDV IVP ONE (16:08)
[2017-08-05] MEDS ORDERED: ONDANSETRON 4 MG/2 ML VIAL IVP ONE (16:08)
[2017-08-05 16:14] LABS: PLATELET COUNT 317 10^3/uL (150-400)
[2017-08-05 16:25] LABS: INR 2.53 (0.83-1.16); PROTIME(PATIENT) 27.2 SEC (12.0-15.0)
[2017-08-05] MEDS ORDERED: ERTAPENEM 1 GM VIAL IVP ONE (17:25)
[2017-08-05] MEDS ORDERED: ACETAMINOPHEN 325 MG TAB PO PRN (18:39)
[2017-08-05] MEDS ORDERED: PROMETHAZINE HCL 25 MG TAB PO PRN (18:39)
[2017-08-05] MEDS ORDERED: PROMETHAZINE HCL 25 MG/ML INJ IVP PRN (18:39)
--- NOTE | 2017-08-05 18:56 | PDGENHP ---
History and Physical - Chief Complaint abdominal pain - History of Present Illness 71 yo female with h/o bipolar disorder, hypothyroidism and cholelithiasis returns to ED with abdominal pain, which has been ongoing since hospital discharge. She was admitted last month with similar symptoms and imaging revealed pancreatic cysts and cholelithiasis. Her symptoms improved and she was discharged to follow up with GI and surgery as outpatient. She reports ongoing pain and nausea, which became more severe this am and she was brought to ED by EMS. No fevers. No vomiting. No CP, SOB, or respiratory symptoms. No dysuria, frequency or urgency. In the ED, labs revealed elevated alk phos, otherwise normal LFTs. She is afebrile. Ultrasound showed a CBD stone. She is admitted for further management. History Information - Allergies/Home Medication List Allergies/Adverse Reactions: No Known Allergies Allergy (Unverified 07/16/17 05:11) Home Medications: Gabapentin [Neurontin 400 MG (*)] 800 mg PO HS 05/19/12 [Last Taken 08/04/17] Lisdexamfetamine Dimesylate [Vyvanse] 70 mg PO DAILY 05/19/14 [Last Taken ] Cholecalciferol Vit D3 [Vitamin D3 (*)] 1,000 units PO DAILY 03/23/17 [Last Taken 08/05/17] Glatiramer Acetate [Copaxone] 40 mg SQ MWF 03/23/17 [Last Taken 08/03/17] Temazepam [Restoril] 30 mg PO HS 03/23/17 [Last Taken 08/04/17] Lisdexamfetamine Dimesylate [Vyvanse] 20 mg PO DAILY14 04/18/17 [Last Taken ] OLANZapine [Zyprexa] 10 mg PO HS 04/18/17 [Last Taken 08/04/17] Levothyroxine [Synthroid 88 mcg (*)] 88 mcg PO DAILY06 06/23/17 [Last Taken ] Prochlorperazine Maleate [Compazine 5mg (*)] 5 mg PO Q8HRS PRN 08/05/17 [Last Taken Unknown] I have personally reviewed and updated: family history, medical history, social history, surgical history - Past Medical History cancer (Breast cancer s/p lumpectomy and chemo/XRT in 2007), pulmonary embolism Additional medical history: Bipolar disorder. MS. Hypothyroidism - Surgical History Additional surgical history: L ENZO 04/17/17 - Family History Additional family history: Denies family hx of blood clots. Mom of metastatic breast cancer - Social History Smoking Status: Former smoker Alcohol Use: Rarely Drug Use: None Additional social history: Lives independently. Review of Systems Review of Systems: ROS: 10pt was reviewed & negative except for what was stated in HPI & below Physical Exam Physical Exam: Temp Pulse Resp BP Pulse Ox 37 C 84 18 122/75 H 96 08/05/17 18:25 08/05/17 18:25 08/05/17 18:25 08/05/17 18:25 08/05/17 18:25 Constitutional: no apparent distress Eyes: PERRL Ears, Nose, Mouth, Throat: moist mucous membranes Cardiovascular: regular rate and rhythym Respiratory: no respiratory distress, clear to auscultation Gastrointestinal: normoactive bowel sounds, other (soft, mild RUQ TTP, no r/r/g) Skin: warm Musculoskeletal: full muscle strength Neurologic: AAOx3 Psychiatric: interacting appropriately Lab Data & Imaging Review 08/05/17 15:40 08/05/17 15:40 WBC 6.48 10^3/uL (3.80-9.50) 08/05/17 15:40 RBC 4.75 10^6/uL (4.18-5.33) 08/05/17 15:40 Hgb 14.1 g/dL (12.6-16.3) 08/05/17 15:40 Hct 42.6 % (38.0-47.0) 08/05/17 15:40 MCV 89.7 fL (81.5-99.8) 08/05/17 15:40 MCH 29.7 pg (27.9-34.1) 08/05/17 15:40 MCHC 33.1 g/dL (32.4-36.7) 08/05/17 15:40 RDW 14.3 % (11.5-15.2) 08/05/17 15:40 Plt Count 317 10^3/uL (150-400) 08/05/17 15:40 MPV 9.9 fL (8.7-11.7) 08/05/17 15:40 Neut % (Auto) 57.7 % (39.3-74.2) 08/05/17 15:40 Lymph % (Auto) 30.7 % (15.0-45.0) 08/05/17 15:40 [place] % (Auto) 7.7 % (4.5-13.0) 08/05/17 15:40 Eos % (Auto) 2.6 % (0.6-7.6) 08/05/17 15:40 Baso % (Auto) 1.1 % (0.3-1.7) 08/05/17 15:40 Nucleat RBC Rel Count 0.0 % (0.0-0.2) 08/05/17 15:40 Absolute Neuts (auto) 3.74 10^3/uL (1.70-6.50) 08/05/17 15:40 Absolute Lymphs (auto) 1.99 10^3/uL (1.00-3.00) 08/05/17 15:40 Absolute Monos (auto) 0.50 10^3/uL (0.30-0.80) 08/05/17 15:40 Absolute Eos (auto) 0.17 10^3/uL (0.03-0.40) 08/05/17 15:40 Absolute Basos (auto) 0.07 10^3/uL (0.02-0.10) 08/05/17 15:40 Absolute Nucleated RBC 0.00 10^3/uL (0-0.01) 08/05/17 15:40 Immature Gran % 0.2 % (0.0-1.1) 08/05/17 15:40 Immature Gran # 0.01 10^3/uL (0.00-0.10) 08/05/17 15:40 PT 27.2 SEC (12.0-15.0) H 08/05/17 15:40 INR 2.53 (0.83-1.16) H 08/05/17 15:40 APTT 59.8 SEC (23.0-38.0) H 08/05/17 15:40 Sodium 139 mEq/L (135-145) 08/05/17 15:40 Potassium 4.1 mEq/L (3.5-5.2) 08/05/17 15:40 Chloride 103 mEq/L (97-110) 08/05/17 15:40 Carbon Dioxide 23 mEq/l (22-31) 08/05/17 15:40 Anion Gap 13 mEq/L (8-16) 08/05/17 15:40 BUN 16 mg/dL (7-23) 08/05/17 15:40 Creatinine 1.0 mg/dL (0.6-1.0) 08/05/17 15:40 Estimated GFR 55 08/05/17 15:40 Glucose 97 mg/dL (70-100) 08/05/17 15:40 Calcium 9.8 mg/dL (8.5-10.4) 08/05/17 15:40 Total Bilirubin 0.6 mg/dL (0.1-1.4) 08/05/17 15:40 Conjugated Bilirubin 0.4 mg/dL (0.0-0.5) 08/05/17 15:40 Unconjugated Bilirubin 0.2 mg/dL (0.0-1.1) 08/05/17 15:40 AST 25 IU/L (14-46) 08/05/17 15:40 ALT 23 IU/L (9-52) 08/05/17 15:40 Alkaline Phosphatase 130 IU/L (38-126) H 08/05/17 15:40 Total Protein 7.1 g/dL (6.3-8.2) 08/05/17 15:40 Albumin 4.1 g/dL (3.5-5.0) 08/05/17 15:40 Lipase 66 IU/L (23-300) 08/05/17 15:40 Assessment & Plan Assessment: Choledocholithiasis (Acute) - No e/o cholangitis. Pt is afebrile, no leukocytosis. Presents with pain and nausea. Case discussed with GI. Hold Xarelto for possible ERCP at some point, GI will see tomorrow. Trend LFT's. She received 1 g Ertapenem in ED. Will defer further atbx for now given lack of evidence for infection. Surgery consulted by ED to consider cholecystectomy at some point. Treat nausea with anti-emetics, prn dilaudid for pain. PE - Diagnosed 05/28/2017, small volume. Possibly provoked while post-op from ENZO. Hold Xarelto due to probable need for GI intervention and cholecystectomy. INR elevated, could be from Xarelto, cont to monitor. Hypothyroidisim - TSH was low 06/2017. Recheck TSH and adjust levothyroxine as indicated. MS - no flare, cont outpt meds Bipolar disorder - Cont Zyprexa Recent ENZO - 03/2017 H/O breast cancer - s/p lumpectomy. Cont outpt surveillance. Full code Dispo - Inpt, anticipate >48 hrs hospitalization for ongoing management of abdominal pain and CBD stone.
--- NOTE | 2017-08-05 18:58 | GCON ---
[f rep st] CONSULTATION DATE OF CONSULTATION: 08/05/2017 CHIEF COMPLAINT: Epigastric and right upper quadrant pain. HISTORY OF PRESENT ILLNESS: This is a 71-year-old female who presents to the emergency department this evening complaining of acute worsening right upper quadrant pain. Briefly, the patient was originally seen here with similar pain on July 16, at that time arriving via EMS, complaining of the same symptoms. She was worked up and noted to have cholelithiasis, but no evidence of acute cholecystitis or choledocholithiasis. Her symptoms resolved with IV antiemetics and she was subsequently sent home with followup. Since that time, she has not followed up with the surgeon provided and states that the pain has persisted and acutely worsened over the last 24 hours, worse than previous. She denies vomiting but does endorse nausea at this time. She endorses a right upper quadrant pain which radiates to her back, which is worse with oral intake. The pain is colicky in nature. It is not sharp. It is better when lying still and with IV narcotics. PAST MEDICAL HISTORY: Gallstones, multiple sclerosis, hypothyroidism, breast cancer, and bilateral PEs. PAST SURGICAL HISTORY: A hip replacement in late 2016, breast lumpectomy with subsequent radiation treatment FAMILY HISTORY: Noncontributory. SOCIAL HISTORY: Lives in [place]. Denies illicit drug use. Daughter also lives in the area. REVIEW OF SYSTEMS: A full 10-point review was performed. CURRENT MEDICATIONS: Reviewed, the most significant of which is Xarelto, that she takes for her PEs diagnosed in late 2016. PHYSICAL EXAM: VITAL SIGNS: Temperature 37 even, blood pressure 122/75, heart rate 84, and she is 96% on room air. CONSTITUTIONAL: She is in no apparent distress. She appears comfortable. EYES: Her pupils are equal, round, and reactive to light and accommodation. She has anicteric sclerae. Her extraocular movements are intact. EARS, NOSE, MOUTH, THROAT: Moist mucous membranes. Her hearing is normal. Her ears appear normal. CARDIOVASCULAR: She has a regular rate and rhythm without any murmurs. RESPIRATORY: She has no respiratory distress. No rales or rhonchi. GI: She has normoactive bowel sounds. She is tender to palpation in the right upper quadrant without rebound tenderness or guarding. No previous abdominal scars. SKIN: Warm. Normal color. No rashes. MUSCULOSKELETAL: Full strength, no tenderness, with normal joint range of motion. NEUROLOGIC: She is alert and oriented x3. Her cranial nerves 2-12 are intact. She has no weakness or numbness. PSYCH: She is interacting appropriately. She is not anxious. She is not encephalopathic. LYMPH/HEME/IMMUNOLOGIC: She has no cervical, groin, or supraclavicular lymphadenopathy appreciated. LABS: White blood cell count normal at 6. H and H stable at 14 and 42, platelets are 317, no left shift. Coags are high with an INR of 2.53. Chemistry is largely unremarkable, although she does have an elevated alkaline phosphatase at 130. The remainder of her liver function tests, including a lipase are normal. Imaging includes a right upper quadrant ultrasound, the images of which were personally reviewed by me. This shows cholelithiasis, no secondary signs of cholecystitis, including a normal gallbladder wall, no pericholecystic fluid. There is, however, a dilated common duct measuring 7.5 mm, and there appears to be a 5 mm calculus within the common bile duct near the pancreatic head. ASSESSMENT AND PLAN: A 71-year-old female with choledocholithiasis. The patient will subsequently be admitted to the medical service. Consultation from Gastroenterology has been sought. The patient is currently on Xarelto. Will need to wait an appropriate amount of time before intervention. In the meantime, will need her multiple sclerosis and chronic medical problems addressed, which are stable at this point in time. I do feel she is a candidate for ERCP given her enlarged duct and filling defects seen in the distal portion of the duct. I am a little surprised that her liver function enzymes are normal, but more than likely this stone has been there since her last consultation in the emergency department in late June. I do feel that she warrants a cholecystectomy this admission given the above and the need to take her off her anticoagulant and feel that this should be done status post ERCP. /[id number]/MODL MTDD
[2017-08-05] MEDS ORDERED: HYDROmorphONE/DILAUDID 1 MG/ML INJ IVP PRN (19:09)
[2017-08-05] MEDS: NS 1,000 ML IV SCH (20:18)
[2017-08-05] MEDS: GABAPENTIN 400 MG CAP PO SCH (20:18)
[2017-08-05] MEDS: OLANZapine 10 MG TAB PO SCH (20:18)
[2017-08-05] MEDS: TEMAZEPAM 15 MG CAP PO SCH (20:19)
[2017-08-05] MEDS ORDERED: NON-FORMULARY NEW DRUG (Temazepam [Restoril] 30 MG) PO SCH (21:00)
[2017-08-06 05:24] LABS: PLATELET COUNT 240 10^3/uL (150-400)
[2017-08-06 05:29] LABS: INR 1.46 (0.83-1.16); PROTIME(PATIENT) 17.9 SEC (12.0-15.0)
[2017-08-06] MEDS ORDERED: LEVOTHYROXINE 88 MCG TAB PO SCH (06:00)
[2017-08-06] MEDS: NS 1,000 ML IV SCH (06:05)
[2017-08-06] MEDS: ONDANSETRON 4 MG/2 ML VIAL IVP PRN (07:22)
--- NOTE | 2017-08-06 07:24 | PDMN ---
Medical Necessity Medical necessity: Pt meets IP criteria per MD; est los >2 mn for eval/tx of acute choledocholithiasis w/severe ongoing abdominal pain & nausea; pt currently on AC, requires further workup/monitoring, GI/Surgical consult, ERCP, cholecystectomy, IVFs & IV pain meds/antiemetics; hx recent PE on AC, s/p L ENZO , MS, breast cancer s/p lumpectomy/chemo/XRT, cholelithiasis & pancreatic cysts ; per H&P & order 08/05/17
[2017-08-06] MEDS ORDERED: GLATIRAMER ACETATE 40 MG SQ SCH (08:00)
--- NOTE | 2017-08-06 08:35 | GCON ---
[f rep st] CONSULTATION DATE OF CONSULTATION: 08/06/2017 REFERRING PHYSICIAN: Denise Wellington MD HISTORY OF PRESENT ILLNESS: Dear Dr. Wellington: Thank you very kindly for asking me to evaluate this p atient in consultation for a chief complaint of abdominal pain. She is a 71-year-old female, who was hospitalized in June for abdominal pain and was found to have a 2 x 1.5 cm mid pancreatic body cy stic lesion with pancreatic ductal dilatation and choledocholithiasis as well as cholelithiasis, but as her acute pain at that time seemed to improve, she was discharged with an outpatient plan for chol ecystectomy and perhaps ERCP. Unfortunately, she describes worsening of the abdominal pain over the last day and half and came to the emergency room for further evaluation and management. She has been somewhat nauseated and a bit constipated. The pain is epigastric and right upper quadrant without r adiation. It does not seem to be influenced by eating. An abdominal ultrasound performed in the [facility] room yesterday revealed again cholelithiasis with what is visualized as possibly a 5 mm common bile duct stone with dilation to the biliary anatomy with the common hepatic duct being almost 7.5 m m, which is enlarged for someone with an intact gallbladder. There was also cholelithiasis but no ga llbladder wall thickening or pericholecystic fluid. Previously an MRCP performed on June 24 of thi s year confirmed the presence of choledocholithiasis with several rounded filling defects in the comm on duct measuring at largest 5 mm and a complex cyst with septations in the body of the pancreas exte nding into or at least near the pancreatic duct measuring 2 x 1.2 cm. I am asked to assist today wit h further evaluation and management for this patient. The patient continues to report abdominal pain . She says the pain is worse this morning but seemed to be improved after medication she received in the emergency room, which was Dilaudid. PAST MEDICAL HISTORY: Significant for bipolar disorder, hypothyroidism, history of breast cancer wit h lumpectomy in 2007, pulmonary embolism, and lower extremity DVT I believe complicating a hip replac ement in March, MS. PAST SURGICAL HISTORY: Left total hip arthroplasty in March 2017. FAMILY HISTORY: Significant for mother with breast cancer. No known pancreatic cancer, gallbladder or liver diseases. SOCIAL HISTORY: The patient is a remote tobacco user. No alcohol routinely. Lives independently. 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 MEDICATIONS: On admission include gabapentin, , vitamin D3, glatiramer acetate, Restoril, Zyprexa, Synthroid, Compazine, and Xarelto for pulmonary embolism. ALLERGIES: None known. REVIEW OF SYSTEMS: CONSTITUTIONAL: General malaise, says she "does not feel well." Denies any feve r. She is unclear if she has any weight loss. Her appetite has been poor. She is nauseated. HEENT : Denies headache, visual disturbances, difficulty swallowing, rhinorrhea, facial pain, or ear pain. PULMONARY: No cough or shortness of breath. CARDIOVASCULAR: No chest pain. Denies dyspnea with exertion. Denies orthopnea. Denies palpitations or syncope. GI: Reports feeling somewhat constipa rodrigo. Denies blood in her stool. She has been nauseated without vomiting. Abdominal pain that is pr incipally epigastric and right upper quadrant that is about a 6/10 in severity. It seems to escalate at times and has been chronic and fairly persistent since June. RHEUMATOLOGIC: No joint pain, d eformity, or swelling. NEUROLOGIC: Denies focal weakness or falls. GENITOURINARY: Denies dysuria or hematuria. PSYCHIATRIC: Denies anxiety. She reports some insomnia that seems well managed with Restoril. She seems a bit nervous about the pain and her current situation today, however. LYMPH: Denies any adenopathy. PHYSICAL EXAM: VITAL SIGNS: Blood pressure is 92/63, heart rate is 76, respirations are 16, oxygena tion is 91% on 2 L nasal cannula. Temperature is 36.8. GENERAL: Somewhat uncomfortable-appearing e lderly female mostly due to pain, able to provide most of her history. HEENT: Neck is supple. Orop harynx is clear. Mucous membranes are moist. No jugular venous distention. No palpable adenopathy. LUNGS: Clear to auscultation bilaterally. CARDIOVASCULAR: Regular rate and rhythm. Systolic mur mur 2/6 in all listening areas. GI: Abdomen is tender to palpation in the epigastric and right uppe r quadrant. The abdomen is soft and nondistended. Bowel sounds are present. No abdominal bruit. N o ascites. No rebound guarding or palpable mass. I do not appreciate organomegaly. There is no ten derness over the costochondral margins. MUSCULOSKELETAL: No joint deformity, swelling, or warmth. DERMATOLOGIC: Skin is warm and dry. No rash. No jaundice. NEURO: Alert to person, place, and mala e. Cranial nerves normal. Motor nonfocal. DATABASE: Includes the following: White blood count is 5.2 with a hematocrit of 37.3, platelets are 240. INR 1.46, down from 2.53 on admission with holding Xarelto. Coagulation this morning is a PT of 17.9 with an INR of 1.46. Sodium 145, potassium 4.1, chloride 110, bicarbonate 28, BUN 14, creati nine 0.8, glucose is 83. Admission LFTs on 08/05/2017, showed a total bilirubin of 0.6 with a direct of 0.4, AST 25, ALT 23, alkaline phosphatase 130, albumin 4.1, total protein 7.1, lipase 66. Imagin g review is per the History of Present Illness already, but includes an abdominal ultrasound on 2017, that shows cholelithiasis without gallbladder wall thickening. The common hepatic duct and common bile duct are slightly dilated at 7.5 mm. There is a shadowing calculus in the common bi le duct near the pancreatic head and multiple gallstones within the gallbladder. No gallbladder wall thickening or pericholecystic fluid. Abdominal MRI June 24, 2017, shows multiple gallstones in the gallbladder. There were also multipl e rounded filling defects in the common bile duct suggesting choledocholithiasis measuring 5 mm at it s largest. There was a complex cyst with septations in the body of the pancreas extending superiorly and adjacent to the pancreatic duct measuring 2.1 x 1.2 cm. There were a few other smaller cysts in the pancreatic ductal body, head, and uncinate process. The signal intensity of the pancreas was no rmal with normal enhancement. IMPRESSION: 1. Epigastric and right upper quadrant pain. 2. Nausea. 3. Septated cystic lesion in the pancreatic body with a dilated pancreatic duct and numerous smaller cysts along the pancreatic ductal anatomy in the body and head. 4. Cholelithiasis. 5. Choledocholithiasis. RECOMMENDATIONS: 1. Clear liquid diet and advance as tolerated. 2. Pain management. 3. Treat nausea. 4. I believe the best diagnostic modalities would be an endoscopic ultrasound for the pancreatic cys tic abnormality and an ERCP to resolve the choledocholithiasis. 5. She would likely benefit from cholecystectomy after ERCP and EUS intervention to help prevent rec urrence. I am not certain if any of her pain can be from cholelithiasis and colic, but it seems that her pain is more consistent with pancreatic etiology and likely due to choledocholithiasis. 6. It is interesting that her lipase and biliary numbers are mostly normal. She did have a mild kimberly vation of her alkaline phosphatase, which I do believe is indicative of choledocholithiasis and this should be resolved. 7. She will need to have another 24 hours off Xarelto before any intervention can be attempted inclu ding FNA and aspirate during the endoscopic ultrasound and biliary sphincterotomy due to the bleeding risk. 8. I will contact Dr. Miguelangel Torre from our practice, who performs these procedures, to see if I can ge t a date and time scheduled. 9. Please call with any urgent questions or problems. I will update you as soon as I have a date an d time for her procedures. 10. She will need anesthesia for her endoscopic intervention due to her comorbidity, age, and risk. /[id number]/MODL
[2017-08-06] MEDS ORDERED: LISDEXAMFETAMINE DIMESYLATE 70 MG PO SCH (09:00)
[2017-08-06] MEDS: Glatiramer Acetate [Copaxone] 40 MG SQ SCH (09:48)
[2017-08-06] MEDS: Lisdexamfetamine Dimesylate [Vyvanse] 70 MG PO SCH (10:13)
--- NOTE | 2017-08-06 10:43 | HOSPPROG ---
Hospitalist Progress Note Assessment/Plan: Patient is a 71-year-old female with a history of bipolar disorder, hypothyroidism and cholelithiasis. She returned to the emergency room with ongoing abdominal pain which has been going on since her last discharge. She has ongoing pain and nausea which became more severe. LFTs are noted to be normal with an elevated alkaline phosphorus. I reviewed her care with Dr. Torre and Dr. Donald. *Choledocholithiasis (Acute) - No e/o cholangitis. - Ultrasound showed a CBD stone. -plan is for her to get an EUS and ERCP on this Sunday -then after this a cholecystectomy *epigastric and ruq pain -clear liquid diet for now -does best w [place], this has been ordered -trial of k pad *nausea -supportive treatment w antiemetics *lesion in the pancreatic body w dilated pancreatic duct -to get EUS this Sunday *PE - Diagnosed 05/28/2017, small volume. -Possibly provoked while post-op from [facility]. -Xarelto held -due to this being a recent PE, will initiate treatment dose of Lovenox, this can be stopped 12 hours prior to surgery. *Hypothyroidism - TSH is 0.110 -previous TSH in June of 2017 was 0.118 -decreased dose -she varies on her TSH from very high to low -needs repeat TSH in 6 weeks *MS - no flare, cont outpt meds *Bipolar disorder - Cont Zyprexa -calm and cooperative *Recent ENZO - 03/2017 *H/O breast cancer - s/p lumpectomy. Cont outpt surveillance. Full code Dispo -pending, she will require another midnight stay for the above, appreciate GI and surgical teams involvement Subjective: Shagufta who goes by Magy is having pain to her RUQ area. Objective: Vital Signs Temp Pulse Resp BP Pulse Ox 36.3 C 67 16 111/86 H 91 L 08/06/17 07:56 08/06/17 07:56 08/06/17 07:56 08/06/17 07:56 08/06/17 07:56 Laboratory Results 08/06/17 04:58 08/06/17 04:58 08/05/17 08/06/17 08/07/17 05:59 05:59 05:59 Intake Total 1000 980 Balance 1000 980 PT 17.9 SEC (12.0-15.0) H D 08/06/17 04:58 INR 1.46 (0.83-1.16) H 08/06/17 04:58 - Physical Exam Constitutional: uncomfortable, No not in pain (ruq) Eyes: PERRL Ears, Nose, Mouth, Throat: hearing normal Cardiovascular: regular rate and rhythym Respiratory: no respiratory distress Gastrointestinal: normoactive bowel sounds Skin: warm Musculoskeletal: full muscle strength Neurologic: AAOx3 Psychiatric: interacting appropriately ICD10 Worksheet Patient Problems: Problems Problem Status Onset Choledocholithiasis Acute Anxiety Acute Bilateral pulmonary embolism Acute Dehydration Acute Nausea Acute chronic disease mgmt/transitional care Acute
[2017-08-06] MEDS: HYDROCODONE/APAP 5/325 TAB PO PRN ×2 (11:38→17:34)
[2017-08-06] MEDS: ONDANSETRON DISINTEGRATING 4 MG TAB PO PRN ×2 (11:42→17:34)
[2017-08-06] MEDS: Lisdexamfetamine Dimesylate [Vyvanse] 20 MG PO SCH (13:12)
[2017-08-06] MEDS ORDERED: LISDEXAMFETAMINE DIMESYLATE 20 MG PO SCH (14:00)
--- NOTE | 2017-08-06 16:19 | ASMTCASEMG ---
Living Arrangements What is your living Answers: Alone arrangement? Who do you live with? Type Of Residence What kind of residence do Answers: House you live in? Discharge Plan Comments Coordination Status Comments Notes: Pt 71 y/o female admitted for choledocholithiasis. Pt will most likely have surgery to remove her stones on . Pt is unable to obtain her vyvanse since it is a controlled substance. Pt is a client at [facility]. CM called [facility] to inquire about medication. CM was pass to her CM Alia Holly. CM left a msg for Alia. Her extension is [phone]. CM met w/ pt for dispo planning. Pt reports that Alia is no longer at [facility]. Pt reports that she usually obtains her prescription of vyvanse for the week on Sunday. Pt reports that she is hopeful that her daughter will return tomorrow and will be able to turkey picker the prescription for her. Pt reports that she is feeling tired without the vyvanse. sent Aster Glynn NP a message and requested that she writes a prescription for a a time dose, per the request of the pt. CM to follow. Plan: TBD Date Signed: 08/06/2017 04:18 PM Electronically Signed By:ALBERTA Gallegos
[2017-08-06] MEDS: TEMAZEPAM 15 MG CAP PO SCH (20:04)
[2017-08-06] MEDS: OLANZapine 10 MG TAB PO SCH (20:04)
[2017-08-06] MEDS: GABAPENTIN 400 MG CAP PO SCH (20:04)
[2017-08-06] MEDS: ENOXAPARIN 60 MG/0.6 ML SYR SC SCH (20:05)
[2017-08-07] MEDS: LEVOTHYROXINE 75 MCG TAB PO SCH (05:10)
[2017-08-07] MEDS: ONDANSETRON DISINTEGRATING 4 MG TAB PO PRN ×2 (07:38→16:41)
[2017-08-07] MEDS: HYDROCODONE/APAP 5/325 TAB PO PRN ×2 (07:39→16:41)
[2017-08-07] MEDS: ENOXAPARIN 60 MG/0.6 ML SYR SC SCH ×2 (10:06→21:04)
--- NOTE | 2017-08-07 11:33 | SOAPPROG ---
SOAP Progress Note Assessment/Plan: Assessment: 1. RUQ Pain 2. Choledocholithiasis 3. Pancreatic cystic lesion 4. Cholelithiasis Plan: 1. ERC with EUS and possible FNA 2. Hold lovenox 3. Pre-procedure antibiotics with lovenox 4. NPO after midnight 5. AM CBC, CMP, PT/INR 08/07/17 11:29 08/07/17 11:35 Subjective: RUQ pain improved Some nausea Objective: Vital Signs Temp Pulse Resp BP Pulse Ox 36.7 C 78 16 119/93 H 94 08/07/17 10:56 08/07/17 10:56 08/07/17 10:56 08/07/17 10:56 08/07/17 10:56 Laboratory Results 08/06/17 04:58 08/06/17 04:58 08/06/17 08/07/17 08/08/17 05:59 05:59 05:59 Intake Total 1000 3928 Balance 1000 3928 PT 17.9 SEC (12.0-15.0) H D 08/06/17 04:58 INR 1.46 (0.83-1.16) H 08/06/17 04:58 Physical Exam - Physical Exam General Appearance: WD/WN, no apparent distress EENT: normal ENT inspection Neck: supple Respiratory: lungs clear Cardiac/Chest: regular rate, rhythm Abdomen: normal bowel sounds, non-tender, soft, No distended, No guarding, No rebound Skin: normal color, warm/dry Neuro/Psych: alert, normal mood/affect, oriented x 3 ICD10 Worksheet Patient Problems: Problems Problem Status Onset Choledocholithiasis Acute Anxiety Acute Bilateral pulmonary embolism Acute Dehydration Acute Nausea Acute chronic disease [facility]/transitional care Acute
[2017-08-07] MEDS: Lisdexamfetamine Dimesylate [Vyvanse] 70 MG PO SCH (12:13)
--- NOTE | 2017-08-07 13:49 | HOSPPROG ---
Hospitalist Progress Note Assessment/Plan: Patient is a 71-year-old female with a history of bipolar disorder, hypothyroidism and cholelithiasis. She returned to the emergency room with ongoing abdominal pain which has been going on since her last discharge. She has ongoing pain and nausea which became more severe. LFTs are noted to be normal with an elevated alkaline phosphorus. I reviewed her care with Dr. Torre. *Choledocholithiasis (Acute) - No e/o cholangitis. -Ultrasound showed a CBD stone. -plan is for her to get an EUS and ERCP on this Sunday -then after this apossible cholecystectomy *epigastric and ruq pain -much improved, eating a regular diet -does best w [place], this has been ordered -trial of k pad *nausea -resolved *lesion in the pancreatic body w dilated pancreatic duct -to get EUS this Sunday *PE - Diagnosed 05/28/2017, small volume. -Possibly provoked while post-op from [facility]. -Xarelto held -due to this being a recent PE, will initiate treatment dose of Lovenox, this can be stopped 12 hours prior to surgery or procedure. *Hypothyroidism - TSH is 0.110 -previous TSH in June of 2017 was 0.118 -decreased dose of Synthroid -she varies on her TSH from very high to low -needs repeat TSH in 6 weeks *MS - no flare, cont outpt meds *Bipolar disorder - Cont Zyprexa -calm and cooperative *Recent ENZO - 03/2017 *H/O breast cancer - s/p lumpectomy. Cont outpt surveillance. Full code Dispo -NPO after midnight, give Lovenox tonight and then hold Subjective: Magy said pain is well managed, eating and drinking well. Objective: Vital Signs Temp Pulse Resp BP Pulse Ox 36.7 C 78 16 119/93 H 94 08/07/17 10:56 08/07/17 10:56 08/07/17 10:56 08/07/17 10:56 08/07/17 10:56 Laboratory Results 08/06/17 04:58 08/06/17 04:58 08/06/17 08/07/17 08/08/17 05:59 05:59 05:59 Intake Total 1000 3928 Balance 1000 3928 PT 17.9 SEC (12.0-15.0) H D 08/06/17 04:58 INR 1.46 (0.83-1.16) H 08/06/17 04:58 - Physical Exam Constitutional: no apparent distress, appears nourished, not in pain Eyes: PERRL Ears, Nose, Mouth, Throat: hearing normal Cardiovascular: regular rate and rhythym Respiratory: no respiratory distress Gastrointestinal: soft, non-tender abdomen Skin: warm Musculoskeletal: generalized weakness Neurologic: AAOx3 Psychiatric: interacting appropriately ICD10 Worksheet Patient Problems: Problems Problem Status Onset Choledocholithiasis Acute Anxiety Acute Bilateral pulmonary embolism Acute Dehydration Acute Nausea Acute chronic disease mgmt/transitional care Acute
--- NOTE | 2017-08-07 15:28 | SOAPPROG ---
SOAP Progress Note Assessment/Plan: Assessment/Plan: - 71yo F c choledocholithiasis - NOAC has been held, planning LMWH bridge - NPO at [place] for EUS and ERCP tomorrow - If no issues or complications with EUS/ERCP, planning lap nelda the following day. Discussed this with the patient. If all goes well, likely home Sunday08/07/17 15:27 Subjective: feels much better Objective: Vital Signs Temp Pulse Resp BP Pulse Ox 37.0 C 78 16 105/85 H 94 08/07/17 14:42 08/07/17 14:42 08/07/17 14:42 08/07/17 14:42 08/07/17 14:42 Laboratory Results 08/06/17 04:58 08/06/17 04:58 08/06/17 08/07/17 08/08/17 05:59 05:59 05:59 Intake Total 1000 3928 Balance 1000 3928 PT 17.9 SEC (12.0-15.0) H D 08/06/17 04:58 INR 1.46 (0.83-1.16) H 08/06/17 04:58 ICD10 Worksheet Patient Problems: Problems Problem Status Onset Choledocholithiasis Acute Anxiety Acute Bilateral pulmonary embolism Acute Dehydration Acute Nausea Acute chronic disease mgmt/transitional care Acute
[2017-08-07] MEDS: TEMAZEPAM 15 MG CAP PO SCH (21:05)
[2017-08-07] MEDS: OLANZapine 10 MG TAB PO SCH (21:05)
[2017-08-07] MEDS: GABAPENTIN 400 MG CAP PO SCH (21:05)
[2017-08-08] MEDS: Lisdexamfetamine Dimesylate [Vyvanse] 70 MG PO SCH (06:09)
[2017-08-08] MEDS: LEVOTHYROXINE 75 MCG TAB PO SCH (06:10)
[2017-08-08 06:12] LABS: INR 1.39 (0.83-1.16); PROTIME(PATIENT) 17.2 SEC (12.0-15.0)
[2017-08-08] MEDS: Glatiramer Acetate [Copaxone] 40 MG SQ SCH (08:11)
[2017-08-08] MEDS: HYDROmorphone HCL/NS 0.5 MG/ML SYR IVP PRN (08:17)
[2017-08-08] MEDS: NS 1,000 ML IV SCH (08:49)
[2017-08-08] MEDS ORDERED: NS 1,000 ML IV SCH (09:30)
--- NOTE | 2017-08-08 09:35 | HOSPPROG ---
Hospitalist Progress Note Assessment/Plan: Patient is a 71-year-old female with a history of bipolar disorder, hypothyroidism and cholelithiasis. She returned to the emergency room with ongoing abdominal pain which has been going on since her last discharge. She has ongoing pain and nausea which became more severe. LFTs are noted to be normal with an elevated alkaline phosphorus. *Choledocholithiasis (Acute) - No e/o cholangitis. -Ultrasound showed a CBD stone. - EUS and ERCP today -then cholecystectomy tomorrow *epigastric and ruq pain -much improved -does best w [place], this has been ordered *nausea -resolved *lesion in the pancreatic body w dilated pancreatic duct - EUS today *PE - Diagnosed 05/28/2017, small volume. -Possibly provoked while post-op from [facility]. -Xarelto held -treatment dose of Lovenox on hold *Hypothyroidism - TSH is 0.110 -previous TSH in June of 2017 was 0.118 -decreased dose of Synthroid -she varies on her TSH from very high to low -needs repeat TSH in 6 weeks *MS - no flare, cont outpt meds *Bipolar disorder - Cont Zyprexa -calm and cooperative *Recent ENZO - 03/2017 *H/O breast cancer - s/p lumpectomy. Cont outpt surveillance. Full code Dispo -NPO, add IV fluids, hold/stop LMWH for now due to procedures and surgery tomorrow. This will need to restarted. Subjective: Shagufta has no complaints today, feeling better. Objective: Vital Signs Temp Pulse Resp BP Pulse Ox 36.6 C 76 18 126/84 H 93 08/08/17 08:00 08/08/17 08:00 08/08/17 08:00 08/08/17 08:00 08/08/17 08:00 Laboratory Results 08/08/17 05:14 08/08/17 05:30 08/07/17 08/08/17 08/09/17 05:59 05:59 05:59 Intake Total 3928 500 Output Total 900 Balance 3928 -400 PT 17.2 SEC (12.0-15.0) H 08/08/17 05:14 INR 1.39 (0.83-1.16) H 08/08/17 05:14 - Physical Exam Constitutional: no apparent distress, appears nourished, not in pain Eyes: PERRL Ears, Nose, Mouth, Throat: hearing normal Cardiovascular: regular rate and rhythym Respiratory: no respiratory distress Gastrointestinal: normoactive bowel sounds Skin: warm Musculoskeletal: generalized weakness Neurologic: AAOx3 Psychiatric: interacting appropriately ICD10 Worksheet Patient Problems: Problems Problem Status Onset Choledocholithiasis Acute Anxiety Acute Bilateral pulmonary embolism Acute Dehydration Acute Nausea Acute chronic disease mgmt/transitional care Acute
[2017-08-08] MEDS ORDERED: LR 1,000 ML IV ONE (10:05)
[2017-08-08] MEDS ORDERED: GLUCAGON HCL 1 MG VIAL ONE (10:41)
[2017-08-08] MEDS ORDERED: IOTHALAMATE MEG (CONRAY) 50 ML VIAL IV ONE ×2 (10:46→10:53)
[2017-08-08] MEDS ORDERED: levOFLOXACIN 500 MG/DEXTROSE/100 ML BAG IV ONE (10:52)
[2017-08-08] MEDS ORDERED: INDOMETHACIN 50 MG SUPP PR ONE (10:52)
--- NOTE | 2017-08-08 11:27 | PDANEPAE ---
ANE History of Present Illness Pain and nausea ANE Past Medical History - Cardiovascular History Hx Hypertension: No Hx Arrhythmias: No Hx Chest Pain: No Hx Coronary Artery / Peripheral Vascular Disease: No Hx CHF / Valvular Disease: No Hx Palpitations: No - Pulmonary History Hx COPD: No Hx Asthma/Reactive Airway Disease: No Hx Recent Upper Respiratory Infection: No Hx Oxygen in Use at Home: No Hx Sleep Apnea: No Sleep Apnea Screening Result - Last Documented: Negative - Neurologic History Hx Cerebrovascular Accident: No Hx Seizures: No Hx Dementia: No Neurologic History Comment: MS - Endocrine History Hx Diabetes: No Endocrine History Comment: hypothyroidism - Renal History Hx Renal Disorders: No - Liver History Hx Hepatic Disorders: No - Neurological & Psychiatric Hx Hx Neurological and Psychiatric Disorders: Yes Neurological / Psychiatric History Comment: depression. Multiple Sclerosis - Cancer History Hx Cancer: Yes Cancer History Comment: breast cancer- lumpectomy, chemo and radiation - Congenital Disorder History Hx Congenital Disorders: No - GI History Hx Gastrointestinal Disorders: Yes Gastrointestinal History Comment: diarrhea/ leaky gut d/t MS - Other Health History Other Health History: wears reading glasses - Chronic Pain History Chronic Pain: Yes (left leg pain) - Surgical History Prior Surgeries: lumpectomy- right breast ANE Review of Systems Review of Systems: ANE Patient History - Allergies Allergies/Adverse Reactions: No Known Allergies Allergy (Unverified 07/16/17 05:11) - Home Medications Home Medications: Gabapentin [Neurontin 400 MG (*)] 800 mg PO HS 05/19/12 [Last Taken 08/04/17] Lisdexamfetamine Dimesylate [Vyvanse] 70 mg PO DAILY 05/19/14 [Last Taken ] Cholecalciferol Vit D3 [Vitamin D3 (*)] 1,000 units PO DAILY 03/23/17 [Last Taken 08/05/17] Glatiramer Acetate [Copaxone] 40 mg SQ MWF 03/23/17 [Last Taken 08/03/17] Temazepam [Restoril] 30 mg PO HS 03/23/17 [Last Taken 08/04/17] Lisdexamfetamine Dimesylate [Vyvanse] 20 mg PO DAILY14 04/18/17 [Last Taken ] OLANZapine [Zyprexa] 10 mg PO HS 04/18/17 [Last Taken 02/17/18] Levothyroxine [Synthroid 88 mcg (*)] 88 mcg PO DAILY06 06/23/17 [Last Taken ] Prochlorperazine Maleate [Compazine 5mg (*)] 5 mg PO Q8HRS PRN 08/05/17 [Last Taken Unknown] - NPO status NPO Since - Liquids (Date): 08/07/17 NPO Since - Liquids (Time): 19:00 NPO Since - Solids (Date): 08/07/17 NPO Since - Solids (Time): 19:00 - Anes Hx Anes Hx: no prior problems - Smoking Hx Smoking Status: Former smoker - Alcohol Use Alcohol Use: Rarely - Family Anes Hx Family Hx Anesthesia Complications: none ANE Labs/Vital Signs - Labs Result Diagrams: 08/08/17 05:14 08/08/17 05:30 - Vital Signs Blood Pressure: 127/89 Heart Rate: 76 Respiratory Rate: 16 O2 Sat (%): 91 Height: 162 cm Weight: 54 kg ANE Physical Exam - Airway Neck exam: FROM Mallampati Score: Class 2 - Pulmonary Pulmonary: no respiratory distress - Cardiovascular Cardiovascular: regular rate and rhythym - ASA Status ASA Status: II ANE Anesthesia Plan Anesthesia Plan: general endotracheal anesthesia
[2017-08-08] MEDS ORDERED: fentaNYL 100 MCG/2 ML INJ ONE (11:30)
[2017-08-08] MEDS ORDERED: PROPOFOL 200 MG/20 ML VIAL ONE (11:30)
--- NOTE | 2017-08-08 11:41 | PDGENHP ---
History & Physical Chief Complaint: panc cyst/abnormal imaging History of Present Illness: 71 year old female with panc cyst seen on initial imaging in early Jun 2017. Complex with septations. recent US had choledocholithiasis. Pertinent Past, Social, Family History: PMHx: MS, hypothyroidism Relevant Physical Exam: HEENT: anictericf. CV: RRR +s1s2. lungs: CTAB. Abd: soft, nt, + Bs. No guarding or rebound Cardiorespiratory Assessment: ASA 3
[2017-08-08] MEDS ORDERED: fentaNYL 100 MCG/2 ML INJ IVP PRN (11:46)
[2017-08-08] MEDS ORDERED: ONDANSETRON 4 MG/2 ML VIAL IVP PRN (11:46)
[2017-08-08] MEDS ORDERED: NALOXONE HCL 0.4 MG/ML INJ IVP PRN (11:46)
[2017-08-08] MEDS ORDERED: ROCURONIUM 50 MG/5 ML VIAL ONE (11:47)
[2017-08-08] MEDS ORDERED: SUGAMMADEX SODIUM 200 MG/2 ML VIAL IVP ONE (11:47)
[2017-08-08] MEDS ORDERED: PHENYLEPHRINE HCL 100 MCG/ML SYR ONE (11:53)
--- NOTE | 2017-08-08 12:55 | POSTANESTH ---
Post Anesthetic Evaluation Cardiovascular Status: Similar to Pre-Op Cond Respiratory Status: Similar to Pre-op Cond. Level of Consciousness/Mental Status: Can Participate in Eval Pain Control: Adequate, Prn Tx Ordered Nausea/Vomiting Control: Adequate, Prn Tx Ordered Complications Possibly Related to Anesthesia: None Noted
[2017-08-08] MEDS: Lisdexamfetamine Dimesylate [Vyvanse] 20 MG PO SCH (14:24)
--- NOTE | 2017-08-08 16:57 | ASMTCMCOM ---
CM Note CM Note Notes: Pt had gallbladder surgery today, pt likely independent. CM w/f for needs. DC Plan: TBD Date Signed: 08/08/2017 04:56 PM Electronically Signed By:Asmita Harley RN
[2017-08-08] MEDS: HYDROCODONE/APAP 5/325 TAB PO PRN (17:30)
[2017-08-08] MEDS: ONDANSETRON 4 MG/2 ML VIAL IVP PRN (19:36)
[2017-08-08] MEDS: GABAPENTIN 400 MG CAP PO SCH (21:01)
[2017-08-08] MEDS: TEMAZEPAM 15 MG CAP PO SCH (21:02)
[2017-08-08] MEDS: OLANZapine 10 MG TAB PO SCH (21:02)
[2017-08-09] MEDS: Lisdexamfetamine Dimesylate [Vyvanse] 70 MG PO SCH (05:52)
[2017-08-09] MEDS: LEVOTHYROXINE 75 MCG TAB PO SCH (05:53)
[2017-08-09] MEDS ORDERED: BUPIVACAINE 0.25% 30 ML SDV ONE (09:22)
[2017-08-09] MEDS ORDERED: LR 1,000 ML IV ONE (09:35)
[2017-08-09] MEDS ORDERED: ceFAZolin 2 GM/DEXTROSE 100 ML IV ONE (10:17)
--- NOTE | 2017-08-09 10:17 | PDHPUP ---
History & Physical Update H&P update statement: This history and physical update is based on an assessment of the patient which was completed after admission or registration (within 24 hours), but prior to the surgery/procedure. H&P update: H&P reviewed & patient examined, no change in patient's condition since H&P completed
--- NOTE | 2017-08-09 10:20 | HOSPPROG ---
Hospitalist Progress Note Assessment/Plan: Patient is a 71-year-old female with a history of bipolar disorder, hypothyroidism and cholelithiasis. She returned to the emergency room with ongoing abdominal pain which has been going on since her last discharge. She has ongoing pain and nausea which became more severe. LFTs are noted to be normal with an elevated alkaline phosphorus. *Choledocholithiasis (Acute) - No e/o cholangitis. - Ultrasound showed a CBD stone. - EUS and ERCP om 08/08 - cholecystectomy today *epigastric and ruq pain -much improved -does best w [place], this has been ordered *nausea -resolved *lesion in the pancreatic body w dilated pancreatic duct - EUS done, awaiting pathology *PE - Diagnosed 05/28/2017, small volume. -Possibly provoked while post-op from ENZO. -Xarelto held -treatment dose of Lovenox on hold today and yesterday due to procedures *Hypothyroidism - TSH is 0.110 -previous TSH in June of 2017 was 0.118 -decreased dose of Synthroid -she varies on her TSH from very high to low -needs repeat TSH in 6 weeks *MS - no flare, cont outpt meds *Bipolar disorder - Cont Zyprexa -calm and cooperative *Recent ENZO - 03/2017 *H/O breast cancer - s/p lumpectomy. Cont outpt surveillance. Full code Dispo -Likely dc in the next 1-2 days, will need Xarelto resumed as soon as ok with surgery, had been bridged with treatment dose of LWMH, either can be resumed. OR today so on hold. Subjective: Magy said abdominal pain is resolving and is feeling well. Hopeful with cholecystectomy today that her symptoms are gone permanently. Objective: Vital Signs Temp Pulse Resp BP Pulse Ox 36.5 C 88 16 120/77 97 08/09/17 10:01 08/09/17 10:01 08/09/17 10:01 08/09/17 10:01 08/09/17 10:01 Laboratory Results 08/08/17 05:14 08/08/17 05:30 08/08/17 08/09/17 08/10/17 05:59 05:59 05:59 Intake Total 500 1120 Output Total 900 Balance -400 1120 PT 17.2 SEC (12.0-15.0) H 08/08/17 05:14 INR 1.39 (0.83-1.16) H 08/08/17 05:14 - Physical Exam Constitutional: not in pain Eyes: PERRL Ears, Nose, Mouth, Throat: hearing normal Respiratory: no respiratory distress Gastrointestinal: soft, non-tender abdomen Skin: warm Musculoskeletal: generalized weakness Neurologic: AAOx3 Psychiatric: interacting appropriately ICD10 Worksheet Patient Problems: Problems Problem Status Onset Choledocholithiasis Acute Anxiety Acute Bilateral pulmonary embolism Acute Dehydration Acute Nausea Acute chronic disease mgmt/transitional care Acute
[2017-08-09] MEDS ORDERED: ceFAZolin 2 GM/SWFI 20 ML SYR IVP ONE (10:27)
[2017-08-09] MEDS ORDERED: ceFAZolin 2 GM/SWFI 2 GM/20 ML SYR IVP ONE (10:30)
--- NOTE | 2017-08-09 10:30 | PDANEPAE ---
ANE History of Present Illness here for lap nelda ANE Past Medical History - Cardiovascular History Hx Hypertension: No Hx Arrhythmias: No Hx Chest Pain: No Hx Coronary Artery / Peripheral Vascular Disease: No Hx CHF / Valvular Disease: No Hx Palpitations: No - Pulmonary History Hx COPD: No Hx Asthma/Reactive Airway Disease: No Hx Recent Upper Respiratory Infection: No Hx Oxygen in Use at Home: No Hx Sleep Apnea: No Sleep Apnea Screening Result - Last Documented: Negative - Neurologic History Hx Cerebrovascular Accident: No Hx Seizures: No Hx Dementia: No Neurologic History Comment: MS - Endocrine History Hx Diabetes: No Endocrine History Comment: hypothyroidism - Renal History Hx Renal Disorders: No - Liver History Hx Hepatic Disorders: No - Neurological & Psychiatric Hx Hx Neurological and Psychiatric Disorders: Yes Neurological / Psychiatric History Comment: depression. Multiple Sclerosis - Cancer History Hx Cancer: Yes Cancer History Comment: breast cancer- lumpectomy, chemo and radiation - Congenital Disorder History Hx Congenital Disorders: No - GI History Hx Gastrointestinal Disorders: Yes Gastrointestinal History Comment: diarrhea/ leaky gut d/t MS - Other Health History Other Health History: wears reading glasses - Chronic Pain History Chronic Pain: Yes (left leg pain) - Surgical History Prior Surgeries: lumpectomy- right breast ANE Review of Systems Review of Systems: - Exercise capacity Exercise capacity: >=4 METS ANE Patient History - Allergies Allergies/Adverse Reactions: No Known Allergies Allergy (Unverified 07/16/17 05:11) - Home Medications Home Medications: Gabapentin [Neurontin 400 MG (*)] 800 mg PO HS 05/19/12 [Last Taken 08/04/17] Lisdexamfetamine Dimesylate [Vyvanse] 70 mg PO DAILY 05/19/14 [Last Taken ] Cholecalciferol Vit D3 [Vitamin D3 (*)] 1,000 units PO DAILY 03/23/17 [Last Taken 08/05/17] Glatiramer Acetate [Copaxone] 40 mg SQ MWF 03/23/17 [Last Taken 08/03/17] Temazepam [Restoril] 30 mg PO HS 03/23/17 [Last Taken 08/04/17] Lisdexamfetamine Dimesylate [Vyvanse] 20 mg PO DAILY14 04/18/17 [Last Taken ] OLANZapine [Zyprexa] 10 mg PO HS 04/18/17 [Last Taken 08/04/17] Levothyroxine [Synthroid 88 mcg (*)] 88 mcg PO DAILY06 06/23/17 [Last Taken ] Prochlorperazine Maleate [Compazine 5mg (*)] 5 mg PO Q8HRS PRN 08/05/17 [Last Taken Unknown] - NPO status NPO Since - Liquids (Date): 08/09/17 NPO Since - Liquids (Time): 00:00 NPO Since - Solids (Date): 08/09/17 NPO Since - Solids (Time): 00:00 - Anes Hx Anes Hx: no prior problems - Smoking Hx Smoking Status: Former smoker - Alcohol Use Alcohol Use: Rarely - Family Anes Hx Family Anes Hx: none Family Hx Anesthesia Complications: none ANE Labs/Vital Signs - Labs Result Diagrams: 08/08/17 05:14 08/08/17 05:30 - Vital Signs Blood Pressure: 143/88 Heart Rate: 91 Respiratory Rate: 18 O2 Sat (%): 90 Height: 162 cm Weight: 54 kg ANE Physical Exam - Airway Neck exam: FROM Mallampati Score: Class 2 Mouth exam: normal dental/mouth exam - Pulmonary Pulmonary: no respiratory distress, clear to auscultation - Cardiovascular Cardiovascular: regular rate and rhythym, no murmur, rub, or gallop - ASA Status ASA Status: II ANE Anesthesia Plan Anesthesia Plan: general endotracheal anesthesia
[2017-08-09] MEDS ORDERED: PROPOFOL 200 MG/20 ML VIAL ONE (10:35)
[2017-08-09] MEDS ORDERED: ROCURONIUM 50 MG/5 ML VIAL ONE (10:36)
[2017-08-09] MEDS ORDERED: LIDOCAINE 2% 100 MG/5 ML SYR ONE (10:36)
[2017-08-09] MEDS ORDERED: fentaNYL 100 MCG/2 ML INJ ONE ×3 (10:36→12:11)
[2017-08-09] MEDS ORDERED: DEXAMETHASONE 4 MG/ML VIAL ONE (10:39)
[2017-08-09] MEDS ORDERED: ONDANSETRON 4 MG/2 ML VIAL ONE (10:39)
[2017-08-09] MEDS ORDERED: SUGAMMADEX SODIUM 200 MG/2 ML VIAL IVP ONE (11:04)
[2017-08-09] MEDS ORDERED: HYDROCODONE/APAP 5/325 TAB PO PRN (11:41)
[2017-08-09] MEDS ORDERED: HYDROmorphONE/DILAUDID 1 MG/ML INJ IVP PRN (11:41)
[2017-08-09] MEDS ORDERED: NALOXONE HCL 0.4 MG/ML INJ IVP PRN (11:41)
[2017-08-09] MEDS ORDERED: fentaNYL 100 MCG/2 ML INJ IVP PRN (11:41)
[2017-08-09] MEDS ORDERED: ONDANSETRON 4 MG/2 ML VIAL IVP PRN (11:41)
--- NOTE | 2017-08-09 12:07 | POSTOPPROG ---
Post Op Note Date of Operation: 08/09/17 Surgeon: Leonard Donald Anesthesiologist: Pily Anesthesia: GET(General Endotracheal) Pre-op Diagnosis: choledocholithiasis Post-op Diagnosis: cholodocholithiasis with chronic cholecystitis Procedure: Lap nelda Findings: adhesions, critical view Inf/Abcess present in the surg proc area at time of surgery?: No EBL: Minimal Specimen(s): GB
--- NOTE | 2017-08-09 12:35 | GOP ---
[f rep st] OPERATIVE REPORT DATE OF OPERATION: 08/09/2017 SURGEON: Leonard Donald MD CARGO STATION WORKER: None. ANESTHESIA: General endotracheal. ANESTHESIOLOGIST: Chris Nascimento MD. PREOPERATIVE DIAGNOSIS: Choledocholithiasis. POSTOPERATIVE DIAGNOSIS: Choledocholithiasis with chronic cholecystitis. PROCEDURE PERFORMED: Laparoscopic cholecystectomy. FINDINGS: Omental adhesions taken down to the gallbladder consistent with chronic cholecystitis. Enlarged common duct identified. Critical view obtained. SPECIMENS: Gallbladder. ESTIMATED BLOOD LOSS: 10 cc. DESCRIPTION OF PROCEDURE: The patient was greeted in the preoperative suite. Once again, risks, benefits, and alternatives were discussed. Consent was signed. She was then brought back to the operative suite, placed on the OR table in supine position. After all anesthesia machines including SCDs were on and functioning, [facility] time-out was performed. After successful induction of general anesthesia, the patient's abdomen was prepped and draped in typical sterile fashion. I entered the abdomen via an infraumbilical cutdown through which the Veress needle was passed. I achieved pneumoperitoneum to 15 mmHg which was well tolerated by the patient. I then inserted a 12 mm Visiport into this area. I grossly inspected the abdominal viscera and found no significant findings. I then inserted 3 additional 5 mm ports, 1 in the subxiphoid, 2 in the right upper quadrant all under direct visualization. I commenced the procedure by grasping the gallbladder and retracting it over the liver edge. There were multiple omental adhesions which were taken down bluntly. After this, I grasped the infundibulum. I dissected it out and I identified 2 and only 2 structures leading toward the gallbladder. I first clipped the duct and divided it and, in the same fashion, the cystic artery. I then took the gallbladder off the liver bed using electrocautery. Hemostasis was achieved in the liver bed with electrocautery and Pily. The specimen was then removed. I injected local anesthesia into all port sites which were then removed under direct visualization. I evacuated my pneumoperitoneum and closed my infraumbilical port site with an 0 Vicryl stitch noting excellent fascial reapproximation. The skin was then closed with Monocryl over which Dermabond was placed. The patient was then extubated in the operative suite and taken to the PACU in satisfactory condition. DRAINS: None. COUNTS: All counts were reported as correct x2. /[id number]/MODL MTDD
[2017-08-09] MEDS: HYDROCODONE/APAP 5/325 TAB PO PRN ×2 (12:38→18:06)
[2017-08-09 13:19] VITALS: RESP 16
[2017-08-09] MEDS: Lisdexamfetamine Dimesylate [Vyvanse] 20 MG PO SCH (13:46)
[2017-08-09] MEDS: ONDANSETRON DISINTEGRATING 4 MG TAB PO PRN ×2 (13:48→18:07)
[2017-08-09] MEDS: HYDROmorphone HCL/NS 0.5 MG/ML SYR IVP PRN (20:14)
[2017-08-09] MEDS: GABAPENTIN 400 MG CAP PO SCH (21:29)
[2017-08-09] MEDS: TEMAZEPAM 15 MG CAP PO SCH (21:30)
[2017-08-09] MEDS: OLANZapine 10 MG TAB PO SCH (21:30)
[2017-08-10] MEDS: LEVOTHYROXINE 75 MCG TAB PO SCH (06:10)
[2017-08-10] MEDS: Lisdexamfetamine Dimesylate [Vyvanse] 70 MG PO SCH (06:10)
[2017-08-10 06:11] LABS: PLATELET COUNT 194 10^3/uL (150-400)
[2017-08-10] MEDS: HYDROCODONE/APAP 5/325 TAB PO PRN ×3 (07:51→18:23)
[2017-08-10] MEDS: ONDANSETRON DISINTEGRATING 4 MG TAB PO PRN ×2 (07:51→15:33)
[2017-08-10] MEDS: Glatiramer Acetate [Copaxone] 40 MG SQ SCH (08:02)
--- NOTE | 2017-08-10 10:16 | SOAPPROG ---
SOAP Progress Note Assessment/Plan: Assessment/Plan: - 71yo F c choledocholithiasis s/p lap nelda - looks good, pain controlled - tolerating diet - ok from my standpoint ot restart NOAC - ok for dc tomorrow. - Discussed with Peyton Todd 08/07/17 15:27 08/10/17 10:15 Subjective: ate and tolerated full breakfast Objective: Vital Signs Temp Pulse Resp BP Pulse Ox 37.0 C 95 16 115/69 94 08/10/17 07:35 08/10/17 07:35 08/10/17 07:35 08/10/17 07:35 08/10/17 07:35 Laboratory Results 08/10/17 05:23 08/10/17 05:23 08/09/17 08/10/17 08/11/17 05:59 05:59 05:59 Intake Total 1120 2160 Output Total 10 Balance 1120 2150 PT 17.2 SEC (12.0-15.0) H 08/08/17 05:14 INR 1.39 (0.83-1.16) H 08/08/17 05:14 ICD10 Worksheet Patient Problems: Problems Problem Status Onset Choledocholithiasis Acute Anxiety Acute Bilateral pulmonary embolism Acute Dehydration Acute Nausea Acute chronic disease mgmt/transitional care Acute
--- NOTE | 2017-08-10 10:32 | HOSPPROG ---
Hospitalist Progress Note Assessment/Plan: Patient is a 71-year-old female with a history of bipolar disorder, hypothyroidism and cholelithiasis. She returned to the emergency room with ongoing abdominal pain which has been going on since her last discharge. She has ongoing pain and nausea which became more severe. LFTs are noted to be normal with an elevated alkaline phosphorus. First encounter, chart reviewed. D/ W Dr Donald. *Choledocholithiasis (Acute) - No e/o cholangitis. - Ultrasound showed a CBD stone. - EUS and ERCP om 08/08 - cholecystectomy POD #1 *epigastric and ruq pain -much improved -does best w [place], this has been ordered *nausea -resolved -eating well *lesion in the pancreatic body w dilated pancreatic duct - EUS done, awaiting pathology *PE - Diagnosed 05/28/2017, small volume. -Possibly provoked while post-op from ENZO. -Xarelto held, now restarted -approved by surgery *Hypothyroidism - TSH is 0.110 -previous TSH in June of 2017 was 0.118 -decreased dose of Synthroid -she varies on her TSH from very high to low -needs repeat TSH in 6 weeks *MS - no flare, cont outpt meds -PT/OT eval *Bipolar disorder - Cont Zyprexa -calm and cooperative *Recent ENZO - 03/2017 *H/O breast cancer - s/p lumpectomy. Cont outpt surveillance. Full code Dispo -Likely dc in the next 1-2 days, restart Xarelto, had been bridged with treatment dose of LWMH. Subjective: Up in the chair. Eating well. No pain. Feels a bit weak still. Objective: Vital Signs Temp Pulse Resp BP Pulse Ox 37.0 C 95 16 115/69 94 08/10/17 07:35 08/10/17 07:35 08/10/17 07:35 08/10/17 07:35 08/10/17 07:35 Laboratory Results 08/10/17 05:23 08/10/17 05:23 08/09/17 08/10/17 08/11/17 05:59 05:59 05:59 Intake Total 1120 2160 Output Total 10 Balance 1120 2150 PT 17.2 SEC (12.0-15.0) H 08/08/17 05:14 INR 1.39 (0.83-1.16) H 08/08/17 05:14 - Physical Exam Constitutional: appears nourished, not in pain, chronically ill appearing Eyes: PERRL, anicteric sclera, EOMI Ears, Nose, Mouth, Throat: moist mucous membranes, hearing normal, ears appear normal Cardiovascular: No JVD, No tachycardia, No edema Respiratory: no respiratory distress, no rales or rhonchi, reduced air movement Gastrointestinal: tenderness, No ascites, No guarding Skin: warm, normal color, No mottled Musculoskeletal: normal joint ROM, no joint effusions, generalized weakness Neurologic: AAOx3 Psychiatric: interacting appropriately, not anxious, not encephalopathic, thought process linear ICD10 Worksheet Patient Problems: Problems Problem Status Onset Bilateral pulmonary embolism Acute Dehydration Acute Choledocholithiasis Acute chronic disease mgmt/transitional care Acute Anxiety Acute Nausea Acute
[2017-08-10] MEDS: RIVAROXABAN 15 MG TAB PO SCH ×2 (11:16→18:21)
[2017-08-10] MEDS: Lisdexamfetamine Dimesylate [Vyvanse] 20 MG PO SCH (14:12)
[2017-08-10] MEDS ORDERED: HYDROmorphONE/DILAUDID 2 MG/ML INJ IVP PRN (16:05)
--- NOTE | 2017-08-10 16:30 | SOAPPROG ---
[facility] Progress Note Assessment/Plan: Assessment: 1. RUQ Pain 2. Choledocholithiasis 3. Pancreatic cystic lesion 4. Cholelithiasis 5. PE Plan: 1. Resume Xarelto 2. ADAT 3. Pancreatic cyst aspirate non-diagnostic. Will repeat MRI in 6 months and if stable again in 1 year. No other f/u is needed. 4. Ok with d/c when ready Will sign off. Carlos with questions. 08/10/17 16:27 Subjective: CC: RUQ pain Nausea Doing well after lap-cholecystectomy. No further pain or nausea. Cyst aspirate non-diagnostic as acellular material but by EUS criteria benign lesion. Will need radiographic surveillance. LFTs (alk-phos has normalized). Objective: Vital Signs Temp Pulse Resp BP Pulse Ox 36.8 C 89 16 90/68 L 93 08/10/17 15:23 08/10/17 15:23 08/10/17 15:23 08/10/17 15:35 08/10/17 15:23 Laboratory Results 08/10/17 05:23 08/10/17 05:23 08/09/17 08/10/17 08/11/17 05:59 05:59 05:59 Intake Total 1120 2160 300 Output Total 10 Balance 1120 2150 300 PT 17.2 SEC (12.0-15.0) H 08/08/17 05:14 INR 1.39 (0.83-1.16) H 08/08/17 05:14 Physical Exam - Physical Exam General Appearance: WD/WN, no apparent distress EENT: normal ENT inspection Neck: supple Respiratory: lungs clear, normal breath sounds Cardiac/Chest: regular rate, rhythm Abdomen: non-tender, soft, No distended, No guarding, No rebound, No mass, No hepatomegaly, No splenomegaly, No ascites Skin: normal color, warm/dry Lymphatic: No no adenopathy Neuro/Psych: alert, oriented x 3 ICD10 Worksheet Patient Problems: Problems Problem Status Onset Choledocholithiasis Acute Anxiety Acute Bilateral pulmonary embolism Acute Dehydration Acute Nausea Acute chronic disease mgmt/transitional care Acute
--- NOTE | 2017-08-10 18:30 | ASMTCMCOM ---
CM Note CM Note Notes: Pt lives independently at home, originally did not have any needs but PT recommending homecare.CM to discuss wth pt, OT still pending. DC Plan: Homecare Date Signed: 08/10/2017 06:29 PM Electronically Signed By:Asmita Harley RN
[2017-08-10] MEDS: GABAPENTIN 400 MG CAP PO SCH (20:58)
[2017-08-10] MEDS: TEMAZEPAM 15 MG CAP PO SCH (20:58)
[2017-08-10] MEDS: OLANZapine 10 MG TAB PO SCH (20:58)
[2017-08-11] MEDS: Lisdexamfetamine Dimesylate [Vyvanse] 70 MG PO SCH (06:45)
[2017-08-11] MEDS: LEVOTHYROXINE 75 MCG TAB PO SCH (06:45)
[2017-08-11 08:30] VITALS: BP 107/69; PULSE 98; TEMP 97.9; O2SAT 92
[2017-08-11] MEDS: RIVAROXABAN 15 MG TAB PO SCH (08:36)
[2017-08-11] MEDS: ONDANSETRON DISINTEGRATING 4 MG TAB PO PRN (08:36)
[2017-08-11] MEDS: HYDROCODONE/APAP 5/325 TAB PO PRN (08:36)
--- NOTE | 2017-08-11 13:08 | ASMTLACE ---
ROSA MARIAE Length of stay for Answers: 4-6 days current admission Acuity / Level of Answers: Yes Care: Did the patient have an inpatient admission? Comorbidities - select Answers: Other Notes: Breast cancer, MS all that apply # of Emergency department Answers: 3-4 visits in the last 6 months Social determinants Answers: Mental health diagnosis (anxiety, depression, pers onality disorders, etc.) Score: 14 Date Signed: 08/11/2017 01:07 PM Electronically Signed By:Adelina Ortiz RN
--- NOTE | 2017-08-11 13:18 | ASDISCHSUM ---
Discharge Information Plan Status:Home with No Needs Medically Cleared to Leave:08/10/2017 Discharge Date:08/11/2017 01:07 PM CM D/C Disposition:Home, Routine, Self-Care ADT D/C Disposition:Home, Routine, Self-Care Projected Discharge Date:08/11/2017 01:07 PM Transportation at D/C:Family Discharge Delay Reason: Follow-Up Date:08/11/2017 01:07 PM Discharge Slot:2 - 12:01 pm - 18:00 pm Final Diagnosis:Choledocholithiasis, recent PE, MS, hypothyroid, bipolar disorder, recent ENZO, h/o b reast cancer Placement Information Patient Contact Information Contact Name:ANA Relationship:Daughter Address:[address] City:[place] Alternate Phone: State/Zip Code:[place] [address] Email: Financial Information Financial Class:Medicare Primary Plan Desc:MEDICARE INPATIENT Primary Plan Number:[id number] Secondary Plan Desc:[place] Secondary Plan Number:[id number] Assessment Information LACE LACE Length of stay for Answers: 4-6 days current admission Acuity / Level of Answers: Yes Care: Did the patient have an inpatient admission? Comorbidities - select Answers: Other Notes: Breast cancer, MS all that apply # of Emergency department Answers: 3-4 visits in the last 6 months Social determinants Answers: Mental health diagnosis (anxiety, depression, pers onality disorders, etc.) Score: 14 Date Signed: 08/11/2017 01:07 PM Electronically Signed By:Adelina Ortiz RN [facility] Initial CM Assessment Living Arrangements What is your living Answers: Alone arrangement? Who do you live with? Type Of Residence What kind of residence do Answers: House you live in? Discharge Plan Comments Coordination Status Comments Notes: Pt 71 y/o female admitted for choledocholithiasis. Pt will most likely have surgery to remove her stones on . Pt is unable to obtain her vyvanse since it is a controlled substance. Pt is a client at [facility]. CM called [facility] to inquire about medication. CM was pass to her CM Alia Ruizwell. CM left a msg for Alia. Her extension is [phone]. CM met w/ pt for dispo planning. Pt reports that Alia is no longer at [facility]. Pt reports that she usually obtains her prescription of vyvanse for the week on Sunday. Pt reports that she is hopeful that her daughter will return tomorrow and will be able to forklift picker the prescription for her. Pt reports that she is feeling tired without the vyvanse. sent Aster Glynn NP a message and requested that she writes a prescription for a a time dose, per the request of the pt. CM to follow. Plan: TBD Date Signed: 08/06/2017 04:18 PM Electronically Signed By:ALBERTA Gallegos [facility] CM Progress Note CM Note CM Note Notes: Pt had gallbladder surgery today, pt likely independent. CM w/f for needs. DC Plan: TBD Date Signed: 08/08/2017 04:56 PM Electronically Signed By:Asmita Harley RN [facility] CM Progress Note CM Note CM Note Notes: Pt lives independently at home, originally did not have any needs but PT recommending homecare.CM to discuss [facility] pt, OT still pending. DC Plan: Homecare Date Signed: 08/10/2017 06:29 PM Electronically Signed By:Asmita Harley RN Case Management Discharge Plan Note Case Management Discharge Discharge Order Complete? Answers: Yes Patient to Obtain Answers: via Family Medications Transportation Arranged Answers: Family/Friends Transport will Pick (Date 08/11/2017 12:00 PM & Time) EMTALA Complete Answers: No Notes: N/A Case Management Transport Answers: No Notes: N/A Form Complete Faxed Final Orders Answers: No Notes: N/A Agency/Facility Transfer Answers: No Notes: N/A Report Printed & Faxed to Receiving Agency Family Notified Answers: Yes Notes: Dghtr to transport pt home Discharge Comments Notes: Reviewed chart regarding discharge plan, pt's progress. Spoke w/ CARROLL Rees and Nicole Castillo NP. Pt to discharge home independently today. Met w/ pt to discuss PT recommendations for home care. Pt declined, stating she "will be just fine, I don't need anything." IM signed. Pt's dghtr to provide transportation home. Per Negrita, pt is well connected through [facility] and her dghtr. Pt to follow up as directed. CM available for any further issues or concerns. Discharge Plan: Home independently Date Signed: 08/11/2017 01:16 PM Electronically Signed By:Adelina Ortiz RN Intervention Information Intervention Type:*IM-Signed Date of Service:08/11/2017 12:10 PM Patient Type:Inpatient Staff Member:CARROLL Ortiz Taylor Hours:0.25 Discipline: Severity: Comment:
--- NOTE | 2017-08-11 14:34 | GDS ---
[f rep st] DISCHARGE SUMMARY DISCHARGE DIAGNOSES: 1. Choledocholithiasis. 2. Pancreatic cyst lesion. 3. Cholelithiasis. CONSULTATIONS: 1. Gastroenterology. 2. General Surgery. STUDIES AND PROCEDURES DONE: Laparoscopic cholecystectomy. PHYSICAL EXAMINATION: GENERAL: The patient is alert. VITAL SIGNS: Afebrile at 36.6, pulse is 98, respiratory rate 16, blood pressure is 107/69. She is saturating 92% on room air. I have seen and e valuated the patient on the day of discharge. HOSPITAL COURSE: The patient is a 71-year-old female who presented to the emergency room with compla ints of abdominal pain. She was evaluated and diagnosed with: 1. Choledocholithiasis. During this hospitalization, she received an EUS and an ERCP, as well as la paroscopic cholecystectomy. She has responded well to this, and her pain has improved. 2. Epigastric and right upper quadrant pain. This is resolved after surgery. 3. Nausea. The patient is tolerating a regular diet. 4. Pancreatic body lesions. Pathology from biopsy from an EUS is pending and will follow up with [facility]. 5. PE. This is been diagnosed in the past and is longstanding. She will continue Xarelto as previo usly ordered. 6. Hypothyroidism. Her Synthroid has been adjusted during this hospitalization. Requires followup in the outpatient setting with her primary care physician. 7. History of multiple sclerosis. No acute flares identified. Her home medications have been brenda nued. 8. Bipolar disorder. Her Zyprexa has been continued. 9. Disposition. The patient will be discharged home. She has been evaluated by Physical Therapy an d cleared. She has been offered [facility] rehabilitation at the time of disposition and is ref using. She will be discharged home. FOLLOWUP: Primary care physician, as well as Dr. Donald and Gastroenterology. DISCHARGE MEDICATIONS: Please refer to EMR form. I have provided prescriptions for [place], as well a abhinav Pacheco at the time of disposition. I have not adjusted any of her other previously prescribed home medications to the best of my knowledge. I spent greater than 35 minutes in the care, coordination, and management of this patient's dispositi on. /[id number]/MODL
--- NOTE | 2017-08-11 23:34 | GIREPORT ---
Formerly [facility] Surgical Services - Endoscopy Department Patient Name: Shagufta Alvarez Procedure Date: 08/08/2017 12:12 PM Patient Type: Inpatient Attending MD/ ER Physician: Miguelangel Torre MD Procedure: ERCP Indications: Bile duct stone(s), Elevated alkaline phosphatase Patient Profile: 71 year old female presents for biliary decompression. Providers: Miguelangel Torre MD Medicines: General Anesthesia, Indomethacin 100 mg DC Complications: No immediate complications. Estimated blood loss: Minimal. Description of Procedure: After obtaining informed consent, the scope was passed under direct vis ion. Throughout the procedure, the patient's blood pressure, pulse, and oxyg en saturations were monitored continuously. The was introduced through the mouth, and advanced to the duodenum and used to inject contrast into th e bile duct. The ERCP was accomplished without difficulty. The patient tolerated the procedure well. 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 The esophagus was successfully intubated und er direct vision. The scope was advanced to a normal major papilla in the descending duodenum without detailed examination of the pharynx, larynx and associated structures, and upper GI tract. The upper GI tract was gross ly normal. A wire was passed into the biliary tree. The short-nosed tracti on sphincterotome was passed over the guidewire and the bile duct was then deeply cannulated. Contrast was injected. I personally interpreted the bile duct images. Ductal flow of contrast was adequate. Image quality was adequate. Contrast extended to the entire biliary tree. The lower third of the main bile duct contained four stones, the largest of which was 6 mm in diameter. The lower third of the main bile duct was dilated. A 10 mm bi liary sphincterotomy was made with a traction (standard) sphincterotome using pure cut current. The sphincterotomy oozed blood. The biliary tree was swept with a 12 mm balloon starting at the bifurcation. Four stones were removed. No stones remained. Estimated Blood Loss: Estimated blood loss was minimal. Post Op Diagnosis: - The lower third of the main bile duct was dilated. - Choledocholithiasis was found. Complete removal was accomplished by biliary sphincterotomy and balloon extraction. - A biliary sphincterotomy was performed. - The biliary tree was swept. Recommendation: - [facility]. - NPO. - Continue previous medications. - Thank you for allowing me to participate in the care of oyur patient. Attending Participation: I personally performed the entire procedure. Miguelangel Torre MD Miguelangel Torre MD 08/11/2017 11:33:19 PM This report has been signed electronicallyMiguelangel Torre MD Number of Addenda: 0 Note Initiated On: 08/08/2017 12:12 PM [email or web address]
--- NOTE | 2017-08-12 04:45 | GPN ---
[f rep st] PROCEDURE NOTE DATE OF PROCEDURE: 08/08/2017 PROCEDURE: Esophagogastroduodenoscopy with biopsy, endoscopic ultrasound with fine-needle aspiration. INDICATIONS: The patient is a 71-year-old female who presents for evaluation of biliary obstruction as well as pancreatic cyst. She also has had symptoms of diarrhea. CONSENT: Risks, benefits, and alternatives of the procedure were discussed in great detail with the patient. Risks of infection, bleeding, perforation, sedation, and pancreatitis were discussed. All questions answered and informed consent was obtained. MEDICATIONS: General anesthesia. Please see anesthesiology records for details. ESTIMATED BLOOD LOSS: Insignificant. ESOPHAGOGASTRODUODENOSCOPY EXAMINATION: The Olympus upper endoscope was inserted in the mouth and advanced down the esophagus. The proximal and mid esophagus were normal in appearance. In the distal esophagus, 2 tongues of columnar appearing epithelium were noted to extend into the tubular esophagus by at least 2 cm. Biopsies were taken. The stomach was entered and closely examined, including retroflexed views of angularis, cardia and fundus. The mucosa of the whole examined stomach was mildly erythematous and biopsies were taken. The duodenal bulb and second portion of the duodenum were normal in appearance. Due to her symptoms of diarrhea, biopsies were taken to rule out celiac sprue. ENDOSCOPIC ULTRASOUND EXAMINATION: The Olympus linear echoendoscope was inserted in the mouth and advanced to the second portion of the duodenum. The esophagus, stomach, and duodenum were visualized endosonographically. The pancreas was examined from the uncinate process to the tail, where the spleen was seen. In the body of the pancreas, a 2.0 x 1.1 cm cyst was seen. A small septation was seen. This cyst did not appear to communicate with the main pancreatic duct. Doppler was used, to rule out intervening vessels. A vessel was noted to be intervening between the mucosa and the cyst. One transgastric pass was made with a [employer] 25 gauge needle into the lesion with some difficulty due to the surrounding vessel. Minimal fluid was aspirated. Cytology was present and felt the initial pass was nondiagnostic. Due to the vessel and the benign appearance of this lesion, It was decided not to make another pass. The bile duct was seen and the bile duct was dilated to approximately 1 cm. Several small filling defects of 4-6 mm were seen. The common bile duct and pancreatic duct were seen merging together. The liver was visualized, and was normal in appearance. No suspicious periportal, peripancreatic, or perigastric nodes appreciated. IMPRESSION: 1. 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 2. Gastritis, status post biopsies. 3. Biopsy taken to rule out celiac sprue. 4. Cyst in pancreatic body. Did have a septation, however, does not appear to communicate with the pancreatic duct. One pass was made, which was technically challenging due to an intervening vessel. On appearance, no high-risk features were noted. Due to size and intervening vessels, it was decided not to make another pass. RECOMMENDATIONS: 1. Clear liquid diet until tomorrow. 2. Follow up on biopsy and FNA results. 3. Repeat MRI in 6 months. 4. Proceed with ERCP for biliary decompression. /[id number]/MODL MTDD
[2017-08-31] MEDS ORDERED: RIVAROXABAN 20 MG TAB PO SCH (09:00)
== END 2017-08-11 13:07 | disposition home or self-care (01) | DRG 418 ==
LOC: EDUNIT# → F3E 18:36
PROVIDERS: ADMIT Internal Medicine; ATTEND Internal Medicine
PROC: 0DB98ZX Excision of Duodenum, Via Natural or Artificial Opening Endoscopic, Diagnostic (ICD-10-PCS; 2017-08-08)
PROC: 0DB68ZX Excision of Stomach, Via Natural or Artificial Opening Endoscopic, Diagnostic (ICD-10-PCS; 2017-08-08)
PROC: 0DB48ZX Excision of Esophagogastric Junction, Via Natural or Artificial Opening Endoscopic, Diagnostic (ICD-10-PCS; 2017-08-08)
PROC: 0FC98ZZ Extirpation of Matter from Common Bile Duct, Via Natural or Artificial Opening Endoscopic (ICD-10-PCS; 2017-08-08 11:30)
PROC: 0F9G8ZX Drainage of Pancreas, Via Natural or Artificial Opening Endoscopic, Diagnostic (ICD-10-PCS; 2017-08-08 11:30)
PROC: BF141ZZ Fluoroscopy of Gallbladder, Bile Ducts and Pancreatic Ducts using Low Osmolar Contrast (ICD-10-PCS; principal; 2017-08-09 10:45)
PROC: 0FT44ZZ Resection of Gallbladder, Percutaneous Endoscopic Approach (ICD-10-PCS; principal; 2017-08-09 10:45)
DX: K80.65 Calculus of gallbladder and bile duct with chronic cholecystitis with obstruction (principal); K86.2 Cyst of pancreas; K29.70 Gastritis, unspecified, without bleeding; G35 Multiple sclerosis; E03.9 Hypothyroidism, unspecified; F31.9 Bipolar disorder, unspecified; Z86.718 Personal history of other venous thrombosis and embolism; Z86.711 Personal history of pulmonary embolism; Z87.891 Personal history of nicotine dependence; Z79.01 Long term (current) use of anticoagulants; Z85.3 Personal history of malignant neoplasm of breast; Z96.642 Presence of left artificial hip joint; Z92.3 Personal history of irradiation
CPT/HCPCS: 96374; 97161-GP; G8978-GP-CI; G8979-GP-CI; G8980-GP-CI; J0171; J0690; J1100; J1170; J1335; J1610; J1650; J1885; J1956; J2001; J2370; J2405; J2704; J3010; Q9961

== ENCOUNTER 2017-08-19 10:03 | Emergency (ER) | payer OTHER, MEDICAID ==
--- NOTE | 2017-08-19 10:13 | CPEKG ---
Heart Rate: 80 RR Interval: 750 P-R Interval: 176 QRSD Interval: 78 QT Interval: 416 QTC Interval: 480 P [place]: 65 QRS [place]: 60 T Wave [place]: 63 EKG Severity - NORMAL ECG - EKG Impression: SINUS RHYTHM Electronically Signed By: Eladoi Whitley 19-Aug-2017 12:08:47
[2017-08-19 10:15] VITALS: TEMP 98.1
--- NOTE | 2017-08-19 10:24 | EDPHY ---
H & P Stated Complaint: R sided chest pain, Dizzy Time Seen by Provider: 08/19/17 10:12 HPI/ROS: CHIEF COMPLAINT: Chest pain HISTORY OF PRESENT ILLNESS: The patient presents to the ED with a 1 day history of right anterior chest pain. The patient reports her pain is palpable and worsened with movement. She denies any history of fall or trauma. The patient did have a history of recent cholecystectomy and choledocholithiasis. The patient has a history of pulmonary embolism and is chronically anticoagulated. She has been compliant with her anticoagulant medications. The patient denies any exertional chest pain or shortness of breath. She denies any abdominal pain, fever or vomiting. REVIEW OF SYSTEMS: A comprehensive 10 point review of systems is otherwise negative aside from elements mentioned in the history of present illness. Source: Patient Exam Limitations: No limitations - Personal History Current Tetanus Diphtheria and Acellular Pertussis (TDAP): Yes - Medical/Surgical History Hx Asthma: No Hx Chronic Respiratory Disease: No Hx Diabetes: No Hx Cardiac Disease: No Hx Renal Disease: No Hx Cirrhosis: No Hx Alcoholism: No Hx HIV/AIDS: No Hx Splenectomy or Spleen Trauma: No Other PMH: gallstones, MS, Hypothyroid, BRCA, PE - Social History Smoking Status: Former smoker - Physical Exam Exam: General Appearance: Alert, no distress Eyes: Pupils equal and round no pallor or injection ENT, Mouth: Mucous membranes moist Respiratory: There are no retractions, lungs are clear to auscultation, tenderness to palpation right anterior chest wall Cardiovascular: Regular rate and rhythm Gastrointestinal: Abdomen is soft and nontender, no masses, bowel sounds normal Neurological: A&O, normal motor function, normal sensory exam, normal cranial nerves Skin: Warm and dry, no rashes Musculoskeletal: Neck is supple nontender Extremities: symmetrical, full range of motion Constitutional: Initial Vital Signs Temperature (C) 36.7 C 08/19/17 10:13 Heart Rate 70 08/19/17 10:13 Respiratory Rate 16 08/19/17 10:13 Blood Pressure 136/86 H 08/19/17 10:13 O2 Sat (%) 93 08/19/17 10:13 O2 Delivery Mode Room Air Allergies/Adverse Reactions: No Known Allergies Allergy (Verified 08/19/17 10:13) Home Medications: Medication Instructions Recorded Gabapentin [Neurontin 400 MG (*)] 800 mg PO HS 05/19/12 Lisdexamfetamine Dimesylate 70 mg PO DAILY 05/19/14 [Vyvanse] Cholecalciferol Vit D3 [Vitamin D3 1,000 units PO DAILY 03/23/17 (*)] Glatiramer Acetate [Copaxone] 40 mg SQ MWF 03/23/17 Temazepam [Restoril] 30 mg PO HS 03/23/17 Lisdexamfetamine Dimesylate 20 mg PO DAILY14 04/18/17 [Vyvanse] OLANZapine [Zyprexa] 10 mg PO HS 04/18/17 Rivaroxaban [Xarelto] 20 mg PO DAILY #30 tablet 05/28/17 Levothyroxine [Synthroid 88 mcg 88 mcg PO DAILY06 06/23/17 (*)] Acetaminophen [Tylenol 325mg (*)] 650 mg PO Q4HRS PRN tab 06/26/17 Ondansetron Odt [Zofran Odt 4 mg 4 mg PO Q4 PRN #10 tab 07/16/17 (*)] Prochlorperazine Maleate 5 mg PO Q8HRS PRN 08/05/17 [Compazine 5mg (*)] Acetaminophen [Tylenol 325mg (*)] 650 mg PO Q4HRS PRN tab 08/11/17 Hydrocodone/APAP 5/325 [Wayne 2 tab PO Q4HRS PRN #10 tab 08/11/17 5/325 (*)] Ondansetron Odt [Zofran Odt 4 mg 4 mg PO Q4HRS PRN #20 tab 08/11/17 (*)] Medical Decision Making - Diagnostics EKG Interpretation: EKG: Complete interpretation has been separately recorded in the [employer] archive. Summary impression: Sinus rhythm, rate 80. Imaging Results: Imaging Impressions Chest X-Ray 08/19/17 10:28 Impression: Right posterior hemidiaphragmatic elevation, with some subsegmental atelectasis and possible pleural effusion. ED Course/Re-evaluation: The patient presents the ED with complaints of right anterior chest pain. The patient is noted to have chest wall tenderness which is reproducible on exam. She did receive 2 Wayne tablets. I reviewed the patient's past medical records. The patient's EKG demonstrates no evidence of ischemia. The patient's laboratory studies including CBC, serum chemistries, troponin normal liver function test and lipase are normal. The patient was re-evaluated by myself at 1:00 p.m. At this point time I feel the patient is experiencing musculoskeletal pain. She will be advised to use Wayne as needed for pain. She should return to the emergency department for worsening symptoms or other concerns. Differential Diagnosis: Differential diagnosis considered includes pancreatitis, choledocholithiasis, pneumonia, hemothorax, pneumothorax, rib fracture - Data Points Laboratory Results: Laboratory Results 08/19/17 10:15 08/19/17 10:15 08/19/17 08/19/17 10:15 10:15 WBC 6.25 10^3/uL 10^3/uL (3.80-9.50) RBC 4.83 10^6/uL 10^6/uL (4.18-5.33) Hgb 14.0 g/dL g/dL (12.6-16.3) Hct 42.8 % % (38.0-47.0) MCV 88.6 fL fL (81.5-99.8) MCH 29.0 pg pg (27.9-34.1) MCHC 32.7 g/dL g/dL (32.4-36.7) RDW 14.4 % % (11.5-15.2) Plt Count 456 10^3/uL H 10^3/uL (150-400) MPV 9.4 fL fL (8.7-11.7) Neut % (Auto) 67.2 % % (39.3-74.2) Lymph % (Auto) 24.3 % % (15.0-45.0) [place] % (Auto) 5.3 % % (4.5-13.0) Eos % (Auto) 1.8 % % (0.6-7.6) Baso % (Auto) 1.1 % % (0.3-1.7) Nucleat RBC Rel Count 0.0 % % (0.0-0.2) Absolute Neuts (auto) 4.20 10^3/uL 10^3/uL (1.70-6.50) Absolute Lymphs (auto) 1.52 10^3/uL 10^3/uL (1.00-3.00) Absolute Monos (auto) 0.33 10^3/uL 10^3/uL (0.30-0.80) Absolute Eos (auto) 0.11 10^3/uL 10^3/uL (0.03-0.40) Absolute Basos (auto) 0.07 10^3/uL 10^3/uL (0.02-0.10) Absolute Nucleated RBC 0.00 10^3/uL 10^3/uL (0-0.01) Immature Gran % 0.3 % % (0.0-1.1) Immature Gran # 0.02 10^3/uL 10^3/uL (0.00-0.10) Sodium 143 mEq/L mEq/L (135-145) Potassium 4.7 mEq/L mEq/L (3.5-5.2) Chloride 104 mEq/L mEq/L (97-110) Carbon Dioxide 27 mEq/l mEq/l (22-31) Anion Gap 12 mEq/L mEq/L (8-16) BUN 11 mg/dL mg/dL (7-23) Creatinine 0.9 mg/dL mg/dL (0.6-1.0) Estimated GFR > 60 Glucose 116 mg/dL H mg/dL (70-100) Calcium 10.0 mg/dL mg/dL (8.5-10.4) Total Bilirubin 0.3 mg/dL mg/dL (0.1-1.4) Conjugated Bilirubin 0.3 mg/dL mg/dL (0.0-0.5) Unconjugated Bilirubin 0.0 mg/dL mg/dL (0.0-1.1) AST 29 IU/L IU/L (14-46) ALT 37 IU/L IU/L (9-52) Alkaline Phosphatase 109 IU/L IU/L (38-126) Troponin I < 0.012 ng/mL ng/mL (0.000-0.034) Total Protein 6.9 g/dL g/dL (6.3-8.2) Albumin 3.8 g/dL g/dL (3.5-5.0) Lipase 47 IU/L IU/L (23-300) Medications Given: Discontinued Medications Hydrocodone Bitart/Acetaminophen (Wayne 5/325) 2 tab PO EDNOW ONE Stop: 08/19/17 10:57 Last Admin: 08/19/17 10:57 Dose: 2 tab Departure - Departure Disposition: Home, Routine, Self-Care Clinical Impression: Chest wall pain Condition: Good Instructions: Chest Wall Pain (ED) Additional Instructions: 1. The blood testing, EKG and chest x-ray demonstrate no obvious abnormality. 2. Please follow up with your primary care provider as scheduled. 3. Wayne as needed for pain.
[2017-08-19] MEDS ORDERED: HYDROCODONE/APAP 5/325 TAB PO ONE (10:56)
[2017-08-19 12:34] LABS: PLATELET COUNT 456 10^3/uL (150-400)
[2017-08-19 13:33] VITALS: BP 134/91; PULSE 65; RESP 16; O2SAT 95
== END 2017-08-19 13:24 | disposition home or self-care (01) ==
LOC: EDUNIT#
DX: R07.89 Other chest pain (principal); Z87.891 Personal history of nicotine dependence

== ENCOUNTER 2017-08-26 14:26 | Inpatient (IN) | payer OTHER, MEDICAID ==
--- NOTE | 2017-08-26 14:42 | CPEKG ---
Heart Rate: 69 RR Interval: 870 P-R Interval: 172 QRSD Interval: 86 QT Interval: 424 QTC Interval: 455 P [place]: 59 QRS [place]: 47 T Wave [place]: 65 EKG Severity - NORMAL ECG - EKG Impression: SINUS RHYTHM Electronically Signed By: Thien Morrison 26-Aug-2017 15:20:17
[2017-08-26] MEDS ORDERED: ONDANSETRON 4 MG/2 ML VIAL IVP ONE (15:17)
[2017-08-26] MEDS ORDERED: NS 500 ML IV ONE (15:17)
[2017-08-26] MEDS ORDERED: FAMOTIDINE 20 MG/NACL 50 ML IV ONE (15:17)
[2017-08-26 15:24] LABS: PLATELET COUNT 467 10^3/uL (150-400)
--- NOTE | 2017-08-26 15:30 | EDPHY ---
H & P Time Seen by Provider: 08/26/17 14:53 HPI/ROS: HPI Nausea, fatigue, lightheaded. 71-year-old female by ambulance. This patient was seen here about 1 week ago with complaint of right-sided chest pain. She had a negative workup at that time and was sent home. She reports that about a week ago after discharge from her emergency department visit, she was started on a medication called Belsomra. She reports that this medication was prescribed to her by a psychiatrist at [facility]. She reports that she was prescribed this medication to help her sleep. She reports that since taking this medication she has been feeling nauseous and also reports feeling fatigued and mild vertigo with lightheadedness. She denies syncope. She reports that she still has some right-sided chest discomfort as she did last week which is better but otherwise unchanged from her previous visit. No shortness of breath. He has a history of a pulmonary embolism for which she takes Xarelto. The patient was given 100 mcg of IV fentanyl on the way to the hospital by EMS. ROS: Constitutional: No fever, no chills. As above. Eyes: No discharge. No changes in vision. ENT: No sore throat. No nasal congestion or rhinorrhea. Respiratory: No cough. No shortness of breath. Cardiac: As above, no palpitations. Gastrointestinal: No abdominal pain, no vomiting, no diarrhea. As above. Genitourinary: No hematuria. No dysuria or increased frequency with urination. Musculoskeletal: No back pain. No neck pain. No myalgias or arthralgias. Skin: No rashes. Neurological: No headache. No focal weakness or altered sensation. As above. Past medical history: Gallstones, MS, hypothyroidism, pulmonary embolism. She had a cholecystectomy about 2 weeks ago. Social history: Lives by herself. Nonsmoker. Denies alcohol. Physical Exam: General Appearance: Alert, no distress, mildly anxious. This patient is responding to questions appropriately and in full sentences. This patient appears well-hydrated and well-nourished. Eyes: Pupils equal and round no pallor or injection. No lid edema, erythema or injection. Respiratory: There are no retractions, lungs are clear to auscultation with good air movement bilaterally. Chest wall is stable to AP and lateral palpation. She does have mild reproducible pain on palpation of the anterior chest wall as she did a week ago when seen in the emergency department. Cardiovascular: Regular rate and rhythm. No murmur. Gastrointestinal: Abdomen is soft and nontender, no masses, bowel sounds normal. No focal tenderness at McBurney's point. No Barclay sign. Neurological: Motor sensory function is grossly intact. Cranial nerves are normal. Gait is normal. Skin: Warm and dry, no rashes. Musculoskeletal: Neck is supple and nontender. Extremities are symmetrical. All joints range without pain or impingement. Psychiatric: No agitation. No depression. Database: EKG: EKG time is 2:38 p.m.; EKG shows a narrow complex normal sinus rhythm with a ventricular rate of 69. The IL, QRS, QT intervals are within normal limits. There are no ST-T wave changes indicative of ischemic or injury pattern. No evidence of right heart strain. Interpreted by me. Imaging: Chest x-ray PA and lateral; the cardiac mediastinal silhouette is unremarkable. Likely new right lower lobe airspace consolidation, could represent pneumonia. No pneumothorax. No acute cardiopulmonary disease process noted. Study compared to chest x-ray on 08/19/2017. Interpreted by me. CT angiogram of chest; no evidence of pulmonary embolism. Mild increase in right basilar atelectasis, hiatal hernia with thickening of distal esophagus. Dilation of common bile duct. Results were discussed with staff radiologist Dr. Hair Huerta. Right upper quadrant ultrasound: Significant for a distal calculus in the common bile duct measuring 3-4 mm. The common bile duct does not appear as dilated on ultrasound measuring 7-8 mm. Otherwise unremarkable study. Results were discussed with staff radiologist Dr. Hair Huerta. Procedures: Emergency department course: An IV was placed. She was placed on a director of cardiac rehabilitation. Vital signs reviewed, she is hypertensive but vital signs are otherwise normal. She will be given 500 cc of IV normal saline for mild dehydration. She will be given 4 mg of IV Zofran and 20 mg of IV Pepcid. EKG obtained and reviewed by myself. Her chest x-ray will be repeated. 4:30 p.m., patient re-evaluated. She is complaining of continued pain in that right lower anterior chest and epigastric area. Chest x-ray finding as noted above is concerning. The patient does consent for CT angiogram of her chest. This is to evaluate for both a new pulmonary embolic process verses pneumonia. She was given a GI cocktail at this time as well. 6:00 p.m., the patient is back from CT scan. I discussed these results with Dr. Hair Huerta. He advises we get a right upper quadrant ultrasound to evaluate for a possible obstructive residual stone in the common bile duct and therefore possibly a need for ERCP. This was ordered and the patient was given 0.5 mg of IV hydromorphone. 7:30 p.m., spoke with Dr. Simpson of GI. Case was discussed in detail. Results of ultrasound as noted above discussed. He will consult on this patient in the morning. He asked that we admit the patient to the hospitalist service. Hospitalist paged. 7:45 p.m., discussed case with hospitalist, Dr. Joanna Tamayo, she accepts this patient for admission. She will consider an MRCP for further diagnostic capability. Patient's remaining emergency department course under my care uneventful. Patient admitted in stable condition. Differential Diagnosis: The differential diagnosis on this patient includes but is not limited to medication reaction. CVA, MS exacerbation, infectious etiology, acute coronary syndrome, new or progressing pulmonary embolism unlikely. This represents a partial list of diagnoses considered. These considerations are based on history , physical exam, past history, reassessment and diagnostic testing. Smoking Status: Former smoker Constitutional: Initial Vital Signs Temperature (C) 36.5 C 08/26/17 14:26 Heart Rate 67 08/26/17 14:26 Respiratory Rate 16 08/26/17 14:26 Blood Pressure 178/93 H 08/26/17 14:26 O2 Sat (%) 95 08/26/17 14:26 O2 Delivery Mode Room Air Allergies/Adverse Reactions: No Known Allergies Allergy (Verified 08/19/17 10:13) Home Medications: Medication Instructions Recorded Belsomra 08/26/17 Levothyroxine 08/26/17 Neurontin 08/26/17 VYVANSE 08/26/17 Xarelto 08/26/17 Zyprexa 08/26/17 Medical Decision Making - Diagnostics Imaging Results: Imaging Impressions Chest X-Ray 08/26/17 15:17 Impression: New right lower lobe airspace consolidation may represent atelectasis or evolving pneumonia. Chest/Thorax CTA 08/26/17 16:40 Impression: 1. No evidence of pulmonary embolus using CT protocol. 2. Mild increase in subsegmental atelectasis at the right lung base. 3. Small hiatal hernia with possible mild distal esophagitis. 4. Dilated common bile duct. Consider correlation with LFTs for possible biliary obstructive etiology. 5. Mild emphysematous changes within the lungs. Findings discussed with Elijah Funez MD at 17:45 hour, 08/26/2017. Abdomen Ultrasound 08/26/17 18:12 Impression: 1. Distal common bile duct calculus suspected measuring 3 to 4 mm with only mild dilatation of the common bile duct measuring about 7-8 mm. Consider ERCP. 2. No abnormal fluid collections within the gallbladder fossa. 3. Septated cystic lesion anterior aspect of the pancreatic body. This could be secondary to intraductal pancreatic mucinous neoplasm. Other possibilities such as epithelial cyst or mucinous cystic pancreatic tumor may also be considered. Pancreatic serous cystadenoma is also possibility. Findings discussed with Elijah Funez MD at 19:11 hour, 08/26/2017. - Data Points Laboratory Results: Laboratory Results 08/26/17 13:40 08/26/17 13:40 08/26/17 08/26/17 13:40 13:40 WBC 7.01 10^3/uL 10^3/uL (3.80-9.50) RBC 4.99 10^6/uL 10^6/uL (4.18-5.33) Hgb 14.3 g/dL g/dL (12.6-16.3) Hct 44.2 % % (38.0-47.0) MCV 88.6 fL fL (81.5-99.8) MCH 28.7 pg pg (27.9-34.1) MCHC 32.4 g/dL g/dL (32.4-36.7) RDW 14.9 % % (11.5-15.2) Plt Count 467 10^3/uL H 10^3/uL (150-400) MPV 10.0 fL fL (8.7-11.7) Neut % (Auto) 61.8 % % (39.3-74.2) Lymph % (Auto) 28.0 % % (15.0-45.0) [place] % (Auto) 7.8 % % (4.5-13.0) Eos % (Auto) 1.3 % % (0.6-7.6) Baso % (Auto) 1.0 % % (0.3-1.7) Nucleat RBC Rel Count 0.0 % % (0.0-0.2) Absolute Neuts (auto) 4.33 10^3/uL 10^3/uL (1.70-6.50) Absolute Lymphs (auto) 1.96 10^3/uL 10^3/uL (1.00-3.00) Absolute Monos (auto) 0.55 10^3/uL 10^3/uL (0.30-0.80) Absolute Eos (auto) 0.09 10^3/uL 10^3/uL (0.03-0.40) Absolute Basos (auto) 0.07 10^3/uL 10^3/uL (0.02-0.10) Absolute Nucleated RBC 0.00 10^3/uL 10^3/uL (0-0.01) Immature Gran % 0.1 % % (0.0-1.1) Immature Gran # 0.01 10^3/uL 10^3/uL (0.00-0.10) Sodium 143 mEq/L mEq/L (135-145) Potassium 4.9 mEq/L mEq/L (3.5-5.2) Chloride 106 mEq/L mEq/L (97-110) Carbon Dioxide 21 mEq/l L mEq/l (22-31) Anion Gap 16 mEq/L mEq/L (8-16) BUN 17 mg/dL mg/dL (7-23) Creatinine 0.8 mg/dL mg/dL (0.6-1.0) Estimated GFR > 60 Glucose 100 mg/dL mg/dL (70-100) Calcium 10.0 mg/dL mg/dL (8.5-10.4) Total Bilirubin 1.1 mg/dL mg/dL (0.1-1.4) Conjugated Bilirubin 0.6 mg/dL H mg/dL (0.0-0.5) Unconjugated Bilirubin 0.5 mg/dL mg/dL (0.0-1.1) AST 35 IU/L IU/L (14-46) ALT 28 IU/L IU/L (9-52) Alkaline Phosphatase 112 IU/L IU/L (38-126) Troponin I < 0.012 ng/mL ng/mL (0.000-0.034) Total Protein 7.8 g/dL g/dL (6.3-8.2) Albumin 4.6 g/dL g/dL (3.5-5.0) Lipase 53 IU/L IU/L (23-300) Medications Given: Discontinued Medications Al Hydroxide/Mg Hydroxide (Maalox Susp) 30 ml PO ONCE ONE Stop: 08/26/17 16:19 Last Admin: 08/26/17 16:28 Dose: 30 ml Hydromorphone HCl (Dilaudid) 0.5 mg IVP EDNOW ONE Stop: 08/26/17 18:13 Last Admin: 08/26/17 18:22 Dose: 0.5 mg Hyoscyamine Sulfate (Levsin, Hyomax-Sl) 0.25 mg PO ONCE ONE Stop: 08/26/17 16:19 Last Admin: 08/26/17 16:28 Dose: 0.25 mg Sodium Chloride (Ns) 500 mls @ 1,000 mls/hr IV EDNOW ONE PRN Reason: Protocol Stop: 08/26/17 15:46 Last Admin: 08/26/17 15:28 Dose: 500 mls Famotidine/Sodium Chloride (Pepcid 20 Mg (Premix)) 50 mls @ 200 mls/hr IV EDNOW ONE Stop: 08/26/17 15:31 Last Admin: 08/26/17 15:27 Dose: 50 mls Lidocaine (Lidocaine 2% Viscous) 15 ml PO ONCE ONE Stop: 08/26/17 16:19 Last Admin: 08/26/17 16:28 Dose: 15 ml Ondansetron HCl (Zofran) 4 mg IVP EDNOW ONE Stop: 08/26/17 15:18 Last Admin: 08/26/17 15:27 Dose: 4 mg Departure - Departure Disposition: [facility] Inpatient Acute Clinical Impression: Medication reaction, Right upper quadrant pain, Choledocholithiasis Referrals: Patient,NotPresent [Primary Care Provider] - As per Instructions
[2017-08-26] MEDS ORDERED: HYOSCYAMINE SULFATE 0.125 MG TAB PO ONE (16:18)
[2017-08-26] MEDS ORDERED: LIDOCAINE 2% VISCOUS 15 ML UDCUP PO ONE (16:18)
[2017-08-26] MEDS ORDERED: MAG HYDROX/AL HYDROX/SIMETH 30 ML UDCUP PO ONE (16:18)
[2017-08-26] MEDS ORDERED: IOPAMIDOL (ISOVUE 370) 100 ML BTL IV ONE (16:47)
[2017-08-26] MEDS ORDERED: HYDROmorphONE/DILAUDID 2 MG/ML INJ IVP ONE (18:12)
[2017-08-26] MEDS ORDERED: ACETAMINOPHEN 325 MG TAB PO PRN (20:05)
[2017-08-26] MEDS ORDERED: ONDANSETRON 4 MG/2 ML VIAL IVP PRN (20:05)
[2017-08-26] MEDS ORDERED: HYDROmorphONE/DILAUDID 2 MG/ML INJ IVP PRN (20:05)
[2017-08-26] MEDS ORDERED: ONDANSETRON DISINTEGRATING 4 MG TAB PO PRN (20:05)
[2017-08-26] MEDS ORDERED: oxyCODONE IR 5 MG TAB PO PRN (20:09)
[2017-08-26 20:26] VITALS: RESP 16
--- NOTE | 2017-08-26 21:09 | GHP ---
[f rep st] HISTORY AND PHYSICAL DATE OF ADMISSION: 08/26/2017 CHIEF COMPLAINT: Right upper quadrant pain. HISTORY OF PRESENT ILLNESS: The patient is a 71-year-old female with history of bipolar disorder and a recent hospitalization in July 2017 for choledocholithiasis for which she underwent endoscopic ultrasound and ERCP with biliary sphincterotomy, followed by laparoscopic cholecystectomy, returns to the emergency department with ongoing right upper quadrant pain. It is where some for which she underwent ERCP. During that hospitalization, she was also noted to have a pancreatic cyst and underwent fine-needle aspiration, the cytology of which was nondiagnostic and showed acellular material. She was discharged from the hospital July 22, and returned to the emergency department August 19, with right-sided chest pain. It was noted her chest pain was reproducible on exam and this was thought to be musculoskeletal in origin. She was discharged at that time with [place] for pain control. She returned to the hospital this evening with more localized right upper quadrant pain, in addition to nausea, fatigue, and lightheadedness. She denies syncope. She denies vomiting. She specifically denies chest pressure or shortness of breath. She has had no fevers or chills. She is anticoagulated on Xarelto for her history of pulmonary embolism. Her nausea and pain became severe enough this afternoon that EMS was called and she was given 100 mcg of fentanyl on the way to the hospital. In the emergency department, she underwent CT pulmonary angiogram which was negative for pulmonary embolism. A dilated common bile duct was noted and she, thus, underwent abdominal right upper quadrant ultrasound which showed a stone in the distal common bile duct measuring 3-4 mm with mild dilatation of the common bile duct measuring about 7-8 mm. A septated cystic lesion remains apparent in the anterior aspect of the pancreatic body. A GI consultation was obtained from the emergency department physician and the patient is admitted to the hospital for further management. PAST MEDICAL HISTORY: 1. Bipolar disorder. 2. History of pulmonary embolism, on chronic anticoagulation with Xarelto. 3. History of breast cancer, status post lumpectomy with chemo and radiation in 2007. 4. Hypothyroidism. 5. Possible history of MS. PAST SURGICAL HISTORY: Left total hip arthroplasty on April 17, 2017. FAMILY HISTORY: Her mom of metastatic breast cancer. SOCIAL HISTORY: She is a former smoker. She reports rare alcohol use, none recently. She denies drug use. She lives independently. REVIEW OF SYSTEMS: A 10-point review of systems was performed and is negative except as per HPI. PHYSICAL EXAMINATION: VITAL SIGNS: Temperature 36.5, blood pressure 135/97, heart rate 80, respiratory rate 19. She is 96% on room air. GENERAL: Patient is awake, alert, oriented, in no acute distress. HEENT: Head is atraumatic, normocephalic. Pupils equal, round, react to light. Extraocular muscles intact. Oropharynx: Mucous membranes are moist. NECK: Supple. There is no JVD. HEART: Regular rate and rhythm without murmur. LUNGS: Clear to auscultation bilaterally. ABDOMEN: Soft, nondistended. She has significant right upper quadrant tenderness to palpation with voluntary guarding. No rigidity or peritoneal signs are noted. She has normoactive bowel tones. EXTREMITIES: Without cyanosis, clubbing, or edema. NEUROLOGIC: Grossly nonfocal. LABORATORY DATA: CBC reveals a normal white blood cell count of 7, platelet count slightly elevated of 467, H and H are normal. Complete metabolic panel is remarkable for a slightly low CO2 of 21, total bilirubin is normal at 1.1, conjugated bilirubin 0.6. Troponin is negative. Lipase is normal at 53, alkaline phosphatase is normal at 112. CT pulmonary angiogram from the emergency department is negative for pulmonary embolism. Atelectatic changes were seen in the right lung base. A small hiatal hernia with possible mild distal esophagitis is noted, as well as a dilated common bile duct which measured [address] Right upper quadrant ultrasound was suggestive of a 3-4 mm distal common bile duct calculus with mild dilatation of the common bile duct measuring 7-8 mm. No abnormal fluid collections were noted within the gallbladder fossa. A septated cystic lesion in the anterior aspect of the pancreatic body is again noted. ASSESSMENT: The patient is 71-year-old female with a history of pulmonary embolism, chronic anticoagulation, bipolar disorder, and recent choledocholithiasis, who is status post endoscopic retrograde cholangiopancreatography and cholecystectomy, discharged from the hospital on August 11, returns with ongoing right upper quadrant pain. 1. Right upper quadrant pain. Her ultrasound suggests retained stone in the distal common bile duct. Her liver function tests are normal. She is afebrile with normal white blood cell count. Gastroenterology consultation was obtained in the emergency department and they will evaluate the patient tomorrow. I will order a magnetic resonance cholangiopancreatography for the morning for further evaluation, and hold her Xarelto in the event she requires intervention. 2. Pancreatic body lesion. A fine-needle aspiration was performed during her recent hospitalization and was nondiagnostic showing acellular material. Further workup per gastroenterology recommendations. 3. History of pulmonary embolism. This was diagnosed in May 2017, small volume, possibly provoked while postoperative from total hip arthroplasty. We will hold Xarelto due to need for possible gastroenterology intervention. Check an INR in the morning. 4. Bipolar disorder. Continue Zyprexa and her new medication Belsomra, which was recently started by her outpatient psychiatrist. Her mood seems fairly stable. 5. Hypothyroidism. Continue levothyroxine. 6. History of multiple sclerosis. No evidence of flare, will continue her outpatient medications. 7. History of breast cancer, status post lumpectomy. 8. Recent total hip arthroplasty March 2017. CODE STATUS: Patient is full code. DVT PROPHYLAXIS: We will place SCDs for now and defer Lovenox as she is currently anticoagulated with Xarelto, which is held for possible interventions. DISPOSITION: Patient is admitted to inpatient status. I anticipate greater than 48 hours hospitalization for ongoing evaluation of her right upper quadrant pain and possibility of retained common bile duct stone. /[id number]/MODL MTDD
[2017-08-26] MEDS ORDERED: SUVOREXANT 10 MG PO PRN (22:45)
[2017-08-26] MEDS ORDERED: HYDROCODONE/APAP 5/325 TAB PO PRN (22:45)
[2017-08-26] MEDS: TEMAZEPAM 15 MG CAP PO SCH (23:19)
[2017-08-26] MEDS: OLANZapine DISINTEGR 10 MG TAB PO SCH (23:19)
[2017-08-26] MEDS: GABAPENTIN 400 MG CAP PO SCH (23:19)
[2017-08-27] MEDS: LEVOTHYROXINE 88 MCG TAB PO SCH (04:50)
[2017-08-27 05:57] LABS: INR 1.71 (0.83-1.16); PROTIME(PATIENT) 20.2 SEC (12.0-15.0)
--- NOTE | 2017-08-27 08:07 | PDMN ---
Medical Necessity Medical necessity: est los>2mn for RUQ pain w/retained stone in distal CBD s/p ERCP and lap nelda prior admission, and for further w/u of pancreatic body lesion; admit for MRCP, GI consult; comorbid recent PE on AC, bipolar, MS, and hx breast CA; per order and H&P 08/26
[2017-08-27] MEDS ORDERED: GLATIRAMER ACETATE 40 MG SQ SCH (09:00)
--- NOTE | 2017-08-27 09:55 | HOSPPROG ---
Hospitalist Progress Note Assessment/Plan: * RUQ pain with dilated bile duct -recent ERCP/lap chol - possible retained stone -LFT normal -MRCP today - GI to consult * Pancreatic cysts -recent biopsy negative * h/o PE -holding Xarelto for possible procedure * Bipolar -Zyprexa * MS -Copaxone Subjective: Still with RUQ pain, eating breakfast Objective: Vital Signs Temp Pulse Resp BP Pulse Ox 36.6 C 66 16 102/86 H 92 08/27/17 07:44 08/27/17 07:44 08/27/17 07:44 08/27/17 07:44 08/27/17 07:44 Laboratory Results 08/27/17 04:42 08/26/17 08/27/17 08/28/17 05:59 05:59 05:59 Intake Total 1250 Balance 1250 PT 20.2 SEC (12.0-15.0) H 08/27/17 04:42 INR 1.71 (0.83-1.16) H 08/27/17 04:42 EKG viewed, my personal interpretation is - NSR, no ischemic ST changes ABD US - bile duct dilation with suspicion for retained stone - Physical Exam Constitutional: no apparent distress, appears nourished, not in pain Cardiovascular: regular rate and rhythym, no murmur, rub, or gallop Respiratory: no respiratory distress, no rales or rhonchi, clear to auscultation Gastrointestinal: no palpable masses, tenderness (RUQ), No ascites, No guarding , No rebound, No distension Skin: no rashes or abrasions, no fluctuance, no induration Neurologic: AAOx3, sensation intact bilaterally Psychiatric: interacting appropriately, not anxious, not encephalopathic, thought process linear ICD10 Worksheet Patient Problems: Problems Problem Status Onset Choledocholithiasis Acute Medication reaction Acute Right upper quadrant pain Acute Anxiety Acute Bilateral pulmonary embolism Acute Dehydration Acute Nausea Acute chronic disease mgmt/transitional care Acute
[2017-08-27] MEDS: LISDEXAMFETAMINE DIMESYLATE 70 MG PO SCH (10:01)
--- NOTE | 2017-08-27 11:24 | ASMTCASEMG ---
Living Arrangements What is your living Answers: Alone arrangement? Who do you live with? Type Of Residence What kind of residence do Answers: House you live in? Discharge Plan Comments Coordination Status Comments Notes: Pt is a 71 y/o female admitted for choledocholithiasis and upper abdominal pain. Pt will have an MRCP today. OT has been ordered and awaiting recommendations. Needs are TBD at this time. CM to follow. Plan: TBD Date Signed: 08/27/2017 11:23 AM Electronically Signed By:ALBERTA Gallegos
[2017-08-27] MEDS ORDERED: LISDEXAMFETAMINE DIMESYLATE 20 MG PO SCH (14:00)
--- NOTE | 2017-08-27 20:58 | GCON ---
[f rep st] CONSULTATION DATE OF CONSULTATION: 08/27/2017 REASON FOR CONSULTATION: I have been asked to see this very pleasant 71-year- old woman in consultation by Dr. Joanna Tamayo for complaints of right upper quadrant pain. CHIEF COMPLAINT: Right upper quadrant pain. HISTORY OF PRESENT ILLNESS: I have been asked to see this very pleasant 71-year -old woman with complaints of right upper quadrant pain. She does have a history of bipolar disorder and was recently hospitalized in July of this year for choledocholithiasis and cholelithiasis. She underwent laparoscopic cholecystectomy and had an ERCP with the finding of choledocholithiasis. She underwent biliary sphincterotomy with stone extraction. She returned to the emergency department with complaint of right upper quadrant pain. She has been having right upper quadrant pain from before and after her procedure and surgery. She was noted to have a previous small pancreatic cyst on imaging. She underwent a fine needle aspiration. Cytology was nondiagnostic and showed acellular material. On the day of admission, she was complaining of right upper quadrant pain. Pain was constant without any particular alleviating or aggravating factors. She reports it is only worse if you push on her chest or abdomen. The pain is not worse with eating or movement, per her report. She did have normal liver function tests. However, she had imaging that showed some questionable dilatation of the common bile duct on CT scan. An ultrasound did not show a dilated common bile duct, but there was a question of a small filling defect. The patient does have a history of pulmonary embolism and is on anticoagulation, Xarelto. In the emergency department, she did have a CT pulmonary angiogram that was negative for pulmonary embolus. She was admitted to the hospital for further management due to pain. PAST MEDICAL HISTORY: Bipolar disorder, history of pulmonary embolus on chronic anticoagulation with Xarelto, history of breast cancer, status post lumpectomy and chemo radiation 2007, hypothyroidism, questionable history of MS. PAST SURGICAL HISTORY: Remarkable left hip arthroplasty and cholecystectomy. FAMILY HISTORY: Remarkable for mother who of metastatic breast cancer. Otherwise, negative as it pertains to chief complaint. SOCIAL HISTORY: She is a prior smoker. Drinks rare alcohol. Lives independently. Denies any illicit drug use. ALLERGIES: She has no known drug allergies. MEDICATIONS: Prior to admission included: Zyprexa, Xarelto, Vyvanse, Neurontin , levothyroxine, Copaxone, Marvin and vitamin D3. REVIEW OF SYSTEMS: Negative for 10 systems other than mentioned in HPI. PHYSICAL EXAM: VITAL SIGNS: Blood pressure 111/84, pulse of 90, respiratory rate 16, 96% sat, 36.6 degrees Celsius. GENERAL: Very pleasant woman, in no acute distress. HEENT: Normocephalic, atraumatic. EOMI. NECK: Supple. No cervical adenopathy. Mucous membranes moist. LUNGS: Clear. CARDIAC: Normal S1, S2 without murmur. ABDOMEN: Soft. Normal bowel sounds. No hepatosplenomegaly. Tenderness to palpation in the right upper quadrant and the right chest. EXTREMITIES: Without clubbing, cyanosis, edema. NEURO: Nonfocal. SKIN: Warm and dry. PSYCH: Alert, oriented x3 with normal affect. LABORATORY DATA: PT of 20.2, INR of 1.71. Serum chemistries: Serum sodium of 140, potassium of 4.2, chloride 105, CO2 25, BUN 17, creatinine 0.8, total bilirubin 0.60, AST 20, ALT of 31, alkaline phosphatase of 85. Lipase of 53. IMPRESSION: A 71-year-old woman with prior history of cholelithiasis and choledocholithiasis status post endoscopic retrograde cholangiopancreatography with sphincterotomy. She has normal liver function tests. She had a questionable filling defect on ultrasound. Her studies were reviewed with the radiologist. The patient's pain seems to be more musculoskeletal in nature. To exclude the possibility of choledocholithiasis, we will proceed with MRCP. However, patient has had a sphincterotomy and, if there was a small stone, it should pass spontaneously. RECOMMENDATIONS: 1. Follow up labs, LFTs. 2. MRCP. We will follow with you. Thank you for allowing me to participate in the care of this patient. /[id number]/MODL MTDD
[2017-08-27] MEDS: GABAPENTIN 400 MG CAP PO SCH (21:05)
[2017-08-27] MEDS: TEMAZEPAM 15 MG CAP PO SCH (21:06)
[2017-08-27] MEDS: OLANZapine DISINTEGR 10 MG TAB PO SCH (21:06)
[2017-08-28] MEDS: LEVOTHYROXINE 88 MCG TAB PO SCH (05:51)
[2017-08-28 07:15] VITALS: TEMP 97.9
[2017-08-28] MEDS ORDERED: LISDEXAMFETAMINE DIMESYLATE 70 MG PO SCH (09:00)
[2017-08-28] MEDS: LISDEXAMFETAMINE DIMESYLATE 70 MG PO SCH (10:16)
[2017-08-28] MEDS ORDERED: NS 500 ML IV ONE (10:39)
[2017-08-28 13:08] VITALS: BP 111/78; PULSE 100; O2SAT 95
--- NOTE | 2017-08-28 13:30 | ASMTLACE ---
ROSA MARIAE Length of stay for Answers: 2 days current admission Acuity / Level of Answers: Yes Care: Did the patient have an inpatient admission? Comorbidities - select Answers: Other Notes: MS, hypothyroidism, hx of all that apply breast cancer # of Emergency department Answers: 5-8 visits in the last 6 months Social determinants Answers: Mental health diagnosis (anxiety, depression, pers onality disorders, etc.) Score: 13 Date Signed: 08/28/2017 01:29 PM Electronically Signed By:ALBERTA Galelgos
--- NOTE | 2017-08-28 13:56 | GDS ---
[f rep st] DISCHARGE SUMMARY DISCHARGE DIAGNOSIS: 1. Right upper quadrant pain. Suspect musculoskeletal in etiology. 2. Pancreatic cyst with recent negative biopsy. 3. History of pulmonary embolism, on Xarelto. 4. History of bipolar disorder. 5. History of multiple sclerosis. On copaxone. HOSPITAL COURSE AND STAY BY PROBLEM: Right upper quadrant pain. The patient was admitted to the hosp ital with right upper quadrant pain. She recently underwent cholecystectomy. Abdominal ultrasound w as done on 08/26/2017, which revealed a dilated bile duct. Subsequently, an MRCP was done on 018 which was negative for stone but identified the cystic mass involving the pancreatic body with co mmunication to the pancreatic duct which was mildly prominent. I discussed this finding with Dr. Jeri cee who informed me that this has already been evaluated by Dr. Torre. On the day of discharge, the patient's pain was better. She is tolerating a regular diet and would l moni to go home. On day of discharge, blood pressure had been low at 82/63, but she had not been eatin g or drinking much. She received a bolus of normal of 500 mL of normal saline, which brought her blo od pressure up to 111/78. She is not having any signs of bleeding. DISCHARGE MEDICATIONS: Please refer to discharge medication reconciliation in [facility] for details. PERTINENT LABS AND STUDIES: MRCP of the abdomen done 08/27/2017, refer to report. Abdominal ultraso und done 08/26/2017, refer to report. CT angio of the chest done 08/26/2017 was reviewed. No evidence for PE. DISCHARGE INSTRUCTIONS: The patient will be discharged from the hospital where she should follow up with her primary care provider as well as a GI for further surveillance of the pancreatic cyst. /[id number]/MODL
[2017-08-28] MEDS ORDERED: LISDEXAMFETAMINE DIMESYLATE 20 MG PO SCH (14:00)
--- NOTE | 2017-08-28 14:25 | SOAPPROG ---
SOAP Progress Note Assessment/Plan: Assessment: Work up negative. No evidence of retained stomes on MRCP. Normal LFT's Pain is consistent with MS pain. Plan: No further GI work up. Anticipate discharge. Will sign off. Please call with further questions. 08/28/17 14:23 Objective: Vital Signs Temp Pulse Resp BP Pulse Ox 36.6 C 100 16 111/78 95 08/28/17 13:04 08/28/17 13:04 08/28/17 13:04 08/28/17 13:04 08/28/17 13:04 Laboratory Results 08/27/17 04:42 08/27/17 08/28/17 08/29/17 05:59 05:59 05:59 Intake Total 1250 400 Balance 1250 400 PT 20.2 SEC (12.0-15.0) H 08/27/17 04:42 INR 1.71 (0.83-1.16) H 08/27/17 04:42 Generic Name Dose Route Start Last Admin Trade Name Freq PRN Reason Stop Dose Admin Acetaminophen 650 mg 08/26/17 20:05 Tylenol PO 02/22/18 20:04 Q4HRS PRN Pain, Mild/Fever, Can Take PO Hydrocodone Bitart/Acetaminophen 1 tab 08/26/17 22:45 [place] 5/325 PO 09/05/17 22:44 Q6 PRN Pain, Moderate Gabapentin 800 mg 08/26/17 23:30 08/27/17 21:05 Neurontin PO 02/22/18 23:29 800 mg HS KAITLYNN Administration Hydromorphone HCl 0.4 mg 08/26/17 20:05 Dilaudid IVP 09/05/17 20:04 Q4HRS PRN Pain, Severe Unable to Take PO Levothyroxine Sodium 88 mcg 08/27/17 06:00 08/28/17 05:51 Synthroid PO 02/23/18 05:59 88 mcg DAILY06 KAITLYNN Administration Miscellaneous Medication 40 mg 08/27/17 09:00 08/27/17 10:00 Glatiramer Acetate [Copaxone] SQ 02/23/18 08:59 Not Given MWF@09 KAITLYNN Miscellaneous Medication 10 mg 08/26/17 22:45 Suvorexant [Belsomra] PO HS PRN Sleep/Insomnia Miscellaneous Medication 20 mg 08/28/17 14:00 08/28/17 13:52 Lisdexamfetamine Dimesylate [Vyvanse] PO 02/24/18 13:59 20 mgtest DAILY@1400 KAITLYNN Administration Miscellaneous Medication 70 mg 08/28/17 09:00 08/28/17 09:27 Lisdexamfetamine Dimesylate [Vyvanse] PO 02/24/18 08:59 70 mg DAILY KAITLYNN Administration Olanzapine 10 mg 08/26/17 23:30 08/27/17 21:06 Zyprexa Zydis PO 02/22/18 23:29 10 mg HS KAITLYNN Administration Ondansetron HCl 4 mg 08/26/17 20:05 Zofran IVP 02/22/18 20:04 Q4HRS PRN Nausea/Vomiting, Can't Take PO Ondansetron HCl 4 mg 08/26/17 20:05 Zofran Odt PO 02/22/18 20:04 Q4HRS PRN Nausea/Vomiting, Use 1st Oxycodone HCl 5 - 10 mg 08/26/17 20:09 08/26/17 23:03 Oxycodone Ir PO 09/05/17 20:08 10 mg Q4HRS PRN Administration Pain, Severe Able to Take PO Protocol Temazepam 30 mg 08/26/17 23:30 08/27/17 21:06 Restoril PO 02/22/18 23:29 30 mg HS KAITLYNN Administration Discontinued Medications Generic Name Dose Route Start Last Admin Trade Name Freq PRN Reason Stop Dose Admin Al Hydroxide/Mg Hydroxide 30 ml 08/26/17 16:18 08/26/17 16:28 Maalox Susp PO 08/26/17 16:19 30 ml ONCE ONE Administration Hydromorphone HCl 0.5 mg 08/26/17 18:12 08/26/17 18:22 Dilaudid IVP 08/26/17 18:13 0.5 mg EDNOW ONE Administration Hyoscyamine Sulfate 0.25 mg 08/26/17 16:18 08/26/17 16:28 Levsin, Hyomax-Sl PO 08/26/17 16:19 0.25 mg ONCE ONE Administration Sodium Chloride 500 mls @ 1,000 mls/hr 08/26/17 15:17 08/26/17 15:28 Ns IV 08/26/17 15:46 500 mls EDNOW ONE Administration Protocol Famotidine/Sodium Chloride 50 mls @ 200 mls/hr 08/26/17 15:17 08/26/17 15:27 Pepcid 20 Mg (Premix) IV 08/26/17 15:31 50 mls EDNOW ONE Administration Sodium Chloride 500 mls @ 999 mls/hr 08/28/17 10:39 08/28/17 11:07 Ns IV 08/28/17 11:09 500 mls ONCE ONE Administration Iopamidol Confirm 08/26/17 16:47 Isovue-370 Administered 08/26/17 16:48 Dose 100 ml IV .STK-MED ONE Lidocaine 15 ml 08/26/17 16:18 08/26/17 16:28 Lidocaine 2% Viscous PO 08/26/17 16:19 15 ml ONCE ONE Administration Miscellaneous Medication 20 mg 08/27/17 14:00 08/27/17 14:08 Lisdexamfetamine Dimesylate [Vyvanse] PO 02/23/18 13:59 20 mg DAILY@1400 [facility] Administration Miscellaneous Medication 70 mg 08/27/17 09:00 08/28/17 10:16 Lisdexamfetamine Dimesylate [Vyvanse] PO 02/23/18 08:59 Not Given DAILY [facility] Ondansetron HCl 4 mg 08/26/17 15:17 08/26/17 15:27 Zofran IVP 08/26/17 15:18 4 mg EDNOW ONE Administration Physical Exam - Physical Exam General Appearance: alert, no apparent distress Respiratory: lungs clear Cardiac/Chest: regular rate, rhythm Abdomen: normal bowel sounds, non-tender, soft Skin: normal color, warm/dry Neuro/Psych: no motor/sensory deficits, alert, normal mood/affect, oriented x 3 ICD10 Worksheet Patient Problems: Problems Problem Status Onset Choledocholithiasis Acute Medication reaction Acute Right upper quadrant pain Acute Anxiety Acute Bilateral pulmonary embolism Acute Dehydration Acute Nausea Acute chronic disease mgmt/transitional care Acute
== END 2017-08-28 15:30 | disposition home or self-care (01) | DRG 392 ==
LOC: EDUNIT# → OBSVTOIN 19:47 → F3E 20:29
PROVIDERS: ADMIT Hospitalist; ATTEND Hospitalist
DX: R10.11 Right upper quadrant pain (principal); K86.2 Cyst of pancreas; G35 Multiple sclerosis; E03.9 Hypothyroidism, unspecified; F31.9 Bipolar disorder, unspecified; Z79.01 Long term (current) use of anticoagulants; Z87.891 Personal history of nicotine dependence; Z85.3 Personal history of malignant neoplasm of breast; Z96.642 Presence of left artificial hip joint; Z92.3 Personal history of irradiation; Z86.711 Personal history of pulmonary embolism
CPT/HCPCS: 97165-GO; 97535-GO; G8987-GO-CI; G8988-GO-CI; G8989-GO-CI; J1170; J2405; Q9967

== ENCOUNTER 2017-09-02 16:56 | Emergency (ER) | payer OTHER, MEDICAID ==
--- NOTE | 2017-09-02 17:08 | EDPHY ---
H & P Time Seen by Provider: 09/02/17 17:02 HPI/ROS: CHIEF COMPLAINT: "I feel awful" HISTORY OF PRESENT ILLNESS: The patient is a 71-year-old female with multiple visits to the emergency department a history of bipolar disorder. Per EMS, they were called because the patient was feeling general malaise. She also had intermittent chest discomfort. They contacted the patient's daughter. Her daughter states that she often over uses her medication and then runs out on Sunday. This causes her to feel terrible on Sundays. The patient states she has general malaise. She has diffuse body aches. She denies chest pain or shortness of breath this time. She has had nausea with no vomiting. No abdominal pain. No diarrhea. Patient states she currently is out of her medications including Zyprexa, Neurontin and temazepam. REVIEW OF SYSTEMS: My complete review of systems is negative except as mentioned in the HPI. Past Medical/Surgical History: Bipolar disorder, pulmonary embolus, breast cancer, hypothyroidism, MS Past surgical history: Lumpectomy, hip arthroplasty Family history: Mom of metastatic breast cancer Social history: The patient is a former smoker. She reports rare alcohol use on rare THC. She lives independently. Smoking Status: Former smoker Physical Exam: Vitals noted GENERAL: No acute distress, alert. HEENT: Eyes normal to inspection, normal pharynx, no signs of dehydration. NECK: No thyromegaly, no lymphadenopathy, supple. RESPIRATORY: Clear to auscultation bilaterally, no rales, rhonchi or wheezing. CVS: Regular rate and rhythm, no rubs, murmurs, or gallops. ABDOMEN: Soft, nontender, nondistended, no organomegaly. BACK: Normal to inspection, no CVA tenderness. SKIN: Normal color, no rash, warm, dry. No pallor. EXTREMITIES: No pedal edema, no calf tenderness, no Homans sign or cords, no joint swelling. NEURO/PSYCH: Alert and oriented x3, normal mood and affect, normal motor sensory exam. No obvious cranial nerve deficit. Constitutional: Initial Vital Signs Temperature (C) 36.8 C 09/02/17 16:59 Heart Rate 72 09/02/17 16:59 Respiratory Rate 16 09/02/17 16:59 Blood Pressure 182/104 H 09/02/17 16:59 O2 Sat (%) 94 09/02/17 16:59 O2 Delivery Mode Room Air Allergies/Adverse Reactions: No Known Allergies Allergy (Verified 08/19/17 10:13) Home Medications: Medication Instructions Recorded Cholecalciferol (Vitamin D3) 3,000 unit PO DAILY 08/26/17 [Vitamin D3] Gabapentin [Neurontin] 800 mg PO HS 08/26/17 Glatiramer Acetate [Copaxone] 40 mg SQ MWF@09 08/26/17 Hydrocodone/APAP 5/325 [[facility] 1 tab PO Q6 PRN 08/26/17 5/325 (*)] Levothyroxine [Synthroid 88 mcg 88 mcg PO DAILY06 08/26/17 (*)] Lisdexamfetamine Dimesylate 20 mg PO DAILY@1400 08/26/17 [Vyvanse] Lisdexamfetamine Dimesylate 70 mg PO DAILY 08/26/17 [Vyvanse] OLANZapine DISINTEGR [ZyPREXA 10 mg PO HS 08/26/17 ZYDIS (*)] Rivaroxaban [Xarelto] 20 mg PO DAILY@0730 08/26/17 Suvorexant [Belsomra] 10 mg PO HS PRN 08/26/17 Temazepam [Restoril] 30 mg PO HS 08/26/17 Medical Decision Making - Diagnostics Imaging Results: Imaging Impressions Chest X-Ray 09/02/17 17:12 Impression: 1. No active cardiopulmonary disease seen. 2. Mild residual subsegmental atelectasis right lung base. ED Course/Re-evaluation: I met EMS on arrival in took report from the cartographic engineer. He related a history of speaking with the patient's daughter. Glucose was normal. EMS treated the patient with aspirin. In the emergency department I discussed possible etiologies with the patient. I answered all her questions. His the patient had recent chest pain, the chest x-ray, EKG and laboratory studies were ordered. The patient was given Ativan 1 mg IV and normal saline 500 mL IV. EKG shows normal sinus rhythm, normal rate, normal axis, normal intervals. There are no ST or T-wave abnormalities. EKG is normal as interpreted by me. Chest x-ray: Atelectasis right lung base The patient's chemistry panel was notable for a low potassium at 2.0. His calcium was low at 3.8. Patient's creatinine is 0.3. Chloride is 126, carbon dioxide is low at 13. Anion gap is 8. Troponin is negative. Patient's CBC is normal. I rechecked the patient after evaluating labs. She was lying comfortably in the bed. Because of this I repeated the chemistry panel. Repeat chemistry was improved. Potassium was 4.8. Calcium was 8.3. I discussed the results with the patient. Case management contacted the patient 's daughter. Patient's daughter requested that she not be given any narcotics or benzodiazepines upon discharge. Patient was given Tylenol for pain. She is given warnings prior to leaving. She will return with worsening symptoms. Differential Diagnosis: My differential includes but is not limited to ACS, acute CO, electrolyte abnormality, sugar abnormality, medication withdrawal - Data Points Laboratory Results: Laboratory Results 09/02/17 17:25 18 18:10 09/02/17 09/02/17 09/02/17 18:10 17:25 17:25 WBC 5.57 10^3/uL 10^3/uL (3.80-9.50) RBC 4.36 10^6/uL 10^6/uL (4.18-5.33) Hgb 12.8 g/dL g/dL (12.6-16.3) Hct 39.2 % % (38.0-47.0) MCV 89.9 fL fL (81.5-99.8) MCH 29.4 pg pg (27.9-34.1) MCHC 32.7 g/dL g/dL (32.4-36.7) RDW 14.8 % % (11.5-15.2) Plt Count 269 10^3/uL 10^3/uL (150-400) MPV 9.3 fL fL (8.7-11.7) Neut % (Auto) 60.4 % % (39.3-74.2) Lymph % (Auto) 27.6 % % (15.0-45.0) [place] % (Auto) 9.3 % % (4.5-13.0) Eos % (Auto) 1.8 % % (0.6-7.6) Baso % (Auto) 0.7 % % (0.3-1.7) Nucleat RBC Rel Count 0.0 % % (0.0-0.2) Absolute Neuts (auto) 3.36 10^3/uL 10^3/uL (1.70-6.50) Absolute Lymphs (auto) 1.54 10^3/uL 10^3/uL (1.00-3.00) Absolute Monos (auto) 0.52 10^3/uL 10^3/uL (0.30-0.80) Absolute Eos (auto) 0.10 10^3/uL 10^3/uL (0.03-0.40) Absolute Basos (auto) 0.04 10^3/uL 10^3/uL (0.02-0.10) Absolute Nucleated RBC 0.00 10^3/uL 10^3/uL (0-0.01) Immature Gran % 0.2 % % (0.0-1.1) Immature Gran # 0.01 10^3/uL 10^3/uL (0.00-0.10) Sodium 141 mEq/L mEq/L 147 mEq/L H mEq/L (135-145) (135-145) Potassium 4.8 mEq/L mEq/L 2.0 mEq/L L* mEq/L (3.5-5.2) (3.5-5.2) Chloride 109 mEq/L D mEq/L 126 mEq/L H mEq/L (97-110) (97-110) Carbon Dioxide 20 mEq/l L D mEq/l 13 mEq/l L mEq/l (22-31) (22-31) Anion Gap 12 mEq/L mEq/L 8 mEq/L mEq/L (8-16) (8-16) BUN 17 mg/dL mg/dL 9 mg/dL mg/dL (7-23) (7-23) Creatinine 0.7 mg/dL D mg/dL 0.3 mg/dL L mg/dL (0.6-1.0) (0.6-1.0) Estimated GFR > 60 > 60 Glucose 85 mg/dL D mg/dL 48 mg/dL L mg/dL (70-100) (70-100) Calcium 8.3 mg/dL L D mg/dL 3.8 mg/dL L* mg/dL (8.5-10.4) (8.5-10.4) Troponin I < 0.012 ng/mL ng/mL (0.000-0.034) Medications Given: Discontinued Medications Sodium Chloride (Ns) 1,000 mls @ 0 mls/hr IV EDNOW ONE; Wide Open PRN Reason: Protocol Stop: 09/02/17 17:13 Last Admin: 09/02/17 17:17 Dose: 1,000 mls Lorazepam (Ativan Injection) 1 mg IVP EDNOW ONE Stop: 09/02/17 17:13 Last Admin: 09/02/17 17:17 Dose: 1 mg Departure - Departure Disposition: Home, Routine, Self-Care Clinical Impression: Body aches, Chest pain Condition: Good Instructions: Chest Pain (ED) Additional Instructions: Follow up with primary care physician to obtain your medications. Return with worsening symptoms or concerns. Referrals: Sierra Werner MD [Medical Doctor] - 5-7 days, if not improved
[2017-09-02] MEDS ORDERED: LORazepam 2 MG/ML INJ IVP ONE (17:12)
[2017-09-02] MEDS ORDERED: NS 1,000 ML IV ONE (17:12)
--- NOTE | 2017-09-02 17:20 | CPEKG ---
Heart Rate: 76 RR Interval: 789 P-R Interval: 160 QRSD Interval: 88 QT Interval: 412 QTC Interval: 464 P [place]: 68 QRS [place]: 47 T Wave [place]: 56 EKG Severity - NORMAL ECG - EKG Impression: SINUS RHYTHM Electronically Signed By: Deedee Arambula 02-Sep-2017 22:02:49
[2017-09-02 17:31] LABS: PLATELET COUNT 269 10^3/uL (150-400)
[2017-09-02] MEDS ORDERED: ACETAMINOPHEN 325 MG TAB PO ONE (18:52)
[2017-09-02 18:58] VITALS: BP 132/87; PULSE 88; RESP 18; TEMP 98.8; O2SAT 95
--- NOTE | 2017-09-02 19:08 | ASMTCMCOM ---
CM Note CM Note Notes: Pt presented to the ED via EMS from home for nausea and pain. Pt recently d/c'd from inpt admission 08/26-08/28/17. Spoke with pt and she states she has not followed up with her PCP Dr Leann Rivera at [facility] ([phone]) yet and has not followed up with her doctor at [facility] (pt unable to remember .'s name at this time). Pt states her daughter Valentine Menendez ([phone]) was contacted by EMS H[employer]TER and she is aware pt came to the ED "she's mad at me that I came to the ED because I was here last week, its a lot of visits." Pt asked this CM to call Valentine and see if she would be able to pick her up at take her home. This CM spoke w/Valentine amd she states it is common for the patient to take too much of her prescribed medications (which she receives every Sunday at [facility]) throughout the week so she ends up short-handed and not feeling well on Sundays, then pt calls EMS to bring her to ED. Valentine is also concerned about patient's pain medications coming from various doctors and the ED. Valentine is also concerned about pt's habit of coming to the ED and receiving Ativan. We discussed that patient will be placed on an informal Care Plan and it will be recommended to not provide patient with Ativan or pain medications while in the ED, unless of course absolutely necessary. Pt informed of this Care Plan and aware she will not be given Ativan or pain meds from the ED in the future. This CM to follow up with pt, pt's PCP, [facility], pt's daughter Valentine and possibly [facility] (pt's psychiatrist is Dr Parrish) tomorrow. Date Signed: 09/02/2017 07:07 PM Electronically Signed By:Mandy Orona RN
--- NOTE | 2017-09-02 19:10 | ASDISCHSUM ---
Discharge Information Plan Status:Home with No Needs Medically Cleared to Leave: Discharge Date:09/02/2017 07:00 PM CM D/C Disposition:Home, Routine, Self-Care ADT D/C Disposition:Home, Routine, Self-Care Projected Discharge Date:09/02/2017 07:00 PM Transportation at D/C:Family Discharge Delay Reason: Follow-Up Date:09/02/2017 07:00 PM Discharge Slot: Final Diagnosis: Placement Information Patient Contact Information Contact Name:ANA Relationship:Daughter Address:[address] City:[place] Alternate Phone: [facility]/Zip Code:[place] [address] Email: Financial Information Financial Class:Medicare Primary Plan Desc:MEDICARE OUTPATIENT Primary Plan Number:[id number] Secondary Plan Desc:MEDICAID [place]ALTH [place] Secondary Plan Number:[id number] Assessment Information [facility] CM Progress Note CM Note CM Note Notes: Pt presented to the ED via EMS from home for nausea and pain. Pt recently d/c'd from inpt admission 08/26-08/28/17. Spoke with pt and she states she has not followed up with her PCP Dr Leann Rivera at [facility] ([phone]) yet and has not followed up with her doctor at [facility] (pt unable to remember 's name at this time). Pt states her daughter Valentine Menendez ([phone]) was contacted by EMS STRETCH PRESS OPERATOR and she is aware pt came to the ED "she's mad at me that I came to the ED because I was here last week, its a lot of visits." Pt asked this CM to call Valentine and see if she would be able to pick her up at take her home. This CM spoke w/Valentine amd she states it is common for the patient to take too much of her prescribed medications (which she receives every Sunday at [facility]) throughout the week so she ends up short-handed and not feeling well on Sundays, then pt calls EMS to bring her to ED. Valentine is also concerned about patient's pain medications coming from various doctors and the ED. Valentine is also concerned about pt's habit of coming to the ED and receiving Ativan. We discussed that patient will be placed on an informal Care Plan and it will be recommended to not provide patient with Ativan or pain medications while in the ED, unless of course absolutely necessary. Pt informed of this Care Plan and aware she will not be given Ativan or pain meds from the ED in the future. This CM to follow up with pt, pt's PCP, [facility], pt's daughter Valentine and possibly [facility] (pt's psychiatrist is Dr Parrish) tomorrow. Date Signed: 09/02/2017 07:07 PM Electronically Signed By:Mandy Orona RN LACE LACE Acuity / Level of Answers: No Care: Did the patient have an inpatient admission? Comorbidities - select Answers: Opioid dependence all that apply / Chronic pain Other Notes: MS # of Emergency department Answers: 5-8 visits in the last 6 months Social determinants Answers: History of substance abuse (ETOH, street drugs, prescription drugs, etc.) Mental health diagnosis (anxiety, depression, pers onality disorders, etc.) Score: 15 Date Signed: 09/02/2017 07:09 PM Electronically Signed By:Mandy Orona RN Intervention Information
--- NOTE | 2017-09-03 17:52 | ASMTCMCOM ---
CM Note CM Note Notes: Followed up with pt's daughter, Valentine ([phone]); she and pt went to pt's appt with her psychiatrist at [facility] today and Valentine said the appt went well, "everything is out in the open" and starting today Valentine will provide patient's daily medications on a day-to-day basis. Valentine states patient plans on calling her PCP Dr Leann Rivera office soon to make a followup appt. This CM attempted to contact residential child care counselor at Dr Rivera office ([phone]) but was unable to get through. CM available for further assistance if needed. Date Signed: 09/03/2017 05:52 PM Electronically Signed By:Mandy Orona RN
== END 2017-09-02 19:00 | disposition home or self-care (01) ==
LOC: EDUNIT#
DX: R07.9 Chest pain, unspecified (principal); E86.9 Volume depletion, unspecified; Z85.3 Personal history of malignant neoplasm of breast; Z87.891 Personal history of nicotine dependence
CPT/HCPCS: 71046; 93005; 96374; 99285; J2060

== ENCOUNTER → 2017-09-20 | Outpatient (CLI) | payer OTHER, MEDICAID | LOC: BMCIMAGING 16:52 | PROVIDERS: ATTEND Internal Medicine | DX: M51.37 Other intervertebral disc degeneration, lumbosacral region (principal); M41.87 Other forms of scoliosis, lumbosacral region; M85.88 Other specified disorders of bone density and structure, other site ==

== ENCOUNTER → 2017-10-02 | Outpatient (CLI) | payer OTHER, MEDICAID | LOC: BMCIMAGING 14:39 | PROVIDERS: ATTEND Family Medicine | DX: M25.552 Pain in left hip (principal); Z96.642 Presence of left artificial hip joint ==

== ENCOUNTER → 2017-10-09 | Outpatient (CLI) | payer OTHER, MEDICAID | LOC: FIMAGING 12:07 | PROVIDERS: ATTEND Physical Medicine & Rehabilitation | DX: M48.061 Spinal stenosis, lumbar region without neurogenic claudication (principal); M48.07 Spinal stenosis, lumbosacral region; M51.37 Other intervertebral disc degeneration, lumbosacral region; M51.36 Other intervertebral disc degeneration, lumbar region; M51.24 Other intervertebral disc displacement, thoracic region; M51.35 Other intervertebral disc degeneration, thoracolumbar region; G96.19 Other disorders of meninges, not elsewhere classified ==

== ENCOUNTER 2017-11-10 17:34 | Inpatient (IN) | payer OTHER, MEDICAID ==
--- NOTE | 2017-11-10 17:50 | EDPHY ---
General - History Smoking Status: Former smoker Time Seen by Provider: 11/10/17 17:42 Narrative: CHIEF COMPLAINT: Fall 4 weeks ago HISTORY OF PRESENT ILLNESS: Patient presents by EMS and is seen within 5 min of arrival. She complains of left inguinal and pelvic pain. This occurred from a fall approximately 4 weeks ago. At that time she tripped and fell, landing on her left side. She felt a sudden onset of pain in the left groin. She has had constant pain there. It is 10/10. No position comfort. Unable to bear weight and she has been crawling on her hands and knees in her home. She was seen by her primary care physician 3 weeks ago with a negative plain film that I have reviewed. She was referred to physical therapy but unable to tolerate this. She has no other associated complaints or modifying factors. REVIEW OF SYSTEMS: Ten systems reviewed and are negative unless otherwise noted in the HPI PCP: Dr. Leann Rivera SPECIALISTS: [facility] Dr. Yoon PAST MEDICAL HISTORY: Is arthritis, cholelithiasis, multiple sclerosis, hypothyroid, PE PAST SURGICAL HISTORY: Left total hip arthroplasty, laparoscopic cholecystectomy SOCIAL HISTORY: Nonsmoker. Lives here independently alone in [place] FAMILY HISTORY: Noncontributory EXAMINATION General Appearance: Alert, no distress Head: normocephalic, atraumatic Eyes: Pupils equal and round, no conjunctival pallor or injection ENT, Mouth: Mucous membranes moist Neck: Normal inspection, supple, non-tender Respiratory: Lungs are clear to auscultation Cardiovascular: Regular rate and rhythm. No murmur. Symmetric DP and PT pulses 2+. Gastrointestinal: Abdomen is soft and nontender. No tympany rigidity. No guarding. No palpable masses. Back: non-tender, no bony abnormalities Neurological: A&O, nonfocal, normal gait Skin: Warm and dry, no rash Extremities: Tenderness in the left inguinal canal. No tenderness over the left greater trochanter, distal femur or ankle. Range of motion of the left hip is limited due to pain. Less painful with passive range of motion. Psychiatric: Mood and affect normal DIFFERENTIAL DIAGNOSES: Including but not limited to pelvic fracture, hip fracture, dislocation, subluxation MDM: 5:40 p.m. Left inguinal pain after a fall 3-4 weeks ago. Patient had a plain film that I reviewed that was negative. There is an irregularity of 1 of the pubic rami that was chronic. The patient has been unable to ambulate. She has no abdominal or pelvic pain. She has no injury elsewhere. I have ordered CT scan of the pelvis to rule out pelvic fracture. 7:00 p.m. I reviewed the CT scan and there is at least a left superior pubic ramus fracture. Awaiting official radiology interpretation. 7:40 p.m. Notified by radiologist Dr. Martinez. There is a left superior pubic ramus fracture. There is also possible sacral insufficiency. The patient is still unable to bear weight due to pain, thus she will require admission to the hospital. She is in no acute distress with vital signs stable and no other cause for admission. 8:00 p.m. Case discussed with hospitalist Dr. Cantu. He has accepted the patient is service. She is admitted in stable condition. SUPERVISION: Patient was independently examined, but I discussed the case with my secondary supervising physician Dr. Morrison (Morgan Sun) Medical Decision Making: I did not see this patient while she was in the emergency department. However her care was discussed with the PA while the patient was in the department. I agree with treatment plan and management (Thien Morrison) - Diagnostics Imaging Results: Imaging Impressions Pelvis CT 11/10/17 17:51 Impression: 1. Fracture of the left symphysis pubis. 2. Suspect chronic sacral insufficiency fractures bilaterally. 3. Spinal degenerative changes are noted. 4. Left hip arthroplasty. Results called and discussed with Morgan Sun PA-C on November 10, 2017 at 1926 hours. - Objective Vital Signs: Initial Vital Signs Temperature (C) 36.8 C 11/10/17 17:40 Heart Rate 86 11/10/17 17:40 Respiratory Rate 14 11/10/17 17:40 Blood Pressure 137/85 H 11/10/17 17:40 O2 Sat (%) 97 11/10/17 17:40 O2 Delivery Mode Room Air Allergies/Adverse Reactions: No Known Allergies Allergy (Verified 08/19/17 10:13) Home Medications: Medication Instructions Recorded Cholecalciferol Vit D3 [Vitamin D3 3,000 units PO DAILY 11/10/17 (*)] Gabapentin 800 mg PO HS 11/10/17 Glatiramer Acetate [Copaxone] 40 mg SQ MWF 11/10/17 Levothyroxine [Synthroid 88 mcg 88 mcg PO DAILY06 11/10/17 (*)] Lisdexamfetamine Dimesylate 70 mg PO DAILY 11/10/17 [Vyvanse] Multivitamins [Multivitamin (*)] 1 each PO DAILY 11/10/17 OLANZapine [Zyprexa] 10 mg PO HS 11/10/17 Temazepam 30 mg PO HS 11/10/17 Medications Given: Discontinued Medications Ondansetron HCl (Zofran Odt) 4 mg PO EDNOW ONE Stop: 11/10/17 17:52 Last Admin: 11/10/17 17:59 Dose: 4 mg Oxycodone HCl (Oxycodone Ir) 5 mg PO EDNOW ONE Stop: 11/10/17 17:52 Last Admin: 11/10/17 17:59 Dose: 5 mg Departure - Departure Disposition: [facility] Inpatient Acute Clinical Impression: Pubic ramus fracture Qualifiers: Encounter type: initial encounter Fracture type: closed Laterality: left Qualified Code(s): S32.592A - Other specified fracture of left pubis, initial encounter for closed fracture
[2017-11-10] MEDS ORDERED: ONDANSETRON DISINTEGRATING 4 MG TAB PO ONE (17:51)
[2017-11-10] MEDS ORDERED: oxyCODONE IR 5 MG TAB PO ONE (17:51)
[2017-11-10] MEDS ORDERED: ONDANSETRON 4 MG/2 ML VIAL IVP PRN (21:17)
[2017-11-10] MEDS ORDERED: ACETAMINOPHEN 325 MG TAB PO PRN (21:17)
[2017-11-10] MEDS ORDERED: ONDANSETRON DISINTEGRATING 4 MG TAB PO PRN (21:17)
--- NOTE | 2017-11-10 22:59 | PDGENHP ---
History and Physical History and Physical: CC: Worsening skeletal pain in the pelvis anteriorly HISTORY: This patient tells me that she comes in today with worsening anterior pelvis pain which has been present since she fell about 5 weeks ago. She states that at that time she had taken her 30 mg Restoril tablet, but got out of bed to get a drink of water as she had a dry mouth. On her way to the restroom she became woozy and fell landing on a hardwood floor. She had immediate pain around the anterior pelvis region. She was seen it sounds like the next day by her primary care physician and x-rays were ordered which were read as being normal. The patient went back home but continued to have severe pain that did not resolve. It actually is hurting her bad enough that she was crawling on hands and knees around her apartment lot of the time. Eventually she was seen also at an urgent care and at its a in orthopedist group and MRI of the spine was ordered as she was having some pain radiating down into her left leg no further than her knee. The MRI shows some significant degenerative changes but there were no acute appearing fractures or other concerning lesions. Again she was back at home and has been able to do some walking but has severe pain in the anterior pelvis area as well as the distal left thigh with any weight-bearing. She has not been able to take a shower, has had markedly decreased appetite with some weight loss, and has been spending a lot of time lying down. Over the past several days the pain in the anterior pelvis very has dramatically increased leading to her presentation to the ER today. In the ER she had CT scan of the pelvis showing fracture. In addition although she tells me that she has noticed somewhat loose black stools for the last several days to a week ROS: A comprehensive 10 system review revealed no other significant findings PAST MEDICAL HISTORY: Multiple sclerosis Chronic insomnia Cholecystectomy Anxiety and panic disorder Bipolar disorder Hypothyroidism Pancreatic cyst which has been aspirated and with no cellular components noted earlier this year FAMILY MEDICAL HISTORY: Breast cancer SOCIAL HISTORY: Former smoker has quit Lives alone in an apartment with no stairs. 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 There is no palpable abnormality in the thigh or visible abnormality, there is no effusion redness or heat at the knee. 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 Her left inferior pubic ramus just at the junction at the pubic symphysis is fractured with displacement and there is significant comminuted fracture and displacement on the left side of the symphysis. Some calcified atherosclerosis is noted in pelvic vessels She also had x-rays of her pelvis and hip done several weeks ago related to the above injuries and I reviewed these studies, there are no visible fractures on the hip x-ray. There is a jagged linear lucency in the body of the pelvic wound just to the left to the pubic symphysis that could potentially represent fracture but this is a subtle change in though no cortical abnormalities. There is also an MRI scan of the lumbar spine done and this is showing some degenerative changes with some right-sided foraminal stenosis of moderate severity, but nothing to explain radiating pain into the left leg and no other significant abnormalities. These are my personal readings of all these imaging studies ASSESSMENT: # worsening pain from a left pubic symphysis fracture, after a fall 5 weeks ago with questionable subtle finding of a fracture on x-ray 5 weeks ago # pain and tenderness in the distal thigh suggesting potentially femur fracture , needing further assessment # severe uncontrolled pain from her injuries, making her unable to walk or shower # nutritional abnormalities developing as she has not been eating due to her severe pain # described melenic stools in the last week suggest a concern for possible GI bleeding, she has not been using any nonsteroidal anti-inflammatory medicines # market gait instability with high risk for fall # history of PE in May of 2017, high risk for recurrent DVT here, is currently off of anticoagulants # osteoporosis by definition PLANS: -inpatient admission hospital as she will require further investigation for her medical issues and is unsafe to be in an unsupervised unassisted setting -fall risk precautions -will x-ray her left femur to make sure there is no fracture there, further steps based on the result -determine weight-bearing after we see her femur x-rays and have orthopedics assess her pelvic fracture -would avoid sleeping medicines such as her high-dose Restoril which can significantly increased fall risk, particularly in this patient who is elderly with multiple sclerosis -pain Management; will avoid narcotics as able, however will not be able to use anti-inflammatory medicines safely at this time until we have further investigation of her melenic stools; again concern here for fall risk issues -I have ordered CBC and chemistry panels and will review the results of these as they were not done in the ER -will check iron studies and stool hemoccults -will prescribe some empiric acid suppression now in case she does have upper GI bleeding -DVT prophylaxis is ordered right now but will need to watch very carefully for any signs of bleeding and again checking her stools for blood in checking his CBC; at this point with her markedly limited mobility I feel it would be unsafe to have her off of prophylactic anticoagulation given her PE less than 6 months ago I have reviewed the patient's case in detail with Dr. Thien Morrison I have reviewed the patient's past medical records as part of this assessment, including previous hospital admission records, inpatient outpatient laboratory data; outpatient imaging studies including MRI and x-ray images
[2017-11-10 23:20] LABS: PLATELET COUNT 349 10^3/uL (150-400)
--- NOTE | 2017-11-11 00:10 | PDMN ---
Medical Necessity Medical necessity: C/M review: est. > 2 MN LOS for ongoing eval and TX of acute and persistently worsening pain from a left pubic symphysis fracture, after a fall 5 weeks ago with questionable subtle finding of a fracture on an xray 5 weeks ago, pain and tenderness in the distal thigh suggesting potentially femur fracture, needing further assessment, severe uncontrolled pain from patient's injuries new inability to ambulate or shower, nutritional abnormalities developing as patient has not been eating due to severe pain, described melenic stool s in week suggests concern for possible GI bleeding , market gait instability with high risk for fall, requiring further investigation for patient's medical issues, patient is medically unsafe to be in an unsupervised unassisted setting, left femur xray, ongoing fall risk precautions, determine weight bearing after left femur xray, iron studies, stool hemocults, ongoing avoid sleeping medications, empiric oral Protonix, pain management, IV Morphine, acute inpt PT/OT, comorbid multiple sclerosis, chronic insomnia, anxiety and panic disorder, bipolar disorder, hypothyroidism, osteoporosis by definition, former smoker - patient has quit per H/P.
[2017-11-11] MEDS: GABAPENTIN 400 MG CAP PO SCH ×2 (00:14→22:13)
[2017-11-11] MEDS: PANTOPRAZOLE SODIUM 40 MG TAB PO SCH ×2 (00:14→08:29)
[2017-11-11] MEDS: OLANZapine 10 MG TAB PO SCH ×2 (00:14→22:14)
[2017-11-11] MEDS: traMADol 50 MG TAB PO PRN ×4 (00:17→20:46)
[2017-11-11] MEDS: LEVOTHYROXINE 88 MCG TAB PO SCH (06:14)
--- NOTE | 2017-11-11 08:26 | HOSPPROG ---
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 The night of her fall, she had taken 30 mg Restoril for her chronic insomia and got up to get a drink of water. Noted wooziness and proceeded to fall with immediate pain in ant pelvis region. Seen by PCP next day and had normal XR. Pain persisted and worsened and so she was seen in an UC and had MRI spine that showed nothing acute. CT in our ED shows pelvic fx and bilateral sacral insufficiency fx. Also noting dark stools. 1st encounter with patient. Chart reviewed. Discussed care with dr. Olmstead #. pelvic fx and juan alberto pelvic insufficiency fx: L inf pubic ramus at junction of pubis symphysis with fracture and displacement femur XR neg for fracture # severe pain: analgesia #. melenic stools: iron studies and stool hemoccult -follow H/H #. DVT ppx: on Enox for high # PE in 06/03 after ENZO #. bipolar d/o: meds continued #. tachycardia: check ECG now #. inpt status -needs ongoing PT/OT Subjective: Not in pain now but feels "weird." Notes some tachycardia. No cp or dyspnea. Objective: Vital Signs Temp Pulse Resp BP Pulse Ox 98.6 F 100 16 103/77 94 11/11/17 07:37 11/11/17 07:37 11/11/17 07:37 11/11/17 07:37 11/11/17 07:37 Laboratory Results 11/10/17 23:00 11/10/17 23:00 - Physical Exam Constitutional: no apparent distress, appears nourished Eyes: anicteric sclera Ears, Nose, Mouth, Throat: moist mucous membranes, hearing normal Cardiovascular: systolic murmur, tachycardia Respiratory: no respiratory distress Gastrointestinal: normoactive bowel sounds, soft, non-tender abdomen Skin: warm, normal color Neurologic: AAOx3 Psychiatric: interacting appropriately, not anxious ICD10 Worksheet Patient Problems: Problems Problem Status Onset Pubic ramus fracture Acute Anxiety Acute Bilateral pulmonary embolism Acute Choledocholithiasis Acute Dehydration Acute Medication reaction Acute Nausea Acute Right upper quadrant pain Acute chronic disease mgmt/transitional care Acute
[2017-11-11] MEDS: CHOLECALCIFEROL VIT D3 1,000 UNITS TAB PO SCH (08:29)
[2017-11-11] MEDS: MULTIVITAMINS 1 EACH TAB PO SCH (08:29)
[2017-11-11] MEDS: ENOXAPARIN 40 MG/0.4 ML SYR SC SCH (08:38)
[2017-11-11] MEDS: Lisdexamfetamine Dimesylate [Vyvanse] 70 MG PO SCH (10:41)
--- NOTE | 2017-11-11 13:31 | GCON ---
[f rep st] CONSULTATION ORTHOPEDIC CONSULTATION DATE OF CONSULTATION: 11/11/2017 REFERRING PHYSICIAN: Elvis Cantu MD CHIEF COMPLAINT: Left-sided pelvic pain. HISTORY OF PRESENT ILLNESS: A 72-year-old female who suffered a fall approximately 5 weeks ago. She had persistent pain after being initially evaluated by her PCP and apparently in Orthopedics Clinic who evaluated her with a MRI of the spine. She presented to the [facility] ER yesterday and was found to have a left-sided symphysis pubis fracture. As a result, the patient was admitted to the medicine service. I was called this morning to provide orthopedic consultation. The patient denies any numbness or tingling down into either lower extremity. She notes that she has been ambulating in a limited manner on both feet, i.e., walking, and also getting around her apartment on all fours crawling. She describes pain primarily in the left anterior portion of the pelvis, but also some low back pain. No bowel or bladder changes. Please see history and physical for additional information. PAST MEDICAL HISTORY: Multiple sclerosis, anxiety and panic disorder versus bipolar disorder, hypothyroidism, history of pancreatic cyst, history of cholecystitis, history of PE/DVT after ENZO treated on Xarelto and discontinued recently by her PCP. ALLERGIES: No known drug allergies. PAST SURGICAL HISTORY: Left total hip arthroplasty in April [address] Yoon. Right breast lumpectomy approximately 20 years ago. SOCIAL HISTORY: She quit smoking cigarettes a little over 10 years ago. No illicit drug use. One alcoholic drink per month or less. FAMILY HISTORY: Breast cancer in her mother. Coronary artery disease in her father. No other known family history. REVIEW OF SYSTEMS: 10-point review was performed, and during this, she tells me of the history of her PE/DVT after ENZO. She also notes that she has bipolar disorder. Otherwise, 10-point review negative for any other complaints, concerns, or history. PHYSICAL EXAMINATION: VITAL SIGNS: Stable with current blood pressure 103/77, heart rate 100, respiratory rate 16, 94% on room air, temperature 37 degrees Celsius. GENERAL: NAD, cooperative and pleasant. HEENT: NC/AT. EOMI. PERRLA. Ears and nares patent without discharge. Oropharynx clear. NECK: NTTP, firm, supple. Negative Lhermitte's and Spurling's. No LAD. MUSCULOSKELETAL: Hip and pelvis without any ecchymosis, erythema, calor, or edema. There is obvious stable TTP along the symphysis pubis, left side much greater than right. No tenderness along the iliac crest bilaterally. She does have tenderness left-sided SI joint region, more so than right side. Logroll equivocal for pain. SLR and Stinchfield positive on the left lower extremity. Flexion to at least 90 degrees without difficulty. Extension is 0. Knee and ankle FRM. Both calves nontender, non-swollen. Negative Homans. Pelvic squeeze test negative. Secondary survey negative. SKIN: Please see dictation above. There is no ecchymosis, erythema, color, temp. No other rashes or lesions noted. No tattoos. NEUROLOGIC: Nonfocal. No deficits noted. C5-T1 and L2 through S1 intact. DTRs are grade 1+ bilateral. Her grade 2+ lower extremities, symmetric. No clonus. PSYCH: Alert, oriented x3. Appropriate mood and affect. SECONDARY SURVEY: The remainder of the upper extremities, shoulder, and lower extremities are benign, no other signs of significant musculoskeletal injury. RADIOGRAPHS: X-ray and CT are notable for intact pelvic ring. There is a comminuted left-sided symphysis pubis fracture involving the junction of the superior and inferior pubic rami. There is extension of the joint. Right hemipelvis appears intact. There are sacral insufficiency fractures that appear chronic and nondisplaced. These fractures mostly involve the sacral ala only. There is a total hip arthroplasty in place on the left side that appears in good condition. IMPRESSION: Subacute fracture of the left symphysis pubis with chronic appearing sacral insufficiency fractures bilaterally. Given the patient's pain posterolaterally, this does appear to be more symptomatic, though clearly not as acute as her left-sided symphysis pubis injury. PLAN: The patient's diagnoses and/or treatment options have been outlined for today. Given the bony defect anteriorly and posteriorly, particularly on the left side, as well as clinical exam, I will make her TDWB LLE with a walker or other assistive device. PT and OT for ambulation and fall precautions, as well as education regarding safe transfers. Avoid smoking and NSAIDs as this will slow down bone healing. Analgesics p.o. p.r.n. Position of comfort while resting, such as sitting or lying down. Follow up with me in clinic in 7-10 days for next evaluation or she can follow up with her established orthopedic surgeon, Dr. Yoon, at [facility]. All of her questions have been answered today. She is very happy with the care received. I anticipate advancing her weightbearing sometime in the next two or so weeks after repeat radiographs achieved in clinic. I appreciate the opportunity to assist in the care of this patient. Please call with any questions. /[id number]/MODL MTDD
--- NOTE | 2017-11-11 14:29 | CPEKG ---
Heart Rate: 111 RR Interval: 541 P-R Interval: 152 QRSD Interval: 84 QT Interval: 332 QTC Interval: 451 P Tracy: 61 QRS Tracy: 59 T Wave Tracy: 70 EKG Severity - ABNORMAL ECG - EKG Impression: SINUS TACHYCARDIA EKG Impression: NONSPECIFIC T ABNORMALITIES, LATERAL LEADS Electronically Signed By: Julio Cesar Zambrano 12-Nov-2017 10:19:10
--- NOTE | 2017-11-11 17:11 | ASMTCMCOM ---
CM Note CM Note Notes: Reviewed chart. Pt admitted for worsening pelvic pain s/p a fall five weeks ago. Diagnosed with a superior pubic ramus fracture. History includes MS, chronic insomnia, nelda, anxiety, panic disorder, hypothyroid, pancreatic cyst, breast cancer. Pt is well known to this facility - she was recently an inpt (08/2017) and has had nine visits to the Emergency Department in the past nine months. Pt lives alone in an apartment; her dghtr is involved in her care. Discharge needs remain unclear at this time. CM will continue to follow. Current Discharge Plan: To be determined Date Signed: 11/11/2017 05:11 PM Electronically Signed By:Adelina Ortiz RN
[2017-11-11] MEDS: TEMAZEPAM 15 MG CAP PO PRN (22:13)
[2017-11-12] MEDS: LEVOTHYROXINE 88 MCG TAB PO SCH (06:22)
[2017-11-12] MEDS ORDERED: Glatiramer Acetate [Copaxone] 40 MG SQ SCH (08:00)
[2017-11-12] MEDS: CHOLECALCIFEROL VIT D3 1,000 UNITS TAB PO SCH (10:10)
[2017-11-12] MEDS: PANTOPRAZOLE SODIUM 40 MG TAB PO SCH (10:12)
[2017-11-12] MEDS: MULTIVITAMINS 1 EACH TAB PO SCH (10:12)
[2017-11-12] MEDS: traMADol 50 MG TAB PO PRN ×2 (10:12→16:15)
[2017-11-12] MEDS: Lisdexamfetamine Dimesylate [Vyvanse] 70 MG PO SCH (10:13)
[2017-11-12] MEDS: ENOXAPARIN 40 MG/0.4 ML SYR SC SCH (10:16)
--- NOTE | 2017-11-12 12:48 | HOSPPROG ---
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 The night of her fall, she had taken 30 mg Restoril for her chronic insomia and got up to get a drink of water. Noted wooziness and proceeded to fall with immediate pain in ant pelvis region. Seen by PCP next day and had normal XR. Pain persisted and worsened and so she was seen in an UC and had MRI spine that showed nothing acute. CT in our ED shows pelvic fx and bilateral sacral insufficiency fx. Also noting dark stools. 1st encounter with patient. Chart reviewed. Discussed care with CM. #. pelvic fx and juan alberto pelvic insufficiency fx: L inf pubic ramus at junction of pubis symphysis with fracture and displacement femur XR neg for fracture Appreciate ortho consult. TDWB # severe pain: analgesia #. melenic stools: -none since admission -iron studies low -stool hemoccult ordered # Iron def -start replacement #. DVT ppx: on Enox for high risk # PE in 06/03 after [facility] #. bipolar d/o: meds continued #. tachycardia: -EKG personally reviewed -ST resolved #. inpt status -needs ongoing PT/OT -rec snf, pt refused -D/W CM Subjective: Up in chair. Still complains of pain. No other issues. Objective: Vital Signs Temp Pulse Resp BP Pulse Ox 36.7 C 98 15 100/68 92 11/12/17 08:00 11/12/17 08:00 11/12/17 08:00 11/12/17 08:00 11/12/17 08:00 Laboratory Results 11/10/17 23:00 11/10/17 23:00 11/11/17 11/12/17 11/13/17 05:59 05:59 05:59 Intake Total 500 Output Total 500 Balance 0 - Physical Exam Constitutional: appears nourished, chronically ill appearing, uncomfortable Eyes: PERRL, anicteric sclera, EOMI Ears, Nose, Mouth, Throat: moist mucous membranes, hearing normal, ears appear normal Cardiovascular: No JVD, No tachycardia, No edema Respiratory: no respiratory distress, no rales or rhonchi, clear to auscultation Gastrointestinal: normoactive bowel sounds, No tenderness, No ascites Skin: warm, normal color, No mottled Musculoskeletal: pain with ROM, muscular tenderness, generalized weakness Neurologic: AAOx3 Psychiatric: not anxious, not encephalopathic, poor insight, poor judgement ICD10 Worksheet Patient Problems: Problems Problem Status Onset Bilateral pulmonary embolism Acute Dehydration Acute Choledocholithiasis Acute Medication reaction Acute Right upper quadrant pain Acute Pubic ramus fracture Acute chronic disease mgmt/transitional care Acute Anxiety Acute Nausea Acute
--- NOTE | 2017-11-12 14:44 | ASMTCMCOM ---
CM Note CM Note Notes: Hospitalist indicated pt would be ready for d/c tomorrow. She has refused a SNF d/c but is agreeable to home care. She has had [facility] in the past and would like again. Referral sent. Date Signed: 11/12/2017 02:44 PM Electronically Signed By:LUCINDA Ruby
[2017-11-12] MEDS: OLANZapine 10 MG TAB PO SCH (20:48)
[2017-11-12] MEDS: TEMAZEPAM 15 MG CAP PO PRN (20:48)
[2017-11-12] MEDS: GABAPENTIN 400 MG CAP PO SCH (20:48)
[2017-11-13] MEDS: LEVOTHYROXINE 88 MCG TAB PO SCH (06:23)
[2017-11-13] MEDS: traMADol 50 MG TAB PO PRN ×2 (06:24→12:46)
[2017-11-13] MEDS: PANTOPRAZOLE SODIUM 40 MG TAB PO SCH (08:24)
[2017-11-13] MEDS: MULTIVITAMINS 1 EACH TAB PO SCH (08:25)
[2017-11-13] MEDS: CHOLECALCIFEROL VIT D3 1,000 UNITS TAB PO SCH (08:25)
[2017-11-13] MEDS: ENOXAPARIN 40 MG/0.4 ML SYR SC SCH (08:25)
[2017-11-13] MEDS: Lisdexamfetamine Dimesylate [Vyvanse] 70 MG PO SCH (08:35)
[2017-11-13 08:41] VITALS: BP 100/67
[2017-11-13] MEDS ORDERED: FERROUS SULFATE 140 MG TAB.ER PO SCH (09:00)
[2017-11-13] MEDS ORDERED: oxyCODONE IR 5 MG TAB PO PRN (09:04)
--- NOTE | 2017-11-13 11:26 | PDIAF ---
- Diagnosis Diagnosis: pubic rami fx Code Status: Full Code - Medication Management Discharge Medications: Medications to Continue on Transfer Cholecalciferol Vit D3 [Vitamin D3 (*)] 3,000 units PO DAILY 11/10/17 [Last Taken 11/10/17] Gabapentin 800 mg PO HS 11/10/17 [Last Taken 11/09/17] Glatiramer Acetate [Copaxone] 40 mg SQ MWF 11/10/17 [Last Taken 11/09/17] Levothyroxine [Synthroid 88 mcg (*)] 88 mcg PO DAILY06 11/10/17 [Last Taken ] Lisdexamfetamine Dimesylate [Vyvanse] 70 mg PO DAILY 11/10/17 [Last Taken ] Multivitamins [Multivitamin (*)] 1 each PO DAILY 11/10/17 [Last Taken 11/10/17] OLANZapine [Zyprexa] 10 mg PO HS 11/10/17 [Last Taken 11/09/17] Acetaminophen [Tylenol 325mg (*)] 650 mg PO Q4HRS PRN tab 11/13/17 [Last Taken Unknown] Ferrous Sulfate [Slow Fe 140 MG (*)] 140 mg PO DAILY #30 tab.er 11/13/17 [Last Taken Unknown] oxyCODONE IR [Oxycodone Ir (*)] 5 mg PO Q4HRS PRN #10 tab 11/13/17 [Last Taken Unknown] traMADol [Ultram 50 mg (*)] 50 mg PO Q6HRS PRN #10 tab 11/13/17 [Last Taken Unknown] Discharge Medications: Refer to the Discharge Home Medication list for PRN reason. PICC Care - Routine: N/A - Orders Services needed: Home Care, Physical Therapy, Occupational Therapy Home Care Face to Face: I certify that this patient was under my care and that I had the required [id number] encounter meeting the encounter requirements on the discharge day. My findings support the fact that the patient is homebound as defined in Home Care Face to Face Continued: CMS Chapter 7 Medicare Benefits Manual 30.1.1 , The condition of the patient is such that there exists a normal inability to leave home and consequently, leaving home would require a considerable and taxing effort. Diet Recommendation: no restrictions on diet - Follow Up Care Current Providers and Referrals: Patient,NotPresent [Primary Care Provider] - As per Instructions
--- NOTE | 2017-11-13 13:48 | ASMTCMCOM ---
CM Note CM Note Notes: Pt medically stable for d/c with [facility] PT/OT. Orders to be obtained via [facility]. Pt reports her PCP is Leann Ordaz. Pt to obtain DME. Pt dghtr Valentine to transport home. With pt permission this CM notified Valentine of d/c order and how pt will receive limited pain medication. Valentine is concerned pt is easily addicted to pain medication. Date Signed: 11/13/2017 01:48 PM Electronically Signed By:LUCINDA Burrows
--- NOTE | 2017-11-13 14:36 | GDS ---
[f rep st] DISCHARGE SUMMARY DISCHARGE DIAGNOSES: 1. Bilateral pelvic insufficiency. 2. Pelvic fracture. 3. Severe pain. 4. Melenic stools. 5. Iron deficiency. 6. History of pulmonary embolus. 7. Bipolar disorder. 8. Tachycardia. STUDIES AND PROCEDURE: 1. Pelvis CT. 2. Femur x-ray. 3. Pelvic x-ray. CONSULTATIONS: Orthopedics. PHYSICAL EXAM: GENERAL: The patient is alert. VITAL SIGNS: Afebrile at 36.6, pulse 88, respirator y rate 14, blood pressure is 100/67, she is saturating 91% on room air. I have seen and evaluated th e patient on the day of discharge. HOSPITAL COURSE: The patient is a 72-year-old female who has a history of narcotic-seeking behavior, presented to the emergency room after experiencing persistent pelvic pain. She was evaluated and di agnosed with: 1. Pelvic fracture. She does have a left inferior pubic rami fracture at the junction of the pubic symphysis. She did receive a consultation from Orthopedics during this hospitalization as well as ysical therapy and occupational therapy evaluations who have recommend the patient be discharged to [facility], however, she is refusing. She will go home with home health care and contin ued outpatient orthopedic evaluation. 2. Pain. She has been provided a prescription for Oxy IR 5 mg #10. She will follow up with her pre viously prescribed pain regimen in the outpatient setting. 3. Iron deficiency anemia. She has been receiving IV iron during this hospitalization and has been started on iron replacement. 4. Melenic stools. It is recommended the patient receive a colonoscopy in the outpatient setting. She is refusing at this time and it is inappropriate for her to have this evaluation while she has he r acute active fracture. She will follow up in the outpatient setting with her primary care physicia n and recommended a colonoscopy given her dark stool history and iron deficiency anemia. The patient has been educated about this and understands the importance of following up in the outpatient [facility]. 5. Tachycardia. This has resolved and is normal sinus rhythm. 6. Bipolar disorder. The patient's home medications chase been continued. DISPOSITION: Ms. Alvarez will be discharged home with home health care. DISCHARGE MEDICATIONS: Please refer to EMR form. The patient has been provided a prescription for S low Iron as well as tramadol and oxycodone IR 5 mg #10. All of her other medications have been brenda nued as previously prescribed per the patient. I spent greater than 35 minutes in the care, coordination, and management of patient's disposition. /[id number]/MODL
--- NOTE | 2017-11-13 15:23 | ASDISCHSUM ---
Discharge Information Plan Status:Home with Home Health Medically Cleared to Leave: Discharge Date:11/13/2017 01:20 PM CM D/C Disposition:Home Health Service ADT D/C Disposition:Home Health Service Projected Discharge Date:11/13/2017 11:00 AM Transportation at D/C: Discharge Delay Reason: Follow-Up Date:11/13/2017 11:00 AM Discharge Slot: Final Diagnosis: Placement Information Referral Type:*Home Health Care Services Referral ID:[id number] Provider Name:[facility] Address 1[address] Address 2: City:[place] Selection Factors: State:[place] Patient Contact Information Contact Name:ANA Relationship:Daughter Address:[address] City:[place] Alternate Phone: State/Zip Code:[place] [address] Email: Financial Information Financial Class:Medicare Primary Plan Desc:MEDICARE INPATIENT Primary Plan Number:[id number] Secondary Plan Desc:MED[place] Secondary Plan Number:[id number] Assessment Information [facility] CM Progress Note CM Note CM Note Notes: Reviewed chart. Pt admitted for worsening pelvic pain s/p a fall five weeks ago. Diagnosed with a superior pubic ramus fracture. History includes MS, chronic insomnia, nelda, anxiety, panic disorder, hypothyroid, pancreatic cyst, breast cancer. Pt is well known to this facility - she was recently an inpt (08/2017) and has had nine visits to the Emergency Department in the past nine months. Pt lives alone in an apartment; her dghtr is involved in her care. Discharge needs remain unclear at this time. CM will continue to follow. Current Discharge Plan: To be determined Date Signed: 11/11/2017 05:11 PM Electronically Signed By:Adelina Ortiz RN [facility] CM Progress Note CM Note CM Note Notes: Hospitalist indicated pt would be ready for d/c tomorrow. She has refused a SNF d/c but is agreeable to home care. She has had [facility] in the past and would like again. Referral sent. Date Signed: 11/12/2017 02:44 PM Electronically Signed By:LUCINDA Ruby [facility] CM Progress Note CM Note CM Note Notes: Pt medically stable for d/c with [facility] PT/OT. Orders to be obtained via [facility]. Pt reports her PCP is Leann Ordaz. Pt to obtain DME. Pt cara Grijalva to transport home. With pt permission this CM notified Valentine of d/c order and how pt will receive limited pain medication. Valentine is concerned pt is easily addicted to pain medication. Date Signed: 11/13/2017 01:48 PM Electronically Signed By:LUCINDA Burrows Intervention Information Intervention Type:*IM-Signed Date of Service:11/13/2017 11:55 AM Patient Type:Inpatient Staff Member:Kamla Lima Hours: Discipline: Severity: Comment:
== END 2017-11-13 13:20 | disposition home health service (06) | DRG 536 ==
LOC: EDUNIT# → OBSVTOIN 20:01 → F3N 21:02
PROVIDERS: ADMIT Internal Medicine; ATTEND Internal Medicine
DX: S32.592A Other specified fracture of left pubis, initial encounter for closed fracture (principal); W18.39XA Other fall on same level, initial encounter; Y93.E8 Activity, other personal hygiene; Y92.032 Bedroom in apartment as the place of occurrence of the external cause; Y99.8 Other external cause status; M80.88XA Other osteoporosis with current pathological fracture, vertebra(e), initial encounter for fracture; G89.11 Acute pain due to trauma; K92.1 Melena; D50.9 Iron deficiency anemia, unspecified; G35 Multiple sclerosis; E03.9 Hypothyroidism, unspecified; F31.9 Bipolar disorder, unspecified; G47.00 Insomnia, unspecified; Z96.642 Presence of left artificial hip joint; Z86.711 Personal history of pulmonary embolism; Z87.891 Personal history of nicotine dependence; Z85.3 Personal history of malignant neoplasm of breast
CPT/HCPCS: 97161-GP; 97165-GO; 97535-GO; G8978-GP-CJ; G8979-GP-CI; G8987-GO-CI; G8988-GO-CI; G8989-GO-CI; J1650; J2270; J2405

== ENCOUNTER 2017-12-02 04:36 | Emergency (ER) | payer OTHER, MEDICAID ==
[2017-12-02] MEDS ORDERED: ONDANSETRON 4 MG/2 ML VIAL IVP ONE (04:41)
[2017-12-02] MEDS ORDERED: HYDROmorphONE/DILAUDID 2 MG/ML INJ IVP ONE (04:41)
[2017-12-02] MEDS ORDERED: OXYCODONE/APAP 5/325 TAB PO ONE (04:43)
[2017-12-02] MEDS ORDERED: OXYCODONE/APAP 5/325 TAB ONE (04:43)
--- NOTE | 2017-12-02 04:52 | EDPHY ---
H & P Stated Complaint: pelvic pain-denies trauma-recent fall Time Seen by Provider: 12/02/17 04:50 HPI/ROS: HPI CHIEF COMPLAINT: Pelvic pain, recent pelvic fracture HISTORY OF PRESENT ILLNESS: This patient is 72-year-old female, she has history of bipolar disorder, history of PE, and a recent pelvic fracture of the left inferior pubic rami, she was in the hospital at the end of October. She was recommend to go to nursing home facility however she refused and went home. She presents emergency room at 4:45 a.m. In the morning by EMS for increasing left-sided pelvic pain. She has been using a walker she denies falling or new injury. She states she ran out of her Percocet and has had increasing pain. She started to put up with the pain all day however had increasing pain and called 911. EMS gave her 50 mcg IV fentanyl in route. Upon arrival to the ER she does complain that her pain is better but still present on the left side of her pelvis. She states this is the area where her fracture was where she had previous pain. Past Medical History: Bipolar disorder, history of PE, history of recent pelvic fracture Past Surgical History: No recent surgery Social History: lives alone, apartment, denies drugs or alcohol Family History: Noncontributory ROS REVIEW OF SYSTEMS: A comprehensive 10 point review of systems is otherwise negative aside from elements mentioned in the history of present illness. Exam Constitutional nontoxic appearing, elderly, frail triage nursing summary reviewed, vital signs reviewed, awake/alert. Eyes normal conjunctivae and sclera, EOMI, PERRLA. HENT normal inspection, atraumatic, moist mucus membranes, no epistaxis, neck supple/ no meningismus, no raccoon eyes. Respiratory clear to auscultation bilaterally, normal breath sounds, no respiratory distress, no wheezing. Cardiovascular rate normal, regular rhythm, no murmur, no edema, distal pulses normal. Gastrointestinal soft, non-tender, no rebound, no guarding, normal bowel sounds, no distension, no pulsatile mass. Genitourinary no CVA tenderness. Musculoskeletal pelvis: No instability on exam but tender palpation over the left lateral pelvis, no abdominal pain, no midline vertebral tenderness, full range of motion, no calf swelling, no tenderness of extremities, no meningismus , good pulses, neurovascularly intact. Skin pink, warm, & dry, no rash, skin atraumatic. Neurologic awake, alert and oriented x 3, AAOx3, moves all 4 extremities equally, motor intact, sensory intact, CN II-XII intact, normal cerebellar, normal vision, normal speech. Psychiatric normal mood/affect. Heme/Lymph/Immune no lymphadenopathy. Differential Diagnosis: Includes but is not limited to in a particular order ongoing pelvic pain for recent pelvic fracture, acute on chronic pain, chronic pain ran out of her narcotic pain medicine Medical Decision Making: Plan for this patient x-ray of the pelvis, oral Percocet and re-evaluate. Re-evaluation: X-ray of the pelvis reviewed. It seems to be unchanged from the previous pelvis x-ray. Hard to see a pubic inferior rami fracture of the pubic symphysis as previously described. However upon review of the previous CT a.m. Able to see this injury. The pelvis x-ray done today in emergency room is unchanged from the previous pelvis x-ray. She is most likely still healing from her inferior pubic rami fracture pubic symphysis fracture. Source: Patient - Personal History Current Tetanus Diphtheria and Acellular Pertussis (TDAP): Yes - Medical/Surgical History Hx Asthma: No Hx Chronic Respiratory Disease: No Hx Diabetes: No Hx Cardiac Disease: No Hx Renal Disease: No Hx Cirrhosis: No Hx Alcoholism: No Hx HIV/AIDS: No Hx Splenectomy or Spleen Trauma: No Other PMH: gallstones, MS, Hypothyroid, PE, lap nelda, left hip replacement ( Apr) - Social History Smoking Status: Former smoker Constitutional: Initial Vital Signs Temperature (C) 36.7 C 12/02/17 04:39 Heart Rate 74 12/02/17 04:39 Respiratory Rate 16 12/02/17 04:39 Blood Pressure 160/93 H 12/02/17 04:39 O2 Sat (%) 96 12/02/17 04:39 O2 Delivery Mode Room Air Allergies/Adverse Reactions: No Known Allergies Allergy (Verified 12/02/17 04:38) Home Medications: Medication Instructions Recorded Cholecalciferol Vit D3 [Vitamin D3 3,000 units PO DAILY 11/10/17 (*)] Gabapentin 800 mg PO HS 11/10/17 Glatiramer Acetate [Copaxone] 40 mg SQ MWF 11/10/17 Levothyroxine [Synthroid 88 mcg 88 mcg PO DAILY06 11/10/17 (*)] Lisdexamfetamine Dimesylate 70 mg PO DAILY 11/10/17 [Vyvanse] Multivitamins [Multivitamin (*)] 1 each PO DAILY 11/10/17 OLANZapine [Zyprexa] 10 mg PO HS 11/10/17 Acetaminophen [Tylenol 325mg (*)] 650 mg PO Q4HRS PRN tab 11/13/17 Ferrous Sulfate [Slow Fe 140 MG 140 mg PO DAILY #30 tab.er 11/13/17 (*)] oxyCODONE IR [Oxycodone Ir (*)] 5 mg PO Q4HRS PRN #10 tab 11/13/17 traMADol [Ultram 50 mg (*)] 50 mg PO Q6HRS PRN #10 tab 11/13/17 oxyCODONE/APAP 5/325 [Percocet 1 - 2 tab PO Q4H PRN #7 tab 12/02/17 5/325 (*)] Medical Decision Making - Data Points Medications Given: Discontinued Medications Hydromorphone HCl (Dilaudid) 0.5 mg IVP EDNOW ONE Stop: 12/02/17 04:42 Last Admin: 12/02/17 05:40 Dose: Not Given Ondansetron HCl (Zofran) 4 mg IVP EDNOW ONE Stop: 12/02/17 04:42 Last Admin: 12/02/17 05:40 Dose: Not Given Ondansetron HCl (Zofran Odt) 4 mg PO EDNOW ONE Stop: 12/02/17 05:41 Last Admin: 12/02/17 05:41 Dose: 4 mg Oxycodone/Acetaminophen (Percocet 5/325) 1 tab PO EDNOW ONE Stop: 12/02/17 04:44 Last Admin: 12/02/17 04:44 Dose: 1 tab Departure - Departure Disposition: Home, Routine, Self-Care Clinical Impression: Pelvic fracture Qualifiers: Encounter type: initial encounter Pelvic bone location: pubis Sublocation of pubis: superior rim Fracture type: closed Laterality: left Qualified Code(s): S32.512A - Fracture of superior rim of left pubis, initial encounter for closed fracture Condition: Fair Instructions: Pelvic Fracture (ED) Additional Instructions: 1.. Follow up with your primary care doctor 2. Follow up with her orthopedist 3. Return to emergency room if you have any worsening symptoms questions or concerns. Referrals: Patient,NotPresent [Primary Care Provider] - As per Instructions Prescriptions: oxyCODONE/APAP 5/325 [Percocet 5/325 (*)] 1 - 2 tab PO Q4H PRN #7 tab PRN Reason: Pain, Severe
[2017-12-02] MEDS ORDERED: ONDANSETRON DISINTEGRATING 4 MG TAB ONE (05:39)
[2017-12-02] MEDS ORDERED: ONDANSETRON DISINTEGRATING 4 MG TAB PO ONE (05:40)
[2017-12-02] MEDS ORDERED: OXYCODONE/APAP 5/325MG PREPACK#4 BTL TAKEHOME ONE (05:44)
[2017-12-02 05:51] VITALS: BP 131/74
--- NOTE | 2017-12-04 10:40 | ASMTCMCOM ---
CM Note CM Note Notes: Late Entry from 12/03/17: Followed up with patient's PCP, Dr Rivera at [facility] ([phone]) and spoke with Wilda, Supervisor [employer], re:pt's ED visit on 12/02/17. Relayed that pt had been provided narcotic pain medication while in the ED and also sent her home with a Rxn and a pre-pack; despite patient having a narcotic caution care plan and history of abusing her pain medications (refer to CM note 09/02/17). Wilda states she will reach out to the patient and her daughter Valentine ([phone]) to see about getting a follow-up appt soon and discuss the recent pain medication management plan. Pt typically receives her medications from [facility] once a week. Pt was also d/c'd from [facility] PT on 12/03/17 and that note stated pt had not been needing pain medication and was walking with FWW but w/limited compliance w/TDWB. CM available for further assistance if needed. Date Signed: 12/04/2017 10:40 AM Electronically Signed By:Mandy Orona RN
--- NOTE | 2017-12-04 10:42 | ASDISCHSUM ---
Discharge Information Plan Status:Home with No Needs Medically Cleared to Leave: Discharge Date:12/02/2017 06:43 AM CM D/C Disposition:Home, Routine, Self-Care ADT D/C Disposition:Home, Routine, Self-Care Projected Discharge Date:12/02/2017 06:43 AM Transportation at D/C:None or Unknown Discharge Delay Reason: Follow-Up Date:12/02/2017 06:43 AM Discharge Slot: Final Diagnosis: Placement Information Patient Contact Information Contact Name:ANA Relationship:Daughter Address:[address] City:[facility] Phone: [facility]/Zip Code:[place] [address] Email: Financial Information Financial Class:Medicare Primary Plan Desc:MEDICARE OUTPATIENT Primary Plan Number:[id number] Secondary Plan Desc:MED[place] Secondary Plan Number:[id number] Assessment Information [facility] CM Progress Note CM Note CM Note Notes: Late Entry from 12/03/17: Followed up with patient's PCP, Dr Rivera at [facility] ([phone]) and spoke with Wilda, Airplane First [employer], re:pt's ED visit on 12/02/17. Relayed that pt had been provided narcotic pain medication while in the ED and also sent her home with a Rxn and a pre-pack; despite patient having a narcotic caution care plan and history of abusing her pain medications (refer to CM note 09/02/17). Wilda states she will reach out to the patient and her daughter Valentine ([phone]) to see about getting a follow-up appt soon and discuss the recent pain medication management plan. Pt typically receives her medications from [facility] once a week. Pt was also d/c'd from [facility] PT on 12/03/17 and that note stated pt had not been needing pain medication and was walking with FWW but w/limited compliance w/TDWB. CM available for further assistance if needed. Date Signed: 12/04/2017 10:40 AM Electronically Signed By:Mandy Orona RN Intervention Information Intervention Type:Post Acute Communication Date of Service:12/04/2017 10:40 AM Patient Type:Emergency Room Staff Member:CARROLL Orona Sharon Hours:0.25 Discipline:Dynamometer Tuner Severity: Comment:
== END 2017-12-02 06:43 | disposition home or self-care (01) ==
LOC: EDBD → EDUNIT#
DX: S32.512D Fracture of superior rim of left pubis, subsequent encounter for fracture with routine healing (principal); Z87.891 Personal history of nicotine dependence; X58.XXXD Exposure to other specified factors, subsequent encounter

== ENCOUNTER 2017-12-21 09:00 | Emergency (ER) | payer OTHER, MEDICAID ==
--- NOTE | 2017-12-21 10:30 | EDPHY ---
H & P Stated Complaint: chronic back pain, pelvic pain-reports pelvic fx 1 month ago - Personal History Current Tetanus/Diphtheria Vaccine: No Current Tetanus Diphtheria and Acellular Pertussis (TDAP): No - Medical/Surgical History Hx Asthma: No Hx Chronic Respiratory Disease: No Hx Diabetes: No Hx Cardiac Disease: No Hx Renal Disease: No Hx Cirrhosis: No Hx Alcoholism: No Hx HIV/AIDS: No Hx Splenectomy or Spleen Trauma: No Other PMH: gallstones, MS, Hypothyroid, PE, lap nelda, left hip replacement ( Apr) - Social History Smoking Status: Former smoker Time Seen by Provider: 12/21/17 10:10 HPI/ROS: CHIEF COMPLAINT: "My pelvis is broken" HISTORY OF PRESENT ILLNESS: 72-year-old female history of bipolar disorder history of pulmonary embolus on chronic Xarelto anticoagulation with history of inferior pubic ramus fracture in October arrives via ambulance complaining of pain after she ran out of her tramadol prescribed by Dr. Max Yoon on 2017. She was also seen in the ER on December 02 for similar complaint given prescription for Percocet number 7 tablets. The patient is on a no narcotic list in has multiple case management consultations. She is complaining of pain. She denies acute symptoms. This feels like her usual pelvic pain. She denies: Incontinence, retention, saddle anesthesia, fever, chills, urinary abnormality, acute injury or fall. Patient was interviewed and examined with the adult protective caseworker Jenny at bedside PRIMARY CARE PROVIDER: Dr. Leann Rivera REVIEW OF SYSTEMS: A ten point review of systems was performed and is negative with the exception of the items mentioned in the HPI PAST MEDICAL & SURGICAL HISTORY: Pulmonary embolus chronically anticoagulated with Xarelto. Bipolar disorder. Inferior pubic ramus fracture SOCIAL HISTORY:Nonsmoker no drug use PHYSICAL EXAM (Prior to examination, patient consented to physical exam, hands were washed and my usual and customary physical exam procedures followed) 1) GENERAL: Well-developed, well-nourished, alert and oriented. Crying 2) HEAD: Normocephalic, atraumatic 3) HEENT: Pupils equal, round, reactive to light bilaterally. Sclera anicteric. 4) NECK: Full range of motion, no meningeal signs. 5) LUNGS: Clear auscultation bilaterally, no wheezes, no rhonchi, no retractions. 6) HEART: Regular rate and rhythm, no murmur, no heave, no gallop. 7) ABDOMEN: No guarding, no rebound, no focal tenderness, negative McBurney's, negative Barclay's, negative Rovsing's, negative peritoneal sign, 8) MUSCULOSKELETAL: Bilateral lower extremities have symmetrical length, no shortening or malrotation. She is able to flex at the waist and raise her feet up albeit with some pain. Tender to palpation bilateral inferior buttock. Patella Achilles reflexes intact to bilateral strength 5/5. 9) BACK: No CVA tenderness, no midline vertebral tenderness, no fluctuance, no step-off, no obvious trauma, no visual or palpable abnormality. 10) SKIN: No rash, no petechiae. 11) Psychiatric: Patient is oriented X 3, there is no agitation. DIFFERENTIAL DIAGNOSIS: In no particular include but limited to acute on chronic pain, medication dependence, medication refill (Abiodun Multani) Constitutional: Initial Vital Signs Temperature (C) 36.6 C 12/21/17 09:00 Heart Rate 79 12/21/17 09:00 Respiratory Rate 18 12/21/17 09:00 Blood Pressure 131/89 H 12/21/17 09:00 O2 Sat (%) 94 12/21/17 09:00 O2 Delivery Mode Room Air Allergies/Adverse Reactions: No Known Allergies Allergy (Verified 12/21/17 09:05) Home Medications: Medication Instructions Recorded Cholecalciferol Vit D3 [Vitamin D3 3,000 units PO DAILY 11/10/17 (*)] Gabapentin 800 mg PO HS 11/10/17 Glatiramer Acetate [Copaxone] 40 mg SQ MWF 11/10/17 Levothyroxine [Synthroid 88 mcg 88 mcg PO DAILY06 11/10/17 (*)] Lisdexamfetamine Dimesylate 70 mg PO DAILY 11/10/17 [Vyvanse] Multivitamins [Multivitamin (*)] 1 each PO DAILY 11/10/17 OLANZapine [Zyprexa] 10 mg PO HS 11/10/17 Acetaminophen [Tylenol 325mg (*)] 650 mg PO Q4HRS PRN tab 11/13/17 Ferrous Sulfate [Slow Fe 140 MG 140 mg PO DAILY #30 tab.er 11/13/17 (*)] Ondansetron Odt [Zofran Odt] 4 mg PO Q4PRN PRN #10 tab 12/21/17 Temazepam 12/21/17 Medical Decision Making ED Course/Re-evaluation: 10:30 a.m.: I have reviewed the patient's old medical records I have performed a PDMP search on this patient. I have advised her of the alternatives to opiates program at the hospital, I have discussed the case with the adult protective caseworker t and the nurse, expressed concerns over her chronic opiate use and dependence. Informed that we will be unable to provide opiates in the ER. I have offered Toradol injection which she agrees to. I saw this patient independently based on established practice protocols. Care of patient under supervision of secondary supervising physician Dr Taya Vines . 10:53 a.m.: Patient was given intramuscular Toradol was observed ambulating without assistance feeling improvement. Initially ketamine was ordered however this was held and will be canceled. Plan will be discharge home without prescription for opiates. Recommend close follow up with Dr. Max Yoon or her primary care provider Dr. Leann Rivera. She feels comfortable being discharged. Usual and customary discharge precautions and instructions provided. (Abiodun Multani) Other Provider: The patient was evaluated and managed by the Physician Charge Auditor. My co- signature indicates that I have reviewed this chart and I agree with the findings and plan of care as documented. I am the secondary supervising physician. (Taya Vines) - Data Points Medications Given: Discontinued Medications Ketamine HCl (Ketamine) 50 mg NASAL EDNOW ONE Stop: 12/21/17 10:35 Last Admin: 12/21/17 10:53 Dose: Not Given Ketorolac Tromethamine (Toradol) 60 mg IM EDNOW ONE Stop: 12/21/17 10:35 Last Admin: 12/21/17 10:39 Dose: 60 mg Ondansetron HCl (Zofran Odt) 4 mg PO EDNOW ONE Stop: 12/21/17 11:02 Last Admin: 12/21/17 11:02 Dose: 4 mg Departure - Departure Disposition: Home, Routine, Self-Care Clinical Impression: Inferior pubic ramus fracture, Chronic pain Condition: Good Instructions: Pelvic Fracture (ED), Chronic Pain (ED) Additional Instructions: Return to the ER if you develop new or worsening symptoms Referrals: Leann Rivera MD [Primary Care Provider] - 1-2 days without fail Max Yoon MD [Medical Doctor] - 1-2 days without fail Prescriptions: Ondansetron Odt [Zofran Odt] 4 mg PO Q4PRN PRN #10 tab PRN Reason: Nausea
[2017-12-21] MEDS ORDERED: KETAMINE 500 MG/10 ML VIAL NASAL ONE (10:34)
[2017-12-21] MEDS ORDERED: KETOROLAC 30 MG/1 ML SDV IM ONE (10:34)
[2017-12-21] MEDS ORDERED: ONDANSETRON DISINTEGRATING 4 MG TAB PO ONE (11:01)
[2017-12-21 11:06] VITALS: BP 126/77
--- NOTE | 2017-12-21 12:43 | ASMTCMCOM ---
CM Note CM Note Notes: Patient presents to ER with c/o pelvis pain, requesting pain medication. Please see recent ER vist/admission from 12/02/17, as well as CM note on 12/04/17. Patient tells me that she has a follow up appointment scheuled with Dr. Yoon but that it is not for another week or so. She denies any scheduled follow up with her PCP, Dr. Rivera at [facility]. I spoke with patient about the importance of her follow up with Dr. Rivera and her pain management plan. She has been informed that we will not be providing any narcotics in the ER, but that we will give her some non narcotic medication in attempt to decrease her discomfort. Patient agrees to this and tells me she will follow up with Dr. Yoon and Dr. Rivera. I have called the [facility] and LM with Wilda Beltran, patient home care scheduler and sent a copy of ER report to Dr. Rivera Date Signed: 12/21/2017 12:42 PM Electronically Signed By:Jenny Lauren RN
== END 2017-12-21 11:05 | disposition home or self-care (01) ==
LOC: EDUNIT# → EDBD
DX: R10.2 Pelvic and perineal pain (principal); G89.29 Other chronic pain; Z87.891 Personal history of nicotine dependence
CPT/HCPCS: 96372; 99284; J1885

== ENCOUNTER 2017-12-22 17:58 | Emergency (ER) | payer OTHER, MEDICAID ==
[2017-12-22] MEDS ORDERED: ONDANSETRON 4 MG/2 ML VIAL IVP ONE (18:20)
[2017-12-22] MEDS ORDERED: NS 1,000 ML IV ONE (18:20)
--- NOTE | 2017-12-22 18:20 | EDPHY ---
H & P Time Seen by Provider: 12/22/17 17:58 HPI/ROS: CHIEF COMPLAINT: Chest pain HISTORY OF PRESENT ILLNESS: Patient complains chest pain and only today in the morning. She says it is central and more on the right side than the left. A little bit worse with movement or deep respiration, not exertional. Does not radiate. The patient says she has some nausea, says that "I feel sick" but does not have any other specific complaints. REVIEW OF SYSTEMS: Eye: no change in vision ENT: no sore throat Cardiac: No palpitations or syncope Pulmonary: no cough or SOB Abdomen: no vomiting, diarrhea, abdominal pain Musculoskeletal: Chronic pelvic pain after her previous fracture, out of tramadol and the Percocet she was given on December 02 in the emergency department Skin: no rash Neuro: no headache Constitutional: no fever : no urinary symptoms A comprehensive 10 point review of systems is otherwise negative aside from elements mentioned in the history of present illness. PAST MEDICAL HISTORY: Pulmonary embolism, on Xarelto. Has not missed a dose in 2 months. Bipolar disorder. Previous pubic ramus fracture. Gallstones, hypothyroid. Social history: Nonsmoker General Appearance: Alert and conversant, cooperative. Eyes: No scleral icterus. ENT, Mouth: Normal mucous membranes. Respiratory: Normal respiratory effort, breath sounds equal, lungs are clear to auscultation. Cardiovascular: Regular rate and rhythm. Gastrointestinal: Abdomen is soft and non tender. Neurological: Alert, face symmetric, normal motor and sensory in extremities. Skin: Warm and dry, no rashes. Musculoskeletal: No peripheral edema. Calf tenderness. Psychiatric: Patient appears to have a depressed affect but but denies suicidal ideation or hallucinations. Emergency Department course/MDM: Pulmonary embolism would be unlikely on a patient who is taking her Xarelto. EKG chest x-ray and troponin ordered. 3: Chest x-ray negative and troponin negative. Plan 3 hr troponin at 9:30 p.m., HEART score 2. 2144: Results discussed, 2nd troponin still is negative. Patient is reassured. States she is comfortable going home at this time. Smoking Status: Former smoker Constitutional: Initial Vital Signs Temperature (C) 36.8 C 12/22/17 18:03 Heart Rate 89 12/22/17 18:03 Respiratory Rate 20 12/22/17 18:03 Blood Pressure 133/96 H 12/22/17 18:03 O2 Sat (%) 94 12/22/17 18:03 O2 Delivery Mode Room Air Allergies/Adverse Reactions: No Known Allergies Allergy (Verified 12/21/17 09:05) Home Medications: Medication Instructions Recorded Cholecalciferol Vit D3 [Vitamin D3 3,000 units PO DAILY 11/10/17 (*)] Gabapentin 800 mg PO HS 11/10/17 Glatiramer Acetate [Copaxone] 40 mg SQ MWF 11/10/17 Levothyroxine [Synthroid 88 mcg 88 mcg PO DAILY06 11/10/17 (*)] Lisdexamfetamine Dimesylate 70 mg PO DAILY 11/10/17 [Vyvanse] Multivitamins [Multivitamin (*)] 1 each PO DAILY 11/10/17 OLANZapine [Zyprexa] 10 mg PO HS 11/10/17 Acetaminophen [Tylenol 325mg (*)] 650 mg PO Q4HRS PRN tab 11/13/17 Ferrous Sulfate [Slow Fe 140 MG 140 mg PO DAILY #30 tab.er 11/13/17 (*)] Ondansetron Odt [Zofran Odt] 4 mg PO Q4PRN PRN #10 tab 12/21/17 Temazepam 12/21/17 Medical Decision Making - Diagnostics EKG Interpretation: 12-lead EKG interpreted by me; official reading is in trace master. My interpretation is sinus rhythm rate 87 and no ischemic changes. Imaging Results: Imaging Impressions Chest X-Ray 12/22/17 18:20 Impression: 1. Suspect airways disease. 2. See above report for additional findings. Imaging: I viewed and interpreted images myself Differential Diagnosis: Differential diagnosis considered for chest pain including but not limited to myocardial ischemia, aortic dissection, pericarditis, pulmonary embolus, chest wall pain, pleural inflammation and pulmonary infectious causes. - Data Points Laboratory Results: Laboratory Results 12/22/17 Unknown 12/22/17 18:25 12/22/17 12/22/17 12/22/17 Unknown 21:30 18:29 WBC 6.35 10^3/uL 10^3/uL (3.80-9.50) RBC 4.78 10^6/uL 10^6/uL (4.18-5.33) Hgb 13.9 g/dL g/dL (12.6-16.3) Hct 41.9 % % (38.0-47.0) MCV 87.7 fL fL (81.5-99.8) MCH 29.1 pg pg (27.9-34.1) MCHC 33.2 g/dL g/dL (32.4-36.7) RDW 15.4 % H % (11.5-15.2) Plt Count 275 10^3/uL 10^3/uL (150-400) MPV 9.6 fL fL (8.7-11.7) Neut % (Auto) 63.5 % % (39.3-74.2) Lymph % (Auto) 25.0 % % (15.0-45.0) Hood % (Auto) 7.9 % % (4.5-13.0) Eos % (Auto) 2.2 % % (0.6-7.6) Baso % (Auto) 1.1 % % (0.3-1.7) Nucleat RBC Rel Count 0.0 % % (0.0-0.2) Absolute Neuts (auto) 4.03 10^3/uL 10^3/uL (1.70-6.50) Absolute Lymphs (auto) 1.59 10^3/uL 10^3/uL (1.00-3.00) Absolute Monos (auto) 0.50 10^3/uL 10^3/uL (0.30-0.80) Absolute Eos (auto) 0.14 10^3/uL 10^3/uL (0.03-0.40) Absolute Basos (auto) 0.07 10^3/uL 10^3/uL (0.02-0.10) Absolute Nucleated RBC 0.00 10^3/uL 10^3/uL (0-0.01) Immature Gran % 0.3 % % (0.0-1.1) Immature Gran # 0.02 10^3/uL 10^3/uL (0.00-0.10) Sodium Potassium Chloride Carbon Dioxide Anion Gap BUN Creatinine Estimated GFR Glucose Calcium POC Troponin I 0.01 ng/mL ng/mL 0.00 ng/mL ng/mL (0.00-0.08) (0.00-0.08) 12/22/17 18:25 WBC RBC Hgb Hct MCV MCH MCHC RDW Plt Count MPV Neut % (Auto) Lymph % (Auto) Hood % (Auto) Eos % (Auto) Baso % (Auto) Nucleat RBC Rel Count Absolute Neuts (auto) Absolute Lymphs (auto) Absolute Monos (auto) Absolute Eos (auto) Absolute Basos (auto) Absolute Nucleated RBC Immature Gran % Immature Gran # Sodium 137 mEq/L mEq/L (135-145) Potassium 4.6 mEq/L mEq/L (3.3-5.0) Chloride 108 mEq/L mEq/L (97-110) Carbon Dioxide 23 mEq/l mEq/l (22-31) Anion Gap 6 mEq/L L mEq/L (8-16) BUN 18 mg/dL mg/dL (7-23) Creatinine 0.9 mg/dL mg/dL (0.6-1.0) Estimated GFR > 60 Glucose 102 mg/dL H mg/dL (70-100) Calcium 9.1 mg/dL mg/dL (8.5-10.4) POC Troponin I Medications Given: Discontinued Medications Sodium Chloride (Ns) 1,000 mls @ 0 mls/hr IV EDNOW ONE; Wide Open PRN Reason: Protocol Stop: 12/22/17 18:21 Last Admin: 12/22/17 18:48 Dose: 1,000 mls Ondansetron HCl (Zofran) 4 mg IVP EDNOW ONE Stop: 12/22/17 18:21 Last Admin: 12/22/17 18:49 Dose: 4 mg Point of Care Test Results: Chemistry 12/22/17 12/22/17 21:30 18:29 POC Troponin I 0.01 ng/mL ng/mL 0.00 ng/mL ng/mL (0.00-0.08) (0.00-0.08) Departure - Departure Disposition: Home, Routine, Self-Care Clinical Impression: Chest pain Qualifiers: Chest pain type: unspecified Qualified Code(s): R07.9 - Chest pain, unspecified Condition: Good Instructions: Chest Pain (ED) Referrals: Leann Rivera MD [Primary Care Provider] - As per Instructions
--- NOTE | 2017-12-22 18:25 | CPEKG ---
Heart Rate: 87 RR Interval: 690 P-R Interval: 160 QRSD Interval: 78 QT Interval: 388 QTC Interval: 467 P [place]: 71 QRS [place]: 58 T Wave [place]: 47 EKG Severity - NORMAL ECG - EKG Impression: SINUS RHYTHM Electronically Signed By: Jason Hughes 22-Dec-2017 18:52:36
[2017-12-22 18:49] LABS: PLATELET COUNT 275 10^3/uL (150-400)
[2017-12-22 21:57] VITALS: BP 149/88
== END 2017-12-22 21:58 | disposition home or self-care (01) ==
LOC: EDUNIT#
DX: R07.9 Chest pain, unspecified (principal); E86.9 Volume depletion, unspecified; Z87.891 Personal history of nicotine dependence
CPT/HCPCS: 71046; 93005; 96361; 96374; 99285; J2405; 84484-PO

== ENCOUNTER → 2017-12-26 | Outpatient (CLI) | payer OTHER, MEDICAID | LOC: BMCIMAGING 09:12 | PROVIDERS: ATTEND Orthopaedic Surgery | DX: Z47.1 Aftercare following joint replacement surgery (principal); Z96.642 Presence of left artificial hip joint ==

== ENCOUNTER 2018-01-13 09:50 | Emergency (ER) | payer OTHER, MEDICAID ==
[2018-01-13] MEDS ORDERED: ONDANSETRON 4 MG/2 ML VIAL IVP ONE ×2 (10:19→11:04)
[2018-01-13] MEDS ORDERED: HYOSCYAMINE SULFATE 0.125 MG TAB PO ONE (10:22)
[2018-01-13] MEDS ORDERED: LIDOCAINE 2% VISCOUS 15 ML UDCUP PO ONE (10:22)
[2018-01-13] MEDS ORDERED: MAG HYDROX/AL HYDROX/SIMETH 30 ML UDCUP PO ONE (10:22)
--- NOTE | 2018-01-13 10:22 | EDPHY ---
H & P Stated Complaint: chest pain Time Seen by Provider: 01/13/18 09:53 HPI/ROS: CHIEF COMPLAINT: Chest pain HISTORY OF PRESENT ILLNESS: 72yo female presents with chest pain. Onset of lower chest pain yesterday. The pain is constant and moderate and associated with nausea. Did not eat breakfast this morning because of nausea. No shortness of breath or dizziness. No allev/aggrev factors. She was seen in this emergency department 2 weeks ago for similar symptoms. Cardiac evaluation including EKG, chest x-ray and troponin x2 unremarkable. REVIEW OF SYSTEMS: complete 10 point ROS negative except at noted in the HPI - Personal History Current Tetanus/Diphtheria Vaccine: Unsure - Medical/Surgical History Hx Asthma: No Hx Chronic Respiratory Disease: No Hx Diabetes: No Hx Cardiac Disease: No Hx Renal Disease: No Hx Cirrhosis: No Hx Alcoholism: No Hx HIV/AIDS: No Hx Splenectomy or Spleen Trauma: No Other PMH: Cholecystectomy, MS, Hypothyroid, pulmonary embolism, on Xarelto, left hip replacement (Apr) - Social History Smoking Status: Former smoker Alcohol Use: Sober Drug Use: None - Physical Exam Exam: General Appearance: Alert, pleasant Eyes: Pupils equal and round, no conjunctival pallor ENT, Mouth: Mucous membranes moist Neck: Normal inspection Respiratory: Lungs are clear to auscultation Cardiovascular: Regular rate and rhythm Gastrointestinal: Abdomen is soft, epigastric tenderness Neurological: A&O, nonfocal exam Skin: Warm and dry, no rash Extremities: Normal inspection Psychiatric: Mood and affect normal Constitutional: Initial Vital Signs Temperature (C) 36.7 C 01/13/18 09:57 Heart Rate 68 01/13/18 09:57 Respiratory Rate 18 01/13/18 09:57 Blood Pressure 160/95 H 01/13/18 09:57 O2 Sat (%) 96 01/13/18 09:57 O2 Delivery Mode Room Air Allergies/Adverse Reactions: No Known Allergies Allergy (Verified 01/13/18 10:00) Home Medications: Medication Instructions Recorded Cholecalciferol Vit D3 [Vitamin D3 3,000 units PO DAILY 11/10/17 (*)] Gabapentin 800 mg PO 11/10/17 Glatiramer Acetate [Copaxone] 40 mg SQ MWF 11/10/17 Levothyroxine [Synthroid 88 mcg 88 mcg PO DAILY 11/10/17 (*)] Lisdexamfetamine Dimesylate 70 mg PO DAILY 11/10/17 [Vyvanse] Multivitamins [Multivitamin (*)] 1 each PO DAILY 11/10/17 OLANZapine [Zyprexa] 10 mg PO HS 11/10/17 Acetaminophen [Tylenol 325mg (*)] 650 mg PO Q4HRS PRN tab 11/13/17 Ferrous Sulfate [Slow Fe 140 MG 140 mg PO DAILY #30 tab.er 11/13/17 (*)] Ondansetron Odt [Zofran Odt] 4 mg PO Q4PRN PRN #10 tab 12/21/17 Temazepam 12/21/17 Medical Decision Making - Diagnostics EKG Interpretation: EKG interpreted by me reveals normal sinus rhythm, rate 65, no ST or T segment changes. Interpretation: normal EKG Imaging Results: Imaging Impressions Chest X-Ray 01/13/18 09:55 Impression: Clear lungs. No acute process. Imaging: I viewed and interpreted images myself ED Course/Re-evaluation: This patient presents with atypical and prolonged (12 hrs) chest pain. Physical exam suggests acute gastritis/peptic ulcer disease. Stat EKG reveals no evidence of ischemia or dysrhythmia. Chest x-ray is unremarkable. Initial troponin is negative; I do not feel that further emergency department test today is indicated for cardiac evaluation. IV normal saline and Zofran 4 mg IV given for nausea. 11:00 a.m.-patient states she is not better after IV Zofran and GI cocktail. She now tells me that she has had right-sided chest pain for several weeks after a rib fracture. This is the same pain as her prior ED visit on 12/22/2017. However the pain is now somewhat worse, without clear aggravating factor. She is on Xarelto and is compliant with this medication. It would be quite unlikely for her to have developed pulmonary embolism on Xarelto and I do not think this is etiology for pain. Exam is unremarkable and I do not feel that further ED testing is indicated today. Pt requests pain medication. In review of medical chart and discussions with renal case manager, pt has long h/o similar presentations. Pt's daughter contacted and requests that we do not give rx for pain/nausea, as these ED prescriptions seem to encourage pt to have excessive ED visits. Daughter will ensure appropriate f/u with PCP; will have pt return if unusual/concerning sx. I will give Tramadol 50mg orally now and she will follow up with her primary care physician in the office. Pt happy to have Tramadol now, will f/u. Differential Diagnosis: Differential diagnosis includes though it is not limited to pneumonia, pneumothorax, pulmonary embolism, aortic dissection, pericarditis, acute coronary syndrome. - Data Points Laboratory Results: Laboratory Results 01/13/18 09:57 01/13/18 09:57 01/13/18 01/13/18 01/13/18 10:09 09:57 09:57 WBC 6.40 10^3/uL 10^3/uL (3.80-9.50) RBC 4.84 10^6/uL 10^6/uL (4.18-5.33) Hgb 14.3 g/dL g/dL (12.6-16.3) Hct 43.3 % % (38.0-47.0) MCV 89.5 fL fL (81.5-99.8) MCH 29.5 pg pg (27.9-34.1) MCHC 33.0 g/dL g/dL (32.4-36.7) RDW 16.1 % H % (11.5-15.2) Plt Count 310 10^3/uL 10^3/uL (150-400) MPV 9.5 fL fL (8.7-11.7) Neut % (Auto) 57.8 % % (39.3-74.2) Lymph % (Auto) 34.1 % % (15.0-45.0) [place] % (Auto) 5.9 % % (4.5-13.0) Eos % (Auto) 1.1 % % (0.6-7.6) Baso % (Auto) 0.8 % % (0.3-1.7) Nucleat RBC Rel Count 0.0 % % (0.0-0.2) Absolute Neuts (auto) 3.70 10^3/uL 10^3/uL (1.70-6.50) Absolute Lymphs (auto) 2.18 10^3/uL 10^3/uL (1.00-3.00) Absolute Monos (auto) 0.38 10^3/uL 10^3/uL (0.30-0.80) Absolute Eos (auto) 0.07 10^3/uL 10^3/uL (0.03-0.40) Absolute Basos (auto) 0.05 10^3/uL 10^3/uL (0.02-0.10) Absolute Nucleated RBC 0.00 10^3/uL 10^3/uL (0-0.01) Immature Gran % 0.3 % % (0.0-1.1) Immature Gran # 0.02 10^3/uL 10^3/uL (0.00-0.10) Sodium 139 mEq/L mEq/L (135-145) Potassium 4.3 mEq/L mEq/L (3.3-5.0) Chloride 106 mEq/L mEq/L (97-110) Carbon Dioxide 25 mEq/l mEq/l (22-31) Anion Gap 8 mEq/L mEq/L (8-16) BUN 18 mg/dL mg/dL (7-23) Creatinine 0.9 mg/dL mg/dL (0.6-1.0) Estimated GFR > 60 Glucose 123 mg/dL H mg/dL (70-100) Calcium 9.6 mg/dL mg/dL (8.5-10.4) Total Bilirubin 0.4 mg/dL mg/dL (0.1-1.4) Conjugated Bilirubin 0.2 mg/dL mg/dL (0.0-0.5) Unconjugated Bilirubin 0.2 mg/dL mg/dL (0.0-1.1) AST 25 IU/L IU/L (14-46) ALT 20 IU/L IU/L (9-52) Alkaline Phosphatase 156 IU/L H IU/L (38-126) POC Troponin I 0.00 ng/mL ng/mL (0.00-0.08) Total Protein 7.0 g/dL g/dL (6.3-8.2) Albumin 4.1 g/dL g/dL (3.5-5.0) Lipase 70 IU/L IU/L (23-300) Medications Given: Discontinued Medications Al Hydroxide/Mg Hydroxide (Maalox Susp) 30 ml PO ONCE ONE Stop: 01/13/18 10:23 Last Admin: 01/13/18 10:29 Dose: 30 ml Hyoscyamine Sulfate (Levsin, Hyomax-Sl) 0.25 mg PO ONCE ONE Stop: 01/13/18 10:23 Last Admin: 01/13/18 10:28 Dose: 0.25 mg Lidocaine (Lidocaine 2% Viscous) 15 ml PO ONCE ONE Stop: 01/13/18 10:23 Last Admin: 01/13/18 10:29 Dose: 15 ml Ondansetron HCl (Zofran) 4 mg IVP EDNOW ONE Stop: 01/13/18 10:20 Last Admin: 01/13/18 10:24 Dose: 4 mg Ondansetron HCl (Zofran) 4 mg IVP EDNOW ONE Stop: 01/13/18 11:05 Last Admin: 01/13/18 11:30 Dose: 4 mg Tramadol HCl (Ultram) 50 mg PO EDNOW ONE Stop: 01/13/18 11:05 Last Admin: 01/13/18 11:29 Dose: 50 mg Point of Care Test Results: Chemistry 01/13/18 10:09 POC Troponin I 0.00 ng/mL ng/mL (0.00-0.08) Departure - Departure Disposition: Home, Routine, Self-Care Clinical Impression: Epigastric pain Condition: Good Instructions: Epigastric Pain (ED) Additional Instructions: Take Mylanta prior to meals and at bedtime. Take Prilosec over the counter daily. Follow-up with your primary care physician this week. Return for worsening symptoms or any concerns. Referrals: Altagracia Messer, [Doctor of Osteopathy] - 2-3 days, if not improved
--- NOTE | 2018-01-13 10:22 | CPEKG ---
Heart Rate: 65 RR Interval: 923 P-R Interval: 168 QRSD Interval: 86 QT Interval: 436 QTC Interval: 454 P [place]: 73 QRS [place]: 65 T Wave [place]: 69 EKG Severity - NORMAL ECG - EKG Impression: SINUS RHYTHM Electronically Signed By: Adenike Melton 13-Jan-2018 15:18:24
[2018-01-13 10:26] LABS: PLATELET COUNT 310 10^3/uL (150-400)
[2018-01-13] MEDS ORDERED: traMADol 50 MG TAB PO ONE (11:04)
[2018-01-13 11:36] VITALS: BP 147/95
--- NOTE | 2018-01-13 12:21 | ASDISCHSUM ---
Discharge Information Plan Status:Home with No Needs Medically Cleared to Leave: Discharge Date:01/13/2018 11:49 AM CM D/C Disposition:Home, Routine, Self-Care ADT D/C Disposition:Home, Routine, Self-Care Projected Discharge Date:01/13/2018 11:49 AM Transportation at D/C:Medicaid Transportation Discharge Delay Reason: Follow-Up Date:01/13/2018 11:49 AM Discharge Slot: Final Diagnosis: Placement Information Patient Contact Information Contact Name:ANA Relationship:Daughter Address:[address] City:[place] Alternate Phone: [facility]/Zip Code:[place] [address] Email: Financial Information Financial Class:Medicare Primary Plan Desc:MEDICARE OUTPATIENT Primary Plan Number:[id number] Secondary Plan Desc:MED[place] Secondary Plan Number:[id number] Assessment Information [facility] CM Progress Note CM Note CM Note Notes: Pt presented to the ED via EMS from home for chest pain and nausea. This is the pt's 11th ED visit this year. Please see past CM Reports and notes re:pt's high utilization of the ED and history of pain and anti-anxiety medication abuse. Spoke w/pt and she stated she has been receiving her home meds from her daughter, Valentine Menendez (h:[phone]; c:[phone]) every few days at a time and that since Valentine is on vacation in [facility] at this time, pt states her son-in-law, Christopher, will be coming over tomorrow to provide her the next few days worth of medication. Pt has a history of not taking her meds as prescribed and running out early and then coming to the ED on Sunday or Sunday mornings for additional pain medication or anti-anxiety medications. Pt gave verbal permission to contact Valentine. Spoke w/Valentine and she states that she has been picking up pt's medications once a week from [facility] and then she gives pt a few days' worth every few days. Valentine continues to request that the ED do not provide patient with any pain medication or anti-anxiety medication unless pt has a new acute cause for pain or anxiety. Pt's PCP is Dr Jean-Baptiste at [facility]. Pt's psychiatrist is Dr Briones at [facility]. Pt states she has an appt w/Dr Briones in February. This CM to follow up with Dr Jean-Baptiste's office and [facility] on Sunday re:pt needing follow up appt and discuss other outpatient care options to decrease pt's ED visits. Pt states she receives non-skilled homecare help through [facility]. Pt was provided a Tramadol tab while in the ED today but this CM reiterated that pt will most likely not receive any pain or anti-anxiety medications from the ED in the future as pt is on a care plan and narcotic caution. Pt expresses verbally understanding of this care plan. CM arranged for Medicaid cab to transport patient home. CM available for further assistance if needed. 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 CONF# [id number] Intervention Type:Education Family/Patient Date of Service:01/13/2018 11:54 AM Patient Type:Emergency Room Staff Member:CARROLL Orona Sharon Hours:0.25 Discipline:Welding Machine Operator Electron Beam Severity: Comment:
== END 2018-01-13 11:49 | disposition home or self-care (01) ==
LOC: EDUNIT#
DX: R10.13 Epigastric pain (principal); Z79.01 Long term (current) use of anticoagulants; Z87.891 Personal history of nicotine dependence
CPT/HCPCS: 71046; 93005; 96374; 96376; 99285; J2405; 84484-PO

== ENCOUNTER → 2018-02-22 | Outpatient (CLI) | payer OTHER, MEDICAID | LOC: BMCIMAGING 14:38 | PROVIDERS: ATTEND Family Medicine | DX: S39.92XA Unspecified injury of lower back, initial encounter (principal) ==

== ENCOUNTER → 2018-03-18 | Outpatient (CLI) | payer OTHER, MEDICAID | LOC: FIMAGING 13:14 | PROVIDERS: ATTEND Physician Assistant Medical | DX: G35 Multiple sclerosis (principal) ==

== ENCOUNTER → 2018-04-22 | Outpatient (CLI) | payer OTHER, MEDICAID ==
[~2018-04-22] MED LIST changes: -ACETAMINOPHEN 325 MG TAB PO ONE; -FAMOTIDINE 20 MG TAB PO ONE; +GADOBUTROL 10 ML VIAL IVP ONE; -NS IV ONE; -ROPIVACAINE 0.2% 80 MG, EPINEPHrine 0.2 MG, KETOROLAC TROMETHAMINE 30 MG, morphINE 10 M... IU ONE; -TRANEXAMIC ACID IV ONE; -ceFAZolin 2 GM/DEXTROSE 100 ML IV ONE; -ceFAZolin 2 GM/SWFI 2 GM/20 ML SYR IVP ONE
== END ==
LOC: FIMAGING 12:34
PROVIDERS: ATTEND Internal Medicine Gastroenterology
DX: K86.3 Pseudocyst of pancreas (principal); K86.89 Other specified diseases of pancreas
CPT/HCPCS: 74183; A9585; 82565-PO

== ENCOUNTER 2018-06-05 16:13 | Emergency (ER) | payer OTHER, MEDICAID ==
--- NOTE | 2018-06-05 16:20 | EDPHY ---
H & P Time Seen by Provider: 06/05/18 16:20 HPI/ROS: HPI CHIEF COMPLAINT: Nausea, abdominal pain HISTORY OF PRESENT ILLNESS: 72-year-old female, history of pulmonary embolism, bipolar disorder, melenic stools, anemia, anxiety, chronic pain, recently admitted for pelvic fractures, presents emergency room with abdominal pain. Patient reports she earlier today she developed some mid abdominal pain. Associated nausea but no vomiting. No black tarry stools. No fever. Denies chest pain or shortness of breath. She does states she feels anxious Past Medical History: Bipolar disorder, PE, anemia, melenic stools, reflux, pelvic fractures MS Past Surgical History: Hip surgery Social History: Denies drugs alcohol tobacco. Family History: Noncontributory ROS REVIEW OF SYSTEMS: 10 Systems were reviewed and negative with the exception of the elements mentioned in the history of present illness. Exam Constitutional nontoxic, triage nursing summary reviewed, vital signs reviewed , awake/alert. Eyes normal conjunctivae and sclera, EOMI, PERRLA. HENT normal inspection, atraumatic, moist mucus membranes, no epistaxis, neck supple/ no meningismus, no raccoon eyes. Respiratory clear to auscultation bilaterally, normal breath sounds, no respiratory distress, no wheezing. Cardiovascular rate normal, regular rhythm, no murmur, no edema, distal pulses normal. Gastrointestinal soft, non-tender, no rebound, no guarding, normal bowel sounds, no distension, no pulsatile mass. Genitourinary no CVA tenderness. Musculoskeletal no midline vertebral tenderness, full range of motion, no calf swelling, no tenderness of extremities, no meningismus, good pulses, neurovascularly intact. Skin pink, warm, & dry, no rash, skin atraumatic. Neurologic awake, alert and oriented x 3, AAOx3, moves all 4 extremities equally, motor intact, sensory intact, CN II-XII intact, normal cerebellar, normal vision, normal speech. Psychiatric normal mood/affect. Heme/Lymph/Immune no lymphadenopathy. Differential diagnosis includes but is not limited to and in no particular order : Bowel obstruction, appendicitis, gallbladder disease, diverticulitis, colitis , enteritis, perforated viscus, gastritis, GERD, esophagitis, urinary tract infection, pyelonephritis, kidney stones Medical Decision Making: Plan for this patient IV establishment IV fluid bolus , GI cocktail, IV Ativan for anxiety, gentle IV fluids, basic blood work, EKG, troponin, re-evaluation. Re-evaluation: EKG interpretation by me on record in [facility] system. Impression time of EKG 16 40, sinus rhythm rate of 77, no signs of acute ischemia. Troponin 0.00 2001: Re-examination at this time this patient is resting comfortably no acute distress denies abdominal pain chest pain or shortness of breath. Vital signs are stable. The patient's blood work has been reviewed is unremarkable. The patient's EKG is unchanged from her previous EKGs without any acute ischemia. Troponin negative. Main complaint of abdominal pain. Now resolved. Much improved after GI cocktail. No chest pain. Feels also much better after IV Ativan for anxiety. EKG interpretation by me on record in [facility] system. Impression time of EKG 2012, sinus rhythm rate of 94, no signs of acute ischemia unchanged from previous EKG. Patient here in emergency room with chronic nausea, anxiety and abdominal pain. Her abdomen is soft nontender. She is not vomiting. Feels much better after 1 mg IV Ativan, GI cocktail. She has no chest pain or shortness of breath or EKGs are nonischemic. Troponins x2 negative. Patient is feeling much better after IV fluids IV Ativan and GI cocktail she would like to go home. Return precautions discussed. Return if worsening abdominal pain, fever, vomiting. Source: Patient, EMS - Medical/Surgical History Hx Asthma: No Hx Chronic Respiratory Disease: No Hx Diabetes: No Hx Cardiac Disease: No Hx Renal Disease: No Hx Cirrhosis: No Hx Alcoholism: No Hx HIV/AIDS: No Hx Splenectomy or Spleen Trauma: No Other PMH: Cholecystectomy, MS, Hypothyroid, pulmonary embolism, on Xarelto, left hip replacement (Apr), UTI - Social History Smoking Status: Former smoker Constitutional: Initial Vital Signs Temperature (C) 36.4 C 06/05/18 16:24 Heart Rate 75 06/05/18 16:24 Respiratory Rate 15 06/05/18 16:24 Blood Pressure 153/89 H 06/05/18 16:24 O2 Sat (%) 94 06/05/18 16:24 O2 Delivery Mode Room Air Allergies/Adverse Reactions: No Known Allergies Allergy (Verified 01/31/18 05:40) Home Medications: Medication Instructions Recorded Cholecalciferol Vit D3 [Vitamin D3 3,000 units PO DAILY 11/10/17 (*)] Gabapentin 800 mg PO HS 11/10/17 Glatiramer Acetate [Copaxone] 40 mg SQ MWF 11/10/17 Levothyroxine [Synthroid 88 mcg 88 mcg PO DAILY06 11/10/17 (*)] Lisdexamfetamine Dimesylate 70 mg PO DAILY 11/10/17 [Vyvanse] Multivitamins [Multivitamin (*)] 1 each PO DAILY 11/10/17 OLANZapine [Zyprexa] 10 mg PO HS 11/10/17 Acetaminophen [Tylenol 325mg (*)] 650 mg PO Q4HRS PRN tab 11/13/17 Ferrous Sulfate [Slow Fe 140 MG 140 mg PO DAILY #30 tab.er 11/13/17 (*)] Ondansetron Odt [Zofran Odt] 4 mg PO Q4PRN PRN #10 tab 12/21/17 Temazepam 12/21/17 Cephalexin [Keflex] 500 mg PO Q6H #28 cap 05/08/18 Ondansetron Odt [Zofran Odt] 4 mg PO Q4PRN PRN #10 tab 05/13/18 Promethazine HCl 25 mg PO Q6-8PRN PRN #10 tablet 06/05/18 Medical Decision Making - Data Points Laboratory Results: Laboratory Results 06/05/18 16:47 06/05/18 16:47 06/05/18 06/05/18 06/05/18 20:00 16:51 16:47 WBC RBC Hgb Hct MCV MCH MCHC RDW Plt Count MPV Neut % (Auto) Lymph % (Auto) [place] % (Auto) Eos % (Auto) Baso % (Auto) Nucleat RBC Rel Count Absolute Neuts (auto) Absolute Lymphs (auto) Absolute Monos (auto) Absolute Eos (auto) Absolute Basos (auto) Absolute Nucleated RBC Immature Gran % Immature Gran # Sodium 140 mEq/L mEq/L (135-145) Potassium 4.3 mEq/L mEq/L (3.5-5.2) Chloride 102 mEq/L mEq/L (97-110) Carbon Dioxide 23 mEq/l mEq/l (22-31) Anion Gap 15 mEq/L H mEq/L (6-14) BUN 12 mg/dL mg/dL (7-23) Creatinine 0.9 mg/dL mg/dL (0.6-1.0) Estimated GFR > 60 Glucose 87 mg/dL mg/dL (70-100) Calcium 9.2 mg/dL mg/dL (8.5-10.4) Total Bilirubin 0.4 mg/dL mg/dL (0.1-1.4) Conjugated Bilirubin 0.2 mg/dL mg/dL (0.0-0.5) Unconjugated Bilirubin 0.2 mg/dL mg/dL (0.0-1.1) AST 23 IU/L IU/L (14-46) ALT 18 IU/L IU/L (9-52) Alkaline Phosphatase 117 IU/L IU/L (38-126) POC Troponin I 0.00 ng/mL ng/mL (0.00-0.08) Total Protein 7.3 g/dL g/dL (6.3-8.2) Albumin 4.1 g/dL g/dL (3.5-5.0) Lipase 69 IU/L IU/L (23-300) Urine Color PALE YELLOW Urine Appearance CLEAR Urine pH 7.0 (5.0-7.5) Ur Specific [place] 1.005 (1.002-1.030) Urine Protein NEGATIVE (NEGATIVE) Urine Ketones NEGATIVE (NEGATIVE) Urine Blood NEGATIVE (NEGATIVE) Urine Nitrate NEGATIVE (NEGATIVE) Urine Bilirubin NEGATIVE (NEGATIVE) Urine Urobilinogen NEGATIVE EU EU (0.2-1.0) Ur Leukocyte Esterase NEGATIVE (NEGATIVE) Urine Glucose NEGATIVE (NEGATIVE) 06/05/18 16:47 WBC 11.81 10^3/uL H 10^3/uL (3.80-9.50) RBC 4.60 10^6/uL 10^6/uL (4.18-5.33) Hgb 13.8 g/dL g/dL (12.6-16.3) Hct 41.7 % % (38.0-47.0) MCV 90.7 fL fL (81.5-99.8) MCH 30.0 pg pg (27.9-34.1) MCHC 33.1 g/dL g/dL (32.4-36.7) RDW 13.3 % % (11.5-15.2) Plt Count 395 10^3/uL 10^3/uL (150-400) MPV 8.8 fL fL (8.7-11.7) Neut % (Auto) 79.9 % H % (39.3-74.2) Lymph % (Auto) 14.0 % L % (15.0-45.0) [place] % (Auto) 4.2 % L % (4.5-13.0) Eos % (Auto) 0.8 % % (0.6-7.6) Baso % (Auto) 0.7 % % (0.3-1.7) Nucleat RBC Rel Count 0.0 % % (0.0-0.2) Absolute Neuts (auto) 9.44 10^3/uL H 10^3/uL (1.70-6.50) Absolute Lymphs (auto) 1.65 10^3/uL 10^3/uL (1.00-3.00) Absolute Monos (auto) 0.50 10^3/uL 10^3/uL (0.30-0.80) Absolute Eos (auto) 0.09 10^3/uL 10^3/uL (0.03-0.40) Absolute Basos (auto) 0.08 10^3/uL 10^3/uL (0.02-0.10) Absolute Nucleated RBC 0.00 10^3/uL 10^3/uL (0-0.01) Immature Gran % 0.4 % % (0.0-1.1) Immature Gran # 0.05 10^3/uL 10^3/uL (0.00-0.10) Sodium Potassium Chloride Carbon Dioxide Anion Gap BUN Creatinine Estimated GFR Glucose Calcium Total Bilirubin Conjugated Bilirubin Unconjugated Bilirubin AST ALT Alkaline Phosphatase POC Troponin I Total Protein Albumin Lipase Urine Color Urine Appearance Urine pH Ur Specific [place] Urine Protein Urine Ketones Urine Blood Urine Nitrate Urine Bilirubin Urine Urobilinogen Ur Leukocyte Esterase Urine Glucose Medications Given: Discontinued Medications Al Hydroxide/Mg Hydroxide (Maalox Susp) 30 ml PO ONCE ONE Stop: 06/05/18 16:27 Last Admin: 06/05/18 16:53 Dose: 30 ml Hyoscyamine Sulfate (Levsin, Hyomax-Sl) 0.25 mg PO ONCE ONE Stop: 06/05/18 16:27 Last Admin: 06/05/18 16:53 Dose: 0.25 mg Sodium Chloride (Ns) 1,000 mls @ 0 mls/hr IV EDNOW ONE; Wide Open PRN Reason: Protocol Stop: 06/05/18 16:27 Last Admin: 06/05/18 16:54 Dose: 1,000 mls Lidocaine (Lidocaine 2% Viscous) 15 ml PO ONCE ONE Stop: 06/05/18 16:27 Last Admin: 06/05/18 16:53 Dose: 15 ml Lorazepam (Ativan Injection) 1 mg IVP EDNOW ONE Stop: 06/05/18 16:28 Last Admin: 06/05/18 16:53 Dose: 1 mg Point of Care Test Results: Chemistry 06/05/18 16:51 POC Troponin I 0.00 ng/mL ng/mL (0.00-0.08) Departure - Departure Disposition: [facility] Inpatient Acute Clinical Impression: Nausea and vomiting Qualifiers: Vomiting type: unspecified Vomiting Intractability: non-intractable Qualified Code(s): R11.2 - Nausea with vomiting, unspecified Condition: Good Instructions: Acute Nausea and Vomiting (ED), Acute Abdominal Pain (ED) Additional Instructions: 1. Irvona diet no spicy fatty greasy foods 2. Return if worsening symptoms Referrals: Patient,NotPresent [Unknown] - As per Instructions Prescriptions: Promethazine HCl 25 mg PO Q6-8PRN PRN #10 tablet PRN Reason: Nausea/Vomiting, Use 1st
[2018-06-05] MEDS ORDERED: MAG HYDROX/AL HYDROX/SIMETH 30 ML UDCUP PO ONE (16:26)
[2018-06-05] MEDS ORDERED: LIDOCAINE 2% VISCOUS 15 ML UDCUP PO ONE (16:26)
[2018-06-05] MEDS ORDERED: NS 1,000 ML IV ONE (16:26)
[2018-06-05] MEDS ORDERED: HYOSCYAMINE SULFATE 0.125 MG TAB PO ONE (16:26)
[2018-06-05] MEDS ORDERED: LORazepam 2 MG/ML INJ IVP ONE (16:27)
[2018-06-05 17:06] LABS: PLATELET COUNT 395 10^3/uL (150-400)
[2018-06-05] MEDS ORDERED: PROMETHAZINE HCL 25 MG TAB ONE (20:47)
[2018-06-05] MEDS ORDERED: PROMETHAZINE HCL 25 MG TAB PO ONE (20:49)
[2018-06-05 21:21] VITALS: BP 124/78
--- NOTE | 2018-06-05 22:34 | CPEKG ---
Test Reason : OPEN Blood Pressure : / mmHG Vent. Rate : 077 BPM Atrial Rate : 078 BPM P-R Int : 182 ms QRS Dur : 082 ms QT Int : 411 ms P-R-T Axes : 065 049 053 degrees QTc Int : 466 ms Sinus rhythm Confirmed by Rudy Kim ([id number]) on 06/05/2018 10:33:51 PM Referred By: Confirmed By:Rudy Kim
--- NOTE | 2018-06-05 22:35 | CPEKG ---
Test Reason : OPEN Blood Pressure : / mmHG Vent. Rate : 094 BPM Atrial Rate : 094 BPM P-R Int : 169 ms QRS Dur : 087 ms QT Int : 377 ms P-R-T Axes : 054 050 046 degrees QTc Int : 472 ms Sinus rhythm Confirmed by Rudy Kim ([id number]) on 06/05/2018 10:34:02 PM Referred By: Confirmed By:Rudy Kim
== END 2018-06-05 20:53 | disposition still patient (30) ==
LOC: EDUNIT#
DX: R11.2 Nausea with vomiting, unspecified (principal); E86.9 Volume depletion, unspecified; I26.99 Other pulmonary embolism without acute cor pulmonale; G35 Multiple sclerosis; F31.9 Bipolar disorder, unspecified; D64.9 Anemia, unspecified; K21.9 Gastro-esophageal reflux disease without esophagitis; E03.9 Hypothyroidism, unspecified; Z79.01 Long term (current) use of anticoagulants; Z87.891 Personal history of nicotine dependence; Z96.642 Presence of left artificial hip joint
CPT/HCPCS: 93005; 96361; 96374; 96375; 99284; J2060; 84484-ER

== ENCOUNTER 2018-06-12 15:22 | Emergency (ER) | payer OTHER, MEDICAID ==
--- NOTE | 2018-06-12 15:25 | EDPHY ---
H & P Time Seen by Provider: 06/12/18 15:25 HPI/ROS: CHIEF COMPLAINT: Nausea HISTORY OF PRESENT ILLNESS: Patient was here on June 05 for similar symptoms and was treated successfully GI cocktail and Phenergan. She presents with ongoing symptoms since then with some epigastric discomfort and nausea, burning in her esophagus, vomited once today. Has some chronic diarrhea, unchanged, no melena. No lower abdominal pain and no fevers. No hematemesis or coffee-ground emesis. GI cocktail last time helped her a lot. Patient was seen on May 08 for same abdominal pain with negative CT abdomen pelvis. She was seen again on May 13 and May 14 again on June 05 for the same symptoms. REVIEW OF SYSTEMS: Eye: no change in vision ENT: no sore throat Cardiac: no chest pain or syncope Pulmonary: no cough or SOB Abdomen: HPI Musculoskeletal: no back pain Skin: no rash Neuro: no headache Constitutional: no fever : no urinary symptoms A comprehensive 10 point review of systems is otherwise negative aside from elements mentioned in the history of present illness. PAST MEDICAL HISTORY: History and physical dated 11/10/2017 personally reviewed includes multiple sclerosis, cholecystectomy, anxiety and bipolar disorder, hypothyroid. Social history: Primary care [facility] General Appearance: Alert and conversant, cooperative. Eyes: No scleral icterus. ENT, Mouth: Normal mucous membranes. Respiratory: Normal respiratory effort, breath sounds equal, lungs are clear to auscultation. Cardiovascular: Regular rate and rhythm. Gastrointestinal: Abdomen is soft and non tender. She does not have epigastric or right upper quadrant tenderness. No rebound or guarding. Normal bowel sounds. Neurological: Alert, face symmetric, normal motor and sensory in extremities. Skin: Warm and dry, no rashes. Musculoskeletal: No peripheral edema. Psychiatric: Depressed affect. Emergency Department course/MDM: GI cocktail, oral Phenergan. Persistent symptoms since seen in April, abdominal exam is normal and vital signs are normal except for hypertension noted. Previous visits and previous workup noted. Will focus on treating her symptoms. Patient feels better after treatment, requesting discharge which I think is reasonable. Smoking Status: Former smoker Constitutional: Initial Vital Signs Temperature (C) 36.9 C 06/12/18 15:24 Heart Rate 93 06/12/18 15:24 Respiratory Rate 18 06/12/18 15:24 Blood Pressure 160/103 H 06/12/18 15:24 O2 Sat (%) 94 06/12/18 15:24 O2 Delivery Mode Room Air Allergies/Adverse Reactions: No Known Allergies Allergy (Verified 06/12/18 15:24) Home Medications: Medication Instructions Recorded Cholecalciferol Vit D3 [Vitamin D3 3,000 units PO DAILY 11/10/17 (*)] Gabapentin 800 mg PO HS 11/10/17 Glatiramer Acetate [Copaxone] 40 mg SQ MWF 11/10/17 Levothyroxine [Synthroid 88 mcg 88 mcg PO DAILY06 11/10/17 (*)] Lisdexamfetamine Dimesylate 70 mg PO DAILY 11/10/17 [Vyvanse] Multivitamins [Multivitamin (*)] 1 each PO DAILY 11/10/17 OLANZapine [Zyprexa] 10 mg PO HS 11/10/17 Acetaminophen [Tylenol 325mg (*)] 650 mg PO Q4HRS PRN tab 11/13/17 Ferrous Sulfate [Slow Fe 140 MG] 140 mg PO DAILY #30 tab.er 11/13/17 Ondansetron Odt [Zofran Odt] 4 mg PO Q4PRN PRN #10 tab 12/21/17 Temazepam 12/21/17 Cephalexin [Keflex] 500 mg PO Q6H #28 cap 05/08/18 Ondansetron Odt [Zofran Odt] 4 mg PO Q4PRN PRN #10 tab 05/13/18 Promethazine HCl 25 mg PO Q6-8PRN PRN #10 tablet 06/05/18 Promethazine HCl [Phenergan 25mg 25 mg PO Q6-8PRN PRN #15 tab 06/12/18 (RX)] Medical Decision Making - Data Points Medications Given: Discontinued Medications Al Hydroxide/Mg Hydroxide (Maalox Susp) 30 ml PO EDNOW ONE Stop: 06/12/18 15:28 Last Admin: 06/12/18 15:30 Dose: 30 ml Hyoscyamine Sulfate (Levsin, Hyomax-Sl) 0.125 mg PO EDNOW ONE Stop: 06/12/18 15:27 Last Admin: 06/12/18 15:30 Dose: 0.125 mg Lidocaine (Lidocaine 2% Viscous) 5 ml PO EDNOW ONE Stop: 06/12/18 15:28 Last Admin: 06/12/18 15:30 Dose: 5 ml Promethazine HCl (Phenergan) 25 mg PO EDNOW ONE Stop: 06/12/18 15:30 Last Admin: 06/12/18 15:32 Dose: 25 mg Departure - Departure Disposition: Home, Routine, Self-Care Clinical Impression: Nausea Condition: Good Instructions: Acute Nausea and Vomiting (ED) Additional Instructions: Please take oral Maalox or Mylanta 30 min before meals. Referrals: Leann Rivera MD [Primary Care Provider] - As per Instructions Prescriptions: Promethazine HCl [Phenergan 25mg (RX)] 25 mg PO Q6-8PRN PRN #15 tab PRN Reason: Nausea/Vomiting, Use 2nd
[2018-06-12] MEDS ORDERED: HYOSCYAMINE SULFATE 0.125 MG TAB PO ONE (15:26)
[2018-06-12] MEDS ORDERED: MAG HYDROX/AL HYDROX/SIMETH 30 ML UDCUP PO ONE (15:27)
[2018-06-12] MEDS ORDERED: LIDOCAINE 2% VISCOUS 15 ML UDCUP PO ONE (15:27)
[2018-06-12] MEDS ORDERED: PROMETHAZINE HCL 25 MG TAB PO ONE (15:29)
[2018-06-12 16:31] VITALS: BP 138/88
== END 2018-06-12 16:35 | disposition home or self-care (01) ==
LOC: EDUNIT#
DX: R11.0 Nausea (principal)

== ENCOUNTER 2018-06-18 23:09 | Emergency (ER) | payer OTHER, MEDICAID ==
[2018-06-18] MEDS ORDERED: LIDOCAINE 2% VISCOUS 15 ML UDCUP PO ONE (23:22)
[2018-06-18] MEDS ORDERED: PROMETHAZINE HCL 25 MG/ML INJ IVP ONE (23:22)
[2018-06-18] MEDS ORDERED: MAG HYDROX/AL HYDROX/SIMETH 30 ML UDCUP PO ONE (23:22)
[2018-06-18] MEDS ORDERED: HYOSCYAMINE SULFATE 0.125 MG TAB PO ONE (23:22)
[2018-06-18] MEDS ORDERED: NS 1,000 ML IV ONE (23:22)
--- NOTE | 2018-06-18 23:22 | EDPHY ---
H & P Stated Complaint: ap,more nausea than us,nausea off/on xmonths, to see brian 07/05/18, Time Seen by Provider: 06/18/18 23:21 HPI/ROS: HPI CHIEF COMPLAINT: Nausea times months. HISTORY OF PRESENT ILLNESS: Patient is a 72-year-old female very familiar to myself as a seen her multiple occasions in the emergency room, she has chronic nausea and anxiety. She presents emergency room tonight stating that she has nausea anxiety, vomiting 2 episodes. No blood. No fever. Denies chest pain or shortness of breath. This is very similar previous episodes. She is requesting GI cocktail and IV Phenergan. Past Medical History: Significant medical history of bipolar disorder, anxiety , depression, chronic nausea vomiting, thyroid disease, MS Past Surgical History: No recent surgery Social History: Denies drugs alcohol tobacco lives independently in an apartment. Daughter lives in [place]. Rest of the family on the [facility]. Family History: Noncontributory ROS REVIEW OF SYSTEMS: 10 Systems were reviewed and negative with the exception of the elements mentioned in the history of present illness. Exam Constitutional nontoxic appearing, triage nursing summary reviewed, vital signs reviewed, awake/alert. Eyes normal conjunctivae and sclera, EOMI, PERRLA. HENT normal inspection, atraumatic, moist mucus membranes, no epistaxis, neck supple/ no meningismus, no raccoon eyes. Respiratory clear to auscultation bilaterally, normal breath sounds, no respiratory distress, no wheezing. Cardiovascular rate normal, regular rhythm, no murmur, no edema, distal pulses normal. Gastrointestinal soft, non-tender, no rebound, no guarding, normal bowel sounds, no distension, no pulsatile mass. Genitourinary no CVA tenderness. Musculoskeletal no midline vertebral tenderness, full range of motion, no calf swelling, no tenderness of extremities, no meningismus, good pulses, neurovascularly intact. Skin pink, warm, & dry, no rash, skin atraumatic. Neurologic awake, alert and oriented x 3, AAOx3, moves all 4 extremities equally, motor intact, sensory intact, CN II-XII intact, normal cerebellar, normal vision, normal speech. Psychiatric normal mood/affect. Heme/Lymph/Immune no lymphadenopathy. Differential diagnosis includes but is not limited to and in no particular order : Bowel obstruction, appendicitis, gallbladder disease, diverticulitis, colitis , enteritis, perforated viscus, gastritis, GERD, esophagitis, urinary tract infection, pyelonephritis, kidney stones Medical Decision Making: Plan for this patient IV establishment IV fluid bolus , IV Phenergan for nausea, GI cocktail, as this has worked previously. Re-evaluation: 0212: Patient re-examined at this time is feeling much better after IV Ativan and IV fluids and IV Phenergan. GI cocktail. Abdomen remained soft nontender. She is not vomiting. Vital signs are stable. Blood work is reassuring. I do feel that she has an anxiety component of this at times she gets anxious and lonely at her apartment and comes to the emergency room. I have seen her many times. She denies chest pain or shortness of breath. Nausea has resolved. Return precautions discussed with her return emergency room if there is worsening abdominal pain, fever, vomiting. Source: Patient - Personal History Current Tetanus/Diphtheria Vaccine: No - Medical/Surgical History Hx Asthma: No Hx Chronic Respiratory Disease: No Hx Diabetes: No Hx Cardiac Disease: No Hx Renal Disease: No Hx Cirrhosis: No Hx Alcoholism: No Hx HIV/AIDS: No Hx Splenectomy or Spleen Trauma: No Other PMH: Cholecystectomy, MS, Hypothyroid, pulmonary embolism, left hip replacement (Apr), UTI - Social History Smoking Status: Former smoker Constitutional: Initial Vital Signs Temperature (C) 36.4 C 06/18/18 23:13 Heart Rate 89 06/18/18 23:13 Respiratory Rate 18 06/18/18 23:13 Blood Pressure 166/109 H 06/18/18 23:13 O2 Sat (%) 95 06/18/18 23:13 O2 Delivery Mode Room Air Allergies/Adverse Reactions: No Known Allergies Allergy (Verified 06/18/18 23:25) Home Medications: Medication Instructions Recorded Cholecalciferol Vit D3 [Vitamin D3 3,000 units PO DAILY 11/10/17 (*)] Gabapentin 800 mg PO HS 11/10/17 Glatiramer Acetate [Copaxone] 40 mg SQ MWF 11/10/17 Levothyroxine [Synthroid 88 mcg 88 mcg PO DAILY06 11/10/17 (*)] Lisdexamfetamine Dimesylate 70 mg PO DAILY 11/10/17 [Vyvanse] Multivitamins [Multivitamin (*)] 1 each PO DAILY 11/10/17 OLANZapine [Zyprexa] 10 mg PO HS 11/10/17 Acetaminophen [Tylenol 325mg (*)] 650 mg PO Q4HRS PRN tab 11/13/17 Ferrous Sulfate [Slow Fe 140 MG] 140 mg PO DAILY #30 tab.er 11/13/17 Temazepam 12/21/17 Promethazine HCl 25 mg PO Q6-8PRN PRN #10 tablet 06/05/18 Promethazine HCl [Phenergan 25mg 25 mg PO Q6-8PRN PRN #15 tab 06/12/18 (RX)] Medical Decision Making - Data Points Laboratory Results: Laboratory Results 06/18/18 23:59 06/18/18 23:59 06/18/18 06/18/18 23:59 23:59 WBC 6.67 10^3/uL 10^3/uL (3.80-9.50) RBC 4.83 10^6/uL 10^6/uL (4.18-5.33) Hgb 14.7 g/dL g/dL (12.6-16.3) Hct 44.5 % % (38.0-47.0) MCV 92.1 fL fL (81.5-99.8) MCH 30.4 pg pg (27.9-34.1) MCHC 33.0 g/dL g/dL (32.4-36.7) RDW 13.3 % % (11.5-15.2) Plt Count 302 10^3/uL 10^3/uL (150-400) MPV 9.0 fL fL (8.7-11.7) Neut % (Auto) 57.7 % % (39.3-74.2) Lymph % (Auto) 32.5 % % (15.0-45.0) [place] % (Auto) 8.2 % % (4.5-13.0) Eos % (Auto) 0.9 % % (0.6-7.6) Baso % (Auto) 0.6 % % (0.3-1.7) Nucleat RBC Rel Count 0.0 % % (0.0-0.2) Absolute Neuts (auto) 3.84 10^3/uL 10^3/uL (1.70-6.50) Absolute Lymphs (auto) 2.17 10^3/uL 10^3/uL (1.00-3.00) Absolute Monos (auto) 0.55 10^3/uL 10^3/uL (0.30-0.80) Absolute Eos (auto) 0.06 10^3/uL 10^3/uL (0.03-0.40) Absolute Basos (auto) 0.04 10^3/uL 10^3/uL (0.02-0.10) Absolute Nucleated RBC 0.00 10^3/uL 10^3/uL (0-0.01) Immature Gran % 0.1 % % (0.0-1.1) Immature Gran # 0.01 10^3/uL 10^3/uL (0.00-0.10) Sodium 141 mEq/L mEq/L (135-145) Potassium 4.1 mEq/L mEq/L (3.5-5.2) Chloride 104 mEq/L mEq/L (97-110) Carbon Dioxide 26 mEq/l mEq/l (22-31) Anion Gap 11 mEq/L mEq/L (6-14) BUN 17 mg/dL mg/dL (7-23) Creatinine 1.0 mg/dL mg/dL (0.6-1.0) Estimated GFR 55 Glucose 108 mg/dL H mg/dL (70-100) Calcium 9.4 mg/dL mg/dL (8.5-10.4) Total Bilirubin 0.5 mg/dL mg/dL (0.1-1.4) Conjugated Bilirubin 0.3 mg/dL mg/dL (0.0-0.5) Unconjugated Bilirubin 0.2 mg/dL mg/dL (0.0-1.1) AST 28 IU/L IU/L (14-46) ALT 22 IU/L IU/L (9-52) Alkaline Phosphatase 142 IU/L H IU/L (38-126) Total Protein 7.2 g/dL g/dL (6.3-8.2) Albumin 4.2 g/dL g/dL (3.5-5.0) Lipase 52 IU/L IU/L (23-300) Medications Given: Discontinued Medications Al Hydroxide/Mg Hydroxide (Maalox Susp) 30 ml PO ONCE ONE Stop: 06/18/18 23:23 Last Admin: 06/18/18 23:32 Dose: 30 ml Hyoscyamine Sulfate (Levsin, Hyomax-Sl) 0.25 mg PO ONCE ONE Stop: 06/18/18 23:23 Last Admin: 06/18/18 23:33 Dose: 0.25 mg Sodium Chloride (Ns) 1,000 mls @ 0 mls/hr IV EDNOW ONE; Wide Open PRN Reason: Protocol Stop: 06/18/18 23:23 Last Admin: 06/18/18 23:35 Dose: 1,000 mls Lidocaine (Lidocaine 2% Viscous) 15 ml PO ONCE ONE Stop: 06/18/18 23:23 Last Admin: 06/18/18 23:33 Dose: 15 ml Lorazepam (Ativan Injection) 0.5 mg IVP EDNOW ONE Stop: 06/19/18 01:38 Last Admin: 06/19/18 01:42 Dose: 0.5 mg Promethazine HCl (Phenergan) 12.5 mg IVP EDNOW ONE Stop: 06/18/18 23:23 Last Admin: 06/18/18 23:36 Dose: 12.5 mg Departure - Departure Disposition: Home, Routine, Self-Care Clinical Impression: Anxiety Nausea and vomiting Qualifiers: Vomiting type: unspecified Vomiting Intractability: non-intractable Qualified Code(s): R11.2 - Nausea with vomiting, unspecified Condition: Good Instructions: Acute Nausea and Vomiting (ED), Anxiety (ED) Referrals: NONE *PRIMARY CARE P,. [Primary Care Provider] - As per Instructions
[2018-06-19 00:15] LABS: PLATELET COUNT 302 10^3/uL (150-400)
[2018-06-19] MEDS ORDERED: LORazepam 2 MG/ML INJ IVP ONE (01:37)
[2018-06-19] MEDS ORDERED: ONDANSETRON 4MG PREPACK#2 BTL TAKEHOME ONE (02:41)
[2018-06-19 02:49] VITALS: BP 139/100
== END 2018-06-19 02:49 | disposition home or self-care (01) ==
LOC: EDUNIT#
DX: R11.2 Nausea with vomiting, unspecified (principal); F41.9 Anxiety disorder, unspecified; E86.9 Volume depletion, unspecified
CPT/HCPCS: 96361; 96374; 96375; 99284; J2060; J2550

== ENCOUNTER → 2018-06-24 | Outpatient (CLI) | payer OTHER, MEDICAID | LOC: BMCIMAGING 12:56 | PROVIDERS: ATTEND Orthopaedic Surgery | DX: M95.5 Acquired deformity of pelvis (principal); Z98.890 Other specified postprocedural states; Z96.642 Presence of left artificial hip joint ==

== ENCOUNTER 2018-07-03 18:08 | Emergency (ER) | payer OTHER, MEDICAID ==
[2018-07-03 18:21] VITALS: BP 144/97
[2018-07-03] MEDS ORDERED: LORazepam 2 MG/ML INJ IVP ONE (18:21)
[2018-07-03] MEDS ORDERED: HYOSCYAMINE SULFATE 0.125 MG TAB PO ONE (18:22)
[2018-07-03] MEDS ORDERED: PROMETHAZINE HCL 25 MG/ML INJ IVP ONE (18:22)
[2018-07-03] MEDS ORDERED: LIDOCAINE 2% VISCOUS 15 ML UDCUP PO ONE (18:22)
[2018-07-03] MEDS ORDERED: MAG HYDROX/AL HYDROX/SIMETH 30 ML UDCUP PO ONE (18:22)
--- NOTE | 2018-07-03 18:34 | EDPHY ---
H & P Stated Complaint: GERD - Personal History Current Tetanus Diphtheria and Acellular Pertussis (TDAP): No - Medical/Surgical History Hx Asthma: No Hx Chronic Respiratory Disease: No Hx Diabetes: No Hx Cardiac Disease: No Hx Renal Disease: No Hx Cirrhosis: No Hx Alcoholism: No Hx HIV/AIDS: No Hx Splenectomy or Spleen Trauma: No Other PMH: GERD, Cholecystectomy, MS, Hypothyroid, pulmonary embolism, left hip replacement (Apr), UTI - Social History Smoking Status: Former smoker <Abiodun Multani - Last Filed: 07/03/18 19:52> <Jason Hughes - Last Filed: 07/03/18 20:18> Time Seen by Provider: 07/03/18 18:14 HPI/ROS: CHIEF COMPLAINT: Chest pain, nausea HISTORY OF PRESENT ILLNESS: 72-year-old female familiar to emergency department staff and myself, called 911 secondary to continued complaints of nausea, chest pain since last evening. No dyspnea. No back pain. No syncope or near syncope. She has been evaluated previously in the ER for similar. She is currently on a regimen of Zantac with no PPI. She has her 1st appointment with [facility] the [facility] in 2 days. Denies: Syncope, near syncope, headache, dyspnea, palpitations, peripheral edema, immobilization, recent surgery, vasculopathy. REVIEW OF SYSTEMS: 10 systems reviewed and negative with the exception of the elements mentioned in the history of present illness PAST MEDICAL & SURGICAL HISTORY: Bipolar disorder. Anxiety. Depression. There disease. MS. SOCIAL HISTORY:Denies alcohol or drug use. No tobacco use. FAMILY HISTORY: No pertinent family history PHYSICAL EXAM (Prior to examination, patient consented to physical exam, hands were washed and my usual and customary physical exam procedures followed) 1) GENERAL: Well-developed, well-nourished, alert and oriented. Appears anxious. 2) HEAD: Normocephalic, atraumatic 3) HEENT: Pupils equal, round, reactive to light bilaterally. Sclera anicteric. Nasopharynx, oropharynx, clear, no lesions. Moist Mucous membranes. 4) NECK: Full range of motion, no meningeal signs. 5) LUNGS: Clear auscultation bilaterally, no wheezes, no rhonchi, no retractions. 6) HEART: Regular rate and rhythm, no murmur, no heave, no gallop. 7) ABDOMEN: No guarding, no rebound, no focal tenderness, negative McBurney's, negative Barclay's, negative Rovsing's, negative peritoneal sign, 8) MUSCULOSKELETAL: Moving all extremities, no focal areas of tenderness, no obvious trauma. No peripheral edema or discoloration. 9) BACK: No CVA tenderness, no midline vertebral tenderness, no fluctuance, no step-off, no obvious trauma, no visual or palpable abnormality. 10) SKIN: No rash, no petechiae. 11) Psychiatric: Patient is oriented X 3, there is no agitation. DIFFERENTIAL DIAGNOSIS: In no particular order, including but not limited to biliary colic, cardiac etiology, pulmonary etiology, cholecystitis, acute anxiety, peptic ulcer disease, pancreatitis, and gastroenteritis. This is a partial list of diagnoses considered. These considerations are based on history , physical exam, past history and reassessment. (Abiodun Multani) Constitutional: Initial Vital Signs Temperature (C) 36.5 C 07/03/18 18: Heart Rate 93 07/03/18 18: Respiratory Rate 16 07/03/18 18: Blood Pressure 144/97 H 07/03/18 18: O2 Sat (%) 95 07/03/18 18: O2 Delivery Mode Room Air O2 (L/minute) 3 Allergies/Adverse Reactions: No Known Allergies Allergy (Verified 06/18/18 23:25) Home Medications: Medication Instructions Recorded Cholecalciferol Vit D3 [Vitamin D3 3,000 units PO DAILY 11/10/17 (*)] Gabapentin 800 mg PO HS 11/10/17 Glatiramer Acetate [Copaxone] 40 mg SQ MWF 11/10/17 Levothyroxine [Synthroid 88 mcg 88 mcg PO DAILY06 11/10/17 (*)] Lisdexamfetamine Dimesylate 70 mg PO DAILY 11/10/17 [Vyvanse] Multivitamins [Multivitamin (*)] 1 each PO DAILY 11/10/17 OLANZapine [Zyprexa] 10 mg PO HS 11/10/17 Acetaminophen [Tylenol 325mg (*)] 650 mg PO Q4HRS PRN tab 11/13/17 Ferrous Sulfate [Slow Fe 140 MG] 140 mg PO DAILY #30 tab.er 11/13/17 Temazepam 12/21/17 Promethazine HCl 25 mg PO Q6-8PRN PRN #10 tablet 06/05/18 Promethazine HCl [Phenergan 25mg 25 mg PO Q6-8PRN PRN #15 tab 06/12/18 (RX)] Pantoprazole Sodium [Protonix 40mg 40 mg PO DAILY #30 tab 07/03/18 (RX)] Promethazine HCl [Phenergan] 25 mg PO Q6 #10 tab 07/03/18 Medical Decision Making <Abiodun Multani - Last Filed: 07/03/18 19:52> - Diagnostics Imaging: I viewed and interpreted images myself <Jason Hughes - Last Filed: 07/03/18 20:18> - Diagnostics Imaging Results: Imaging Impressions Chest X-Ray 07/03/18 18:20 Impression: 1. No acute findings in the chest. 2. Grossly stable mild interstitial prominence. Images reviewed myself (Abiodun Multani) ED Course/Re-evaluation: Old medical records have been reviewed. At 7:40 p.m. I discussed the case with secondary supervising physician Dr. Jason Hughes in the ER. Doubt cardiac etiology. She is feeling "100% better" after GI cocktail and Phenergan. She would like to be discharged. Today is Sunday. She has her 1st appointment with [facility] the [facility] on Sunday. Recommend she keep this appointment. Initiating PPI therapy as well at this time. I do not think that hospitalization indicated. She feels comfortable being discharged. Given my usual and customary discharge precautions and instructions. (Abiodun Multani) Other Provider: PHYSICIAN DOCUMENTATION: The patient was evaluated and managed by the Physician Flange Turner and myself. I have reviewed the chart and agree with the findings and plan of care as documented. In addition, I examined the patient myself at 1925. History confirmed as nausea and severe anxiety. Physical findings as follows: Abdomen soft and nontender. Moderate anxiety. 12-lead EKG interpreted by me; official reading is in computer system. My interpretation is sinus rhythm without ischemic changes. I am the secondary supervising physician. (Jason Hughes) - Data Points Laboratory Results: Laboratory Results 07/03/18 18:57 07/03/18 18:57 07/03/18 07/03/18 18:57 18:57 WBC 6.58 10^3/uL 10^3/uL (3.80-9.50) RBC 5.03 10^6/uL 10^6/uL (4.18-5.33) Hgb 15.1 g/dL g/dL (12.6-16.3) Hct 45.9 % % (38.0-47.0) MCV 91.3 fL fL (81.5-99.8) MCH 30.0 pg pg (27.9-34.1) MCHC 32.9 g/dL g/dL (32.4-36.7) RDW 13.3 % % (11.5-15.2) Plt Count 292 10^3/uL 10^3/uL (150-400) MPV 10.0 fL fL (8.7-11.7) Neut % (Auto) 64.1 % % (39.3-74.2) Lymph % (Auto) 24.8 % % (15.0-45.0) [place] % (Auto) 8.4 % % (4.5-13.0) Eos % (Auto) 1.5 % % (0.6-7.6) Baso % (Auto) 0.9 % % (0.3-1.7) Nucleat RBC Rel Count 0.0 % % (0.0-0.2) Absolute Neuts (auto) 4.22 10^3/uL 10^3/uL (1.70-6.50) Absolute Lymphs (auto) 1.63 10^3/uL 10^3/uL (1.00-3.00) Absolute Monos (auto) 0.55 10^3/uL 10^3/uL (0.30-0.80) Absolute Eos (auto) 0.10 10^3/uL 10^3/uL (0.03-0.40) Absolute Basos (auto) 0.06 10^3/uL 10^3/uL (0.02-0.10) Absolute Nucleated RBC 0.00 10^3/uL 10^3/uL (0-0.01) Immature Gran % 0.3 % % (0.0-1.1) Immature Gran # 0.02 10^3/uL 10^3/uL (0.00-0.10) Sodium 140 mEq/L mEq/L (135-145) Potassium 4.3 mEq/L mEq/L (3.5-5.2) Chloride 99 mEq/L mEq/L (97-110) Carbon Dioxide 30 mEq/l mEq/l (22-31) Anion Gap 11 mEq/L mEq/L (6-14) BUN 19 mg/dL mg/dL (7-23) Creatinine 1.0 mg/dL mg/dL (0.6-1.0) Estimated GFR 55 Glucose 77 mg/dL mg/dL (70-100) Calcium 9.2 mg/dL mg/dL (8.5-10.4) Total Bilirubin 0.4 mg/dL mg/dL (0.1-1.4) Conjugated Bilirubin 0.4 mg/dL mg/dL (0.0-0.5) Unconjugated Bilirubin 0.0 mg/dL mg/dL (0.0-1.1) AST 35 IU/L IU/L (14-46) ALT 21 IU/L IU/L (9-52) Alkaline Phosphatase 130 IU/L H IU/L (38-126) Total Protein 7.6 g/dL g/dL (6.3-8.2) Albumin 4.3 g/dL g/dL (3.5-5.0) Lipase 46 IU/L IU/L (23-300) Medications Given: Discontinued Medications Al Hydroxide/Mg Hydroxide (Maalox Susp) 30 ml PO ONCE ONE Stop: 07/03/18 18:23 Last Admin: 07/03/18 18:32 Dose: 30 ml Hyoscyamine Sulfate (Levsin, Hyomax-Sl) 0.25 mg PO ONCE ONE Stop: 07/03/18 18:23 Last Admin: 07/03/18 18:32 Dose: 0.25 mg Lidocaine (Lidocaine 2% Viscous) 15 ml PO ONCE ONE Stop: 07/03/18 18:23 Last Admin: 07/03/18 18:32 Dose: 15 ml Lorazepam (Ativan Injection) 0.5 mg IVP EDNOW ONE Stop: 07/03/18 18:22 Last Admin: 07/03/18 18:40 Dose: 0.5 mg Promethazine HCl (Phenergan) 12.5 mg IVP EDNOW ONE Stop: 07/03/18 18:23 Last Admin: 07/03/18 18:34 Dose: 12.5 mg Departure <Abiodun Multani - Last Filed: 07/03/18 19:52> <Jason Hughes - Last Filed: 07/03/18 20:18> - Departure Disposition: Home, Routine, Self-Care Clinical Impression: Nausea, Anxiety Condition: Good Instructions: Acute Nausea and Vomiting (ED) Additional Instructions: Seek medical attention if you develop chest pain, if you develop new or worsening shortness of breath, or any other symptoms that concern you. Referrals: Shakeel Simpson MD [Medical Doctor] - 07/05/18 Prescriptions: Pantoprazole Sodium [Protonix 40mg (RX)] 40 mg PO DAILY #30 tab Promethazine HCl [Phenergan] 25 mg PO Q6 #10 tab
[2018-07-03 19:02] LABS: PLATELET COUNT 292 10^3/uL (150-400)
--- NOTE | 2018-07-03 19:25 | CPEKG ---
Test Reason : OPEN Blood Pressure : / mmHG Vent. Rate : 098 BPM Atrial Rate : 098 BPM P-R Int : 172 ms QRS Dur : 091 ms QT Int : 379 ms P-R-T Axes : 077 074 074 degrees QTc Int : 484 ms Sinus rhythm Right atrial enlargement Confirmed by Jason Hughes ([id number]) on 07/03/2018 7:25:04 PM Referred By: Confirmed By:Jason Hughes
== END 2018-07-03 20:11 | disposition home or self-care (01) ==
LOC: EDUNIT#
DX: R11.2 Nausea with vomiting, unspecified (principal); F41.9 Anxiety disorder, unspecified; Z87.891 Personal history of nicotine dependence
CPT/HCPCS: 71046; 93005; 96374; 96375; 99285; J2060; J2550

== ENCOUNTER 2018-07-09 18:50 | Emergency (ER) | payer OTHER, MEDICAID ==
[2018-07-09] MEDS ORDERED: NS 1,000 ML IV ONE (19:01)
[2018-07-09] MEDS ORDERED: PROMETHAZINE HCL 25 MG/ML INJ IVP ONE (19:01)
[2018-07-09] MEDS ORDERED: LORazepam 2 MG/ML INJ IVP ONE ×2 (19:08→20:25)
[2018-07-09] MEDS ORDERED: HYOSCYAMINE SULFATE 0.125 MG TAB PO ONE (19:08)
[2018-07-09] MEDS ORDERED: LIDOCAINE 2% VISCOUS 15 ML UDCUP PO ONE (19:08)
[2018-07-09] MEDS ORDERED: MAG HYDROX/AL HYDROX/SIMETH 30 ML UDCUP PO ONE (19:08)
--- NOTE | 2018-07-09 19:12 | EDPHY ---
H & P Stated Complaint: nausea and vomiting Time Seen by Provider: 07/09/18 19:11 HPI/ROS: CHIEF COMPLAINT: Nausea and vomiting HISTORY OF PRESENT ILLNESS: 72-year-old female s/p cholecystectomy presents with nausea and vomiting. Onset of vomiting 2 days ago. Able to tolerate some oral fluids, but no food. Vomiting stopped earlier today, but continues to feel quite nauseated. No relief with Zofran ODT. Multiple prior ED visits for similar symptoms, last seen here on 07/03/2018. Given Phenergan and Ativan IV with relief and nausea. Requests same medications today. Seen by GI last week and placed on Prilosec. Plan is for endoscopy and colonoscopy. REVIEW OF SYSTEMS: complete 10 point ROS reviewed and is negative except for the noted elements in the HPI Source: Patient - Personal History Current Tetanus/Diphtheria Vaccine: Yes Current Tetanus Diphtheria and Acellular Pertussis (TDAP): Yes - Medical/Surgical History Hx Asthma: No Hx Chronic Respiratory Disease: No Hx Diabetes: No Hx Cardiac Disease: No Hx Renal Disease: No Hx Cirrhosis: No Hx Alcoholism: No Hx HIV/AIDS: No Hx Splenectomy or Spleen Trauma: No Other PMH: GERD, Cholecystectomy, MS, Hypothyroid, pulmonary embolism, left hip replacement (Apr), UTI - Social History Smoking Status: Former smoker Alcohol Use: Rarely Drug Use: None Additional Social History: Lives alone in own home - Physical Exam Exam: General Appearance: Alert, pleasant Eyes: Pupils equal and round, no conjunctival pallor or injection ENT, Mouth: Mucous membranes moist Neck: Normal inspection Respiratory: Lungs are clear to auscultation Cardiovascular: Regular rate and rhythm Gastrointestinal: Abdomen is soft, mild right upper quadrant tenderness Neurological: A&O, nonfocal exam Skin: Warm and dry Extremities: Normal inspection Psychiatric: Mood and affect normal Constitutional: Initial Vital Signs Temperature (C) 36.8 C 07/09/18 18:50 Heart Rate 77 07/09/18 18:50 Respiratory Rate 16 07/09/18 18:50 Blood Pressure 138/93 H 07/09/18 18:50 O2 Sat (%) 95 07/09/18 18:50 O2 Delivery Mode Room Air Allergies/Adverse Reactions: No Known Allergies Allergy (Verified 06/18/18 23:25) Home Medications: Medication Instructions Recorded Cholecalciferol Vit D3 [Vitamin D3 3,000 units PO DAILY 11/10/17 (*)] Gabapentin 800 mg PO HS 11/10/17 Glatiramer Acetate [Copaxone] 40 mg SQ MWF 11/10/17 Levothyroxine [Synthroid 88 mcg 88 mcg PO DAILY06 11/10/17 (*)] Lisdexamfetamine Dimesylate 70 mg PO DAILY 11/10/17 [Vyvanse] Multivitamins [Multivitamin (*)] 1 each PO DAILY 11/10/17 OLANZapine [Zyprexa] 10 mg PO HS 11/10/17 Acetaminophen [Tylenol 325mg (*)] 650 mg PO Q4HRS PRN tab 11/13/17 Ferrous Sulfate [Slow Fe 140 MG] 140 mg PO DAILY #30 tab.er 11/13/17 Temazepam 12/21/17 Promethazine HCl 25 mg PO Q6-8PRN PRN #10 tablet 06/05/18 Promethazine HCl [Phenergan 25mg 25 mg PO Q6-8PRN PRN #15 tab 06/12/18 (RX)] Pantoprazole Sodium [Protonix 40mg 40 mg PO DAILY #30 tab 07/03/18 (RX)] Promethazine HCl [Phenergan] 25 mg PO Q6 #10 tab 07/03/18 Promethazine HCl [Phenergan Rectal] 25 mg NM Q6 PRN #10 suppr 07/09/18 Medical Decision Making ED Course/Re-evaluation: This patient presents with recurrent nausea and vomiting. Clinically, she is not significantly dehydrated. IV normal saline 1 L, Phenergan 12.5 mg IV and Ativan 0.5 mg IV given. 2030: c/o persistent nausea. Ativan 0.5 mg IV given. 2100: feels much better, wants to go home. Nausea has resolved. Abd soft, NT. Strongly encouraged to f/u GI. Differential Diagnosis: Differential diagnosis includes though it is not limited to appendicitis, cholecystitis, diverticulitis, pyelonephritis, bowel perforation, small bowel obstruction. - Data Points Laboratory Results: Laboratory Results 07/09/18 19:06 07/09/18 19:06 Medications Given: Discontinued Medications Al Hydroxide/Mg Hydroxide (Maalox Susp) 30 ml PO ONCE ONE Stop: 07/09/18 19:09 Last Admin: 07/09/18 19:20 Dose: 30 ml Hyoscyamine Sulfate (Levsin, Hyomax-Sl) 0.25 mg PO ONCE ONE Stop: 07/09/18 19:09 Last Admin: 07/09/18 19:20 Dose: 0.25 mg Sodium Chloride (Ns) 1,000 mls @ 0 mls/hr IV EDNOW ONE; Wide Open PRN Reason: Protocol Stop: 07/09/18 19:02 Last Admin: 07/09/18 19:19 Dose: 1,000 mls Lidocaine (Lidocaine 2% Viscous) 15 ml PO ONCE ONE Stop: 07/09/18 19:09 Last Admin: 07/09/18 19:20 Dose: 15 ml Lorazepam (Ativan Injection) 0.5 mg IVP EDNOW ONE Stop: 07/09/18 19:09 Last Admin: 07/09/18 19:20 Dose: 0.5 mg Lorazepam (Ativan Injection) 0.5 mg IVP EDNOW ONE Stop: 07/09/18 20:26 Last Admin: 07/09/18 21:00 Dose: 0.5 mg Promethazine HCl (Phenergan) 12.5 mg IVP EDNOW ONE Stop: 07/09/18 19:02 Last Admin: 07/09/18 19:20 Dose: 12.5 mg Promethazine HCl (Phenergan Rectal) 25 mg NM EDNOW ONE Stop: 07/09/18 21:34 Last Admin: 07/09/18 21:36 Dose: 25 mg Departure - Departure Disposition: Home, Routine, Self-Care Clinical Impression: Vomiting Qualifiers: Vomiting type: unspecified Vomiting Intractability: non-intractable Nausea presence: with nausea Qualified Code(s): R11.2 - Nausea with vomiting, unspecified Condition: Good Instructions: Acute Nausea and Vomiting (ED) Additional Instructions: 1. Clear liquids for 24 hours. 2. Advance diet as tolerated. I suggest the BRAT diet to start: bananas, rice, applesauce and toast. 3. Return for worsening symptoms, persistent vomiting, abdominal pain, any concerns. Call tomorrow to make your appointment with GI for endoscopy and colonoscopy. Referrals: Leann Rivera MD [Primary Care Provider] - As per Instructions Prescriptions: Promethazine HCl [Phenergan Rectal] 25 mg NM Q6 PRN #10 suppr PRN Reason: nausea
[2018-07-09 19:13] LABS: PLATELET COUNT 317 10^3/uL (150-400)
[2018-07-09] MEDS ORDERED: PROMETHAZINE HCL 25 MG SUPPR PR ONE (21:33)
[2018-07-09 21:37] VITALS: BP 145/102
== END 2018-07-09 21:37 | disposition home or self-care (01) ==
LOC: EDUNIT#
DX: R11.2 Nausea with vomiting, unspecified (principal); E86.9 Volume depletion, unspecified; G35 Multiple sclerosis; Z90.49 Acquired absence of other specified parts of digestive tract
CPT/HCPCS: 96361; 96374; 96375; 96376; 99284; J2060; J2550

== ENCOUNTER 2018-07-10 18:37 | Inpatient (IN) | payer OTHER, MEDICAID ==
[2018-07-10] MEDS ORDERED: PROMETHAZINE HCL 25 MG/ML INJ IVP ONE (19:22)
[2018-07-10] MEDS ORDERED: MAG HYDROX/AL HYDROX/SIMETH 30 ML UDCUP PO ONE (19:32)
[2018-07-10] MEDS ORDERED: LORazepam 2 MG/ML INJ IVP ONE (19:32)
[2018-07-10] MEDS ORDERED: HYOSCYAMINE SULFATE 0.125 MG TAB PO ONE (19:32)
[2018-07-10] MEDS ORDERED: LIDOCAINE 2% VISCOUS 15 ML UDCUP PO ONE (19:32)
[2018-07-10] MEDS ORDERED: PANTOPRAZOLE SODIUM 40 MG VIAL IVP ONE (19:33)
--- NOTE | 2018-07-10 19:38 | EDPHY ---
H & P Stated Complaint: via EMS for N/V/RUQ pain, seen here multiple times recently Time Seen by Provider: 07/10/18 18:49 HPI/ROS: CHIEF COMPLAINT: Persistent nausea and vomiting HISTORY OF PRESENT ILLNESS: 72-year-old female presents with persistent nausea and vomiting. She was seen in this emergency department yesterday by me for nausea and vomiting. Laboratory studies were unremarkable and her symptoms resolved after Phenergan 12.5 mg IV, Ativan 1 mg IV and a GI cocktail. Recurrent vomiting starting this morning. Did not try any medications at home. Feels that the vomiting has now resolved, but continues to have nausea. Requests the same medications she received yesterday. REVIEW OF SYSTEMS: complete 10 point ROS reviewed and is negative except for the noted elements in the HPI - Personal History Current Tetanus/Diphtheria Vaccine: No Current Tetanus Diphtheria and Acellular Pertussis (TDAP): No Tetanus Vaccine Date: >10 - Medical/Surgical History Hx Asthma: No Hx Chronic Respiratory Disease: No Hx Diabetes: No Hx Cardiac Disease: No Hx Renal Disease: No Hx Cirrhosis: No Hx Alcoholism: No Hx HIV/AIDS: No Hx Splenectomy or Spleen Trauma: No Other PMH: GERD, Cholecystectomy, MS, Hypothyroid, pulmonary embolism, left hip replacement (Apr), UTI - Social History Smoking Status: Former smoker - Physical Exam Exam: General Appearance: Alert, pleasant Eyes: Pupils equal and round, no conjunctival pallor ENT, Mouth: Mucous membranes moist Neck: Normal inspection Respiratory: Lungs are clear to auscultation Cardiovascular: Regular rate and rhythm Gastrointestinal: Abdomen is soft, mild epigastric tenderness Neurological: A&O, nonfocal, normal gait Skin: Warm and dry, no rash Extremities: Normal inspection Psychiatric: Mood and affect normal Constitutional: Initial Vital Signs Temperature (C) 36.7 C 07/10/18 19:05 Heart Rate 93 07/10/18 19:05 Respiratory Rate 20 07/10/18 19:05 Blood Pressure 139/93 H 07/10/18 19:05 O2 Sat (%) 94 07/10/18 19:05 O2 Delivery Mode Nasal Cannula O2 (L/minute) 2 Allergies/Adverse Reactions: No Known Allergies Allergy (Verified 07/10/18 19:04) Home Medications: Medication Instructions Recorded Cholecalciferol Vit D3 [Vitamin D3 3,000 units PO DAILY 11/10/17 (*)] Gabapentin 800 mg PO HS 11/10/17 Glatiramer Acetate [Copaxone] 40 mg SQ MWF 11/10/17 Levothyroxine [Synthroid 88 mcg 88 mcg PO DAILY06 11/10/17 (*)] Lisdexamfetamine Dimesylate 70 mg PO DAILY 11/10/17 [Vyvanse] OLANZapine [Zyprexa] 10 mg PO HS 11/10/17 Acetaminophen [Tylenol 325mg (*)] 650 mg PO Q4HRS PRN tab 11/13/17 Temazepam 30 mg PO HS 12/21/17 Omeprazole 20 mg PO DAILY 07/10/18 Ondansetron Odt [Zofran Odt 4 mg 4 mg PO Q4 PRN 07/10/18 (*)] Ranitidine HCl [Zantac] 300 mg PO BID PRN 07/10/18 Medical Decision Making ED Course/Re-evaluation: This patient presents with persistent nausea and vomiting. IV normal saline 1 L , Phenergan, Ativan, Protonix IV given. A GI cocktail was given at patient request. I advised admission on patient arrival because of multiple ED visits recently for similar symptoms. She refuses admission. Will reassess. 2030: continues to vomit, abd exam remains benign, agrees to admission. I do not feel that abdominal imaging is indicated. The hospitalist service was consulted for admission. Dr. Ramesh was consulted and will see the patient tomorrow. Differential Diagnosis: Differential diagnosis includes though it is not limited to appendicitis, cholecystitis, diverticulitis, pyelonephritis, bowel perforation, small bowel obstruction. - Data Points Laboratory Results: Laboratory Results 07/11/18 04:05 07/11/18 04:05 Medications Given: Cholecalciferol (Vitamin D) 3,000 units PO DAILY KAITLYNN Stop: 01/07/19 08:59 Last Admin: 07/11/18 11:40 Dose: Not Given Gabapentin (Neurontin) 800 mg PO HS [facility] Stop: 01/06/19 22:14 Last Admin: 07/11/18 21:16 Dose: 800 mg Lactated Ringer's (Lr) 1,000 mls @ 0 mls/hr IV CONT KAITLYNN PRN Reason: Per Protocol Stop: 01/07/19 11:59 Last Admin: 07/11/18 12:15 Dose: 1,000 mls Levothyroxine Sodium (Synthroid) 88 mcg PO DAILY06 KAITLYNN Stop: 01/07/19 05:59 Last Admin: 07/11/18 05:37 Dose: 88 mcg Miscellaneous Medication (Lisdexamfetamine Dimesylate [Vyvanse]) 70 mg PO DAILY KAITLYNN Stop: 01/07/19 08:59 Last Admin: 07/11/18 13:49 Dose: 70 mg Olanzapine (Olanzapine) 10 mg PO HS [facility] Stop: 01/06/19 21:59 Last Admin: 07/11/18 21:17 Dose: 10 mg Ondansetron HCl (Zofran) 4 mg IVP Q4HRS PRN PRN Reason: Nausea/Vomiting, Can't Take PO Stop: 01/06/19 22:01 Last Admin: 07/11/18 13:07 Dose: 4 mg Pantoprazole Sodium (Protonix) 40 mg PO BID KAITLYNN Stop: 01/07/19 20:59 Last Admin: 07/11/18 21:17 Dose: 40 mg Promethazine HCl (Phenergan) 6.25 - 12.5 mg IVP Q6HRS PRN PRN Reason: Nausea/Vomiting, Use 2nd Stop: 01/06/19 22:01 Last Admin: 07/11/18 11:44 Dose: 12.5 mg Sucralfate (Carafate) 1 gm PO ACHS KAITLYNN Stop: 01/07/19 17:29 Last Admin: 07/11/18 21:17 Dose: 1 gm Temazepam (Restoril) 30 mg PO HS [facility] Stop: 01/06/19 22:14 Last Admin: 07/11/18 21:16 Dose: 30 mg Discontinued Medications Al Hydroxide/Mg Hydroxide (Maalox Susp) 30 ml PO ONCE ONE Stop: 07/10/18 19:33 Last Admin: 07/10/18 19:53 Dose: 30 ml Hyoscyamine Sulfate (Levsin, Hyomax-Sl) 0.25 mg PO ONCE ONE Stop: 07/10/18 19:33 Last Admin: 07/10/18 19:54 Dose: 0.25 mg Sodium Chloride (Ns) 1,000 mls @ 150 mls/hr IV CONT KAITLYNN Stop: 01/06/19 22:14 Last Admin: 07/11/18 07:53 Dose: 1,000 mls Lidocaine (Lidocaine 2% Viscous) 15 ml PO ONCE ONE Stop: 07/10/18 19:33 Last Admin: 07/10/18 19:53 Dose: 15 ml Lorazepam (Ativan Injection) 1 mg IVP EDNOW ONE Stop: 07/10/18 19:33 Last Admin: 07/10/18 19:53 Dose: 1 mg Metoclopramide HCl (Reglan Injection) 10 mg IVP EDNOW ONE Stop: 07/10/18 20:57 Last Admin: 07/10/18 21:01 Dose: 10 mg Pantoprazole Sodium (Protonix) 40 mg IVP EDNOW ONE Stop: 07/10/18 19:34 Last Admin: 07/10/18 19:54 Dose: 40 mg Pantoprazole Sodium (Protonix) 40 mg PO DAILY KAITLYNN Stop: 01/07/19 08:59 Last Admin: 07/11/18 11:40 Dose: Not Given Promethazine HCl (Phenergan) 12.5 mg IVP EDNOW ONE Stop: 07/10/18 19:23 Last Admin: 07/10/18 19:53 Dose: 12.5 mg Departure - Departure Disposition: [facility] Inpatient Acute Clinical Impression: Vomiting Qualifiers: Vomiting type: unspecified Vomiting Intractability: intractable Nausea presence : with nausea Qualified Code(s): R11.2 - Nausea with vomiting, unspecified Condition: Fair
[2018-07-10 19:50] LABS: PLATELET COUNT 331 10^3/uL (150-400)
[2018-07-10] MEDS ORDERED: METOCLOPRAMIDE 10 MG/2 ML VIAL IVP ONE (20:56)
[2018-07-10] MEDS ORDERED: ACETAMINOPHEN 325 MG TAB PO PRN ×2 (22:00→22:02)
[2018-07-10] MEDS ORDERED: ONDANSETRON DISINTEGRATING 4 MG TAB PO PRN (22:02)
[2018-07-10] MEDS ORDERED: LORazepam 2 MG/ML INJ IVP PRN (22:02)
[2018-07-10] MEDS ORDERED: oxyCODONE IR 5 MG TAB PO PRN (22:02)
[2018-07-10] MEDS ORDERED: HYDROmorphONE/DILAUDID 1 MG/ML INJ IVP PRN (22:02)
[2018-07-10] MEDS: OLANZapine 10 MG TAB PO SCH (22:32)
[2018-07-10] MEDS: GABAPENTIN 400 MG CAP PO SCH (22:32)
[2018-07-10] MEDS: TEMAZEPAM 15 MG CAP PO SCH (22:32)
[2018-07-10] MEDS: NS 1,000 ML IV SCH (23:37)
--- NOTE | 2018-07-10 23:47 | PDGENHP ---
History and Physical - Chief Complaint n/v - History of Present Illness 72 yo F with PMH of MS, bipolar d/o presenting with c/o persistent n/v and some diarrhea. She notes that these sxs have been present for at least 3 months. She has been seen 6 times in the last two months for these issues. She has been seen by her PCP and has a plan to undergo EGD and colonoscopy in the coming weeks but her sxs have been so severe that she is back in the ER. Patient is a bit distracted during my evaluation and history is limited by that but she does state that she has lost about 10 pounds, has had some associated right sided abdominal pain without fever or chills. She states the diarrhea has been present a 'long time' but the n/v is newer. She denies any other changes in her health, no new medications. History Information - Allergies/Home Medication List Allergies/Adverse Reactions: No Known Allergies Allergy (Verified 07/10/18 19:04) Home Medications: Cholecalciferol Vit D3 [Vitamin D3 (*)] 3,000 units PO DAILY 11/10/17 [Last Taken 07/10/18] Gabapentin 800 mg PO HS 11/10/17 [Last Taken 07/09/18] Glatiramer Acetate [Copaxone] 40 mg SQ MWF 11/10/17 [Last Taken 07/10/18 13:00] Levothyroxine [Synthroid 88 mcg (*)] 88 mcg PO DAILY06 11/10/17 [Last Taken ] Lisdexamfetamine Dimesylate [Vyvanse] 70 mg PO DAILY 11/10/17 [Last Taken ] OLANZapine [Zyprexa] 10 mg PO HS 11/10/17 [Last Taken 07/09/18] Temazepam 30 mg PO HS 12/21/17 [Last Taken 07/09/18] Omeprazole 20 mg PO DAILY 07/10/18 [Last Taken 07/10/18] Ondansetron Odt [Zofran Odt 4 mg (*)] 4 mg PO Q4 PRN 07/10/18 [Last Taken 14:00] Ranitidine HCl [Zantac] 300 mg PO BID PRN 07/10/18 [Last Taken 07/09/18] I have personally reviewed and updated: family history, medical history, social history, surgical history - Past Medical History cancer (Breast cancer s/p lumpectomy and chemo/XRT in 2007), pulmonary embolism Additional medical history: Bipolar disorder. MS. Hypothyroidism. pancreatic cyst - Surgical History Reports: cholecystectomy Additional surgical history: L ENZO 04/17/17 - Family History Additional family history: Denies family hx of blood clots. Mom of metastatic breast cancer - Social History Smoking Status: Former smoker Alcohol Use: None Drug Use: None Additional social history: Lives independently. Review of Systems Review of Systems: ROS: 10pt was reviewed & negative except for what was stated in HPI & below Physical Exam Physical Exam: Temp Pulse Resp BP Pulse Ox 36.9 C 87 16 106/73 94 07/10/18 22:47 07/10/18 23:14 07/10/18 23:14 07/10/18 22:47 07/10/18 23:14 O2 (L/minute) 1 Constitutional: appears nourished, chronically ill appearing Eyes: PERRL, anicteric sclera Ears, Nose, Mouth, Throat: moist mucous membranes, hearing normal Cardiovascular: regular rate and rhythym, no murmur, rub, or gallop, No edema Respiratory: no respiratory distress, no rales or rhonchi Gastrointestinal: normoactive bowel sounds, soft, non-tender abdomen, no palpable masses Genitourinary: no bladder tenderness Skin: warm, normal color Musculoskeletal: full muscle strength Neurologic: AAOx3 Psychiatric: anxious, No thought process linear Lab Data & Imaging Review 07/10/18 19:10 07/10/18 19:10 WBC 9.29 10^3/uL (3.80-9.50) 07/10/18 19:10 RBC 4.48 10^6/uL (4.18-5.33) 07/10/18 19:10 Hgb 13.3 g/dL (12.6-16.3) 07/10/18 19:10 Hct 40.6 % (38.0-47.0) 07/10/18 19:10 MCV 90.6 fL (81.5-99.8) 07/10/18 19:10 MCH 29.7 pg (27.9-34.1) 07/10/18 19:10 MCHC 32.8 g/dL (32.4-36.7) 07/10/18 19:10 RDW 13.3 % (11.5-15.2) 07/10/18 19:10 Plt Count 331 10^3/uL (150-400) 07/10/18 19:10 MPV 9.9 fL (8.7-11.7) 07/10/18 19:10 Neut % (Auto) 68.0 % (39.3-74.2) 07/10/18 19:10 Lymph % (Auto) 21.7 % (15.0-45.0) 07/10/18 19:10 [place] % (Auto) 8.3 % (4.5-13.0) 07/10/18 19:10 Eos % (Auto) 1.2 % (0.6-7.6) 07/10/18 19:10 Baso % (Auto) 0.5 % (0.3-1.7) 07/10/18 19:10 Nucleat RBC Rel Count 0.0 % (0.0-0.2) 07/10/18 19:10 Absolute Neuts (auto) 6.31 10^3/uL (1.70-6.50) 07/10/18 19:10 Absolute Lymphs (auto) 2.02 10^3/uL (1.00-3.00) 07/10/18 19:10 Absolute Monos (auto) 0.77 10^3/uL (0.30-0.80) 07/10/18 19:10 Absolute Eos (auto) 0.11 10^3/uL (0.03-0.40) 07/10/18 19:10 Absolute Basos (auto) 0.05 10^3/uL (0.02-0.10) 07/10/18 19:10 Absolute Nucleated RBC 0.00 10^3/uL (0-0.01) 07/10/18 19:10 Immature Gran % 0.3 % (0.0-1.1) 07/10/18 19:10 Immature Gran # 0.03 10^3/uL (0.00-0.10) 07/10/18 19:10 Sodium 140 mEq/L (135-145) 07/10/18 19:10 Potassium 4.0 mEq/L (3.5-5.2) 07/10/18 19:10 Chloride 105 mEq/L (97-110) 07/10/18 19:10 Carbon Dioxide 26 mEq/l (22-31) 07/10/18 19:10 Anion Gap 9 mEq/L (6-14) 07/10/18 19:10 BUN 14 mg/dL (7-23) 07/10/18 19:10 Creatinine 1.0 mg/dL (0.6-1.0) 07/10/18 19:10 Estimated GFR 55 07/10/18 19:10 Glucose 74 mg/dL (70-100) 07/10/18 19:10 Calcium 9.0 mg/dL (8.5-10.4) 07/10/18 19:10 Total Bilirubin 0.2 mg/dL (0.1-1.4) 07/10/18 19:10 Conjugated Bilirubin 0.2 mg/dL (0.0-0.5) 07/10/18 19:10 Unconjugated Bilirubin 0.0 mg/dL (0.0-1.1) 07/10/18 19:10 AST 25 IU/L (14-46) 07/10/18 19:10 ALT 17 IU/L (9-52) 07/10/18 19:10 Alkaline Phosphatase 120 IU/L (38-126) 07/10/18 19:10 Total Protein 6.9 g/dL (6.3-8.2) 07/10/18 19:10 Albumin 3.9 g/dL (3.5-5.0) 07/10/18 19:10 Lipase 70 IU/L (23-300) 07/10/18 19:10 Ethyl Alcohol < 10 mg/dL (0-10) 07/10/18 19:10 Assessment & Plan Assessment: Vomiting (Acute) 72 yo F with PMH of MS, pancreatic cyst, bipolar d/o presenting with complaints of several months of n/v/diarrhea. # chronic n/v: with a benign exam and completely normal labs including CBC, CMP. She has an outpatient appointment to be evaluated by GI for EGD and colonoscopy and they have been consulted and plan to proceed with EGD in the am. At this time given benign exam and labs will not get imaging (abd CT in April for this) however if EGD unremarkable may need to consider imaging at that time. She does have hx of pancreatic pseudocyst last imaged by MRI in April without change from prior, lipase wnl. # diarrhea: Sounds as though this has been nearly lifelong and sounds most c/w IBS however colonoscopy is planned. # MS: per her report has been a relatively benign course, monitoring, continue copaxone # bipolar d/o: patient somewhat disorganized on exam but not clearly manic or decompensated, will continue op meds # hx of PE: no longer on AC # observation status Patient new to my care. Old records reviewed and summarized as above. Care plan reviewed with ER doctor as above.
[2018-07-11 05:03] LABS: PLATELET COUNT 261 10^3/uL (150-400)
[2018-07-11] MEDS: LEVOTHYROXINE 88 MCG TAB PO SCH (05:37)
[2018-07-11] MEDS: NS 1,000 ML IV SCH (07:53)
[2018-07-11] MEDS ORDERED: FAMOTIDINE 20 MG TAB PO PRN (09:00)
[2018-07-11] MEDS ORDERED: PANTOPRAZOLE SODIUM 40 MG TAB PO SCH (09:00)
[2018-07-11] MEDS: ONDANSETRON 4 MG/2 ML VIAL IVP PRN ×2 (10:14→13:07)
[2018-07-11] MEDS: Lisdexamfetamine Dimesylate [Vyvanse] 70 MG PO SCH ×2 (10:16→13:49)
[2018-07-11] MEDS ORDERED: NS 1,000 ML IV ONE (11:29)
[2018-07-11] MEDS: CHOLECALCIFEROL VIT D3 2,000 UNITS TAB/CAP PO SCH (11:40)
[2018-07-11] MEDS: PROMETHAZINE HCL 25 MG/ML INJ IVP PRN (11:44)
[2018-07-11] MEDS ORDERED: LR 1,000 ML IV SCH (12:00)
--- NOTE | 2018-07-11 12:01 | GCON ---
DATE OF CONSULTATION: 07/11/2018 CHIEF COMPLAINT: Nausea, vomiting. HISTORY OF PRESENT ILLNESS: I am asked to see this patient in consultation by Dr. Hernández for balbir shay complaint of nausea and vomiting. Patient is a complex 72-year-old with a long history of GI sympt oms, including chronic diarrhea. Presented in 2018 with right upper quadrant pain. Underwent cholec ystectomy and ERCP. Continues to have pain. MRI was done that showed a small cyst in the pancreas. Endoscopic ultrasound was done to evaluate that. She was thought to have some change in her esophag us consistent with Ayala's. Cyst looked benign, and repeat imaging in 6 months was recommended. S he continued to have diarrhea, now with nausea and vomiting. Was seen in our office by our nurse yana hayward and was set up for outpatient upper endoscopy, but because of significant nausea and multip le ER visits the patient was admitted. She continues to feel nauseous but less vomiting. She says s he does have heartburn symptoms and occasional dysphagia. She states she has significant diarrhea bu t has had no stools since admission. There has been no blood in her stools, no melena, no fevers or chills. Of note, overall patient is a poor historian. ALLERGIES: No known drug allergies. HOME MEDICATIONS: Include: Gabapentin, Copaxone, Synthroid, Zyprexa, temazepam, omeprazole, ondanse kerri, and ranitidine. PAST MEDICAL HISTORY: The patient has bipolar disease, multiple sclerosis, hypothyroidism, breast ca ncer in 2007, history of pulmonary embolism. SOCIAL HISTORY: Former smoker. FAMILY HISTORY: Negative for colon cancer or colon polyps. REVIEW OF SYSTEMS: I performed a complete review of systems which was negative except for the pertin ent positives and negatives noted above in the HPI. PHYSICAL EXAM: VITAL SIGNS: She is afebrile at 36.5, BP 92/51, pulse 73. GENERAL: She is alert an d oriented. EYES: No scleral icterus. OROPHARYNX: Normal. CV: Regular rhythm. CHEST: Clear to auscultation. ABDOMEN: Soft with normal bowel sounds. Some tenderness in the right upper quadrant . NEUROLOGIC: Grossly nonfocal. SKIN: No lesions. LABORATORY DATA: Show a white count of 5, hematocrit 35.7, platelets 214. ASSESSMENT: Patient with chronic diarrhea and right upper quadrant pain, now with nausea and vomitin g. She has had EUS last year. At the time, her stomach grossly appeared normal. I suspect that she probably has functional symptoms. Also, consider enteritis, ulcer disease, bowel obstruction (I thi nk less likely). Her diarrhea, in part, could be post cholecystectomy bile acid diarrhea, but this w ould be less likely cause of nausea and vomiting. PLAN: 1. Recommend upper endoscopy, which we can accomplish today. 2. If normal, I think it is reasonable to consider CT scan or eventual colonoscopy. 3. Stool studies have been ordered but have not yet been collected. Thank you for this consult. /[id number]/MODL
--- NOTE | 2018-07-11 12:14 | POSTANESTH ---
Post Anesthetic Evaluation Cardiovascular Status: Normal, Stable Respiratory Status: Normal, Stable Level of Consciousness/Mental Status: Can Participate in Eval, Moderately Sleepy Complications Possibly Related to Anesthesia: None Noted Notes: Pain and nausea stable from admission/pre-procedure.
--- NOTE | 2018-07-11 12:18 | PDGENHP ---
History & Physical Chief Complaint: n/v History of Present Illness: post choley MS Relevant Physical Exam: cv [id number]. chest CTA. abd + bs soft. asa3
--- NOTE | 2018-07-11 12:20 | PDANEPAE ---
ANE History of Present Illness 72 yo female with multiple medical issues and poorly defined GI issues for EGD. ANE Past Medical History - Cardiovascular History Hx Hypertension: No Hx Arrhythmias: No Hx Chest Pain: No Hx Coronary Artery / Peripheral Vascular Disease: No Hx CHF / Valvular Disease: No Hx Palpitations: No - Pulmonary History Hx COPD: No Hx Asthma/Reactive Airway Disease: No Hx Recent Upper Respiratory Infection: No Hx Oxygen in Use at Home: No Hx Sleep Apnea: No Sleep Apnea Screening Result - Last Documented: Negative Pulmonary History Comment: h/o PE 2018 after hip replacement - Neurologic History Hx Cerebrovascular Accident: No Hx Seizures: No Hx Dementia: No Neurologic History Comment: MS - Endocrine History Hx Diabetes: No Hypothyroid: Yes - Renal History Hx Renal Disorders: No - Liver History Hx Hepatic Disorders: No - Neurological & Psychiatric Hx Hx Neurological and Psychiatric Disorders: Yes Neurological / Psychiatric History Comment: bipolar d/o. Multiple Sclerosis - Cancer History Hx Cancer: Yes Cancer History Comment: breast cancer 2007- lumpectomy, chemo and radiation - Congenital Disorder History Hx Congenital Disorders: No - GI History Hx Gastrointestinal Disorders: Yes Gastrointestinal History Comment: diarrhea/ leaky gut d/t MS - Other Health History Other Health History: wears reading glasses - Chronic Pain History Chronic Pain: Yes (left leg pain) - Surgical History Prior Surgeries: lumpectomy- right breast ANE Review of Systems Review of Systems: - Systems Cardiac: Reports: no symptoms Respiratory: Reports: no symptoms Gastrointestinal: Reports: diarrhea, nausea ANE Patient History - Allergies Allergies/Adverse Reactions: No Known Allergies Allergy (Verified 07/10/18 19:04) - Home Medications Home Medications: Cholecalciferol Vit D3 [Vitamin D3 (*)] 3,000 units PO DAILY 11/10/17 [Last Taken 07/10/18] Gabapentin 800 mg PO 11/10/17 [Last Taken 07/09/18] Glatiramer Acetate [Copaxone] 40 mg SQ MWF 11/10/17 [Last Taken 07/10/18 13:00] Levothyroxine [Synthroid 88 mcg (*)] 88 mcg PO DAILY 11/10/17 [Last Taken ] Lisdexamfetamine Dimesylate [Vyvanse] 70 mg PO DAILY 11/10/17 [Last Taken ] OLANZapine [Zyprexa] 10 mg PO 11/10/17 [Last Taken 07/09/18] Temazepam 30 mg PO HS 12/21/17 [Last Taken 07/09/18] Omeprazole 20 mg PO DAILY 07/10/18 [Last Taken 07/10/18] Ondansetron Odt [Zofran Odt 4 mg (*)] 4 mg PO Q4 PRN 07/10/18 [Last Taken 14:00] Ranitidine HCl [Zantac] 300 mg PO BID PRN 07/10/18 [Last Taken 07/09/18] - NPO status NPO Since - Liquids (Date): 07/10/18 NPO Since - Liquids (Time): 00:01 NPO Since - Solids (Date): 07/10/18 NPO Since - Solids (Time): 00:01 - Anes Hx Anes Hx: no prior problems - Smoking Hx Smoking Status: Former smoker - Alcohol Use Alcohol Use: None - Family Anes Hx Family Anes Hx: neg - N/A Family Hx Anesthesia Complications: none ANE Labs/Vital Signs - Labs Result Diagrams: 07/11/18 04:05 07/11/18 04:05 - Vital Signs Blood Pressure: 98/67 Heart Rate: 71 Respiratory Rate: 16 O2 Sat (%): 96 Height: 162.56 cm Weight: 54.431 kg ANE Physical Exam - Airway Mallampati Score: Class 3 Mouth exam: dentures - Pulmonary Pulmonary: rhonchi - Cardiovascular Cardiovascular: regular rate and rhythym - ASA Status ASA Status: III ANE Anesthesia Plan Anesthesia Plan: GA with mask Total IV Anesthesia: Yes
[2018-07-11] MEDS ORDERED: LIDOCAINE 2% 5 ML SDV ONE (12:23)
[2018-07-11] MEDS ORDERED: PROPOFOL 200 MG/20 ML VIAL ONE ×2 (12:23)
[2018-07-11] MEDS ORDERED: NALOXONE HCL 0.4 MG/ML INJ IVP PRN (12:38)
[2018-07-11] MEDS ORDERED: LR 500 ML IV PRN (12:38)
[2018-07-11] MEDS ORDERED: ALBUTEROL 3 ML DEYVIAL IH PRN (12:38)
[2018-07-11] MEDS ORDERED: ONDANSETRON 4 MG/2 ML VIAL ONE (13:06)
--- NOTE | 2018-07-11 13:40 | GIREPORT ---
[facility] - Endoscopy Department Patient Name: Shagufta Alvarez Procedure Date: 07/11/2018 12:24 PM Patient Type: Inpatient Attending MD/ ER Physician: Valerie Mason MD Procedure: Upper GI endoscopy Indications: Nausea with vomiting Providers: Valerie Mason MD Medicines: Monitored Anesthesia Care Complications: No immediate complications. Description of Procedure: After obtaining informed consent, the endoscope was passed under direct vision. Throughout the procedure, the patient's blood pressure, pulse, and oxygen saturations were monitored continuously. The Endoscope was intro duced through the mouth, and advanced to the second part of duodenum. [facility] GI endoscopy was accomplished without difficulty. The patient tolerated th e procedure well. Findings: The Z-line was irregular and was found at the gastroesophageal junction . Biopsies were taken with a cold forceps for histology. Estimated blood loss was minimal. A medium-sized hiatal hernia was present. Moderate inflammation characterized by congestion (edema), erythema and granularity was found in the entire examined stomach. Biopsies were jerri en with a cold forceps for histology. Estimated blood loss was minimal. The examined duodenum was normal. Biopsies for histology were taken wit h a cold forceps for evaluation of celiac disease. Estimated blood loss was minimal. Estimated Blood Loss: Estimated blood loss was minimal. Post Op Diagnosis: - Z-line irregular, at the gastroesophageal junction. Biopsied. - Medium-sized hiatal hernia. - Gastritis. Biopsied. - Normal examined duodenum. Biopsied. Recommendation: - Await pathology results. - Clear liquid diet. - Use sucralfate tablets 1 gram PO QID. - If not better consider CT scan. - Repeat EGD in 3 years if biopsies show Ayala's. - [facility] for [facility]. - Thank you for allowing me to participate in the care of your patient. Attending Participation: I personally performed the entire procedure. Valerie Mason MD Valerie Mason MD 07/11/2018 1:40:35 PM This report has been signed electronicallyValerie Mason MD Number of Addenda: 0 Note Initiated On: 07/11/2018 12:24 PM [email or web address]
--- NOTE | 2018-07-11 15:03 | HOSPPROG ---
Hospitalist Progress Note Assessment/Plan: 72 yo F w bipolar, chronic diarrhea admitted after repeated er visits for abd pain w vomiting abd pain: nl lft's and lipase reasonably attributed to gastritis increase ppi to bid trial of carafate already improved after egd rhodes's: biopsied path pending diarrhea: chronic, s/o ibs stool studies ordered bipolar: continue meds dispo: change to inpt Subjective: case d/w dr aldrich. egd w likely barretts, gastritis Objective: Vital Signs Temp Pulse Resp BP Pulse Ox 36.5 C 70 20 131/88 H 97 07/11/18 13:18 07/11/18 14:19 07/11/18 14:19 07/11/18 14:19 07/11/18 14:19 Laboratory Results 07/11/18 04:05 07/11/18 04:05 07/10/18 07/11/18 07/12/18 05:59 05:59 05:59 Intake Total 1050 320 Output Total 0 Balance 1050 320 - Physical Exam Constitutional: no apparent distress, appears nourished Eyes: PERRL, anicteric sclera Ears, Nose, Mouth, Throat: moist mucous membranes, hearing normal Cardiovascular: regular rate and rhythym, no murmur, rub, or gallop Respiratory: no respiratory distress, no rales or rhonchi Gastrointestinal: normoactive bowel sounds, soft, non-tender abdomen Genitourinary: no bladder fullness, No gallo in urethra Skin: warm Musculoskeletal: full muscle strength ICD10 Worksheet Patient Problems: Problems Problem Status Onset Vomiting Acute Anxiety Acute Bilateral pulmonary embolism Acute Choledocholithiasis Acute Dehydration Acute Medication reaction Acute Nausea Acute Pubic ramus fracture Acute Right upper quadrant pain Acute chronic disease mgmt/transitional care Acute
--- NOTE | 2018-07-11 16:03 | PDMN ---
Medical Necessity Medical necessity[place] [facility] [place] Es[place] Disease, A-1day: 72 yo w/ c/o persistent n/v and diarrhea. Initially OBS for workup and GI consult, EGD performed shows gastritis, likley Barretts, pathology pending, trial carafate, stool studies ordered/pending. Pt requiring additional MN for ongoing IV antiemetics, IVF beyond scope of OBS care. Hx Breast ca in 2007, PE, bipolar, MS, hypothyroid, panc cyst. Change to IP status 07/11/18@1504 per MD order
--- NOTE | 2018-07-11 16:06 | ASMTCMCOM ---
CM Note CM Note Notes: Patient plan of care reviewed in am rounds. Patient admitted via ED for c/o nausea and vomiting following several weeks of diarrhea. GI has seen and scoped patient. Diagnosis of gastritis. CM to follow for needs. Plan: TBD Date Signed: 07/11/2018 04:06 PM Electronically Signed By:Elen Workman RN
[2018-07-11] MEDS: SUCRALFATE 1 GM TAB PO SCH ×2 (17:19→21:17)
[2018-07-11] MEDS: GABAPENTIN 400 MG CAP PO SCH (21:16)
[2018-07-11] MEDS: TEMAZEPAM 15 MG CAP PO SCH (21:16)
[2018-07-11] MEDS: OLANZapine 10 MG TAB PO SCH (21:17)
[2018-07-11] MEDS: PANTOPRAZOLE SODIUM 40 MG TAB PO SCH (21:17)
[2018-07-12] MEDS: PROMETHAZINE HCL 25 MG/ML INJ IVP PRN (03:50)
[2018-07-12] MEDS: LEVOTHYROXINE 88 MCG TAB PO SCH (05:28)
[2018-07-12] MEDS: Lisdexamfetamine Dimesylate [Vyvanse] 70 MG PO SCH (09:34)
[2018-07-12] MEDS: CHOLECALCIFEROL VIT D3 2,000 UNITS TAB/CAP PO SCH (09:35)
[2018-07-12] MEDS: SUCRALFATE 1 GM TAB PO SCH ×4 (09:36→20:29)
[2018-07-12] MEDS: PANTOPRAZOLE SODIUM 40 MG TAB PO SCH ×2 (09:36→20:30)
[2018-07-12] MEDS: ONDANSETRON 4 MG/2 ML VIAL IVP PRN ×2 (09:44→16:48)
[2018-07-12] MEDS: Glatiramer Acetate [Copaxone] 40 MG SQ SCH (10:21)
--- NOTE | 2018-07-12 10:44 | ASMTCMCOM ---
CM Note CM Note Notes: OT eval recommending HH OT vs SNF Rehab. Per OT, "pt would benefit from OT services at this time to increase overall strength and activity tolerance". PT has not been ordered. CM will follow for further recommendations. D/C Planning: TBD Date Signed: 07/12/2018 10:43 AM Electronically Signed By:Ifeoma Go
--- NOTE | 2018-07-12 12:08 | SOAPPROG ---
SOAP Progress Note Assessment/Plan: Assessment: Nausea and vomiting, still with nausea but tolerating liquids Gastritis Plan: Trial of Carafate Antiemetic Await path If tolerates PO and nausea controlled consider discharge tomorrow If not better continue evaluation for other causes for nausea and pain with CT scan of abd 07/12/18 12:05 Subjective: CC N/V Pt states still nauseous but no vomiting, note RUQ pain Objective: Vital Signs Temp Pulse Resp BP Pulse Ox 36.6 C 68 18 109/72 100 07/12/18 07:27 07/12/18 07:27 07/12/18 07:27 07/12/18 07:27 07/12/18 07:27 07/11/18 07/12/18 07/13/18 05:59 05:59 05:59 Intake Total 540 Output Total 1000 Balance -460 Physical Exam - Physical Exam General Appearance: alert Respiratory: lungs clear Cardiac/Chest: regular rate, rhythm Abdomen: non-tender, soft ICD10 Worksheet Patient Problems: Problems Problem Status Onset Vomiting Acute Anxiety Acute Bilateral pulmonary embolism Acute Choledocholithiasis Acute Dehydration Acute Medication reaction Acute Nausea Acute Pubic ramus fracture Acute Right upper quadrant pain Acute chronic disease [facility]/transitional care Acute
--- NOTE | 2018-07-12 13:07 | HOSPPROG ---
Hospitalist Progress Note Assessment/Plan: 72 yo F w bipolar, chronic diarrhea admitted after repeated er visits for abd pain w vomiting DIAGNOSES: abd pain: Gastritis seen on EGD which is the presumed cause at this time, some improvement with medical management of that so far Continue ppi bid, trial of carafate Trial of advanced diet to full liquids today rhodes's esophagus seen on endoscopy: biopsied path pending diarrhea: chronic, s/o ibs stool studies ordered the insert rounds note bipolar: continue meds Will have her try an increase physical activity and will increase diet to full liquid today, consider possible discharge tomorrow if she is improving well enough OT has suggested sniff but I think she will probably recover well enough that she could go home I reviewed in detail with Dr.Karina Mason today Seen by me on multidisciplinary rounds as well as hospitals rounds SUBJECTIVE: Feeling somewhat better again Tolerating clear liquids okay +flatus for 1st time today no bowel movement yet Walking in hallway OBJECTIVE Vitals reviewed: All stable at this time no fever 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, 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: Exam: alert oriented skin warm dry color ok resps not labored lungs clear BSs heart regular abd soft nondistended nontender, bowel sounds present limbs warm, no edema iv site ok Objective: Vital Signs Temp Pulse Resp BP Pulse Ox 36.6 C 68 18 109/72 100 07/12/18 07:27 07/12/18 07:27 07/12/18 07:27 07/12/18 07:27 07/12/18 07:27 07/11/18 07/12/18 07/13/18 06:59 06:59 06:59 Intake Total 540 Output Total 1000 Balance -460 ICD10 Worksheet Patient Problems: Problems Problem Status Onset Vomiting Acute Anxiety Acute Bilateral pulmonary embolism Acute Choledocholithiasis Acute Dehydration Acute Medication reaction Acute Nausea Acute Pubic ramus fracture Acute Right upper quadrant pain Acute chronic disease mgmt/transitional care Acute
[2018-07-12] MEDS: HYDROCODONE/APAP 5/325 TAB PO PRN ×2 (13:18→20:30)
--- NOTE | 2018-07-12 14:22 | ASMTCMCOM ---
CM Note CM Note Notes: Due to OT's recommendations PT has now been ordered. D/C Plan: presently [facility] PT vs SNF Date Signed: 07/12/2018 02:21 PM Electronically Signed By:Ifeoma Go
[2018-07-12] MEDS: GABAPENTIN 400 MG CAP PO SCH (20:29)
[2018-07-12] MEDS: TEMAZEPAM 15 MG CAP PO SCH (20:29)
[2018-07-12] MEDS: OLANZapine 10 MG TAB PO SCH (20:30)
[2018-07-13] MEDS: LEVOTHYROXINE 88 MCG TAB PO SCH (05:26)
[2018-07-13] MEDS: PANTOPRAZOLE SODIUM 40 MG TAB PO SCH ×2 (09:19→20:35)
[2018-07-13] MEDS: SUCRALFATE 1 GM TAB PO SCH ×4 (09:19→20:35)
[2018-07-13] MEDS: Lisdexamfetamine Dimesylate [Vyvanse] 70 MG PO SCH (09:19)
[2018-07-13] MEDS: CHOLECALCIFEROL VIT D3 2,000 UNITS TAB/CAP PO SCH (09:19)
[2018-07-13] MEDS: PROMETHAZINE HCL 25 MG/ML INJ IVP PRN (09:29)
[2018-07-13] MEDS: HYDROCODONE/APAP 5/325 TAB PO PRN ×2 (11:49→16:32)
--- NOTE | 2018-07-13 13:16 | HOSPPROG ---
Hospitalist Progress Note Assessment/Plan: 72 yo F w bipolar, chronic diarrhea admitted after repeated er visits for abd pain w vomiting DIAGNOSES: * abd pain, RUQ with radiation to epig/leftUQ: Gastritis seen on EGD but it was very mild on biopsy, and with poor response to therapy so far wonder if this is really cause of her symptoms * rhodes's esophagus seen on endoscopy: biopsied * diarrhea: chronic, s/o ibs stool studies ordered the insert rounds note * bipolar: continue meds At this point I am not certain of the cause of her pain. I reviewed her past medical records and numerous past imaging studies including multiple abdominal MRIs, abdominal CTs, and multiple CTs including reviewing the images with Dr. Gilbert Martinez. At this point I would wonder if she is having some type of hepatic or biliary process, progression of her pancreatic lesion, or even something like a cardiac etiology. She has having diarrhea which is a chronic issue for her. Wonder however whether something related to her diarrhea could be leading to the pain. I am not certain of the cause of her diarrhea or whether that has been actually diagnosed in the past PLANS: * Continue ppi bid, trial of carafate * CT scan of abdomen * Check EKG and troponin Seen by me on multidisciplinary rounds as well as hospitals rounds SUBJECTIVE: Still having right upper quadrant pain with radiation across the epigastrium to the left upper quadrant, still having nausea, requiring narcotic and IV antiemetic for these symptoms Is taking in some liquid diet but does not feel at all hungry No chills or sweats No other new symptom OBJECTIVE Vitals reviewed: All stable at this time no fever 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, 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: Exam: alert oriented skin warm dry color ok resps not labored lungs clear BSs heart regular abd soft nondistended nontender, bowel sounds present limbs warm, no edema iv site ok Objective: Vital Signs Temp Pulse Resp BP Pulse Ox 36.4 C 77 16 134/84 H 94 07/13/18 13:04 07/13/18 13:04 07/13/18 13:04 07/13/18 13:04 07/13/18 13:04 Microbiology 07/12/18 15:00 Gastrointestinal Tract Panel (PCR) - Final Stool No Organism Detected By Pcr 07/12/18 07/13/18 07/14/18 06:59 06:59 06:59 Intake Total 540 100 Output Total 1000 Balance -460 100 - Time Spent With Patient Time Spent with Patient: greater than 35 minutes Time Spent with Patient: Greater than 35 minutes spent on this patients care, greater than 50% of time spent counseling, educating, and coordinating care regarding the above mentioned plan. ICD10 Worksheet Patient Problems: Problems Problem Status Onset Vomiting Acute Anxiety Acute Bilateral pulmonary embolism Acute Choledocholithiasis Acute Dehydration Acute Medication reaction Acute Nausea Acute Pubic ramus fracture Acute Right upper quadrant pain Acute chronic disease mgmt/transitional care Acute
[2018-07-13] MEDS: LOPERAMIDE HCL 2 MG CAP PO PRN (13:57)
--- NOTE | 2018-07-13 13:59 | SOAPPROG ---
SOAP Progress Note Assessment/Plan: Assessment: 1. Chronic RUQ abdominal pain without GI etiology found(extensive evaluation in the past without etiology found and unrevealing EGD on this admission). Doubt biliary etiology. 2. Nausea; somewhat improved today. 3. Chronic diarrhea. Plan: 1. CT of abdomen today. 2. Agree with check of Noro virus. Micheal Acosta MD [phone] 07/13/18 14:02 Subjective: CC: RUQ abdominal pain and nausea. Interval HPI: Patient without abdominal pain today and with lessening nausea. Scheduled for CT of abdomen today. Objective: Vital Signs Temp Pulse Resp BP Pulse Ox 36.4 C 77 16 134/84 H 94 07/13/18 13:04 07/13/18 13:04 07/13/18 13:04 07/13/18 13:04 07/13/18 13:04 Microbiology 07/12/18 15:00 Gastrointestinal Tract Panel (PCR) - Final Stool No Organism Detected By Pcr 07/12/18 07/13/18 07/14/18 05:59 05:59 05:59 Intake Total 540 100 Output Total 1000 Balance -460 100 Physical Exam - Physical Exam General Appearance: alert, no apparent distress Respiratory: lungs clear, normal breath sounds Cardiac/Chest: regular rate, rhythm, edema (bilat pedal) Abdomen: normal bowel sounds, non-tender, soft Skin: normal color, warm/dry Neuro/Psych: alert, normal mood/affect, oriented x 3 ICD10 Worksheet Patient Problems: Problems Problem Status Onset Vomiting Acute Anxiety Acute Bilateral pulmonary embolism Acute Choledocholithiasis Acute Dehydration Acute Medication reaction Acute Nausea Acute Pubic ramus fracture Acute Right upper quadrant pain Acute chronic disease [facility]/transitional care Acute
[2018-07-13] MEDS: ONDANSETRON 4 MG/2 ML VIAL IVP PRN (14:00)
[2018-07-13] MEDS ORDERED: IOPAMIDOL (ISOVUE 370) 100 ML BTL IV ONE (15:50)
[2018-07-13] MEDS: TEMAZEPAM 15 MG CAP PO SCH (20:35)
[2018-07-13] MEDS: GABAPENTIN 400 MG CAP PO SCH (20:36)
[2018-07-13] MEDS: OLANZapine 10 MG TAB PO SCH (20:36)
[2018-07-14] MEDS ORDERED: NS 500 ML IV ONE (00:26)
[2018-07-14] MEDS: LEVOTHYROXINE 88 MCG TAB PO SCH (06:06)
[2018-07-14] MEDS: Lisdexamfetamine Dimesylate [Vyvanse] 70 MG PO SCH (09:37)
[2018-07-14] MEDS: CHOLECALCIFEROL VIT D3 2,000 UNITS TAB/CAP PO SCH (09:38)
[2018-07-14] MEDS: PANTOPRAZOLE SODIUM 40 MG TAB PO SCH ×2 (09:38→20:01)
[2018-07-14] MEDS: SUCRALFATE 1 GM TAB PO SCH ×4 (09:38→20:01)
[2018-07-14] MEDS: LOPERAMIDE HCL 2 MG CAP PO PRN ×2 (09:43→16:37)
[2018-07-14] MEDS: ONDANSETRON 4 MG/2 ML VIAL IVP PRN ×3 (09:43→20:02)
--- NOTE | 2018-07-14 10:10 | HOSPPROG ---
Hospitalist Progress Note Assessment/Plan: 72 yo F w bipolar, chronic diarrhea admitted after repeated er visits for abd pain w vomiting DIAGNOSES: * Chostochongritis, ? cause, possibly viral * abd pain, RUQ is largely I suspect due to the costochondritis, but ? if gastritis contributing -Gastritis seen on EGD but it was minimum-mild on biopsy, and with poor response to aggressive therapy * ?rhodes's esophagus per endoscopy but biopsy report negative for changes * diarrhea: chronic, states she has had no previous workup -no sign of infection on testing, no fever here, and no bleeding * multiple sclerosis; diffuse weakness and gait instability are acutely worsened by her current abdominal illness * bipolar: continue meds I reviewed in detail with Dr Acosta today PLANS: * I will do costochondral injection of lidocaine and celestone today * lidoderm patch * celebrex low dose * Continue ppi bid, trial of carafate * Continue PT and OT * likely dc in am if doing well * outpatient colonoscopy will be recommended and Dr Acosta agrees Seen by me on multidisciplinary rounds as well as hospitals rounds SUBJECTIVE: This am the pain was notably better. However this afternoon she has markedly increased pain at R costal margin, and has been vomiting. On further review simple movements aggravate the pain and she has pain with inspiration. Also on further review of diarrhea she now recalls she has been seen at GI of , and they recommended colonoscopy but she declined to do that. 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 there is minimal abdominal tenderness skin warm dry color ok resps not labored lungs clear BSs heart regular abd soft nondistended nontender, bowel sounds present limbs warm, no edema iv site ok Lab data: Hemoglobin improved at 12.5 Normal metabolic panel Troponin was negative yesterday Microbiology: GI pathogen panel negative Imaging: I reviewed images from CT scan of abdomen done last evening, there is no definite indication of a cause for her abdominal discomfort or diarrhea. She has previously noted cystic change in the pancreas which has been stable and remains stable at this time. There is some chronic distention of the left renal hilum that is progressed from previous studies. Objective: Vital Signs Temp Pulse Resp BP Pulse Ox 36.7 C 75 18 98/70 L 98 07/14/18 08:00 07/14/18 08:00 07/14/18 08:00 07/14/18 08:00 07/14/18 08:00 Laboratory Results 07/14/18 01:05 07/14/18 01:05 07/13/18 07/14/18 07/15/18 06:59 06:59 06:59 Intake Total 100 1150 Balance 100 1150 ICD10 Worksheet Patient Problems: Problems Problem Status Onset Vomiting Acute Anxiety Acute Bilateral pulmonary embolism Acute Choledocholithiasis Acute Dehydration Acute Medication reaction Acute Nausea Acute Pubic ramus fracture Acute Right upper quadrant pain Acute chronic disease mgmt/transitional care Acute
--- NOTE | 2018-07-14 11:14 | SOAPPROG ---
SOAP Progress Note Assessment/Plan: Assessment: 1. Chronic RUQ abdominal pain without GI etiology found(extensive evaluation in the past without etiology found and unrevealing EGD on this admission). Doubt biliary etiology. Symptoms improved today. 2. Nausea; much better today. Tolerating po liquids. 3. Chronic diarrhea with 1-2 loose BM's per day; no prior colonoscopy.. Plan: 1. LAILA, home tomorrow if continues to improve. 2. Will arrange outpatient colonoscopy to evaluation chronic diarrhea. Micheal Acosta MD [phone] 07/14/18 11:09 Subjective: CC: RUQ pain. Interval HPI: RUQ pain much improved today with nausea nearly resolved. Still having one to two loose BM's per day. No prior colonoscopy by she declines one in hospital. Objective: Vital Signs Temp Pulse Resp BP Pulse Ox 36.7 C 75 18 98/70 L 98 07/14/18 08:00 07/14/18 08:00 07/14/18 08:00 07/14/18 08:00 07/14/18 08:00 Laboratory Results 07/14/18 01:05 07/14/18 01:05 07/13/18 07/14/18 07/15/18 05:59 05:59 05:59 Intake Total 100 1150 Output Total 1200 Balance 100 1150 -1200 CT of Abdomen without significant change. Mild dilation of CBD c/w prior cholecystectomy and without change. Stool for GI pathogens negative. Physical Exam - Physical Exam General Appearance: alert, no apparent distress Respiratory: lungs clear, normal breath sounds Cardiac/Chest: regular rate, rhythm Abdomen: normal bowel sounds, non-tender, soft Skin: normal color, warm/dry Neuro/Psych: alert, normal mood/affect, oriented x 3 ICD10 Worksheet Patient Problems: Problems Problem Status Onset Vomiting Acute Anxiety Acute Bilateral pulmonary embolism Acute Choledocholithiasis Acute Dehydration Acute Medication reaction Acute Nausea Acute Pubic ramus fracture Acute Right upper quadrant pain Acute chronic disease mgmt/transitional care Acute
[2018-07-14] MEDS: PROMETHAZINE HCL 25 MG/ML INJ IVP PRN ×2 (13:04→23:13)
--- NOTE | 2018-07-14 13:21 | ASMTCMCOM ---
CM Note CM Note Notes: Plan of care reviewed in rounds, 72 year old female with MS and chronic diarrhea admitted via ED for nausea and vomiting. Patient lives alone but has supportive family.Patient appears to be doing much better up in halls with family member. Diarrhea persistent but chronic. Tolerating diet. She has been cleared per PT for home safety. CM available should other needs arise. Plan: Home independent when medically cleared. Date Signed: 07/14/2018 01:21 PM Electronically Signed By:Elen Workman RN
[2018-07-14] MEDS ORDERED: LIDOCAINE 2% 5 ML SDV IF ONE (14:49)
[2018-07-14] MEDS ORDERED: BETAMETHASONE IM SYRINGE IM ONE (14:58)
[2018-07-14] MEDS: LIDOCAINE 4%/MENTHOL 1% PATCH TD SCH (16:31)
--- NOTE | 2018-07-14 17:32 | HOSPPROG ---
Hospitalist Progress Note Assessment/Plan: Costochondral injection procedure note An area of tenderness at the mid lateral right costal margin is identified, with replication of the patient's presenting "right upper abdomen" pain After discussing the indications for medication injection, methods of procedure , alternatives complications etc the patient provided verbal informed consent After sterile prep I injected 5 mL of 2% lidocaine and 12 mg of Celestone into the tender area on the lateral and inferior aspects of the costal margin This led to prompt relief of all of her pain and tenderness. There is no bleeding or other sign of any complications. Procedure well tolerated Objective: Vital Signs Temp Pulse Resp BP Pulse Ox 36.4 C 65 18 138/89 H 94 07/14/18 16:00 07/14/18 16:00 07/14/18 16:00 07/14/18 16:00 07/14/18 16:00 Laboratory Results 07/14/18 01:05 07/14/18 01:05 07/13/18 07/14/18 07/15/18 06:59 06:59 06:59 Intake Total 100 1150 Output Total 1200 Balance 100 1150 -1200 ICD10 Worksheet Patient Problems: Problems Problem Status Onset Vomiting Acute Anxiety Acute Bilateral pulmonary embolism Acute Choledocholithiasis Acute Dehydration Acute Medication reaction Acute Nausea Acute Pubic ramus fracture Acute Right upper quadrant pain Acute chronic disease mgmt/transitional care Acute
[2018-07-14] MEDS: GABAPENTIN 400 MG CAP PO SCH (20:01)
[2018-07-14] MEDS: OLANZapine 10 MG TAB PO SCH (20:01)
[2018-07-14] MEDS: TEMAZEPAM 15 MG CAP PO SCH (20:01)
[2018-07-14] MEDS ORDERED: PATCH REMOVAL 1 EA PATCH TD SCH (21:00)
[2018-07-15] MEDS: LEVOTHYROXINE 88 MCG TAB PO SCH (06:47)
[2018-07-15 08:07] VITALS: BP 101/60
--- NOTE | 2018-07-15 09:02 | SOAPPROG ---
SOAP Progress Note Assessment/Plan: Assessment: 1. Chronic RUQ abdominal pain without GI etiology found(extensive evaluation in the past without etiology found and unrevealing EGD on this admission). Doubt biliary etiology. Symptoms improved today after injection of rib cage; likely musculoskeletal pain. 2. Nausea; much better today. 3. Chronic diarrhea with 1-2 loose BM's per day; no prior colonoscopy.. Plan: 1. LAILA, home today? 2. Will arrange outpatient colonoscopy to evaluation chronic diarrhea. Micheal Acosta MD [phone] 07/15/18 08:58 Subjective: CC: RUQ pain and nausea. Interval HPI: Patient has had resolution of RUQ pain with nerve injection in R rib cage. Nausea improved. Objective: Vital Signs Temp Pulse Resp BP Pulse Ox 36.8 C 99 18 101/60 92 07/15/18 08:00 07/15/18 08:00 07/15/18 08:00 07/15/18 08:00 07/15/18 08:00 Laboratory Results 07/14/18 01:05 07/14/18 01:05 07/14/18 07/15/18 07/16/18 05:59 05:59 05:59 Intake Total 1150 300 Output Total 1200 Balance 1150 -900 Physical Exam - Physical Exam General Appearance: alert, no apparent distress Respiratory: lungs clear, normal breath sounds Cardiac/Chest: regular rate, rhythm Abdomen: normal bowel sounds, non-tender, soft Skin: normal color, warm/dry Neuro/Psych: alert, normal mood/affect, oriented x 3 ICD10 Worksheet Patient Problems: Problems Problem Status Onset Vomiting Acute Anxiety Acute Bilateral pulmonary embolism Acute Choledocholithiasis Acute Dehydration Acute Medication reaction Acute Nausea Acute Pubic ramus fracture Acute Right upper quadrant pain Acute chronic disease mgmt/transitional care Acute
[2018-07-15] MEDS: Lisdexamfetamine Dimesylate [Vyvanse] 70 MG PO SCH (09:35)
[2018-07-15] MEDS: CHOLECALCIFEROL VIT D3 2,000 UNITS TAB/CAP PO SCH (09:35)
[2018-07-15] MEDS: SUCRALFATE 1 GM TAB PO SCH ×2 (09:36→11:56)
[2018-07-15] MEDS: LIDOCAINE 4%/MENTHOL 1% PATCH TD SCH (09:36)
[2018-07-15] MEDS: Glatiramer Acetate [Copaxone] 40 MG SQ SCH (09:36)
[2018-07-15] MEDS: PANTOPRAZOLE SODIUM 40 MG TAB PO SCH (09:36)
[2018-07-15] MEDS: LOPERAMIDE HCL 2 MG CAP PO PRN (09:48)
[2018-07-15] MEDS: ONDANSETRON 4 MG/2 ML VIAL IVP PRN (09:48)
[2018-07-15] MEDS ORDERED: PNEUMOC 13-VAL CONJ-DIP CRM/PF 0.5 ML SYR (PREVNAR 13) IM ONE ×2 (11:00→12:30)
[2018-07-15] MEDS: PROMETHAZINE HCL 25 MG/ML INJ IVP PRN (11:55)
--- NOTE | 2018-07-15 12:35 | ASMTLACE ---
LATISHA Length of stay for Answers: 3 days current admission Comorbidities - select Answers: Other Notes: MS; Hypothyroid; PE all that apply # of Emergency department Answers: 12+ visits in the last 6 months Social determinants Answers: Mental health diagnosis (anxiety, depression, pers onality disorders, etc.) Score: 13 Date Signed: 07/15/2018 12:34 PM Electronically Signed By:Elen Workman RN
--- NOTE | 2018-07-15 12:41 | ASMTCMCOM ---
CM Note CM Note Notes: Patient plan of care reviewed in rounds. She has been medically cleared for discharge to home. No needs identified at this time. CM available should needs arise. Plan: Dc to home with family support. Date Signed: 07/15/2018 12:40 PM Electronically Signed By:Elen Workman RN
--- NOTE | 2018-07-15 12:42 | PDDCSUM ---
Discharge Summary Discharge Summary: DISCHARGE DIAGNOSES: * Chostochongritis; ? cause, possibly viral * minimal to mild gastritis seen on EGD * intractable vomiting now resolved * ?rhodes's esophagus per endoscopy but biopsy report negative for changes * chronic diarrhea of uncertain etiology * chronic dilated renal pelvis, which is increased in diameter from her previous CT scan * multiple sclerosis with some worsening of her weakness and gait instability caused by her acute illness * bipolar chronic and stable CONSULTANTS: Dr. Valerie Mason PROCEDURES: Esophageal gastroduodenoscopy with gastric biopsy showing minimal to mild gastritis Abdominal CT scan showing nothing to explain her presenting pain, with unchanged chronic intrahepatic ductal dilatation, unchanged chronic thin walled cystic lesion in pancreatic body seen on multiple prior studies going back nearly 2 years, a dilation of the left renal pelvis with possible UPJ obstruction, chronic nonunion of left symphysis fracture HOSPITAL COURSE SUMMARY: This patient came to hospital complaining of pain and nausea vomiting. The pain was described as being in the upper abdomen predominantly on the right. She was taking longstanding omeprazole at home at low-dose. She also has some chronic diarrhea that was still present. There is no fever, no bleeding. There is no injury or trauma. She had had no recent changes in medicines. On initial assessment this was felt to be an abdominal problem. She went through upper endoscopy which showed minimal to mild gastritis and so she was given higher doses of proton pump inhibitor along with some Carafate. These measures however were ineffective at managing either her pain or nausea vomiting. CT scanning was done and did not show any other abnormalities that would explain her symptoms though she has some chronic abnormalities that her there. These are largely unchanged other than a slight increase in size of a dilated left renal pelvis. Stool studies were done to look for infection and there was no evidence of infection found. On reassessment of the patient's symptoms and exam, we are able to determine that the symptoms are actually due to pain at the right mid lateral costal margin which is felt to be due to costochondritis. Lidocaine and steroid injection to that area lead to prompt complete relief of all of her discomfort and is not since returned after 24 hr of observation. She still has mild nausea but is no longer vomiting and is now eating without difficulty. She is up walking in the hallway. She is felt to be stable for discharge to home at this point. She will continue on her proton pump inhibitor. The patient as mentioned has chronic diarrhea and this persists here in the hospital. Infection studies are negative. In the past it had been recommended that she have a colonoscopy but she had declined. At this point after further discussion she is agreeing to have a colonoscopy and we reviewed this with the gastrology team and they are ready to do that for her in the outpatient setting. She is instructed to call for an appointment. The patient has a previously noted dilated left renal pelvis with question of possible UPJ obstruction. On this CT scan the size of the dilated renal pelvis is increased compared to prior. Is reasonable to have her visit with the urologist at some point to see if anything needs to be done about this. She is to review review with her primary care doctor and they can arrange urology consultation. The patient does not have any symptoms related to this and has not noticed any blood in her urine. PENDING TEST RESULTS: None MEDICATION CHANGES: None FOLLOW-UP PLAN: With [facility] for colonoscopy in order to assess her chronic diarrhea With her primary care physician within 2-4 weeks She should eventually s seek opinion of urologist related to her left renal pelvis abnormalities Greater than 35 minutes bedside and care coordination time today
== END 2018-07-15 13:04 | disposition home or self-care (01) | DRG 206 ==
LOC: EDUNIT# → INTOOBSV 20:30 → F1N 22:37 → OBSVTOIN 07-11 15:04
PROVIDERS: ADMIT Internal Medicine; ATTEND Internal Medicine
DX: M94.0 Chondrocostal junction syndrome [Tietze] (principal); K29.70 Gastritis, unspecified, without bleeding; R19.7 Diarrhea, unspecified; K22.70 Barrett's esophagus without dysplasia; G35 Multiple sclerosis; K21.9 Gastro-esophageal reflux disease without esophagitis; E03.9 Hypothyroidism, unspecified; F31.9 Bipolar disorder, unspecified; Z85.3 Personal history of malignant neoplasm of breast; Z96.642 Presence of left artificial hip joint; Z87.440 Personal history of urinary (tract) infections; Z87.891 Personal history of nicotine dependence; Z23 Encounter for immunization
CPT/HCPCS: 96374; 97161-GP; 97165-GO; 97530-GO; 97535-GO; G0009; G0378; G0480; J0702; J2060; J2405; J2550; J2704; J2765; Q9967

== ENCOUNTER 2018-08-13 20:07 | Emergency (ER) | payer OTHER, MEDICAID ==
[2018-08-13] MEDS ORDERED: LIDOCAINE 2% VISCOUS 15 ML UDCUP PO ONE (20:56)
[2018-08-13] MEDS ORDERED: MAG HYDROX/AL HYDROX/SIMETH 30 ML UDCUP PO ONE (20:56)
[2018-08-13] MEDS ORDERED: HYOSCYAMINE SULFATE 0.125 MG TAB PO ONE (20:56)
[2018-08-13] MEDS ORDERED: PROMETHAZINE HCL 25 MG/ML INJ IVP ONE (20:56)
[2018-08-13] MEDS ORDERED: LORazepam 2 MG/ML INJ IVP ONE (20:56)
--- NOTE | 2018-08-13 20:59 | EDPHY ---
H & P Stated Complaint: Took 7 zofran 4mg thru day today Time Seen by Provider: 08/13/18 20:26 HPI/ROS: CHIEF COMPLAINT: Nausea, abdominal pain HISTORY OF PRESENT ILLNESS: 72-year-old female presents with persistent nausea and abdominal pain. Multiple prior ED visits for similar symptoms. She was admitted in June 2018 for nausea and abdominal pain. EGD revealed mild gastritis. After discharge home, she tells me that she has not felt better. Abdominal pain is a located in the epigastric area and is constant and moderate. Associated with persistent nausea. Today she took multiple Zofran for nausea, without much relief. She is requesting a GI cocktail. REVIEW OF SYSTEMS: complete 10 point ROS reviewed and is negative except for the noted elements in the HPI - Personal History Tetanus Vaccine Date: >10 - Medical/Surgical History Hx Asthma: No Hx Chronic Respiratory Disease: No Hx Diabetes: No Hx Cardiac Disease: No Hx Renal Disease: No Hx Cirrhosis: No Hx Alcoholism: No Hx HIV/AIDS: No Hx Splenectomy or Spleen Trauma: No Other PMH: GERD, Cholecystectomy, MS, Hypothyroid, pulmonary embolism, left hip replacement (Apr), UTI, gastritis - Social History Smoking Status: Former smoker - Physical Exam Exam: General Appearance: Alert, pleasant Eyes: Pupils equal and round, no conjunctival pallor ENT, Mouth: Mucous membranes moist Neck: Normal inspection Respiratory: Lungs are clear to auscultation Cardiovascular: Regular rate and rhythm Gastrointestinal: Abdomen is soft, mild epigastric tenderness, no peritoneal signs Neurological: A&O, nonfocal exam Skin: Warm and dry Extremities: Normal inspection Psychiatric: Mood and affect normal Constitutional: Initial Vital Signs Heart Rate 78 08/13/18 20:17 Respiratory Rate 16 08/13/18 20:17 Blood Pressure 168/101 H 08/13/18 20:17 O2 Sat (%) 97 08/13/18 20:17 O2 Delivery Mode Room Air O2 (L/minute) 36.5 Allergies/Adverse Reactions: No Known Allergies Allergy (Verified 07/10/18 19:04) Home Medications: Medication Instructions Recorded Cholecalciferol Vit D3 [Vitamin D3 3,000 units PO DAILY 11/10/17 (*)] Gabapentin 800 mg PO 11/10/17 Glatiramer Acetate [Copaxone] 40 mg SQ MWF 11/10/17 Levothyroxine [Synthroid 88 mcg 88 mcg PO DAILY06 11/10/17 (*)] Lisdexamfetamine Dimesylate 70 mg PO DAILY 11/10/17 [Vyvanse] OLANZapine [Zyprexa] 10 mg PO HS 11/10/17 Acetaminophen [Tylenol 325mg (*)] 650 mg PO Q4HRS PRN tab 11/13/17 Temazepam 30 mg PO HS 12/21/17 Omeprazole 20 mg PO DAILY 07/10/18 Ondansetron Odt [Zofran Odt 4 mg 4 mg PO Q4 PRN 07/10/18 (*)] Ranitidine HCl [Zantac] 300 mg PO BID PRN 07/10/18 Loperamide HCl [Imodium 2 mg (*)] 2 mg PO QID PRN cap 07/15/18 Promethazine HCl [Phenergan 25mg 25 mg PO BID PRN #10 tab 07/15/18 (*)] Promethazine HCl [Phenergan 25mg 25 mg PO Q4-6PRN PRN #12 tab 08/14/18 (*)] Medical Decision Making ED Course/Re-evaluation: This patient presents with ongoing nausea and anxiety. A GI cocktail, Phenergan IV and Ativan IV given.Feels much better after IV meds and wants to go home. Abd exam remains benign. This is a typical ED course for this pt, usually feels better after Phenergan and Ativan. Requests Phenergan for home use. Safe/stable for d/c home. Differential Diagnosis: Differential diagnosis includes though it is not limited to appendicitis, cholecystitis, diverticulitis, pyelonephritis, bowel perforation, small bowel obstruction. - Data Points Laboratory Results: Laboratory Results 08/13/18 20:10 08/13/18 20:10 Medications Given: Discontinued Medications Al Hydroxide/Mg Hydroxide (Maalox Susp) 30 ml PO ONCE ONE Stop: 08/13/18 20:57 Last Admin: 08/13/18 21:05 Dose: 30 ml Hyoscyamine Sulfate (Levsin, Hyomax-Sl) 0.25 mg PO ONCE ONE Stop: 08/13/18 20:57 Last Admin: 08/13/18 21:05 Dose: 0.25 mg Lidocaine (Lidocaine 2% Viscous) 15 ml PO ONCE ONE Stop: 08/13/18 20:57 Last Admin: 08/13/18 21:05 Dose: 15 ml Lorazepam (Ativan Injection) 0.5 mg IVP EDNOW ONE Stop: 08/13/18 20:57 Last Admin: 08/13/18 21:06 Dose: 0.5 mg Promethazine HCl (Phenergan) 12.5 mg IVP EDNOW ONE Stop: 08/13/18 20:57 Last Admin: 08/13/18 21:06 Dose: 12.5 mg Promethazine HCl (Phenergan 25 Mg Prepack #4) 1 btl TAKEHOME EDNOW ONE Stop: 08/13/18 22:02 Last Admin: 08/13/18 22:10 Dose: 1 btl Departure - Departure Disposition: Home, Routine, Self-Care Clinical Impression: Nausea, Anxiety Abdominal pain Qualifiers: Abdominal location: epigastric Qualified Code(s): R10.13 - Epigastric pain Condition: Good Instructions: Promethazine (By injection), Acute Nausea and Vomiting (ED), Acute Abdominal Pain (ED) Additional Instructions: 1. Clear liquids for 24 hours. 2. Advance diet as tolerated. I suggest the BRAT diet to start: bananas, rice, applesauce and toast. 3. Return for worsening symptoms, persistent vomiting, abdominal pain, any concerns. Referrals: Leann Rivera MD [Primary Care Provider] - As per Instructions
[2018-08-13 21:19] LABS: PLATELET COUNT 275 10^3/uL (150-400)
[2018-08-13] MEDS ORDERED: PROMETHAZINE 25 MG PREPACK #4 BTL TAKEHOME ONE (22:01)
[2018-08-13 22:07] VITALS: BP 158/93
== END 2018-08-13 22:19 | disposition home or self-care (01) ==
LOC: EDUNIT#
DX: R10.13 Epigastric pain (principal); R11.0 Nausea; F41.9 Anxiety disorder, unspecified; G35 Multiple sclerosis; Z90.49 Acquired absence of other specified parts of digestive tract
CPT/HCPCS: 96374; 96375; 99284; J2060; J2550

== ENCOUNTER 2018-08-14 13:42 | Emergency (ER) | payer OTHER, MEDICAID ==
[2018-08-14] MEDS ORDERED: NS 500 ML IV ONE (13:56)
[2018-08-14 14:04] LABS: PLATELET COUNT 282 10^3/uL (150-400)
[2018-08-14] MEDS ORDERED: PROMETHAZINE HCL 25 MG/ML INJ ONE (14:13)
[2018-08-14 14:16] LABS: INR 1.01 (0.83-1.16); PROTIME(PATIENT) 12.9 SEC (12.0-15.0)
[2018-08-14] MEDS ORDERED: PROMETHAZINE HCL 25 MG/ML INJ IVP ONE (14:17)
[2018-08-14] MEDS ORDERED: MAG HYDROX/AL HYDROX/SIMETH 30 ML UDCUP PO ONE (14:30)
[2018-08-14] MEDS ORDERED: HYOSCYAMINE SULFATE 0.125 MG TAB PO ONE (14:30)
[2018-08-14] MEDS ORDERED: LIDOCAINE 2% VISCOUS 15 ML UDCUP PO ONE (14:30)
[2018-08-14] MEDS ORDERED: LORazepam 2 MG/ML INJ ONE (14:34)
[2018-08-14] MEDS ORDERED: LORazepam 2 MG/ML INJ IVP ONE ×2 (14:37→15:13)
--- NOTE | 2018-08-14 14:46 | EDPHY ---
H & P Time Seen by Provider: 08/14/18 14:25 HPI/ROS: HPI Nausea vomiting, abdominal discomfort, right-sided chest pain. 72-year-old female by private vehicle. This patient was just seen in our emergency department yesterday for the same complaint except for the right- sided chest discomfort. She reports that she has had continued upper abdominal discomfort with associated nausea and vomiting, anxiety and which she describes as intermittent sharp needle-like stabbing pain right lower chest. She has been seen in our emergency department multiple times in the past for this complaint. She tells me that she was treated with Phenergan and Ativan yesterday and this worked well for her. She has not had any associated diarrhea. No bloody or melenic stool. She appears very anxious. She has had problems with her anxiety and related emergency department visit secondary to this multiple times in the past. She is requesting a GI cocktail, Ativan and Phenergan. ROS: Constitutional: No fever, no chills. No weakness. Eyes: No discharge. No changes in vision. ENT: No sore throat. No nasal congestion or rhinorrhea. Respiratory: No cough. No shortness of breath. Cardiac: As above, no palpitations. Gastrointestinal: As above. Genitourinary: No hematuria. No dysuria or increased frequency with urination. Musculoskeletal: No back pain. No neck pain. No myalgias or arthralgias. Skin: No rashes. Neurological: No headache. No focal weakness or altered sensation. Past medical history: As above, GERD, cholecystectomy, MS, hypothyroid, pulmonary embolism, left hip replacement, urinary tract infection, gastritis. Social history: She is currently here by herself. Denies alcohol. Nonsmoker. Physical Exam: General Appearance: Alert, she is anxious but not in distress. This patient is responding to questions appropriately and in full sentences. This patient appears well-hydrated and well-nourished. Eyes: Pupils equal and round no pallor or injection. No lid edema, erythema or injection. Respiratory: There are no retractions, lungs are clear to auscultation with good air movement bilaterally. Cardiovascular: Regular rate and rhythm. No murmur appreciated. Gastrointestinal: Abdomen is soft with mild and vague upper abdominal tenderness on palpation, no masses, bowel sounds normal. No focal tenderness at McBurney's point. No Barclay sign. Neurological: Motor sensory function is grossly intact. Cranial nerves are normal. Gait is normal. Skin: Warm and dry, no rashes. Musculoskeletal: Neck is supple and nontender. Extremities are symmetrical. All joints range without pain or impingement. Psychiatric: No agitation. No depression. Database: EKG: EKG time is 1:53 p.m.; EKG shows a narrow complex normal sinus rhythm with a ventricular rate of 86. The ME, QRS, QT intervals are within normal limits. There are no ST-T wave changes indicative of ischemic or injury pattern. No evidence of right heart strain. Interpreted by me. Imaging: Chest x-ray AP portable; the cardiac mediastinal silhouette is unremarkable. No evidence of infiltrate or pneumothorax. No acute cardiopulmonary disease process noted. This is a stable chest x-ray. No changes on comparison to recent June study. Interpreted by me. Procedures: Emergency department course: Triage vital signs reviewed and are normal. An IV was placed. She was started on IV normal saline with 1 L to be given over the next hour. She was initially given 12.5 mg of IV Phenergan. After my evaluation she was given 0.5 mg of IV Ativan and a GI cocktail. At this time she is not having any shortness of breath. She denies any chest discomfort. She states that she feels anxious and nauseous. Her presentation is consistent with gastritis and anxiety as she has had multiple times in the past and been evaluated for. 3:15 p.m., the patient was given an additional 0.25 mg of IV Ativan for anxiety. She is feeling much better though. 3:30 p.m., patient re-evaluated, resting comfortably at this time, repeat abdominal exam she is soft, nontender nondistended. She is taking oral fluids without issue. She feels comfortable going home. Follow-up was discussed with her thoroughly. Return to emergency department precautions reviewed. She will be prescribed Phenergan for her nausea. She was discharged home with a sober ride. Differential Diagnosis: The differential diagnosis on this patient includes but is not limited to anxiety reaction, gastritis. Cholecystitis, pulmonary embolism, acute coronary syndrome unlikely. This represents a partial list of diagnoses considered. These considerations are based on history, physical exam, past history, reassessment and diagnostic testing. Smoking Status: Former smoker Constitutional: Initial Vital Signs Temperature (C) 36.3 C 02/27/19 13:48 Heart Rate 85 08/14/18 13:48 Respiratory Rate 16 08/14/18 13:48 Blood Pressure 140/113 H 08/14/18 13:48 O2 Sat (%) 93 08/14/18 13:48 O2 Delivery Mode Room Air Allergies/Adverse Reactions: No Known Allergies Allergy (Verified 07/10/18 19:04) Home Medications: Medication Instructions Recorded Cholecalciferol Vit D3 [Vitamin D3 3,000 units PO DAILY 11/10/17 (*)] Gabapentin 800 mg PO HS 11/10/17 Glatiramer Acetate [Copaxone] 40 mg SQ MWF 11/10/17 Levothyroxine [Synthroid 88 mcg 88 mcg PO DAILY06 11/10/17 (*)] Lisdexamfetamine Dimesylate 70 mg PO DAILY 11/10/17 [Vyvanse] OLANZapine [Zyprexa] 10 mg PO HS 11/10/17 Acetaminophen [Tylenol 325mg (*)] 650 mg PO Q4HRS PRN tab 11/13/17 Temazepam 30 mg PO HS 12/21/17 Omeprazole 20 mg PO DAILY 07/10/18 Ondansetron Odt [Zofran Odt 4 mg 4 mg PO Q4 PRN 07/10/18 (*)] Ranitidine HCl [Zantac] 300 mg PO BID PRN 07/10/18 Loperamide HCl [Imodium 2 mg (*)] 2 mg PO QID PRN cap 07/15/18 Promethazine HCl [Phenergan 25mg 25 mg PO BID PRN #10 tab 07/15/18 (*)] Promethazine HCl [Phenergan 25mg 25 mg PO Q4-6PRN PRN #12 tab 08/14/18 (*)] Medical Decision Making - Diagnostics Imaging Results: Imaging Impressions Chest X-Ray 08/14/18 13:56 Impression: COPD and chronic mild interstitial prominence, with no new focal infiltrate. - Data Points Laboratory Results: Laboratory Results 08/14/18 13:45 08/14/18 13:45 08/14/18 08/14/18 08/14/18 14:01 13:45 13:45 WBC RBC Hgb Hct MCV MCH MCHC RDW Plt Count MPV Neut % (Auto) Lymph % (Auto) [place] % (Auto) Eos % (Auto) Baso % (Auto) Nucleat RBC Rel Count Absolute Neuts (auto) Absolute Lymphs (auto) Absolute Monos (auto) Absolute Eos (auto) Absolute Basos (auto) Absolute Nucleated RBC Immature Gran % Immature Gran # PT 12.9 SEC SEC (12.0-15.0) INR 1.01 (0.83-1.16) APTT 30.4 SEC SEC (23.0-38.0) Sodium 137 mEq/L mEq/L (135-145) Potassium 4.7 mEq/L mEq/L (3.5-5.2) Chloride 100 mEq/L mEq/L (97-110) Carbon Dioxide 27 mEq/l mEq/l (22-31) Anion Gap 10 mEq/L mEq/L (6-14) BUN 18 mg/dL mg/dL (7-23) Creatinine 1.1 mg/dL H mg/dL (0.6-1.0) Estimated GFR 49 Glucose 95 mg/dL mg/dL (70-100) Calcium 9.7 mg/dL mg/dL (8.5-10.4) Total Bilirubin 0.8 mg/dL mg/dL (0.1-1.4) Conjugated Bilirubin 0.3 mg/dL mg/dL (0.0-0.5) Unconjugated Bilirubin 0.5 mg/dL mg/dL (0.0-1.1) AST 27 IU/L IU/L (14-46) ALT 21 IU/L IU/L (9-52) Alkaline Phosphatase 143 IU/L H IU/L (38-126) POC Troponin I 0.00 ng/mL ng/mL (0.00-0.08) Total Protein 8.0 g/dL g/dL (6.3-8.2) Albumin 4.7 g/dL g/dL (3.5-5.0) Lipase 85 IU/L IU/L (23-300) 08/14/18 13:45 WBC 12.14 10^3/uL H 10^3/uL (3.80-9.50) RBC 5.25 10^6/uL 10^6/uL (4.18-5.33) Hgb 15.7 g/dL g/dL (12.6-16.3) Hct 48.0 % H % (38.0-47.0) MCV 91.4 fL fL (81.5-99.8) MCH 29.9 pg pg (27.9-34.1) MCHC 32.7 g/dL g/dL (32.4-36.7) RDW 14.6 % % (11.5-15.2) Plt Count 282 10^3/uL 10^3/uL (150-400) MPV 9.6 fL fL (8.7-11.7) Neut % (Auto) 72.3 % % (39.3-74.2) Lymph % (Auto) 16.9 % % (15.0-45.0) [place] % (Auto) 9.1 % % (4.5-13.0) Eos % (Auto) 0.7 % % (0.6-7.6) Baso % (Auto) 0.7 % % (0.3-1.7) Nucleat RBC Rel Count 0.0 % % (0.0-0.2) Absolute Neuts (auto) 8.78 10^3/uL H 10^3/uL (1.70-6.50) Absolute Lymphs (auto) 2.05 10^3/uL 10^3/uL (1.00-3.00) Absolute Monos (auto) 1.11 10^3/uL H 10^3/uL (0.30-0.80) Absolute Eos (auto) 0.08 10^3/uL 10^3/uL (0.03-0.40) Absolute Basos (auto) 0.08 10^3/uL 10^3/uL (0.02-0.10) Absolute Nucleated RBC 0.00 10^3/uL 10^3/uL (0-0.01) Immature Gran % 0.3 % % (0.0-1.1) Immature Gran # 0.04 10^3/uL 10^3/uL (0.00-0.10) PT INR APTT Sodium Potassium Chloride Carbon Dioxide Anion Gap BUN Creatinine Estimated GFR Glucose Calcium Total Bilirubin Conjugated Bilirubin Unconjugated Bilirubin AST ALT Alkaline Phosphatase POC Troponin I Total Protein Albumin Lipase Medications Given: Discontinued Medications Al Hydroxide/Mg Hydroxide (Maalox Susp) 30 ml PO ONCE ONE Stop: 08/14/18 14:31 Last Admin: 08/14/18 14:38 Dose: 30 ml Hyoscyamine Sulfate (Levsin, Hyomax-Sl) 0.25 mg PO ONCE ONE Stop: 08/14/18 14:31 Last Admin: 08/14/18 14:38 Dose: 0.25 mg Sodium Chloride (Ns) 500 mls @ 1,000 mls/hr IV EDNOW ONE PRN Reason: Protocol Stop: 08/14/18 14:25 Last Admin: 08/14/18 14:17 Dose: 500 mls Lidocaine (Lidocaine 2% Viscous) 15 ml PO ONCE ONE Stop: 08/14/18 14:31 Last Admin: 08/14/18 14:38 Dose: 15 ml Lorazepam (Ativan Injection) 0.5 mg IVP EDNOW ONE Stop: 08/14/18 14:38 Last Admin: 08/14/18 14:38 Dose: 0.5 mg Lorazepam (Ativan Injection) 0.25 mg IVP EDNOW ONE Stop: 08/14/18 15:14 Last Admin: 08/14/18 15:17 Dose: 0.25 mg Promethazine HCl (Phenergan) 12.5 mg IVP EDNOW ONE Stop: 08/14/18 14:18 Last Admin: 08/14/18 14:18 Dose: 12.5 mg Point of Care Test Results: Chemistry 08/14/18 14:01 POC Troponin I 0.00 ng/mL ng/mL (0.00-0.08) Departure - Departure Disposition: Home, Routine, Self-Care Clinical Impression: Nausea and vomiting, Chest discomfort, Anxiety Condition: Good Instructions: Acute Nausea and Vomiting (ED), Anxiety (ED) Additional Instructions: Read and follow provided instructions. Follow-up with your primary care physician in 1-2 days for re-evaluation as discussed. It is important you do this and that your primary care physician help you to manage your anxiety. Take medication as prescribed for nausea and vomiting. Return to the emergency department for worsening abdominal pain, worsening chest pain, shortness of breath, vomiting and inability to keep fluids down despite medications or other serious concerns. Referrals: Leann Rivera MD [Primary Care Provider] - As per Instructions Prescriptions: Promethazine HCl [Phenergan 25mg (*)] 25 mg PO Q4-6PRN PRN #12 tab PRN Reason: For Nausea & Vomiting
[2018-08-14 16:18] VITALS: BP 142/92
--- NOTE | 2018-08-15 22:40 | CPEKG ---
Test Reason : OPEN Blood Pressure : / mmHG Vent. Rate : 086 BPM Atrial Rate : 086 BPM P-R Int : 167 ms QRS Dur : 083 ms QT Int : 389 ms P-R-T Axes : 054 036 059 degrees QTc Int : 466 ms Sinus rhythm Abnormal R-wave progression, early transition Confirmed by Elijah Funez ([id number]) on 08/15/2018 10:39:36 PM Referred By: PHYSICIAN ED Confirmed By:Elijah Funez
== END 2018-08-14 16:18 | disposition home or self-care (01) ==
LOC: EDUNIT#
DX: R07.9 Chest pain, unspecified (principal); R11.2 Nausea with vomiting, unspecified; F41.9 Anxiety disorder, unspecified; J44.9 Chronic obstructive pulmonary disease, unspecified; G35 Multiple sclerosis; E86.9 Volume depletion, unspecified
CPT/HCPCS: 71045; 93005; 96374; 96375; 96376; 99285; J2060; J2550; 84484-ER

== ENCOUNTER 2018-09-03 18:45 | Emergency (ER) | payer OTHER, MEDICAID ==
[2018-09-03] MEDS ORDERED: NS 1,000 ML IV ONE (18:54)
[2018-09-03] MEDS ORDERED: PROMETHAZINE HCL 25 MG/ML INJ IVP ONE (18:54)
[2018-09-03] MEDS ORDERED: LORazepam 2 MG/ML INJ IVP ONE (19:08)
--- NOTE | 2018-09-03 19:16 | EDPHY ---
H & P Time Seen by Provider: 09/03/18 18:51 HPI/ROS: CHIEF COMPLAINT: Nausea, vomiting HISTORY OF PRESENT ILLNESS: The patient is a 72-year-old female with recurrent visits to the emergency department for similar complaints. The patient has had ongoing nausea and vomiting throughout the day. Her symptoms started this morning. She also reports nonbloody diarrhea. She has mild right upper quadrant tenderness. She states this is typical of her previous symptoms. Patient denies any fevers or chills. No trauma. REVIEW OF SYSTEMS: 10 systems were reveiwed and are negative with the exception of the elements mentioned in the history of present illness. Past Medical/Surgical History: Includes GERD, MS, hypothyroidism, PE, UTI, gastritis Past surgical history: Includes cholecystectomy, hip replacement the Social history: Patient denies smoking Smoking Status: Former smoker Physical Exam: Vitals noted. 36.4, 164/90, 74, 18, 95% on room air GENERAL: Mild acute distress, alert. HEENT: Eyes normal to inspection, normal pharynx, no signs of dehydration. Moist mucous membranes. NECK: Normal, supple. RESPIRATORY: Clear to auscultation bilaterally, no rales, rhonchi or wheezing. CVS: Regular rate and rhythm, no rubs, murmurs, or gallops. ABDOMEN: Soft, minimal right upper quadrant tenderness palpation with no rebound or guarding, nondistended, no organomegaly. BACK: Normal to inspection, no CVA tenderness. SKIN: Normal color, no rash, warm, dry. No pallor. EXTREMITIES: No pedal edema, no calf tenderness, no Homans sign or cords, no joint swelling. NEURO/PSYCH: Alert and oriented, normal mood and affect, normal motor sensory exam. Constitutional: Initial Vital Signs Temperature (C) 36.4 C 09/03/18 18:50 Heart Rate 74 09/03/18 18:50 Respiratory Rate 18 09/03/18 18:50 Blood Pressure 164/98 H 09/03/18 18:50 O2 Sat (%) 95 09/03/18 18:50 O2 Delivery Mode Room Air Allergies/Adverse Reactions: No Known Allergies Allergy (Verified 07/10/18 19:04) Home Medications: Medication Instructions Recorded Cholecalciferol Vit D3 [Vitamin D3 3,000 units PO DAILY 11/10/17 (*)] Gabapentin 800 mg PO HS 11/10/17 Glatiramer Acetate [Copaxone] 40 mg SQ MWF 11/10/17 Levothyroxine [Synthroid 88 mcg 88 mcg PO DAILY06 11/10/17 (*)] Lisdexamfetamine Dimesylate 70 mg PO DAILY 11/10/17 [Vyvanse] OLANZapine [Zyprexa] 10 mg PO HS 11/10/17 Acetaminophen [Tylenol 325mg (*)] 650 mg PO Q4HRS PRN tab 11/13/17 Temazepam 30 mg PO HS 12/21/17 Omeprazole 20 mg PO DAILY 07/10/18 Ondansetron Odt [Zofran Odt 4 mg 4 mg PO Q4 PRN 07/10/18 (*)] Ranitidine HCl [Zantac] 300 mg PO BID PRN 07/10/18 Loperamide HCl [Imodium 2 mg (*)] 2 mg PO QID PRN cap 07/15/18 Promethazine HCl [Phenergan 25mg 25 mg PO BID PRN #10 tab 07/15/18 (*)] Promethazine HCl [Phenergan 25mg 25 mg PO Q4-6PRN PRN #12 tab 08/14/18 (*)] Medical Decision Making ED Course/Re-evaluation: In the emergency department I discussed possible etiologies with the patient. I answered all her questions. I reviewed previous medical record. EMS had placed an IV. She was given 1 L of normal saline for hydration. Patient prefers Phenergan to Zofran. She is given Phenergan 12.5 mg IV. Patient complained legs IV. Patient was given Ativan 1 mg IV. CBC and chemistry are unremarkable. On recheck the patient was stable. I discussed disposition options. The patient feels comfortable with discharge. She was given a take-home pack of Phenergan. She is given warnings prior to leaving. Differential Diagnosis: My differential includes but is not limited to small-bowel obstruction, perforation, cholangitis, pancreatitis, cyclic vomiting, dehydration, electrolyte abnormality - Data Points Laboratory Results: Laboratory Results 09/03/18 18:45 09/03/18 18:45 09/03/18 09/03/18 18:45 18:45 WBC 7.96 10^3/uL 10^3/uL (3.80-9.50) RBC 4.91 10^6/uL 10^6/uL (4.18-5.33) Hgb 14.4 g/dL g/dL (12.6-16.3) Hct 44.1 % % (38.0-47.0) MCV 89.8 fL fL (81.5-99.8) MCH 29.3 pg pg (27.9-34.1) MCHC 32.7 g/dL g/dL (32.4-36.7) RDW 14.8 % % (11.5-15.2) Plt Count 276 10^3/uL 10^3/uL (150-400) MPV 10.0 fL fL (8.7-11.7) Neut % (Auto) 62.0 % % (39.3-74.2) Lymph % (Auto) 28.6 % % (15.0-45.0) Coal % (Auto) 7.5 % % (4.5-13.0) Eos % (Auto) 1.1 % % (0.6-7.6) Baso % (Auto) 0.4 % % (0.3-1.7) Nucleat RBC Rel Count 0.0 % % (0.0-0.2) Absolute Neuts (auto) 4.93 10^3/uL 10^3/uL (1.70-6.50) Absolute Lymphs (auto) 2.28 10^3/uL 10^3/uL (1.00-3.00) Absolute Monos (auto) 0.60 10^3/uL 10^3/uL (0.30-0.80) Absolute Eos (auto) 0.09 10^3/uL 10^3/uL (0.03-0.40) Absolute Basos (auto) 0.03 10^3/uL 10^3/uL (0.02-0.10) Absolute Nucleated RBC 0.00 10^3/uL 10^3/uL (0-0.01) Immature Gran % 0.4 % % (0.0-1.1) Immature Gran # 0.03 10^3/uL 10^3/uL (0.00-0.10) Sodium 137 mEq/L mEq/L (135-145) Potassium 4.6 mEq/L mEq/L (3.5-5.2) Chloride 100 mEq/L mEq/L (97-110) Carbon Dioxide 27 mEq/l mEq/l (22-31) Anion Gap 10 mEq/L mEq/L (6-14) BUN 16 mg/dL mg/dL (7-23) Creatinine 0.9 mg/dL mg/dL (0.6-1.0) Estimated GFR > 60 Glucose 93 mg/dL mg/dL (70-100) Calcium 9.8 mg/dL mg/dL (8.5-10.4) Medications Given: Discontinued Medications Sodium Chloride (Ns) 1,000 mls @ 0 mls/hr IV ONCE ONE; Wide Open PRN Reason: Protocol Stop: 09/03/18 18:55 Last Admin: 09/03/18 18:57 Dose: 1,000 mls Lorazepam (Ativan Injection) 1 mg IVP EDNOW ONE Stop: 09/03/18 19:09 Last Admin: 09/03/18 19:13 Dose: 1 mg Promethazine HCl (Phenergan) 12.5 mg IVP ONCE ONE Stop: 09/03/18 18:55 Last Admin: 09/03/18 18:57 Dose: 12.5 mg Departure - Departure Disposition: Home, Routine, Self-Care Clinical Impression: Vomiting Qualifiers: Vomiting type: unspecified Vomiting Intractability: non-intractable Nausea presence: with nausea Qualified Code(s): R11.2 - Nausea with vomiting, unspecified Condition: Good Instructions: Acute Nausea and Vomiting (ED) Additional Instructions: Return with increasing vomiting, fever, abdominal pain or any other concerns. Referrals: Leann Rivera MD [Primary Care Provider] - 5-7 days, call for appt.
[2018-09-03 19:17] LABS: PLATELET COUNT 276 10^3/uL (150-400)
[2018-09-03 20:14] VITALS: BP 130/89
[2018-09-03] MEDS ORDERED: PROMETHAZINE 25 MG PREPACK #4 BTL TAKEHOME ONE (20:41)
== END 2018-09-03 20:55 | disposition home or self-care (01) ==
LOC: EDUNIT#
DX: R11.2 Nausea with vomiting, unspecified (principal); R19.7 Diarrhea, unspecified; R10.11 Right upper quadrant pain; E86.9 Volume depletion, unspecified; G35 Multiple sclerosis
CPT/HCPCS: 96361; 96374; 96375; 96376; 99284; J2060; J2550

== ENCOUNTER 2018-09-04 09:00 | Emergency (ER) | payer OTHER, MEDICAID ==
[2018-09-04] MEDS ORDERED: PROMETHAZINE HCL 25 MG TAB PO ONE (09:19)
--- NOTE | 2018-09-04 09:49 | EDPHY ---
H & P Stated Complaint: Nausea requesting phenergan Time Seen by Provider: 09/04/18 09:36 HPI/ROS: HPI: This is a 72-year-old female who presents with Chief Complaint: Nausea requesting Phenergan Location: GI Quality: Nausea Duration: Several days Signs and Symptoms: no fever,+ nausea, no vomiting, no hematemesis, no blood in stool, no abdominal bloating, no diarrhea, no back pain, no urinary symptoms, no vaginal bleeding/discharge, no indigestion, no chest pain, no shortness of breath Timing: Acute on chronic Severity: Mild Context: Patient presents for the 2nd time to the emergency room within 24 hr with complaints of nausea. She reports that she needs some Phenergan. She was seen in the emergency room room yesterday with unremarkable laboratory studies and given a prescription for Phenergan. Patient reports that she has not filled her per Phenergan prescription from yesterday or made an appointment with Gastroenterology of the [facility]. Chart review shows that CT abdomen and pelvis scan on 07/13/2018 shows persistent mild dilatation of extra hepatic biliary system. Previous MRCP exam did not demonstrate distal common bile duct calculus. Stable septated thin walled cystic lesion pancreatic body probably representing epithelial cyst versus possibility of intraductal papillary mucinous neoplasm with repeat follow-up in 12 months and constipation. Patient was seen in this emergency room on 08/14/2018 as well for similar complaints. And July she had a negative GI workup and cardiac workup. Patient reports that she had an EGD performed by GI of the [facility] 2 months ago that showed gastritis. Patient reports that she has not taking Nexium or Protonix. Modifying Factors: None Comment: ROS: A comprehensive 10 system review of systems is otherwise negative aside from elements mentioned in the history of present illness. MEDICAL/SURGICAL/SOCIAL HISTORY: Medical history: GERD, MS, Hypothyroid, pulmonary embolism, UTI, gastritis Surgical history: Cholecystectomy, left hip replacement April 2017 Social history: Retired. Former smoker. Family history noncontributory. CONSTITUTIONAL: Completely well-appearing elderly white female walking around the room placing objects in her purse, awake and alert, no obvious distress HEENT: Atraumatic and normocephalic, PERRL, EOMI. Nares patent; no rhinorrhea; no nasal mucosal edema. Tympanic membranes clear. Oropharynx clear, no exudate and moist pink mucosa. Airway patent. No lymphadenopathy. No meningismus. Cardiovascular: Normal S1/S2, regular rate, regular rhythm, without murmur rub or gallop. PULMONARY/CHEST: Symmetrical and nontender. Clear to auscultation bilaterally. Good air movement. No accessory muscle usage. ABDOMEN: Soft, nondistended, mild right upper quadrant tenderness, no rebound, no guarding, no peritoneal signs, no masses or organomegaly. No CVAT. EXTREMITIES: 2/2 pulses, strength 5/5, no deformities, no clubbing, no cyanosis or edema. NEUROLOGICAL: no focal neuro deficits. GCS 15. SKIN: Warm and dry, no erythema. no rash. Good capillary refill. Source: Patient, Old records Exam Limitations: No limitations - Personal History Current Tetanus/Diphtheria Vaccine: Yes Current Tetanus Diphtheria and Acellular Pertussis (TDAP): Yes Tetanus Vaccine Date: >10 - Medical/Surgical History Hx Asthma: No Hx Chronic Respiratory Disease: No Hx Diabetes: No Hx Cardiac Disease: No Hx Renal Disease: No Hx Cirrhosis: No Hx Alcoholism: No Hx HIV/AIDS: No Hx Splenectomy or Spleen Trauma: No Other PMH: GERD, Cholecystectomy, MS, Hypothyroid, pulmonary embolism, left hip replacement (Apr), UTI, gastritis - Social History Smoking Status: Former smoker Constitutional: Initial Vital Signs Temperature (C) 36.5 C 09/04/18 09:03 Heart Rate 79 09/04/18 09:03 Respiratory Rate 16 09/04/18 09:03 Blood Pressure 151/95 H 09/04/18 09:03 O2 Sat (%) 96 09/04/18 09:03 O2 Delivery Mode Room Air Allergies/Adverse Reactions: No Known Allergies Allergy (Verified 07/10/18 19:04) Home Medications: Medication Instructions Recorded Cholecalciferol Vit D3 [Vitamin D3 3,000 units PO DAILY 11/10/17 (*)] Gabapentin 800 mg PO 11/10/17 Glatiramer Acetate [Copaxone] 40 mg SQ [facility] 11/10/17 Levothyroxine [Synthroid 88 mcg 88 mcg PO DAILY 11/10/17 (*)] Lisdexamfetamine Dimesylate 70 mg PO DAILY 11/10/17 [Vyvanse] OLANZapine [Zyprexa] 10 mg PO 11/10/17 Acetaminophen [Tylenol 325mg (*)] 650 mg PO Q4HRS PRN tab 11/13/17 Temazepam 30 mg PO HS 12/21/17 Omeprazole 20 mg PO DAILY 07/10/18 Ondansetron Odt [Zofran Odt 4 mg 4 mg PO Q4 PRN 07/10/18 (*)] Ranitidine HCl [Zantac] 300 mg PO BID PRN 07/10/18 Loperamide HCl [Imodium 2 mg (*)] 2 mg PO QID PRN cap 07/15/18 Promethazine HCl [Phenergan 25mg 25 mg PO BID PRN #10 tab 07/15/18 (*)] Promethazine HCl [Phenergan 25mg 25 mg PO Q4-6PRN PRN #12 tab 08/14/18 (*)] Omeprazole 40 mg PO DAILY #10 capsule. 09/04/18 Promethazine HCl 25 mg PO Q6 PRN #10 tablet 09/04/18 Medical Decision Making - Diagnostics Imaging Results: Imaging Impressions Abdomen Ultrasound 09/04/18 09:50 Impression: Similar appearing extrahepatic ductal dilatation, which can be normal in postcholecystectomy state. ED Course/Re-evaluation: Vital signs reviewed and stable upon arrival. IV access, laboratory studies, ultrasound ordered Given 1 L normal saline and IV promethazine 12.5 mg I Suspect her MS is contributing to her symptoms. Case management consult. 1028: Spoke with Jenny who advised that patient has a follow-up appoint with PCP this week and a new prescription of Phenergan will be given. Patient given a cab voucher back home. 1030: Called by Radiology that ultrasound shows: Similar appearing extrahepatic ductal dilatation, which can be normal in postcholecystectomy state. 1210: Labs reviewed. No signs of leukocytosis/anemia/platelet dysfunction/JOCELYN/ elevated LFTs/electrolyte imbalance/pancreatitis. Creatinine 1.1 Reassessed patient who is drinking juice and eating crackers without difficulty. Discharge home in a cab, Rx Phenergan, PCP and [facility] follow up This patient was seen under the supervision of my secondary supervising physician. I evaluated care for this patient with attending. Differential Diagnosis: Abdominal pain including but not limited to appendicitis, cholecystitis, gastritis and urinary tract infection. - Data Points Laboratory Results: Laboratory Results 09/04/18 11:05 09/04/18 11:55 09/04/18 09/04/18 11:55 11:05 WBC 7.48 10^3/uL 10^3/uL (3.80-9.50) RBC 4.72 10^6/uL 10^6/uL (4.18-5.33) Hgb 13.7 g/dL g/dL (12.6-16.3) Hct 41.5 % % (38.0-47.0) MCV 87.9 fL fL (81.5-99.8) MCH 29.0 pg pg (27.9-34.1) MCHC 33.0 g/dL g/dL (32.4-36.7) RDW 14.8 % % (11.5-15.2) Plt Count 250 10^3/uL 10^3/uL (150-400) MPV 9.6 fL fL (8.7-11.7) Neut % (Auto) 67.5 % % (39.3-74.2) Lymph % (Auto) 24.2 % % (15.0-45.0) [place] % (Auto) 6.6 % % (4.5-13.0) Eos % (Auto) 1.1 % % (0.6-7.6) Baso % (Auto) 0.3 % % (0.3-1.7) Nucleat RBC Rel Count 0.0 % % (0.0-0.2) Absolute Neuts (auto) 5.06 10^3/uL 10^3/uL (1.70-6.50) Absolute Lymphs (auto) 1.81 10^3/uL 10^3/uL (1.00-3.00) Absolute Monos (auto) 0.49 10^3/uL 10^3/uL (0.30-0.80) Absolute Eos (auto) 0.08 10^3/uL 10^3/uL (0.03-0.40) Absolute Basos (auto) 0.02 10^3/uL 10^3/uL (0.02-0.10) Absolute Nucleated RBC 0.00 10^3/uL 10^3/uL (0-0.01) Immature Gran % 0.3 % % (0.0-1.1) Immature Gran # 0.02 10^3/uL 10^3/uL (0.00-0.10) Sodium 138 mEq/L mEq/L (135-145) Potassium 4.5 mEq/L mEq/L (3.5-5.2) Chloride 103 mEq/L mEq/L (97-110) Carbon Dioxide 23 mEq/l mEq/l (22-31) Anion Gap 12 mEq/L mEq/L (6-14) BUN 18 mg/dL mg/dL (7-23) Creatinine 1.1 mg/dL H mg/dL (0.6-1.0) Estimated GFR 49 Glucose 99 mg/dL mg/dL (70-100) Calcium 9.2 mg/dL mg/dL (8.5-10.4) Total Bilirubin 0.6 mg/dL mg/dL (0.1-1.4) Conjugated Bilirubin 0.6 mg/dL H mg/dL (0.0-0.5) Unconjugated Bilirubin 0.0 mg/dL mg/dL (0.0-1.1) AST 30 IU/L IU/L (14-46) ALT 22 IU/L IU/L (9-52) Alkaline Phosphatase 99 IU/L IU/L (38-126) Total Protein 7.1 g/dL g/dL (6.3-8.2) Albumin 4.2 g/dL g/dL (3.5-5.0) Lipase 66 IU/L IU/L (23-300) Medications Given: Discontinued Medications Sodium Chloride (Ns) 1,000 mls @ 0 mls/hr IV EDNOW ONE; Wide Open PRN Reason: Protocol Stop: 09/04/18 09:51 Last Admin: 09/04/18 11:35 Dose: 1,000 mls Pantoprazole Sodium (Protonix) 40 mg IVP ONCE ONE Stop: 09/04/18 09:51 Last Admin: 09/04/18 11:37 Dose: 40 mg Promethazine HCl (Phenergan) 25 mg PO EDNOW ONE Stop: 09/04/18 09:20 Last Admin: 09/04/18 09:25 Dose: 25 mg Departure - Departure Disposition: Home, Routine, Self-Care Clinical Impression: Multiple sclerosis Gastritis without bleeding Qualifiers: Gastritis type: unspecified gastritis Chronicity: chronic Qualified Code(s): K29.50 - Unspecified chronic gastritis without bleeding GERD (gastroesophageal reflux disease) Qualifiers: Esophagitis presence: esophagitis presence not specified Qualified Code(s): K21.9 - Gastro-esophageal reflux disease without esophagitis Condition: Good Instructions: Gastritis (ED), Diet for Stomach Ulcers and Gastritis (ED), Gastroesophageal Reflux Disease (ED) Additional Instructions: Consume a minimum of 8-10 glasses of water or electrolyte fluid replacement drinks that include Gatorade, Powerade, Pedialyte. Eat a bland diet for the next 48 hours and then slowly advance as tolerated. Take promethazine 1 tab every 6 hours as needed for nausea, vomiting. Take omeprazole every morning. Follow-up with your primary care provider this week and [facility] of [facility] in the next 1-2 weeks. Referrals: Leann Rivera MD [Primary Care Provider] - As per Instructions Prescriptions: Omeprazole 40 mg PO DAILY #10 capsule. Promethazine HCl 25 mg PO Q6 PRN #10 tablet PRN Reason: Nausea/Vomiting, Use 1st
[2018-09-04] MEDS ORDERED: NS 1,000 ML IV ONE (09:50)
[2018-09-04] MEDS ORDERED: PANTOPRAZOLE SODIUM 40 MG VIAL IVP ONE (09:50)
[2018-09-04 12:06] LABS: PLATELET COUNT 250 10^3/uL (150-400)
[2018-09-04 12:22] VITALS: BP 141/67
--- NOTE | 2018-09-04 13:05 | ASMTCMCOM ---
CM Note CM Note Notes: Patient is well known to this CM and the ED. She was here yesterday with a similar complaint of nausea. Chart reviewed and met with patient to discuss follow up plans with PCP. Patient acknowledges that she was here yesterday but returned today because she thought it was Sunday. "Otherwise I would have called the doctor". Patient also states that she called an ambulance to come to the ED because she was feeling nauseated. Patient acknowledges that she received "2 take home pills for nausea" yesterday and that they "helped". Patient is oriented X 4 at this time. She has a history of anxiety and I discussed this with her in regard to calling an ambulance for "nausea". Patient admits that she likely did not need to call an ambulance and apologizes for thinking it was Sunday. We discussed follow up plans with her PCP, Dr. Rivera and patient tells me that she just missed a call from Wilda (Senior Linux Unix Engineer at Dr. Rivera's office) and will call her back when she gets home. This CM escorted patient to [facility] at [facility] upon discharge so she could fill her prescriptions. I assisted patient with calling a cab as well and patient is comfortable waiting at the main entrance until cab arrives. I have contacted Venessa at Dr. Rivera's office and informed her of patient's return ED visit. Venessa confirms that they are aware of patient's ED visit from yesterday and will alert Dr. Rivera and Wilda of patient's return today and will follow up with patient. Date Signed: 09/04/2018 01:05 PM Electronically Signed By:Jenny Lauren RN
== END 2018-09-04 12:17 | disposition home or self-care (01) ==
LOC: EDUNIT#
DX: G35 Multiple sclerosis (principal); K29.50 Unspecified chronic gastritis without bleeding; K21.9 Gastro-esophageal reflux disease without esophagitis; E86.9 Volume depletion, unspecified; Z86.711 Personal history of pulmonary embolism
CPT/HCPCS: 96374

== ENCOUNTER 2018-09-13 08:53 | Emergency (ER) | payer OTHER, MEDICAID ==
[2018-09-13] MEDS ORDERED: PROMETHAZINE HCL 25 MG TAB PO ONE (08:59)
[2018-09-13] MEDS ORDERED: OLANZapine 2.5 MG TAB PO ONE (08:59)
[2018-09-13] MEDS ORDERED: GABAPENTIN 100 MG CAP PO ONE (09:00)
--- NOTE | 2018-09-13 09:09 | EDPHY ---
H & P Time Seen by Provider: 09/13/18 09:01 HPI/ROS: HPI: This is a 72-year-old female who presents with Chief Complaint: Nausea Location: GI Quality: Nausea Duration: This morning Signs and Symptoms: no fever, + nausea, no vomiting, no hematemesis, no blood in stool, no abdominal bloating, no diarrhea, no back pain, no urinary symptoms , no vaginal bleeding/discharge, no indigestion, no chest pain, no shortness of breath Timing: Acute on chronic Severity: [id number] Context: Patient has a history GERD, multiple sclerosis, gastritis presents via EMS with waking up this morning approximately 30 min to 45 min prior to arrival and having nausea. She reports that she did not eat any food yesterday due to nausea. She has not ate or drank anything today. Patient was seen in this emergency room by myself on 09/04/2018 with extensive laboratory and ultrasound workup that was essentially unremarkable. Patient is well-known to this emergency room and to myself. She has had 19 visits this year to the emergency room. After further questioning patient reports that she was only given 10 tablets of Phenergan at discharge on 09/04/2018 by myself. She reports that she did not have any Phenergan this morning. She reports that she did not call her primary care provider for refill of her Phenergan or follow-up with her primary care provider or Gastroenterology per recommendation of last ER visit. She further reports that her daughter has been in the crib being in out of town and she has not had her regular home medications for 2-3 days. These medications of concern include Zyprexa and gabapentin. Modifying Factors: IV Zofran 4 mg given by EMS Comment: ROS: A comprehensive 10 system review of systems is otherwise negative aside from elements mentioned in the history of present illness. MEDICAL/SURGICAL/SOCIAL HISTORY: Medical history: GERD, MS, Hypothyroid, pulmonary embolism, UTI, gastritis Surgical history: Cholecystectomy, left hip replacement Social history: Lives alone. Disabled. Family history noncontributory. CONSTITUTIONAL: Chronically ill-appearing but nontoxic-appearing elderly white female. awake and alert, no obvious distress HEENT: Atraumatic and normocephalic, PERRL, EOMI. Nares patent; no rhinorrhea; no nasal mucosal edema. Tympanic membranes clear. Oropharynx clear, no exudate and moist pink mucosa. Airway patent. No lymphadenopathy. No meningismus. Cardiovascular: Normal S1/S2, regular rate, regular rhythm, without murmur rub or gallop. PULMONARY/CHEST: Symmetrical and nontender. Clear to auscultation bilaterally. Good air movement. No accessory muscle usage. ABDOMEN: Soft, nondistended, mild right upper quadrant tenderness noted, no rebound, no guarding, no peritoneal signs, no masses or organomegaly. No CVAT. EXTREMITIES: 2/2 pulses, strength 5/5, no deformities, no clubbing, no cyanosis or edema. NEUROLOGICAL: no focal neuro deficits. GCS 15. SKIN: Warm and dry, no erythema. no rash. Good capillary refill. Source: Patient, RN/MD, Old records Exam Limitations: No limitations - Personal History Tetanus Vaccine Date: >10 - Medical/Surgical History Hx Asthma: No Hx Chronic Respiratory Disease: No Hx Diabetes: No Hx Cardiac Disease: No Hx Renal Disease: No Hx Cirrhosis: No Hx Alcoholism: No Hx HIV/AIDS: No Hx Splenectomy or Spleen Trauma: No Other PMH: GERD, Cholecystectomy, MS, Hypothyroid, pulmonary embolism, left hip replacement (Apr), UTI, gastritis - Social History Smoking Status: Former smoker Constitutional: Initial Vital Signs Temperature (C) 36.4 C 09/13/18 09:02 Heart Rate 80 09/13/18 09:02 Respiratory Rate 16 09/13/18 09:02 Blood Pressure 153/89 H 09/13/18 09:02 O2 Sat (%) 95 09/13/18 09:02 O2 Delivery Mode Room Air Allergies/Adverse Reactions: No Known Allergies Allergy (Verified 09/13/18 09:04) Home Medications: Medication Instructions Recorded Gabapentin 800 mg PO HS 11/10/17 OLANZapine [Zyprexa] 10 mg PO HS 11/10/17 Temazepam 30 mg PO HS 12/21/17 Promethazine HCl [Phenergan 25mg 25 mg PO BID PRN #10 tab 07/15/18 (*)] Omeprazole 40 mg PO DAILY #10 capsule. 09/13/18 Promethazine HCl 25 mg PO Q6 PRN #10 tablet 09/13/18 Medical Decision Making ED Course/Re-evaluation: Vital signs reviewed and stable upon arrival. Will not obtain laboratory studies or imaging as she has had this performed several times this month and has been unremarkable. She does not appear to be septic and is at baseline. She has well-hydrated and moist oral mucous membranes. Patient given Phenergan 25 mg and then home medications of Zyprexa, Protonix 40 mg substituted for omeprazole, Ativan 0.5 mg and gabapentin Case management consult as patient will require Phenergan prescription to be filled as she has no transportation and daughter out of town. Patient is nearing the point where she would benefit from assisted living facility placement. She has politely declined this to me for the 2nd time. CM confirms college and career counselor involvement in transportation to PCP appointments. Appointment with PCP is next September 20. This patient was seen under the supervision of my secondary supervising physician. I evaluated care for this patient independently. Differential Diagnosis: Differential diagnosis includes but is not limited to chronic nausea and vomiting, medications, gastritis, GERD, electrolyte imbalance, dehydration. - Data Points Medications Given: Discontinued Medications Gabapentin (Neurontin) 400 mg PO EDNOW ONE Stop: 09/13/18 09:01 Last Admin: 09/13/18 09:14 Dose: 400 mg Lorazepam (Ativan) 0.5 mg PO EDNOW ONE Stop: 09/13/18 10:15 Last Admin: 09/13/18 10:19 Dose: 0.5 mg Olanzapine (Zyprexa) 5 mg PO ONCE ONE Stop: 09/13/18 09:00 Last Admin: 09/13/18 09:14 Dose: 5 mg Pantoprazole Sodium (Protonix) 40 mg PO EDNOW ONE Stop: 09/13/18 10:15 Last Admin: 09/13/18 10:19 Dose: 40 mg Promethazine HCl (Phenergan) 25 mg PO EDNOW ONE Stop: 09/13/18 09:00 Last Admin: 09/13/18 09:14 Dose: 25 mg Departure - Departure Disposition: Home, Routine, Self-Care Clinical Impression: Chronic nausea, Has run out of medications, Chronic right upper quadrant pain Condition: Good Instructions: Acute Nausea and Vomiting (ED), Chronic Abdominal Pain (ED) Additional Instructions: Consume a minimum of 8-10 glasses of water or electrolyte fluid replacement drinks that include Gatorade, Powerade, Pedialyte. Eat a bland diet for the next 48 hours and then slowly advance as tolerated. Take omeprazole 40 mg every morning as prescribed. Take Phenergan 1 tab every 4 hours as needed for nausea, vomiting. Please go to your primary care appointment next Sunday, September 20. Referrals: Leann Rivera MD [Primary Care Provider] - 09/20/18 Prescriptions: Omeprazole 40 mg PO DAILY #10 capsule. Promethazine HCl 25 mg PO Q6 PRN #10 tablet PRN Reason: Nausea/Vomiting, Use 1st
[2018-09-13] MEDS ORDERED: LORazepam 0.5 MG TAB PO ONE (10:14)
[2018-09-13] MEDS ORDERED: PANTOPRAZOLE SODIUM 40 MG TAB PO ONE (10:14)
[2018-09-13 12:07] VITALS: BP 130/107
--- NOTE | 2018-09-13 18:33 | ASMTCMCOM ---
CM Note CM Note Notes: Pt presented to the ED via EMS from home for nausea. This is the pt's 9th ED visit this year. Pt had 17 ED visits in 2018 (w/4 admissions). Pt was recently seen in the ED 09/04 for the same reason; please see that visit's CM Report. Pt has had a Narcotic Caution and Benzodiazepine Caution since at least 06/12/12 (Please ED CM Note from that visit). Also see various past CM Reports lawrence. 01/13/18, 09/02 & 09/03/17, etc. for additional background information. Spoke w/pt and she states that she ran out of the phenergan that was filled on 09/04 because she didn't followup with her PCP Dr Rivera as recommended upon DC on 09/04. Pt states her daughter Valentine and son-in-law Christopher are on vacation in the [facility] & they return to [place] either today or tomorrow; pt states that Valentine "accidentally took my medications with her." But upon further discussion, the pt states the last time she took Vyvanse was Sunday morning and the last time she took Temazepam and Zyprexa was Sunday night. Pt has a longstanding history of taking her home medications more often than prescribed (in particular, her Zyprexa, Temazepam, and Vyvanse). CM asked the pt if it might have been possible that Valentine gave her enough medications to last her through today or tomorrow, but maybe she took more than she was supposed to a couple of times and that lead her to run out early? Pt responded "yeah probably, sometimes I forget if I've already taken my medication." CM contacted pt's PCP Dr Leann Rivera at [facility] [place] [facility] (office: [phone]) and spoke w/Wilda, RN Spectral Scientist (direct: [phone]). Wilda states she has been trying to get pt in for a followup appt for the past few months. Wilda states pt's last visit was 05/24/18. CM mentioned that pt is followed by Dr Briones at [facility] (per past chart review, pt's CM there used to be Alia Barrera [id number]). Wilda states she will reach out to their web content & social media manager there at [facility] to see if they can reach out to [facility] and help collaborate/coordinate efforts with pt's outpatient care needs. Pt also still needs to schedule a follow-up at [facility] but pt said "but I'll go see Dr Rivera first." CM was able to get pt an appointment w/Dr Rivera on Sunday09/20/18 at 2:40pm. Pt is appreciative and agreeable to making it to this appt; pt states that Valentine will most likely be able to transport her to the appt but if not, the pt is aware of scheduling a Medicaid cab in advance. Pt provided another Rxn for Phenergan and a Rxn for Omeprazole; both of these Rxns were filled at [facility] and delivered to the pt in the ED. CM called and arranged a Medicaid cab for the pt to return home. Pt states she still receives non-skilled home care assistance from [facility]. Pt has had skilled HC in the past through [facility]. Initially pt did not want CM to try to reach Valentine (for the usual reason of " she will be mad at me for coming to the ER") but eventually pt said it would be okay so that CM could make sure Valentine was aware of pt's followup appt. CM attempted to call Valentine ([phone], ) but there was no answer. Pt did not want a voicemail to be left, so CM plans on following up with the pt and Valentine on Sunday. Date Signed: 09/13/2018 06:32 PM Electronically Signed By:Mandy Orona RN
== END 2018-09-13 11:50 | disposition home or self-care (01) ==
LOC: EDUNIT#
DX: R11.0 Nausea (principal); R10.11 Right upper quadrant pain; Z76.0 Encounter for issue of repeat prescription

== ENCOUNTER 2018-10-09 17:28 | Emergency (ER) | payer OTHER, MEDICAID ==
[2018-10-09] MEDS ORDERED: MAG HYDROX/AL HYDROX/SIMETH 30 ML UDCUP PO ONE (17:46)
[2018-10-09] MEDS ORDERED: LIDOCAINE 2% VISCOUS 15 ML UDCUP PO ONE (17:46)
[2018-10-09] MEDS ORDERED: HYOSCYAMINE SULFATE 0.125 MG TAB PO ONE (17:46)
[2018-10-09 18:05] LABS: PLATELET COUNT 274 10^3/uL (150-400)
[2018-10-09 18:58] VITALS: BP 143/91
[2018-10-09] MEDS ORDERED: PROMETHAZINE HCL 25 MG TAB PO ONE (19:02)
--- NOTE | 2018-10-09 19:02 | EDPHY ---
H & P Stated Complaint: Pt BIBA from home with report of RUQ pain w/ associated NV. Time Seen by Provider: 10/09/18 17:32 HPI/ROS: Chief complaint: Right upper quadrant abdominal pain History of present illness: This is a 72-year-old female who presents to the emergency department with EMS for right upper quadrant abdominal pain. Patient has a long history of similar type pain. She has been seen in this ER multiple times for similar pain. She states she has had increasing pain over the last few days. She has had nausea and vomiting. No report of fevers. No report of diarrhea. No report of blood in the stools. She reports normal urination. Review of systems: A 10 point review of systems was obtained and other than described above was negative. - Personal History Current Tetanus/Diphtheria Vaccine: No Current Tetanus Diphtheria and Acellular Pertussis (TDAP): No Tetanus Vaccine Date: >10 - Medical/Surgical History Hx Asthma: No Hx Chronic Respiratory Disease: No Hx Diabetes: No Hx Cardiac Disease: No Hx Renal Disease: No Hx Cirrhosis: No Hx Alcoholism: No Hx HIV/AIDS: No Hx Splenectomy or Spleen Trauma: No Other PMH: GERD, Cholecystectomy, MS, Hypothyroid, pulmonary embolism, left hip replacement (Apr), UTI, gastritis - Social History Smoking Status: Former smoker - Physical Exam Exam: General Appearance: Alert, no distress. Eyes: Pupils equal and round no pallor or injection. ENT, Mouth: Mucous membranes moist. Respiratory: There are no retractions, lungs are clear to auscultation. Cardiovascular: Regular rate and rhythm. Gastrointestinal: Bowel sounds normal. Abdomen is soft. No distention. Mild tenderness in the right upper quadrant otherwise nontender. No guarding or peritoneal signs. Neurological: Alert. Strength and sensation intact and symmetrical. Skin: Warm and dry, no rashes. Musculoskeletal: Neck is supple non tender. Extremities are symmetrical, full range of motion. Psychiatric: Patient is oriented X 3, there is no agitation. Constitutional: Initial Vital Signs Heart Rate 75 10/09/18 17:34 Respiratory Rate 16 10/09/18 17:34 Blood Pressure 152/95 H 10/09/18 17:34 O2 Sat (%) 97 10/09/18 17:34 O2 Delivery Mode Room Air O2 (L/minute) 36.5 Allergies/Adverse Reactions: No Known Allergies Allergy (Verified 09/13/18 09:04) Home Medications: Medication Instructions Recorded Gabapentin 800 mg PO HS 11/10/17 OLANZapine [Zyprexa] 10 mg PO HS 11/10/17 Temazepam 30 mg PO HS 12/21/17 Promethazine HCl [Phenergan 25mg 25 mg PO BID PRN #10 tab 07/15/18 (*)] Omeprazole 40 mg PO DAILY #10 capsule. 09/13/18 Promethazine HCl 25 mg PO Q6 PRN #10 tablet 09/13/18 Promethazine HCl [Phenergan] 25 mg PO Q6 #15 tab 10/09/18 Medical Decision Making ED Course/Re-evaluation: Patient seen under the supervision of my primary supervising physician Dr. Adenike Melton. Patient presents to the emergency department for abdominal pain. She has been seen multiple times in the past for similar. She has seen her primary care doctor as well for this problem. She has a benign abdominal exam. Blood studies unremarkable. Significant improvement after she is given a GI cocktail. She is given Phenergan and will be discharged home on Phenergan as this has helped in the past. She is again asked to follow up with her primary care doctor for recheck. Return precautions are given. Differential Diagnosis: Included but not limited to gastritis, duodenitis, peptic ulcer disease, duodenal ulcer, biliary tract disease, she has had her gallbladder out, urinary tract disease unlikely - Data Points Laboratory Results: Laboratory Results 10/09/18 17:50 10/09/18 17:50 10/09/18 10/09/18 17:50 17:50 WBC 8.60 10^3/uL 10^3/uL (3.80-9.50) RBC 5.23 10^6/uL 10^6/uL (4.18-5.33) Hgb 15.4 g/dL g/dL (12.6-16.3) Hct 47.2 % H % (38.0-47.0) MCV 90.2 fL fL (81.5-99.8) MCH 29.4 pg pg (27.9-34.1) MCHC 32.6 g/dL g/dL (32.4-36.7) RDW 14.3 % % (11.5-15.2) Plt Count 274 10^3/uL 10^3/uL (150-400) MPV 9.4 fL fL (8.7-11.7) Neut % (Auto) 62.4 % % (39.3-74.2) Lymph % (Auto) 29.0 % % (15.0-45.0) [place] % (Auto) 6.5 % % (4.5-13.0) Eos % (Auto) 1.0 % % (0.6-7.6) Baso % (Auto) 0.9 % % (0.3-1.7) Nucleat RBC Rel Count 0.0 % % (0.0-0.2) Absolute Neuts (auto) 5.36 10^3/uL 10^3/uL (1.70-6.50) Absolute Lymphs (auto) 2.49 10^3/uL 10^3/uL (1.00-3.00) Absolute Monos (auto) 0.56 10^3/uL 10^3/uL (0.30-0.80) Absolute Eos (auto) 0.09 10^3/uL 10^3/uL (0.03-0.40) Absolute Basos (auto) 0.08 10^3/uL 10^3/uL (0.02-0.10) Absolute Nucleated RBC 0.00 10^3/uL 10^3/uL (0-0.01) Immature Gran % 0.2 % % (0.0-1.1) Immature Gran # 0.02 10^3/uL 10^3/uL (0.00-0.10) ESR Cancelled Sodium 140 mEq/L mEq/L (135-145) Potassium 4.0 mEq/L mEq/L (3.5-5.2) Chloride 103 mEq/L mEq/L (97-110) Carbon Dioxide 23 mEq/l mEq/l (22-31) Anion Gap 14 mEq/L mEq/L (6-14) BUN 18 mg/dL mg/dL (7-23) Creatinine 1.3 mg/dL H mg/dL (0.6-1.0) Estimated GFR 40 Glucose 96 mg/dL mg/dL (70-100) Calcium 9.5 mg/dL mg/dL (8.5-10.4) Total Bilirubin 0.3 mg/dL mg/dL (0.1-1.4) Conjugated Bilirubin 0.1 mg/dL mg/dL (0.0-0.5) Unconjugated Bilirubin 0.2 mg/dL mg/dL (0.0-1.1) AST 35 IU/L IU/L (14-46) ALT 18 IU/L IU/L (9-52) Alkaline Phosphatase 126 IU/L IU/L (38-126) Total Protein 7.4 g/dL g/dL (6.3-8.2) Albumin 4.3 g/dL g/dL (3.5-5.0) Lipase 42 IU/L IU/L (23-300) Medications Given: Discontinued Medications Al Hydroxide/Mg Hydroxide (Maalox Susp) 30 ml PO ONCE ONE Stop: 10/09/18 17:47 Last Admin: 10/09/18 17:56 Dose: 30 ml Hyoscyamine Sulfate (Levsin, Hyomax-Sl) 0.25 mg PO ONCE ONE Stop: 10/09/18 17:47 Last Admin: 10/09/18 17:56 Dose: 0.25 mg Lidocaine (Lidocaine 2% Viscous) 15 ml PO ONCE ONE Stop: 10/09/18 17:47 Last Admin: 10/09/18 17:56 Dose: 15 ml Promethazine HCl (Phenergan) 25 mg PO EDNOW ONE Stop: 10/09/18 19:03 Last Admin: 10/09/18 19:07 Dose: 25 mg Departure - Departure Disposition: Home, Routine, Self-Care Clinical Impression: Abdominal pain Qualifiers: Abdominal location: right upper quadrant Qualified Code(s): R10.11 - Right upper quadrant pain Condition: Good Instructions: Acute Abdominal Pain (ED) Additional Instructions: Follow-up with your primary care doctor for continued evaluation and care If symptoms worsen or new symptoms develop return to the emergency room for recheck Referrals: Leann Rivera MD [Primary Care Provider] - As per Instructions Prescriptions: Promethazine HCl [Phenergan] 25 mg PO Q6 #15 tab
== END 2018-10-09 19:08 | disposition home or self-care (01) ==
LOC: EDUNIT#
DX: R10.11 Right upper quadrant pain (principal)

== ENCOUNTER 2018-10-23 13:59 | Emergency (ER) | payer OTHER, MEDICAID ==
[2018-10-23] MEDS ORDERED: MAG HYDROX/AL HYDROX/SIMETH 30 ML UDCUP PO ONE (14:08)
[2018-10-23] MEDS ORDERED: PROMETHAZINE HCL 25 MG TAB PO ONE (14:08)
[2018-10-23] MEDS ORDERED: HYOSCYAMINE SULFATE 0.125 MG TAB PO ONE (14:08)
[2018-10-23] MEDS ORDERED: LIDOCAINE 2% VISCOUS 15 ML UDCUP PO ONE (14:08)
--- NOTE | 2018-10-23 14:08 | EDPHY ---
H & P Time Seen by Provider: 10/23/18 14:02 HPI/ROS: CHIEF COMPLAINT: Nausea and anxiety HISTORY OF PRESENT ILLNESS: Patient is had multiple visits for this before. Was admitted this year in June. Presents with identical symptoms to previous. She says she has nausea and severe anxiety. She has intermittent right upper quadrant and right lower chest pain which is been evaluated at her previous admission, along with chronic diarrhea which both her unchanged. No shortness of breath and no cough. No vomiting. Nausea is better with Phenergan although she says she ran out 4 days ago. REVIEW OF SYSTEMS: Eye: no change in vision ENT: no sore throat Cardiac: No left-sided chest pain, no palpitations or syncope Pulmonary: no cough or SOB Abdomen: HPI Musculoskeletal: HPI no leg swelling Skin: no rash Neuro: no headache Constitutional: no fever : no urinary symptoms A comprehensive 10 point review of systems is otherwise negative aside from elements mentioned in the history of present illness. PAST MEDICAL HISTORY: Includes bipolar disorder, costochondritis, chronic nausea and anxiety. Admitted in June discharge 07/11/2018 had EGD showed mild gastritis. Social history: The lives independently with her cat Rinku General Appearance: Alert and conversant, cooperative. Eyes: No scleral icterus. ENT, Mouth: Normal mucous membranes. Respiratory: Normal respiratory effort, breath sounds equal, lungs are clear to auscultation. Cardiovascular: Regular rate and rhythm. Gastrointestinal: Abdomen is soft and non tender. No Barclay sign, no rebound or guarding. Neurological: Alert, face symmetric, normal motor and sensory in extremities. Skin: Warm and dry, no rashes. Musculoskeletal: No leg tenderness, very mild right lower rib tenderness below her breast. Psychiatric: Moderately anxious. Emergency Department course/MDM: The patient presents with identical symptoms to previous. She is given GI cocktail and Phenergan. She is asking for Ativan which I declined to give her. 1440: Feels better, warned she needs follow-up with her primary care Dr. Rivera in the office, will give for about 1 week of Phenergan prescription. Smoking Status: Former smoker Constitutional: Initial Vital Signs Temperature (C) 36.4 C 10/23/18 14:06 Heart Rate 82 10/23/18 14:06 Respiratory Rate 16 10/23/18 14:06 Blood Pressure 155/103 H 10/23/18 14:06 O2 Sat (%) 95 10/23/18 14:06 O2 Delivery Mode Room Air Allergies/Adverse Reactions: No Known Allergies Allergy (Verified 10/23/18 14:06) Home Medications: Medication Instructions Recorded Gabapentin 800 mg PO HS 11/10/17 OLANZapine [Zyprexa] 10 mg PO HS 11/10/17 Temazepam 30 mg PO HS 12/21/17 Promethazine HCl [Phenergan 25mg 25 mg PO BID PRN #10 tab 07/15/18 (*)] Omeprazole 40 mg PO DAILY #10 capsule.dr 09/13/18 Promethazine HCl 25 mg PO Q6 PRN #10 tablet 09/13/18 Promethazine HCl [Phenergan] 25 mg PO Q6 #15 tab 10/09/18 Medical Decision Making - Data Points Medications Given: Discontinued Medications Al Hydroxide/Mg Hydroxide (Maalox Susp) 30 ml PO ONCE ONE Stop: 10/23/18 14:09 Last Admin: 10/23/18 14:20 Dose: 30 ml Hyoscyamine Sulfate (Levsin, Hyomax-Sl) 0.25 mg PO ONCE ONE Stop: 10/23/18 14:09 Last Admin: 10/23/18 14:20 Dose: 0.25 mg Lidocaine (Lidocaine 2% Viscous) 15 ml PO ONCE ONE Stop: 10/23/18 14:09 Last Admin: 10/23/18 14:20 Dose: 15 ml Promethazine HCl (Phenergan) 25 mg PO EDNOW ONE Stop: 10/23/18 14:09 Last Admin: 10/23/18 14:20 Dose: 25 mg Departure - Departure Disposition: Home, Routine, Self-Care Clinical Impression: Nausea, Anxiety Condition: Good Instructions: Generalized Anxiety Disorder (ED), Acute Nausea and Vomiting (ED) Referrals: Leann Rivera MD [Primary Care Provider] - As per Instructions
[2018-10-23 15:32] VITALS: BP 150/102
--- NOTE | 2018-10-23 16:31 | ASMTCMCOM ---
CM Note CM Note Notes: Patient well known to this CM and the ER arrives with complaints of nausea and requesting "Phenergan" prescription. See ER report for details as well as most recent CM notes on 09/13 and 09/04. This CM met with patient to discuss return to ER and follow up with her PCP Dr. Rivera. Patient tells me that she will be picking up her medication tomorrow morning at [facility]) that are prescribed by Dr. Briones and needs a prescription today for her nausea. We discussed patient's history of anxiety and previously discussed methods for patient to decrease her anxiety such as deep breathing, exercise, decreasing caffiene, etc. Patient apologizes for returning to the ER and again asks if she can have medication and a precription. This CM has contacted patient's daughter Valentine and confirmed that she is taking patient to the clinic tomorrow to picker / packer her medication. Valentine explains that she takes patient every to picker / packer a weeks worth of her medication. Valentine also confirms that patient did make it to her last scheduled appointment with Dr. Rivera on 09/20/18 but admits that patient still needs to follow up with GI studies and labs (see CM note from 09/13/18), I have contatced Wilda RN health care coach at Dr. Rivera's office to inform her of patient's return to the ER. Wilda confirms that patient was at her last scheduled visit (09/20/18) and Wilda states that she will call patient tomorrow to follow up about her return to the ER, follow up with GI and to schedule an appointment. I informed Wilda of our plan to give patient a dose of Phenergan in the ER to treat her complaints but we were NOT planning to send patient home with medication or a prescription. Wilda agrees with this plan to not encourage patient's continued non-emergent visits to the ER for medication refills. This CM met with patient after speaking with Valentine and Wilda and informed her that Wilda would call her tomorrow to follow up and schedule an appointment. patient expresses frustration that we would not be providing her a prescription for Phenergan. I assured patient that while we would give her a dose of medication in the ER, we are not a prescriber for her ongoing meds and refills. I reminded patient that she was picking up her medications tomorrow and that I had confirmed that Valentine was planning to take her. To this patient states, "thats only my psych meds, not my Phenergan". I suggested that patient discuss this with Wilda tomorrow when she calls to schedule follow up with Dr. Rivera. This CM called a Medicaid cab for patient #[id number] for tranport home. Date Signed: 10/23/2018 04:30 PM Electronically Signed By:Jenny Lauren RN
== END 2018-10-23 15:31 | disposition home or self-care (01) ==
LOC: EDUNIT#
DX: F41.1 Generalized anxiety disorder (principal); K52.9 Noninfective gastroenteritis and colitis, unspecified; F31.9 Bipolar disorder, unspecified; Z79.899 Other long term (current) drug therapy

== ENCOUNTER 2018-12-02 02:38 | Emergency (ER) | payer OTHER, MEDICAID | END 2018-12-02 03:22 | disposition home or self-care (01) ==

== ENCOUNTER 2018-12-08 17:33 | Emergency (ER) | payer OTHER, MEDICAID | END 2018-12-08 19:17 | disposition home or self-care (01) ==